=== PATIENT | male | born 1930 | race American Indian/Alaskan Native ===

== ENCOUNTER 2016-04-23 06:48 | Inpatient (IN) | payer MEDICARE ==
[2016-04-23] MEDS ORDERED: SODIUM CHLORIDE FLUSH SYRINGE 10 ML IV NR (07:00)
[2016-04-23 08:00] LABS: Basophils % (Auto) 0.2 % (0.0-1.8); Eosinophils % (Auto) 0.1 % (0.0-4.3); Hematocrit 25.7 % (35.5-45.6); Hemoglobin 8.2 gm/dl (11.8-15.2); Mean Corpuscular HGB Conc 32 % (32-34); Mean Corpuscular Hemoglobin 29 pg (28-32); Mean Corpuscular Volume 91 fl (84-94); Platelet Count 259 K/mm3 (140-440); Red Blood Count 2.81 M/mm3 (3.65-5.03); Red Cell Distribution Width 18.7 % (13.2-15.2); White Blood Count 18.7 K/mm3 (4.5-11.0)
[2016-04-23 08:08] LABS: INR 1.33 (0.87-1.13)
[2016-04-23 08:09] LABS: Calcium 8.4 mg/dL (8.4-10.2); Chloride 99.8 mmol/L (98-107); Partial Thromboplastin Time 37.5 Sec. (24.2-36.6); Potassium 5.3 mmol/L (3.6-5.0)
[2016-04-23] MEDS ORDERED: HEPARIN/NS 5000 UNIT/500ML(CATH LAB) 0 ML IR ONE (08:36)
[2016-04-23] MEDS ORDERED: LEVAQUIN 500MG/100ML 100 ML IV ONE (08:36)
[2016-04-23] MEDS ORDERED: XYLOCAINE 1%/ EPI 1:100,000 INFILTRATI ONE (08:36)
[2016-04-23] MEDS ORDERED: NACL 0.9% 500 ML 500 ML ONE (08:38)
[2016-04-23] MEDS ORDERED: NACL 0.9% 500 ML IR ONE (08:55)
[2016-04-23] MEDS ORDERED: NACL 0.9% 500 ML 500 ML IV SCH (09:00)
[2016-04-23] MEDS: SUBLIMAZE ONE ×3 (09:15→09:40)
[2016-04-23] MEDS: VERSED ONE ×2 (09:15→09:40)
--- NOTE | 2016-04-23 09:59 | Short Stay Summary ---
Short Stay Documentation Date of service: 04/23/16 - History Principal diagnosis: Malfunctioning right nephrostomy tube Past Medical History: cancer (prostate), ESRD Past Surgical History: Other (bilateral neph tubes) Social history: no significant social history - Allergies and Medications Current Medications: Allergies No Known Allergies Allergy (Verified 01/17/16 13:24) Home Medications Medication Instructions Recorded Confirmed Last Taken Type Docusate Sodium [Colace CAP] 100 mg PO BID #60 capsule 11/05/15 04/23/16 Rx Abiraterone Acetate [Zytiga] 1,000 mg PO QDAY 12/17/15 04/23/16 04/22/16 History 1000mg Sodium Bicarbonate 1,300 mg PO BID #60 tablet 12/29/15 04/23/16 04/22/16 Rx 1300mg Zolpidem [Ambien] 5 mg PO QHS PRN #30 tablet 12/29/15 04/23/16 04/22/16 Rx 5mg Tamsulosin [Flomax] 0.8 mg PO QHS 01/18/16 04/23/16 04/22/16 History 0.8mg HYDROcodone/APAP 10-325 [[place] 1 each PO Q6HR PRN #24 tablet 02/10/16 04/23/16 03/13/16 Rx 10/325] Calcitriol [Rocaltrol] 0.5 mcg PO QDAY capsule 03/03/16 04/23/16 04/22/16 Rx 0.5mcg Calcium Carbonate [Oscal] 1,300 mg PO BID tablet 03/03/16 04/23/16 04/22/16 Rx 1300mg Carvedilol [Coreg] 3.125 mg PO DAILY #30 tablet 03/03/16 04/23/16 04/22/16 Rx 3.125mg Megestrol [Megace] 400 mg PO QDAY #60 oral.liqd 03/03/16 04/23/16 04/22/16 Rx 400mg Pantoprazole [Protonix TAB] 40 mg PO QDAY #30 tablet 03/03/16 04/23/16 04/22/16 Rx 40mg fentaNYL [Duragesic] 75 mcg TD Q3D #10 patch 03/03/16 04/23/16 04/22/16 Rx 75mcg predniSONE [Deltasone] 5 mg PO QDAY tablet 03/03/16 04/23/16 04/22/16 Rx 5mg Active Medications Sodium Chloride (Nacl 0.9% 500 Ml) 500 mls @ 50 mls/hr IV DIRECT [facility]ARMIS Sodium Chloride (Sodium Chloride Flush Syringe 10 Ml) 10 ml IV PRN NR Stop: 04/25/16 06:59 - Physical exam General appearance: no acute distress HEENT: Atraumatic Lungs: Normal air movement Breasts: deferred Heart: Regular rate Gastrointestinal: normal Male Genitourinary: deferred Rectal Exam: deferred Extremities: no ischemia Neurological: Normal speech - Brief post op/procedure progress note Date of procedure: 04/23/16 Pre-op diagnosis: Malfunctioning nephrostomy tube Post-op diagnosis: same Procedure: Left neph tube exchange, right neph tube placement Anesthesia: local Surgeon: JOSELINE STOKES Estimated blood loss: minimal Specimen disposition: to lab Condition: stable - Disposition Condition at discharge: Good Disposition: DC/TX SHORT-TERM GEN HOSP INPT Short Stay Discharge Plan Activity: advance as tolerated Weight Bearing Status: Weight Bear as Tolerated Diet: regular Wound: keep clean and dry, per your surgeon's advice
--- NOTE | 2016-04-23 10:06 | Operative Report ---
Operative Report Operative Report: EXAM: EXAM: LEFT SIDED NEPHROSTOMY TUBE EXCHANGE, ULTRASOUND AND FLUOROSCOPIC GUIDED PLACEMENT OF RIGHT SIDED NEPHROSTOMY TUBE CLINICAL INDICATION: PATIENT PRESENTS WITH A HISTORY OF DECREASED OUTPUT OF HIS RIGHT NEPHROSTOMY TUBE. DATE: 04/23/2016 PROCEDURE: Following an explanation of the risks, benefits and alternatives; written informed consent was obtained. The patient was brought to the angiographic suite and placed in prone position on the examination table. His back and bilateral indwelling nephrostomy tubes were prepped and draped in the usual sterile fashion. 1% lidocaine was used for anesthesia. Left: A gentle injection of contrast was performed through the indwelling left sided nephrostomy tube. This demonstrates retraction of the nephrostomy tube into a posterior inferior calyx. There is continuity between this calyx and the renal pelvis and the kidney is decompressed. The catheter was cut to release the pigtail and a 0.035 guidewire was advanced through the catheter and manipulated into the renal pelvis. The indwelling nephrostomy tube was then removed intact. A 4 [place] vertebral catheter was placed over the guidewire and together the guidewire and catheter advanced into the proximal ureter. The guidewire was exchanged for a 0.035 [place] guidewire which was advanced into the proximal ureter. A new 20 [place] pigtail nephrostomy tube was then placed over the guidewire and advanced to position the pigtail within the renal pelvis. The guidewire and trocar were removed. Gentle injection of contrast devastated appropriate positioning of the pigtail within the renal pelvis. The kidney remains decompressed. Right: Initial fluoroscopic images demonstrated retraction of the right sided nephrostomy tube. Gentle injection of contrast through the indwelling right sided nephrostomy tube demonstrated that his it has been pulled out entirely from the kidney. Attempts to cannulate the tract using a 4 [place] vertebral catheter and 0.035 guidewire were unsuccessful, therefore a decision was made to place a new nephrostomy tube. Under ultrasound guidance, a 15 cm 21-gauge needle was advanced into a posterior medial calyx in the right kidney. A 0.018 guidewire was advanced and coiled within the renal pelvis. An AccuStick transition dilator was then placed over the guidewire and advanced to the renal pelvis. Contrast was gently injected through the transition dilator which demonstrated appropriate positioning and access site. A 0.035 guidewire was then advanced through the transition dilator into the proximal ureter. The transition dilator was removed and a 4 [place] vertebral catheter was used to further advance the guidewire into the distal ureter. Following serial dilation, a 10 [place] nephrostomy tube was placed over the guidewire and advanced to position the pigtail within the renal pelvis. There was prompt return of purulent serous fluid. A sample was obtained and sent for laboratory analysis. A gentle injection of contrast was then performed to document appropriate positioning of the pigtail within the renal pelvis and an additional 30 mL's of purulent fluid was aspirated gently. Both catheters were securely fastened of the skin surface using 2-0 Ethilon suture and placed a dependent drainage. Sterile dressings were then applied. The patient tolerated the procedure well. There were no immediate post procedure complications. Conscious sedation was performed under the guidance of radiologic nursing. The operative antibiotics were also given. IMPRESSION: 1) Fluoroscopic guided left nephrostogram demonstrating decompressed left kidney with retraction of the left nephrostomy tube. 2) Exchange of left nephrostomy tube under fluoroscopy. 3) Right nephrostogram through indwelling nephrostomy tube demonstrating traction of the nephrostomy tube outside the kidney. 4) Ultrasound and fluoroscopic guided placement of new right 10 [place] nephrostomy tube with sample of purulent urine sent for laboratory analysis. 5) Given the patient's elevated white count and the presence of purulent fluid within his right kidney, the patient was admitted to the hospital for further evaluation.
[2016-04-23] MEDS ORDERED: ZOFRAN IV PRN (11:17)
[2016-04-23] MEDS ORDERED: DULCOLAX PR PRN (11:17)
[2016-04-23] MEDS ORDERED: MILK OF MAGNESIA PO PRN (11:17)
[2016-04-23] MEDS ORDERED: NACL 0.9% 1000 ML 1,000 ML ONE (11:44)
[2016-04-23] MEDS: NACL 0.9% 1000 ML 1,000 ML IV SCH (11:55)
[2016-04-23] MEDS ORDERED: LEVAQUIN 750MG/150ML 150 ML IV SCH (12:00)
[2016-04-23] MEDS ORDERED: PEPCID IV SCH (12:00)
--- NOTE | 2016-04-23 12:41 | Consultation ---
History of Present Illness - Reason for Consult Consult date: 04/23/16 complicated UTI - History of Present Illness Mr Marit is an 85y/o AA L with a known history of metastatic prostate cancer with bladder obstruction, HTN, CKD, CAD,hx DVT, and anemia. He was seen today for nephrostomy tube exchange with evidence now of right pyonephrosis. The patient is seen for further antibiotic management. Mr Marti is seen in the outpatient procedure unit and is still sedated therefore unable to give a history. He was found today by Dr. Heller to have obvious pus from his right kidney following nephrostomy tube exchange. Both right and left-sided tubes were exchanged today. Present labs include a CBC with white count 18,700, hemoglobin 8.2 and platelet count of 259,000. BUN is 39 with a creatinine of 2.6. Previous 04/01/2016 BUN and creatinine was 26 and 1.7 respectively. The patient has been started on IV Levaquin. Now seen for further ID management. Past History Past Medical History: cancer (prostate), ESRD Past Surgical History: Other (bilateral neph tubes) Social history: no significant social history Medications and Allergies Allergies Allergy/AdvReac Type Severity Reaction Status Date / Time No Known Allergies Allergy Verified 01/17/16 13:24 Home Medications Medication Instructions Recorded Confirmed Last Taken Type Docusate Sodium [Colace CAP] 100 mg PO BID #60 capsule 11/05/15 04/23/16 Rx Abiraterone Acetate [Zytiga] 1,000 mg PO QDAY 12/17/15 04/23/16 04/22/16 History 1000mg Sodium Bicarbonate 1,300 mg PO BID #60 tablet 12/29/15 04/23/16 04/22/16 Rx 1300mg Zolpidem [Ambien] 5 mg PO QHS PRN #30 tablet 12/29/15 04/23/16 04/22/16 Rx 5mg Tamsulosin [Flomax] 0.8 mg PO QHS 01/18/16 04/23/16 04/22/16 History 0.8mg HYDROcodone/APAP 10-325 [[place] 1 each PO Q6HR PRN #24 tablet 02/10/16 04/23/16 03/13/16 Rx 10/325] Calcitriol [Rocaltrol] 0.5 mcg PO QDAY capsule 03/03/16 04/23/16 04/22/16 Rx 0.5mcg Calcium Carbonate [Oscal] 1,300 mg PO BID tablet 03/03/16 04/23/16 04/22/16 Rx 1300mg Carvedilol [Coreg] 3.125 mg PO DAILY #30 tablet 03/03/16 04/23/16 04/22/16 Rx 3.125mg Megestrol [Megace] 400 mg PO QDAY #60 oral.liqd 03/03/16 04/23/16 04/22/16 Rx 400mg Pantoprazole [Protonix TAB] 40 mg PO QDAY #30 tablet 03/03/16 04/23/16 04/22/16 Rx 40mg fentaNYL [Duragesic] 75 mcg TD Q3D #10 patch 03/03/16 04/23/16 04/22/16 Rx 75mcg predniSONE [Deltasone] 5 mg PO QDAY tablet 03/03/16 04/23/16 04/22/16 Rx 5mg Active Meds: Active Medications Acetaminophen (Tylenol) 650 mg PO Q4H PRN PRN Reason: Pain MILD(1-3)/Fever >100.5/CRAIN Acetaminophen/Hydrocodone Bitart ([place] 10/325) 1 each PO Q6HR PRN PRN Reason: Pain Bisacodyl (Dulcolax) 10 mg MD QDAY PRN PRN Reason: Constipation unrelieved by MOM Calcitriol (Rocaltrol) 0.5 mcg PO QDAY [facility] Calcium Carbonate/Glycine (Oscal) 1,300 mg PO BID [facility] Carvedilol (Coreg) 3.125 mg PO DAILY [facility] Docusate Sodium (Colace) 100 mg PO BID [facility] Famotidine (Pepcid) 20 mg IV QDAY [facility] Fentanyl (Duragesic) 75 mcg TD Q3D [facility] Sodium Chloride (Nacl 0.9% 500 Ml) 500 mls @ 50 mls/hr IV DIRECT [place]AM[facility] Sodium Chloride (Nacl 0.9% 1000 Ml) 1,000 mls @ 75 mls/hr IV DIRECT [facility] Last Admin: 04/23/16 11:55 Dose: 75 mls/hr Levofloxacin/Dextrose (Levaquin 500mg/100ml) 100 mls @ 100 mls/hr IV Q48H [facility] PRN Reason: Protocol Magnesium Hydroxide (Milk Of Magnesia) 30 ml PO Q4H PRN PRN Reason: Constipation Megestrol Acetate (Megace) 400 mg PO QDAY [facility] Miscellaneous Medication (Abiraterone Acetate) 1,000 mg PO QDAY [facility] Ondansetron HCl (Zofran) 4 mg IV Q8H PRN PRN Reason: N/V unrelieved by Reglan Pantoprazole Sodium (Protonix) 40 mg PO QDAY [facility] Prednisone (Deltasone) 5 mg PO QDAY [facility] Sodium Bicarbonate (Sodium Bicarbonate) 1,300 mg PO BID [facility] Sodium Chloride (Sodium Chloride Flush Syringe 10 Ml) 10 ml IV PRN NR Stop: 04/25/16 06:59 Tamsulosin HCl (Flomax) 0.8 mg PO QHS [facility] Zolpidem Tartrate (Ambien) 5 mg PO QHS PRN PRN Reason: Insomnia Review of Systems ROS unobtainable: due to mental status Physical Examination - Physical Exam Narrative exam: Chronically ill-appearing. Wakes to voice. HEENT: Pupils are equal reactive to light and accommodation. Bilateral arcus. Conjunctiva clear. Oropharynx is not well seen. NECK: Supple. No enlargement of the thyroid gland. No significant cervical lymphadenopathy. No jugular venous distention at 30. LUNGS: Poor respiratory effort. No obvious rales. HEART: Regular rate. S1 and S2 are normal. There are no murmurs, gallops, clicks or rubs heard. ABDOMEN: Soft and nontender. Liver and spleen are not palpably enlarged or tender. No palpable masses. Bowel sounds are active. BACK: Nephrostomy tube dressings not removed. EXTREMITIES: No rash, peripheral lymphadenopathy, clubbing or edema. SKIN: No other rash, ulcers or wounds. NEUROLOGIC: Lethargic.? Left-sided weakness. - Constitutional Vitals: Vital Signs Temp Pulse Resp BP Pulse Ox 98 F 92 H 16 102/53 100 04/23/16 10:20 04/23/16 12:30 04/23/16 12:30 04/23/16 12:30 04/23/16 12:30 Temperature -Last 24 Hours Temperature 98 F Temperature 98.1 F Results - Labs CBC & Chem 7: 04/23/16 07:52 04/23/16 07:52 Labs: Abnormal lab results 04/23/16 04/23/16 04/23/16 Range/Units 07:52 07:52 07:52 WBC 18.7 H (4.5-11.0) K/mm3 RBC 2.81 L (3.65-5.03) M/mm3 Hgb 8.2 L (11.8-15.2) gm/dl Hct 25.7 L (35.5-45.6) % RDW 18.7 H (13.2-15.2) % Lymph % (Auto) 5.1 L (13.4-35.0) % Lymph # 1.0 L (1.2-5.4) K/mm3 [place] # 1.3 H (0.0-0.8) K/mm3 Seg Neutrophils % 87.5 H (40.0-70.0) % Seg Neutrophils # 16.3 H (1.8-7.7) K/mm3 PT 16.4 H (12.2-14.9) Sec. INR 1.33 H (0.87-1.13) APTT 37.5 H (24.2-36.6) Sec. Sodium 134 L (137-145) mmol/L Potassium 5.3 H (3.6-5.0) mmol/L Carbon Dioxide 18 L (22-30) mmol/L BUN 39 H (9-20) mg/dL Creatinine 2.6 H (0.8-1.5) mg/dL Glucose 105 H (75-100) mg/dL Assessment and Plan Assessment: Mr Marti is an 85y/o AA L with a known history of metastatic prostate cancer with bladder obstruction, HTN, CKD, CAD,hx DVT, and anemia. He was seen today for nephrostomy tube exchange with evidence now of right pyonephrosis. The patient is seen for further antibiotic management. Antibiotics: Vancomycin IV ( 04/23 -> Cefepime 1 g IV every 12 hours ( 04/23- > s/p Levaquin 750 mg IV - 04/23 Immunosuppressants: Prednisone 5 mg by mouth daily Conclusions: 1. Complicated UTI with probable right sided pyonephrosis - Hx of recurrent UTIs - Metastatic prostate cancer with bladder mass and chronic indwelling bilateral nephrostomy tubes 2. Leukocytosis secondary to above 3. CKD/r/o LORENZO 4. Anemia secondary to chronic disease 5. HTN 6. CAD 7. Hx DVT Recommendations: - Await blood and urine cultures - Tx empirically with IV cefepime and vancomycin with dosing adjusted for renal insufficiency. Levaquin is stopped. - Suggest renal ultrasound - Follow serial CBC - Medical management as per [facility] - Continue supportive therapies
[2016-04-23] MEDS ORDERED: VANCOMYCIN/NS 1 GM/250 ML 250 ML IV ONE ×2 (12:54→16:06)
[2016-04-23 12:55] LABS: Bilirubin,Urine NEG (Negative); Blood,Urine LG (Negative); Ketones,Urine NEG (Negative); Leukocyte Esterase,Urine MOD (Negative); Nitrite,Urine POS (Negative); Urobilinogen,Urine < 2.0 mg/dL (<2.0)
[2016-04-23 12:58] LABS: RBC,Urine > 182.0 /HPF (0.0-6.0); WBC,Urine > 182.0 /HPF (0.0-6.0)
--- NOTE | 2016-04-23 13:46 | History and Physical Report ---
History of Present Illness Date of examination: 04/23/16 Date of admission: 04/23/16 11:17 Chief complaint: Nephrostomy tube as changed now with purulent drainage History of present illness: Patient is a 85-year-old male with history of metastatic prostate cancer, bladder mass, bilateral nephrostomy tubes, hypertension, CAD, CAD, history of DVT who presents to the hospital for exchange of nephrostomy tube and during procedure patient was noted to have had the right side nephrostomy tube completely out and with purulent drainage and were requested to admit patient for further evaluation. I did discuss with the family patient is very dated from procedure they report that he has been gradually declining for the last 2 weeks has not been ambulatory. They report that he does have some good days. They deny any fever at home. They deny Nausea, vomiting, diarrhea, chest pain and feet are shortness of breath. Constitutional: Generalized weakness but No fever, fatigue or weight loss. Skin: No rash. Eyes: No recent vision problems or eye pain. ENT: No congestion, ear pain, or sore throat. Endocrine: No thyroid problems. Cardiovascular: No chest pain. Respiratory: No cough, shortness of breath, congestion, or wheezing. Gastrointestinal: No abdominal pain, nausea, vomiting, or diarrhea. Genitourinary: No dysuria. Musculoskeletal: No joint swelling. Neurologic: No seizures. Hematologic: No unusual bruising or bleeding. Psychiatric: No psychiatric problems, hallucinations or depression. All other systems reviewed and otherwise negative. Past History Past Medical History: acute IA (1986), cancer (prostate), ESRD Past Surgical History: Other (bilateral neph tubes) Social history: no significant social history, smoking (quit smoking years ago) , full code Family history: no significant family history Medications and Allergies Allergies Allergy/AdvReac Type Severity Reaction Status Date / Time No Known Allergies Allergy Verified 01/17/16 13:24 Home Medications Medication Instructions Recorded Confirmed Last Taken Type Docusate Sodium [Colace CAP] 100 mg PO BID #60 capsule 11/05/15 04/23/16 Rx Abiraterone Acetate [Zytiga] 1,000 mg PO QDAY 12/17/15 04/23/16 04/22/16 History 1000mg Sodium Bicarbonate 1,300 mg PO BID #60 tablet 12/29/15 04/23/16 04/22/16 Rx 1300mg Zolpidem [Ambien] 5 mg PO QHS PRN #30 tablet 12/29/15 04/23/16 04/22/16 Rx 5mg Tamsulosin [Flomax] 0.8 mg PO QHS 01/18/16 04/23/16 04/22/16 History 0.8mg HYDROcodone/APAP 10-325 [Comins 1 each PO Q6HR PRN #24 tablet 02/10/16 04/23/16 03/13/16 Rx 10/325] Calcitriol [Rocaltrol] 0.5 mcg PO QDAY capsule 03/03/16 04/23/16 04/22/16 Rx 0.5mcg Calcium Carbonate [Oscal] 1,300 mg PO BID tablet 03/03/16 04/23/16 04/22/16 Rx 1300mg Carvedilol [Coreg] 3.125 mg PO DAILY #30 tablet 03/03/16 04/23/16 04/22/16 Rx 3.125mg Megestrol [Megace] 400 mg PO QDAY #60 oral.liqd 03/03/16 04/23/16 04/22/16 Rx 400mg Pantoprazole [Protonix TAB] 40 mg PO QDAY #30 tablet 03/03/16 04/23/16 04/22/16 Rx 40mg fentaNYL [Duragesic] 75 mcg TD Q3D #10 patch 03/03/16 04/23/16 04/22/16 Rx 75mcg predniSONE [Deltasone] 5 mg PO QDAY tablet 03/03/16 04/23/16 04/22/16 Rx 5mg Active Meds: Active Medications Acetaminophen (Tylenol) 650 mg PO Q4H PRN PRN Reason: Pain MILD(1-3)/Fever >100.5/CRAIN Acetaminophen/Hydrocodone Bitart (Comins 10/325) 1 each PO Q6HR PRN PRN Reason: Pain Bisacodyl (Dulcolax) 10 mg IN QDAY PRN PRN Reason: Constipation unrelieved by MOM Calcitriol (Rocaltrol) 0.5 mcg PO QDAY [facility] Calcium Carbonate/Glycine (Oscal) 1,300 mg PO BID [facility] Carvedilol (Coreg) 3.125 mg PO DAILY [facility] Docusate Sodium (Colace) 100 mg PO BID [facility] Famotidine (Pepcid) 20 mg IV QDAY [facility] Fentanyl (Duragesic) 75 mcg TD Q3D [facility] Sodium Chloride (Nacl 0.9% 500 Ml) 500 mls @ 50 mls/hr IV DIRECT [facility] Sodium Chloride (Nacl 0.9% 1000 Ml) 1,000 mls @ 75 mls/hr IV DIRECT [facility] Last Admin: 04/23/16 11:55 Dose: 75 mls/hr Cefepime HCl (Maxipime/Ns 1 Gm/100 Ml) 100 mls @ 100 mls/30 min IV Q12HR [facility] PRN Reason: Protocol Vancomycin HCl (Vancomycin/Ns 1 Gm/250 Ml) 250 mls @ 167 mls/hr IV ONCE ONE PRN Reason: Protocol Stop: 04/23/16 14:23 Magnesium Hydroxide (Milk Of Magnesia) 30 ml PO Q4H PRN PRN Reason: Constipation Megestrol Acetate (Megace) 400 mg PO QDAY [facility] Miscellaneous Medication (Abiraterone Acetate) 1,000 mg PO QDAY [facility] Ondansetron HCl (Zofran) 4 mg IV Q8H PRN PRN Reason: N/V unrelieved by Reglan Pantoprazole Sodium (Protonix) 40 mg PO QDAY [facility] Prednisone (Deltasone) 5 mg PO QDAY [facility] Sodium Bicarbonate (Sodium Bicarbonate) 1,300 mg PO BID [facility] Sodium Chloride (Sodium Chloride Flush Syringe 10 Ml) 10 ml IV PRN NR Stop: 04/25/16 06:59 Tamsulosin HCl (Flomax) 0.8 mg PO QHS [facility] Zolpidem Tartrate (Ambien) 5 mg PO QHS PRN PRN Reason: Insomnia Exam - Physical Exam Narrative exam: VITAL SIGNS: Reviewed. GENERAL: The patient appeared cachectic, lethargic. Vital signs as documented. HEAD: No signs of head trauma. EYES: Pupils are equal. Extraocular motions intact. EARS: Hearing grossly intact. MOUTH: Oropharynx is normal. NECK: No adenopathy, no JVD. CHEST: Chest with clear breath sounds bilaterally. No wheezes, rales, or rhonchi. CARDIAC: Regular rate and rhythm. S1 and S2, without murmurs, gallops, or rubs. VASCULAR: No Edema. Peripheral pulses normal and equal in all extremities. ABDOMEN: Soft, without detectable tenderness. No sign of distention. No rebound or guarding, and no masses palpated. Bowel Sounds normal. MUSCULOSKELETAL: Good range of motion of all major joints. Extremities without clubbing, cyanosis or edema. NEUROLOGIC EXAM: Lethargic likely from sedative effects otherwise oriented to person place and time, , gait not assessed No focal sensory or strength deficits. Speech normal. Follows commands. PSYCHIATRIC: Mood normal. SKIN: Bilateral nephrostomy tubes. - Constitutional Vitals: Temp Pulse Resp BP Pulse Ox 98 F 93 H 16 96/51 100 04/23/16 10:20 04/23/16 13:00 04/23/16 13:00 04/23/16 13:00 04/23/16 13:00 Results - Labs CBC & Chem 7: 04/23/16 07:52 04/23/16 07:52 Labs: Laboratory Last Values WBC 18.7 K/mm3 (4.5-11.0) H 04/23/16 07:52 RBC 2.81 M/mm3 (3.65-5.03) L 04/23/16 07:52 Hgb 8.2 gm/dl (11.8-15.2) L 04/23/16 07:52 Hct 25.7 % (35.5-45.6) L 04/23/16 07:52 MCV 91 fl (84-94) 04/23/16 07:52 MCH 29 pg (28-32) 04/23/16 07:52 MCHC 32 % (32-34) 04/23/16 07:52 RDW 18.7 % (13.2-15.2) H 04/23/16 07:52 Plt Count 259 K/mm3 (140-440) 04/23/16 07:52 Lymph % (Auto) 5.1 % (13.4-35.0) L 04/23/16 07:52 [place] % (Auto) 7.1 % (0.0-7.3) 04/23/16 07:52 Eos % (Auto) 0.1 % (0.0-4.3) 04/23/16 07:52 Baso % (Auto) 0.2 % (0.0-1.8) 04/23/16 07:52 Lymph # 1.0 K/mm3 (1.2-5.4) L 04/23/16 07:52 [place] # 1.3 K/mm3 (0.0-0.8) H 04/23/16 07:52 Eos # 0.0 K/mm3 (0.0-0.4) 04/23/16 07:52 Baso # 0.0 K/mm3 (0.0-0.1) 04/23/16 07:52 Seg Neutrophils % 87.5 % (40.0-70.0) H 04/23/16 07:52 Seg Neutrophils # 16.3 K/mm3 (1.8-7.7) H 04/23/16 07:52 PT 16.4 Sec. (12.2-14.9) H 04/23/16 07:52 INR 1.33 (0.87-1.13) H 04/23/16 07:52 APTT 37.5 Sec. (24.2-36.6) H 04/23/16 07:52 Sodium 134 mmol/L (137-145) L 04/23/16 07:52 Potassium 5.3 mmol/L (3.6-5.0) H 04/23/16 07:52 Chloride 99.8 mmol/L (98-107) 04/23/16 07:52 Carbon Dioxide 18 mmol/L (22-30) L 04/23/16 07:52 Anion Gap 22 mmol/L 04/23/16 07:52 BUN 39 mg/dL (9-20) H 04/23/16 07:52 Creatinine 2.6 mg/dL (0.8-1.5) H 04/23/16 07:52 Estimated GFR 29 ml/min 04/23/16 07:52 BUN/Creatinine Ratio 15.00 % 04/23/16 07:52 Glucose 105 mg/dL (75-100) H 04/23/16 07:52 Calcium 8.4 mg/dL (8.4-10.2) 04/23/16 07:52 Urine Color Red (Yellow) 04/23/16 12:30 Urine Turbidity Turbid (Clear) 04/23/16 12:30 Urine pH 7.0 (5.0-7.0) 04/23/16 12:30 Ur Specific [place] 1.021 (1.003-1.030) 04/23/16 12:30 Urine Protein 100 mg/dl mg/dL (Negative) 04/23/16 12:30 Urine Glucose (UA) Neg mg/dL (Negative) 04/23/16 12:30 Urine Ketones Neg mg/dL (Negative) 04/23/16 12:30 Urine Blood Lg (Negative) 04/23/16 12:30 Urine Nitrite Pos (Negative) 04/23/16 12:30 Urine Bilirubin Neg (Negative) 04/23/16 12:30 Urine Urobilinogen < 2.0 mg/dL (<2.0) 04/23/16 12:30 Ur Leukocyte Esterase Mod (Negative) 04/23/16 12:30 Urine WBC (Auto) > 182.0 /HPF (0.0-6.0) H 04/23/16 12:30 Urine RBC (Auto) > 182.0 /HPF (0.0-6.0) 04/23/16 12:30 Urine WBC Clumps 3+ /HPF 04/23/16 12:30 Microbiology 04/23/16 Unknown Kidney Surgical Culture - Preliminary - Imaging and Cardiology US - abdomen: pending Assessment and Plan Assessment and plan: Patient is a 85-year-old male with history of metastatic prostate cancer, bladder mass, bilateral nephrostomy tubes, hypertension, CAD, CAD, history of DVT who presents to the hospital for exchange of nephrostomy tube and during procedure patient was noted to have had the right side nephrostomy tube completely out and with purulent drainage and were requested to admit patient for further evaluation. I did discuss with the family patient is very dated from procedure they report that he has been gradually declining for the last 2 weeks has not been ambulatory. They report that he does have some good days. They deny any fever at home. They deny Nausea, vomiting, diarrhea, chest pain and feet are shortness of breath. * Sepsis likely secondary to complicated urinary tract infection * Rule out pyelonephritis * Status post bilateral indwelling chronic nephrostomy tubes * Acute kidney injury on chronic kidney disease likely secondary to vasomotor nephropathy * Leukocytosis likely secondary to above * Metastatic prostate cancer * Anemia of chronic disease * Hypertension * CAD * Severe protein calorie malnutrition * Metabolic acidosis secondary to renal failure * Hypotension Plan * We'll admit patient to medical surgical floor was thought patient on empiric antibiotic coverage would Levaquin * Consult infectious disease for possible brother coverage * Follow cultures that has been central surgical units we'll also send a urine culture and blood cultures * We'll start patient on gentle hydration and monitor renal function for improvement patient's creatinine baseline is 1.4 * Hemoglobin baseline is around 9 we'll monitor closely * Continue home medication once med rec is completed * Nutrition consult * Resume CANCER drug * If no improvement in metabolic acidosis with resolution of renal function while added by * DVT and GI prophylaxis * Discussed in detail with Dr. bales of infectious diseases and also with the patient's family Advance Directives: Yes Plan of care discussed with patient/family: Yes
[2016-04-23] MEDS: DURAGESIC TD SCH (17:07)
--- NOTE | 2016-04-23 21:37 | Admit Criteria Form ---
Admission Criteria Documentation: UROLOGIC DISEASE [facility] Clinical Indications for Admission to Inpatient Care (Place ' X' for any and all applicable criteria): Hospital admission is needed for appropriate care of the patient because of ANY ONE of the following: [ ]I. New-onset Reduced urine output, or hydronephrosis remaining after emergency or observation level care indicated by ANY ONE the following (1)(2) [ ]a) Urine output less than 0.5 mL/kg/hour for 6 hours in adult [ ]b) Anuria (urine output less than 0.1 mL/kg/hour) for 4 hours in any age group [ ]c) Reduced output in child as indicated by ANY ONE of the following (3) [ ]i) Urine output less than 2 mL/kg/hour for 6 hours in younger than 2 [ ]ii) Urine output less than 1 mL/kg/hour for 6 hours in child younger than 12 years [ ]iii) Urine output less than 0.75 mL/kg/hour for 6 hours in adolescent younger than 18 years [ ]II. Acute urinary retention requiring inpatient management as indicated by ANY ONE of the following(1)(13): [ ]a) Hemodynamic instability remaining after emergency or observation level care (as appropriate) [ ]b) Retention cannot be alleviated via emergency or observation level care (eg, urinary catheter placement) [ ]c) Acute neurologic etiology (eg, cauda equina) [ ]d) Dehydration or other complications not manageable with emergency or observation level care [ ]e) Acute kidney injury (that does not qualify as Acute renal failure ) requiring inpatient care indicated by ALL of the following(5)(6)(7)(8) (9): [ ]i) Acute kidney injury indicated by ANY ONE of the following: [ ]1) 2-fold or more rise in serum creatinine from baseline [ ]2) Reduction of more than 50% in estimated glomerular filtration rate from baseline [ ]3) Urine output less than 0.5 mL/kg/hr for 12 hours despite adequate volume status [ ]ii) Worsening clinical status (eg, rising creatinine) despite outpatient and observation care treatment (eg, hydration) [ ]III. Gross hematuria requiring inpatient management as indicated by ANY ONE of the following(1)(2): [ ]a) Evidence of renal obstruction [ ]b) Reduced urine output (eg urine output <0.5mL/kg per hr over 6 hrs) [ ]c) Clot retention after urinary catheterization and irrigation [ ]d) Anemia [ ]e) Systemic cause needing inpatient treatment (eg, Goodpasture syndrome) [ X]IV. Urologic infection requiring inpatient care as indicated by ANY ONE of the following(10)(11)(12): [ ]a) Dehydration that is severe or persistent [ ]b) Hemodynamic instability [ ]c) Failure of, or inability to tolerate, outpatient treatment regimen [ ]d) Increased creatinine without known prior cause [X ]e) Known renal or urologic abnormalities (eg, indwelling catheter , structural abnormalities) [ ]f) Recent urologic manipulation [ ]g) Urinary obstruction [ ]h) Immunocompromised state [ ]V. Renal disease needing inpatient care (eg, nephritis, nephrosis) as indicated by ANY ONE of the following(2)(3)(4): [ ]a) Systemic cause (eg, Goodpasture syndrome) needing inpatient care (5) [ ]b) Rapidly progressive disease needing inpatient care (eg, plasmapheresis, immunosuppression)(6) [ ]c) Hemoptysis [ ]d) Hemolysis or thrombosis [ ]e) Anasarca needing inpatient care [ ]f) Hemolytic uremic syndrome(7)(8) [ ]g) Acute renal failure [ ]h) Significant uremic complications as indicated by ANY ONE of the following(1)(2)(3): [ ]i) Outpatient therapy is ineffective or not feasible for ANY ONE of the following: [ ]1) Severe heart failure [ ]2) Severe hypertension [ ]3) Pleural effusion [ ]4) Pericarditis or pericardial effusion [ ]ii) Cardiac arrhythmias of immediate concern [ ]iii) Recurrent seizures [ ]iv) Bleeding abnormalities (eg, platelet dysfunction) with active (eg, gastrointestinal) bleeding [ ]v) Dialysis indicated before long-term access or ambulatory arrangements can be made [ ]vi) Significant metabolic or electrolyte abnormalities (eg , severe acidosis or hyperkalemia) [ ]vii) Intractable nausea or vomiting [ ]viii) Encephalopathy [ ]. New-onset oliguria, anuria, or hydronephrosis not responsive to emergency and observation care treatment (as appropriate)(1) [ ]VII. Trauma to renal, genital, or urologic system requiring inpatient medical care(14)(15)(16)(17) [ ]VIII.Scrotal, testicular, or epididymal disorder requiring inpatient care indicated by ANY ONE of the following(1)(14)(15)(16): [ ]a) Scrotal edema or infection not manageable with emergency or observation level care [ ]b) Orchitis not manageable with emergency or observation level care [ ]c) Epididymitis not manageable with emergency or observation level of care [ ]d) Other scrotal, testicular, or epididymal disorder (eg, infection, inflammation) not manageable with emergency or observation level care [ ]IX. Urologic Disease and ALL of the following: [ ]a) Symptom or finding for which emergency and observation care have failed or are not considered appropriate (Use General Criteria: Observation Care as appropriate) [ ]b) Presence of ANY ONE of the following: [ ]i) A General Admission Criteria [ ]ii) A Pediatric General Admission Criteria The original [facility] content created by [facility] has been revised. The portions of the content which have been revised are identified through the use of italic text or in bold, and [facility] has neither reviewed nor approved the modified material. All other unmodified content is copyright [facility]. Please see references footnoted in the original [facility] edition 2016 Admission Criteria Met: Yes
[2016-04-23] MEDS: MAXIPIME/NS 1 GM/100 ML 100 ML IV SCH (22:14)
[2016-04-23] MEDS: COLACE PO SCH (22:31)
[2016-04-23] MEDS: FLOMAX PO SCH (22:31)
[2016-04-23] MEDS: SODIUM BICARBONATE PO SCH (22:32)
[2016-04-23] MEDS: OSCAL PO SCH (22:32)
[2016-04-24] MEDS: NACL 0.9% 1000 ML 1,000 ML IV SCH ×2 (03:14→17:25)
[2016-04-24 06:11] LABS: Basophils % (Auto) 0.2 % (0.0-1.8); Eosinophils % (Auto) 0.1 % (0.0-4.3); Hematocrit 22.6 % (35.5-45.6); Hemoglobin 7.4 gm/dl (11.8-15.2); Mean Corpuscular HGB Conc 33 % (32-34); Mean Corpuscular Hemoglobin 29 pg (28-32); Mean Corpuscular Volume 89 fl (84-94); Platelet Count 216 K/mm3 (140-440); Red Blood Count 2.52 M/mm3 (3.65-5.03); Red Cell Distribution Width 18.2 % (13.2-15.2); White Blood Count 16.7 K/mm3 (4.5-11.0)
[2016-04-24 06:27] LABS: Albumin 2.5 g/dL (3.9-5); Albumin/Globulin Ratio 0.7 %; BUN/Creatinine Ratio 15.18; Bilirubin,Total 0.3 mg/dL (0.1-1.2); Calcium 7.7 mg/dL (8.4-10.2); Potassium 4.9 mmol/L (3.6-5.0); Total Protein 6.1 g/dL (6.3-8.2)
--- NOTE | 2016-04-24 10:02 | Progress Note ---
Assessment and Plan Assessment: Mr Marti is an 85y/o AA L with a known history of metastatic prostate cancer with bladder obstruction, HTN, CKD, CAD,hx DVT, and anemia. He was seen today for nephrostomy tube exchange with evidence now of right pyonephrosis. The patient is seen for further antibiotic management. Antibiotics: Vancomycin IV ( 04/23 -> Cefepime 1 g IV every 12 hours ( 04/23- > s/p Levaquin 750 mg IV - 04/23 Immunosuppressants: Prednisone 5 mg by mouth daily Conclusions: 1. Complicated UTI with probable right sided pyonephrosis - Hx of recurrent UTIs - Metastatic prostate cancer with bladder mass and chronic indwelling bilateral nephrostomy tubes 2. Leukocytosis secondary to above 3. CKD/r/o LORENZO 4. Anemia secondary to chronic disease 5. HTN 6. CAD 7. Hx DVT Recommendations: - Await blood and urine cultures - Continue IV cefepime and vancomycin with dosing adjusted for renal insufficiency. - Await bilateral renal ultrasound - Follow serial CBC - Medical management as per [facility] - Continue supportive therapies Subjective Date of service: 04/24/16 Principal diagnosis: Malfunctioning right nephrostomy tube Interval history: Very alert. Denies back pain at sites of nephrostomy tubes. Objective - Exam Narrative Exam: Chronically ill-appearing. Converses normally. HEENT: Pupils are equal reactive to light and accommodation. Bilateral arcus. Conjunctiva clear. Oropharynx is not well seen. NECK: Supple. No enlargement of the thyroid gland. No significant cervical lymphadenopathy. No jugular venous distention at 30. LUNGS: Anterior breath sounds clear. HEART: Regular rate. S1 and S2 are normal. There are no murmurs, gallops, clicks or rubs heard. ABDOMEN: Soft and nontender. Liver and spleen are not palpably enlarged or tender. No palpable masses. Bowel sounds are active. BACK: Nephrostomy tube dressings not removed. EXTREMITIES: No rash, peripheral lymphadenopathy, clubbing or edema. SKIN: No other rash, ulcers or wounds. NEUROLOGIC: Awake and alert. Moves all extremities. - Constitutional Vitals: Vital Signs Temp Pulse Resp BP Pulse Ox 98.7 F 89 16 120/58 93 04/24/16 07:35 04/24/16 07:35 04/24/16 07:35 04/24/16 07:35 04/24/16 08:38 Temperature -Last 24 Hours Temperature 98.7 F Temperature 98.0 F Temperature 98.4 F Temperature 100.2 F Temperature 100.2 F Temperature 98 F - Labs CBC & Chem 7: 04/24/16 05:37 04/24/16 05:37 Labs: Abnormal lab results 04/23/16 04/23/16 04/23/16 Range/Units 12:30 15:35 20:40 WBC (4.5-11.0) K/mm3 RBC (3.65-5.03) M/mm3 Hgb (11.8-15.2) gm/dl Hct (35.5-45.6) % RDW (13.2-15.2) % Lymph % (Auto) (13.4-35.0) % Lymph # (1.2-5.4) K/mm3 [place] # (0.0-0.8) K/mm3 Seg Neutrophils % (40.0-70.0) % Seg Neutrophils # (1.8-7.7) K/mm3 Sodium (137-145) mmol/L Carbon Dioxide (22-30) mmol/L BUN (9-20) mg/dL Creatinine (0.8-1.5) mg/dL Lactic Acid 4.3 H* 3.3 H* (0.7-2.0) mmol/L Calcium (8.4-10.2) mg/dL ALT (7-56) units/L Alkaline Phosphatase (35-129) units/L Total Protein (6.3-8.2) g/dL Albumin (3.9-5) g/dL Urine WBC (Auto) > 182.0 H (0.0-6.0) /HPF 04/24/16 04/24/16 Range/Units 05:37 05:37 WBC 16.7 H (4.5-11.0) K/mm3 RBC 2.52 L (3.65-5.03) M/mm3 Hgb 7.4 L (11.8-15.2) gm/dl Hct 22.6 L (35.5-45.6) % RDW 18.2 H (13.2-15.2) % Lymph % (Auto) 5.8 L (13.4-35.0) % Lymph # 1.0 L (1.2-5.4) K/mm3 [place] # 1.0 H (0.0-0.8) K/mm3 Seg Neutrophils % 87.9 H (40.0-70.0) % Seg Neutrophils # 14.7 H (1.8-7.7) K/mm3 Sodium 136 L (137-145) mmol/L Carbon Dioxide 18 L (22-30) mmol/L BUN 41 H (9-20) mg/dL Creatinine 2.7 H (0.8-1.5) mg/dL Lactic Acid (0.7-2.0) mmol/L Calcium 7.7 L (8.4-10.2) mg/dL ALT 6 L (7-56) units/L Alkaline Phosphatase 133 H (35-129) units/L Total Protein 6.1 L (6.3-8.2) g/dL Albumin 2.5 L (3.9-5) g/dL Urine WBC (Auto) (0.0-6.0) /HPF
[2016-04-24] MEDS: OSCAL PO SCH (11:22)
[2016-04-24] MEDS: COLACE PO SCH (11:23)
[2016-04-24] MEDS: PROTONIX PO SCH (11:23)
[2016-04-24] MEDS: SODIUM BICARBONATE PO SCH (11:23)
[2016-04-24] MEDS: DELTASONE PO SCH (11:25)
[2016-04-24] MEDS: COREG PO SCH (11:31)
[2016-04-24] MEDS: MAXIPIME/NS 1 GM/100 ML 100 ML IV SCH ×2 (11:35→11:53)
[2016-04-24] MEDS: ROCALTROL PO SCH (15:32)
[2016-04-24] MEDS: MEGACE PO SCH (15:33)
--- NOTE | 2016-04-24 16:23 | Ultrasound Report ---
ULTRASOUND RENAL BILATERAL: INDICATION: LORENZO, UTI. COMPARISON: 12/17/2015 CT and 11/04/2015 renal ultrasound. FINDINGS: Renal sonography again demonstrates borderline/slight increased renal cortical echogenicity. Grossly preserved contours. No significant hydronephrosis at this time, though slight fullness of the right upper renal pole collecting system may be present as on image 6. Right kidney is 11.3 x 4.9 x 5 cm with cortical thickness of 1.3 cm. Left kidney is 8.4 x 4.7 x 4.9 cm with cortical thickness of 1.9 cm. Urinary bladder no longer suggests an intrinsic Miranda catheter or distal ends of the ureteral stents, likely removed in the interval. However, approximately 10.4 x 3.6 x 7.6 cm large intrinsic soft tissue mass posteriorly noted as on image 27, amongst others. CONCLUSION: 1. Large urinary bladder mass/neoplasm again noted, as described. 2. Possible interval Miranda catheter and bilateral ureteral stent removal. 3. Slight right intrarenal collecting system fullness may remain, though without significant hydronephrosis. 4. Slight underlying medical renal disease possible sonographically. Thank you for the opportunity to participate in this patient's care.
--- NOTE | 2016-04-24 19:28 | Progress Note ---
Assessment and Plan Assessment and plan: --Complicated urinary tract infection Continue current antibiotics, ID following Follow cultures --History of bilateral indwelling chronic nephrostomy tubes Status post nephrostomy tube exchange to the Continue supportive care --Acute renal failure secondary to vasomotor nephropathy Closely monitor renal function avoid nephrotoxic medications --Metastatic prostate cancer --History of chronic anemia Closely monitor H&H transfuse as needed --Hypertension moderate control Continue current antihypertensives and when necessary medications --History of coronary artery disease stable on medications --Severe protein calorie malnutrition Nutrition supplements and dietary consultation --DVT prophylaxis with heparin DC planning to case management when medically stable * History Interval history: Skin seen and evaluated medical records reviewed Patient underwent nephrostomy tube exchange today tolerated the procedure well Denies any chest pain shortness of breath Alert awake oriented 3 not in acute distress Hospitalist Physical - Constitutional Vitals: Temp Pulse Resp BP Pulse Ox 98.5 F 91 H 20 97/52 100 04/24/16 15:05 04/24/16 15:05 04/24/16 15:05 04/24/16 15:05 04/24/16 15:05 General appearance: Present: no acute distress, cachectic, disheveled - EENT Eyes: Present: PERRL, EOM intact - Neck Neck: Present: supple, normal ROM - Respiratory Respiratory effort: normal Respiratory: bilateral: diminished, negative: rales, rhonchi, wheezing - Cardiovascular Rhythm: regular Heart Sounds: Present: S1 & S2 - Extremities Extremities: no ischemia, pulses intact, pulses symmetrical Peripheral Pulses: within normal limits - Abdominal General gastrointestinal: soft, non-tender, non-distended, normal bowel sounds - Integumentary Integumentary: Present: clear, warm - Psychiatric Psychiatric: appropriate mood/affect, cooperative - Neurologic Neurologic: CNII-XII intact, moves all extremities Results - Labs CBC & Chem 7: 04/24/16 05:37 04/24/16 05:37 Labs: Laboratory Last Values WBC 16.7 K/mm3 (4.5-11.0) H 04/24/16 05:37 RBC 2.52 M/mm3 (3.65-5.03) L 04/24/16 05:37 Hgb 7.4 gm/dl (11.8-15.2) L 04/24/16 05:37 Hct 22.6 % (35.5-45.6) L 04/24/16 05:37 MCV 89 fl (84-94) 04/24/16 05:37 MCH 29 pg (28-32) 04/24/16 05:37 MCHC 33 % (32-34) 04/24/16 05:37 RDW 18.2 % (13.2-15.2) H 04/24/16 05:37 Plt Count 216 K/mm3 (140-440) 04/24/16 05:37 Lymph % (Auto) 5.8 % (13.4-35.0) L 04/24/16 05:37 Gillespie % (Auto) 6.0 % (0.0-7.3) 04/24/16 05:37 Eos % (Auto) 0.1 % (0.0-4.3) 04/24/16 05:37 Baso % (Auto) 0.2 % (0.0-1.8) 04/24/16 05:37 Lymph # 1.0 K/mm3 (1.2-5.4) L 04/24/16 05:37 Gillespie # 1.0 K/mm3 (0.0-0.8) H 04/24/16 05:37 Eos # 0.0 K/mm3 (0.0-0.4) 04/24/16 05:37 Baso # 0.0 K/mm3 (0.0-0.1) 04/24/16 05:37 Seg Neutrophils % 87.9 % (40.0-70.0) H 04/24/16 05:37 Seg Neutrophils # 14.7 K/mm3 (1.8-7.7) H 04/24/16 05:37 PT 16.4 Sec. (12.2-14.9) H 04/23/16 07:52 INR 1.33 (0.87-1.13) H 04/23/16 07:52 APTT 37.5 Sec. (24.2-36.6) H 04/23/16 07:52 Sodium 136 mmol/L (137-145) L 04/24/16 05:37 Potassium 4.9 mmol/L (3.6-5.0) 04/24/16 05:37 Chloride 103.0 mmol/L (98-107) 04/24/16 05:37 Carbon Dioxide 18 mmol/L (22-30) L 04/24/16 05:37 Anion Gap 20 mmol/L 04/24/16 05:37 BUN 41 mg/dL (9-20) H 04/24/16 05:37 Creatinine 2.7 mg/dL (0.8-1.5) H 04/24/16 05:37 Estimated GFR 27 ml/min 04/24/16 05:37 BUN/Creatinine Ratio 15.18 % 04/24/16 05:37 Glucose 97 mg/dL (75-100) 04/24/16 05:37 Lactic Acid 3.3 mmol/L (0.7-2.0) H* 04/23/16 20:40 Calcium 7.7 mg/dL (8.4-10.2) L 04/24/16 05:37 Total Bilirubin 0.3 mg/dL (0.1-1.2) 04/24/16 05:37 AST 13 units/L (5-40) 04/24/16 05:37 ALT 6 units/L (7-56) L 04/24/16 05:37 Alkaline Phosphatase 133 units/L (35-129) H 04/24/16 05:37 Total Protein 6.1 g/dL (6.3-8.2) L 04/24/16 05:37 Albumin 2.5 g/dL (3.9-5) L 04/24/16 05:37 Albumin/Globulin Ratio 0.7 % 04/24/16 05:37 Urine Color Red (Yellow) 04/23/16 12:30 Urine Turbidity Turbid (Clear) 04/23/16 12:30 Urine pH 7.0 (5.0-7.0) 04/23/16 12:30 Ur Specific [place] 1.021 (1.003-1.030) 04/23/16 12:30 Urine Protein 100 mg/dl mg/dL (Negative) 04/23/16 12:30 Urine Glucose (UA) Neg mg/dL (Negative) 04/23/16 12:30 Urine Ketones Neg mg/dL (Negative) 04/23/16 12:30 Urine Blood Lg (Negative) 04/23/16 12:30 Urine Nitrite Pos (Negative) 04/23/16 12:30 Urine Bilirubin Neg (Negative) 04/23/16 12:30 Urine Urobilinogen < 2.0 mg/dL (<2.0) 04/23/16 12:30 Ur Leukocyte Esterase Mod (Negative) 04/23/16 12:30 Urine WBC (Auto) > 182.0 /HPF (0.0-6.0) H 04/23/16 12:30 Urine RBC (Auto) > 182.0 /HPF (0.0-6.0) 04/23/16 12:30 Urine WBC Clumps 3+ /HPF 04/23/16 12:30
[2016-04-25] MEDS: SODIUM BICARBONATE PO SCH ×3 (00:25→23:09)
[2016-04-25] MEDS: MAXIPIME/NS 1 GM/100 ML 100 ML IV SCH ×3 (00:25→23:29)
[2016-04-25] MEDS: COLACE PO SCH ×3 (00:26→23:08)
[2016-04-25] MEDS: AMBIEN PO PRN (00:26)
[2016-04-25] MEDS: FLOMAX PO SCH ×2 (00:26→23:10)
[2016-04-25] MEDS: NORCO 10/325 PO PRN (00:27)
[2016-04-25] MEDS: OSCAL PO SCH ×3 (00:28→23:09)
[2016-04-25 05:23] LABS: Basophils % (Auto) 0.3 % (0.0-1.8); Eosinophils % (Auto) 0.4 % (0.0-4.3); Hemoglobin 6.5 gm/dl (11.8-15.2); Mean Corpuscular HGB Conc 33 % (32-34); Mean Corpuscular Hemoglobin 30 pg (28-32); Mean Corpuscular Volume 89 fl (84-94); Platelet Count 218 K/mm3 (140-440); Red Cell Distribution Width 17.9 % (13.2-15.2); White Blood Count 10.4 K/mm3 (4.5-11.0)
[2016-04-25 05:28] LABS: Hematocrit 19.5 % (35.5-45.6)
[2016-04-25 05:40] LABS: BUN/Creatinine Ratio 17.27; Calcium 7.6 mg/dL (8.4-10.2); Chloride 107.7 mmol/L (98-107); Potassium 4.8 mmol/L (3.6-5.0)
[2016-04-25 06:52] LABS: Hematocrit 20.9 % (35.5-45.6)
[2016-04-25] MEDS: ABIRATERONE ACETATE 1000 MG PO SCH (08:28)
[2016-04-25] MEDS: NACL 0.9% 1000 ML 1,000 ML IV SCH (08:32)
[2016-04-25] MEDS ORDERED: LEVAQUIN 500MG/100ML 100 ML IV SCH (09:00)
--- NOTE | 2016-04-25 10:29 | Progress Note ---
Assessment and Plan Assessment and plan: --Acute on chronic Anemia probably secondary to prematurity Type and cross, transfuse 2 units of PRBC Closely monitor H&H and transfuse additional PRBC as needed --Complicated urinary tract infection Continue current antibiotics Vanco and cefepime, ID following Follow cultures --History of bilateral indwelling chronic nephrostomy tubes Status post nephrostomy tube exchange to the Continue supportive care --Acute renal failure secondary to vasomotor nephropathy Closely monitor renal function avoid nephrotoxic medications Serum creatinine trending down --Metastatic prostate cancer/bladder mass Patient's daughter requested urology consult as patient has an appointment to see --Hypertension moderate control Continue current antihypertensives and when necessary medications --History of coronary artery disease stable on medications --Severe protein calorie malnutrition Nutrition supplements and dietary consultation --DVT prophylaxis with heparin DC planning per case management Plan of care discussed with the patient family members at the bedside as well as the nurse History Interval history: patient seen and evaluated medical records reviewed No new events reported by the nursing staff Patient H&H H significantly dropped Daughter at the bedside Patient is alert and awake responding appropriately Not in acute distress vital signs reviewed Hospitalist Physical - Constitutional Vitals: Temp Pulse Resp BP Pulse Ox 99.1 F 77 20 119/60 100 04/25/16 00:00 04/25/16 00:00 04/25/16 00:00 04/25/16 00:00 04/25/16 08:20 General appearance: Present: no acute distress, cachectic, disheveled - EENT Eyes: Present: PERRL, EOM intact - Neck Neck: Present: supple, normal ROM - Respiratory Respiratory effort: normal Respiratory: negative: rales, rhonchi, wheezing - Cardiovascular Rhythm: regular Heart Sounds: Present: S1 & S2 - Extremities Extremities: no ischemia, pulses intact, pulses symmetrical - Abdominal General gastrointestinal: soft, non-tender, non-distended, normal bowel sounds - Integumentary Integumentary: Present: clear, warm, pale - Psychiatric Psychiatric: appropriate mood/affect, cooperative - Neurologic Neurologic: moves all extremities Results - Labs CBC & Chem 7: 04/25/16 06:28 04/25/16 04:56 Labs: Laboratory Last Values WBC 10.4 K/mm3 (4.5-11.0) 04/25/16 04:56 RBC 2.20 M/mm3 (3.65-5.03) L 04/25/16 04:56 Hgb 7.0 gm/dl (11.8-15.2) L 04/25/16 06:28 Hct 20.9 % (35.5-45.6) L 04/25/16 06:28 MCV 89 fl (84-94) 04/25/16 04:56 MCH 30 pg (28-32) 04/25/16 04:56 MCHC 33 % (32-34) 04/25/16 04:56 RDW 17.9 % (13.2-15.2) H 04/25/16 04:56 Plt Count 218 K/mm3 (140-440) 04/25/16 04:56 Lymph % (Auto) 11.4 % (13.4-35.0) L 04/25/16 04:56 [place] % (Auto) 6.4 % (0.0-7.3) 04/25/16 04:56 Eos % (Auto) 0.4 % (0.0-4.3) 04/25/16 04:56 Baso % (Auto) 0.3 % (0.0-1.8) 04/25/16 04:56 Lymph # 1.2 K/mm3 (1.2-5.4) 04/25/16 04:56 [place] # 0.7 K/mm3 (0.0-0.8) 04/25/16 04:56 Eos # 0.0 K/mm3 (0.0-0.4) 04/25/16 04:56 Baso # 0.0 K/mm3 (0.0-0.1) 04/25/16 04:56 Seg Neutrophils % 81.5 % (40.0-70.0) H 04/25/16 04:56 Seg Neutrophils # 8.5 K/mm3 (1.8-7.7) H 04/25/16 04:56 PT 16.4 Sec. (12.2-14.9) H 04/23/16 07:52 INR 1.33 (0.87-1.13) H 04/23/16 07:52 APTT 37.5 Sec. (24.2-36.6) H 04/23/16 07:52 Sodium 140 mmol/L (137-145) 04/25/16 04:56 Potassium 4.8 mmol/L (3.6-5.0) 04/25/16 04:56 Chloride 107.7 mmol/L (98-107) H 04/25/16 04:56 Carbon Dioxide 18 mmol/L (22-30) L 04/25/16 04:56 Anion Gap 19 mmol/L 04/25/16 04:56 BUN 38 mg/dL (9-20) H 04/25/16 04:56 Creatinine 2.2 mg/dL (0.8-1.5) H 04/25/16 04:56 Estimated GFR 35 ml/min 04/25/16 04:56 BUN/Creatinine Ratio 17.27 % 04/25/16 04:56 Glucose 101 mg/dL (75-100) H 04/25/16 04:56 Lactic Acid 1.2 mmol/L (0.7-2.0) 04/25/16 04:56 Calcium 7.6 mg/dL (8.4-10.2) L 04/25/16 04:56 Magnesium 2.0 mg/dL (1.7-2.3) 04/25/16 04:56 Total Bilirubin 0.3 mg/dL (0.1-1.2) 04/24/16 05:37 AST 13 units/L (5-40) 04/24/16 05:37 ALT 6 units/L (7-56) L 04/24/16 05:37 Alkaline Phosphatase 133 units/L (35-129) H 04/24/16 05:37 Total Protein 6.1 g/dL (6.3-8.2) L 04/24/16 05:37 Albumin 2.5 g/dL (3.9-5) L 04/24/16 05:37 Albumin/Globulin Ratio 0.7 % 04/24/16 05:37 Urine Color Red (Yellow) 04/23/16 12:30 Urine Turbidity Turbid (Clear) 04/23/16 12:30 Urine pH 7.0 (5.0-7.0) 04/23/16 12:30 Ur Specific [place] 1.021 (1.003-1.030) 04/23/16 12:30 Urine Protein 100 mg/dl mg/dL (Negative) 04/23/16 12:30 Urine Glucose (UA) Neg mg/dL (Negative) 04/23/16 12:30 Urine Ketones Neg mg/dL (Negative) 04/23/16 12:30 Urine Blood Lg (Negative) 04/23/16 12:30 Urine Nitrite Pos (Negative) 04/23/16 12:30 Urine Bilirubin Neg (Negative) 04/23/16 12:30 Urine Urobilinogen < 2.0 mg/dL (<2.0) 04/23/16 12:30 Ur Leukocyte Esterase Mod (Negative) 04/23/16 12:30 Urine WBC (Auto) > 182.0 /HPF (0.0-6.0) H 04/23/16 12:30 Urine RBC (Auto) > 182.0 /HPF (0.0-6.0) 04/23/16 12:30 Urine WBC Clumps 3+ /HPF 04/23/16 12:30
[2016-04-25] MEDS: PROTONIX PO SCH (11:14)
[2016-04-25] MEDS: ROCALTROL PO SCH (11:14)
[2016-04-25] MEDS: MEGACE PO SCH (11:15)
[2016-04-25] MEDS: COREG PO SCH (11:15)
[2016-04-25] MEDS: DELTASONE PO SCH (11:15)
--- NOTE | 2016-04-25 12:00 | Progress Note ---
Assessment and Plan Assessment: Mr Marti is an 85y/o AA L with a known history of metastatic prostate cancer with bladder obstruction, HTN, CKD, CAD,hx DVT, and anemia. He was seen today for nephrostomy tube exchange with evidence now of right pyonephrosis. The patient is seen for further antibiotic management. Antibiotics: Vancomycin IV ( 04/23 -> Cefepime 1 g IV every 12 hours ( 04/23- > s/p Levaquin 750 mg IV - 04/23 Immunosuppressants: Prednisone 5 mg by mouth daily Conclusions: 1. Complicated UTI with probable right sided pyonephrosis - Hx of recurrent UTIs - Metastatic prostate cancer with bladder mass and chronic indwelling bilateral nephrostomy tubes 2. Leukocytosis secondary to above 3. CKD/r/o LORENZO 4. Anemia secondary to chronic disease 5. HTN 6. CAD 7. Hx DVT Recommendations: - Await blood and urine cultures - Continue IV cefepime and vancomycin with dosing adjusted for renal insufficiency. - Await bilateral renal ultrasound - Follow serial CBC - Medical management as per Hospitilist - Continue supportive therapies Subjective Date of service: 04/25/16 Principal diagnosis: Malfunctioning right nephrostomy tube Interval history: Awake and alert. Denies difficulties. Explained to family that cultures were still pending but would expect patient to need at least a 10-14 day course of parenteral antibiotics. Objective - Exam Narrative Exam: Chronically ill-appearing. Converses normally. HEENT: Pupils are equal reactive to light and accommodation. Bilateral arcus. Conjunctiva clear. Oropharynx is not well seen. NECK: Supple. No enlargement of the thyroid gland. No significant cervical lymphadenopathy. No jugular venous distention at 30. LUNGS: Anterior breath sounds clear. HEART: Regular rate. S1 and S2 are normal. There are no murmurs, gallops, clicks or rubs heard. ABDOMEN: Soft and nontender. Liver and spleen are not palpably enlarged or tender. No palpable masses. Bowel sounds are active. BACK: Nephrostomy tube dressings not removed. EXTREMITIES: No rash, peripheral lymphadenopathy, clubbing or edema. SKIN: No other rash, ulcers or wounds. NEUROLOGIC: Awake and alert. Moves all extremities. - Constitutional Vitals: Vital Signs Temp Pulse Resp BP Pulse Ox 99.1 F 77 20 115/55 100 04/25/16 00:00 04/25/16 00:00 04/25/16 00:00 04/25/16 11:15 04/25/16 08:20 Temperature -Last 24 Hours Temperature 99.1 F Temperature 98.5 F - Labs CBC & Chem 7: 04/25/16 06:28 04/25/16 04:56 Labs: Abnormal lab results 04/25/16 04/25/16 04/25/16 Range/Units 04:56 04:56 06:28 RBC 2.20 L (3.65-5.03) M/mm3 Hgb 6.5 L 7.0 L (11.8-15.2) gm/dl Hct 19.5 L* 20.9 L (35.5-45.6) % RDW 17.9 H (13.2-15.2) % Lymph % (Auto) 11.4 L (13.4-35.0) % Seg Neutrophils % 81.5 H (40.0-70.0) % Seg Neutrophils # 8.5 H (1.8-7.7) K/mm3 Chloride 107.7 H (98-107) mmol/L Carbon Dioxide 18 L (22-30) mmol/L BUN 38 H (9-20) mg/dL Creatinine 2.2 H (0.8-1.5) mg/dL Glucose 101 H (75-100) mg/dL Calcium 7.6 L (8.4-10.2) mg/dL Crossmatch 04/25/16 Range/Units 10:59 RBC (3.65-5.03) M/mm3 Hgb (11.8-15.2) gm/dl Hct (35.5-45.6) % RDW (13.2-15.2) % Lymph % (Auto) (13.4-35.0) % Seg Neutrophils % (40.0-70.0) % Seg Neutrophils # (1.8-7.7) K/mm3 Chloride (98-107) mmol/L Carbon Dioxide (22-30) mmol/L BUN (9-20) mg/dL Creatinine (0.8-1.5) mg/dL Glucose (75-100) mg/dL Calcium (8.4-10.2) mg/dL Crossmatch See Detail
[2016-04-25] MEDS ORDERED: NACL 0.9% 500 ML 500 ML IV ONE (13:00)
--- NOTE | 2016-04-25 14:29 | Consultation ---
History of Present Illness - Reason for Consult Consult date: 04/25/16 - History of Present Illness --History of bilateral indwelling chronic nephrostomy tubes Status post nephrostomy tube exchange to the Continue supportive care --Acute renal failure secondary to vasomotor nephropathy Closely monitor renal function avoid nephrotoxic medications Serum creatinine trending down --Metastatic prostate cancer/bladder mass (Arvind 9, psa 86-------10-31-15) - managed by Dr. Cordon Past History Past Medical History: acute [place] (1986), cancer (prostate), ESRD Past Surgical History: Other (bilateral neph tubes) Social history: no significant social history, smoking (quit smoking years ago) , full code Family history: no significant family history Medications and Allergies Allergies Allergy/AdvReac Type Severity Reaction Status Date / Time No Known Allergies Allergy Verified 01/17/16 13:24 Home Medications Medication Instructions Recorded Confirmed Last Taken Type Docusate Sodium [Colace CAP] 100 mg PO BID #60 capsule 11/05/15 04/23/16 Rx Abiraterone Acetate [Zytiga] 1,000 mg PO QDAY 12/17/15 04/23/16 04/22/16 History 1000mg Sodium Bicarbonate 1,300 mg PO BID #60 tablet 12/29/15 04/23/16 04/22/16 Rx 1300mg Zolpidem [Ambien] 5 mg PO QHS PRN #30 tablet 12/29/15 04/23/16 04/22/16 Rx 5mg Tamsulosin [Flomax] 0.8 mg PO QHS 01/18/16 04/23/16 04/22/16 History 0.8mg HYDROcodone/APAP 10-325 [[place] 1 each PO Q6HR PRN #24 tablet 02/10/16 04/23/16 03/13/16 Rx 10/325] Calcitriol [Rocaltrol] 0.5 mcg PO QDAY capsule 03/03/16 04/23/16 04/22/16 Rx 0.5mcg Calcium Carbonate [Oscal] 1,300 mg PO BID tablet 03/03/16 04/23/16 04/22/16 Rx 1300mg Carvedilol [Coreg] 3.125 mg PO DAILY #30 tablet 11/19/16 01/09/17 01/08/17 Rx 3.125mg Megestrol [Megace] 400 mg PO QDAY #60 oral.liqd 03/03/16 04/23/16 04/22/16 Rx 400mg Pantoprazole [Protonix TAB] 40 mg PO QDAY #30 tablet 03/03/16 04/23/16 04/22/16 Rx 40mg fentaNYL [Duragesic] 75 mcg TD Q3D #10 patch 03/03/16 04/23/16 04/22/16 Rx 75mcg predniSONE [Deltasone] 5 mg PO QDAY tablet 03/03/16 04/23/16 04/22/16 Rx 5mg Active Meds: Active Medications Acetaminophen (Tylenol) 650 mg PO Q4H PRN PRN Reason: Pain MILD(1-3)/Fever >100.5/CRAIN Acetaminophen/Hydrocodone Bitart ([place] 10/325) 1 each PO Q6HR PRN PRN Reason: Pain Last Admin: 04/25/16 00:27 Dose: 1 each Bisacodyl (Dulcolax) 10 mg UT QDAY PRN PRN Reason: Constipation unrelieved by MOM Calcitriol (Rocaltrol) 0.5 mcg PO QDAY ON LICENSE OF [facility] Last Admin: 04/25/16 11:14 Dose: 0.5 mcg Calcium Carbonate/Glycine (Oscal) 1,250 mg PO BID ON LICENSE OF [facility] Last Admin: 04/25/16 11:14 Dose: 1,250 mg Carvedilol (Coreg) 3.125 mg PO DAILY ON LICENSE OF [facility] Last Admin: 04/25/16 11:15 Dose: 3.125 mg Docusate Sodium (Colace) 100 mg PO BID ON LICENSE OF [facility] Last Admin: 04/25/16 11:14 Dose: 100 mg Fentanyl (Duragesic) 75 mcg TD Q3D ON LICENSE OF [facility] Last Admin: 04/23/16 17:07 Dose: 75 mcg Sodium Chloride (Nacl 0.9% 1000 Ml) 1,000 mls @ 75 mls/hr IV DIRECT ON LICENSE OF [facility] Last Admin: 04/25/16 08:32 Dose: 75 mls/hr Cefepime HCl (Maxipime/Ns 1 Gm/100 Ml) 100 mls @ 100 mls/30 min IV Q12HR ON LICENSE OF [facility] PRN Reason: Protocol Last Admin: 04/25/16 11:11 Dose: 100 mls/30 min Magnesium Hydroxide (Milk Of Magnesia) 30 ml PO Q4H PRN PRN Reason: Constipation Megestrol Acetate (Megace) 400 mg PO QDAY ON LICENSE OF [facility] Last Admin: 04/25/16 11:15 Dose: 400 mg Miscellaneous Medication (Abiraterone Acetate) 1,000 mg PO DAILY@0700 ON LICENSE OF [facility] Last Admin: 04/25/16 08:28 Dose: 1,000 mg Ondansetron HCl (Zofran) 4 mg IV Q8H PRN PRN Reason: N/V unrelieved by Reglan Pantoprazole Sodium (Protonix) 40 mg PO QDAY ON LICENSE OF [facility] Last Admin: 04/25/16 11:14 Dose: 40 mg Prednisone (Deltasone) 5 mg PO QDAY ON LICENSE OF [facility] Last Admin: 04/25/16 11:15 Dose: 5 mg Sodium Bicarbonate (Sodium Bicarbonate) 1,300 mg PO BID ON LICENSE OF [facility] Last Admin: 04/25/16 11:13 Dose: 1,300 mg Tamsulosin HCl (Flomax) 0.8 mg PO QHS ON LICENSE OF [facility] Last Admin: 04/25/16 00:26 Dose: 0.8 mg Zolpidem Tartrate (Ambien) 5 mg PO QHS PRN PRN Reason: Insomnia Last Admin: 04/25/16 00:26 Dose: 5 mg Exam - Constitutional Vitals: Temp Pulse Resp BP Pulse Ox 99.1 F 77 20 115/55 100 04/25/16 00:00 04/25/16 00:00 04/25/16 00:00 04/25/16 11:15 04/25/16 08:20 Results - Labs CBC & Chem 7: 04/25/16 06:28 04/25/16 04:56 Labs: Abnormal lab results 04/25/16 04/25/16 04/25/16 Range/Units 04:56 04:56 06:28 RBC 2.20 L (3.65-5.03) M/mm3 Hgb 6.5 L 7.0 L (11.8-15.2) gm/dl Hct 19.5 L* 20.9 L (35.5-45.6) % RDW 17.9 H (13.2-15.2) % Lymph % (Auto) 11.4 L (13.4-35.0) % Seg Neutrophils % 81.5 H (40.0-70.0) % Seg Neutrophils # 8.5 H (1.8-7.7) K/mm3 Chloride 107.7 H (98-107) mmol/L Carbon Dioxide 18 L (22-30) mmol/L BUN 38 H (9-20) mg/dL Creatinine 2.2 H (0.8-1.5) mg/dL Glucose 101 H (75-100) mg/dL Calcium 7.6 L (8.4-10.2) mg/dL Crossmatch 04/25/16 Range/Units 10:59 RBC (3.65-5.03) M/mm3 Hgb (11.8-15.2) gm/dl Hct (35.5-45.6) % RDW (13.2-15.2) % Lymph % (Auto) (13.4-35.0) % Seg Neutrophils % (40.0-70.0) % Seg Neutrophils # (1.8-7.7) K/mm3 Chloride (98-107) mmol/L Carbon Dioxide (22-30) mmol/L BUN (9-20) mg/dL Creatinine (0.8-1.5) mg/dL Glucose (75-100) mg/dL Calcium (8.4-10.2) mg/dL Crossmatch See Detail
[2016-04-26 10:02] LABS: Basophils % (Auto) 0.4 % (0.0-1.8); Eosinophils % (Auto) 0.8 % (0.0-4.3); Hematocrit 30.5 % (35.5-45.6); Mean Corpuscular HGB Conc 33 % (32-34); Mean Corpuscular Hemoglobin 30 pg (28-32); Mean Corpuscular Volume 91 fl (84-94); Platelet Count 212 K/mm3 (140-440); Red Blood Count 3.37 M/mm3 (3.65-5.03); Red Cell Distribution Width 16.8 % (13.2-15.2); White Blood Count 10.7 K/mm3 (4.5-11.0)
[2016-04-26 10:11] LABS: Calcium 7.5 mg/dL (8.4-10.2); Chloride 111.1 mmol/L (98-107); Magnesium 1.9 mg/dL (1.7-2.3); Potassium 3.8 mmol/L (3.6-5.0)
[2016-04-26] MEDS ORDERED: MILK OF MAGNESIA PO ONE (10:58)
--- NOTE | 2016-04-26 11:09 | Progress Note ---
Assessment and Plan Assessment and plan: --Acute on chronic Anemia probably secondary to prematurity Received 2 units of PRBC transfusion H&H significantly improved --Complicated urinary tract infection Continue current antibiotics Vanco and cefepime, ID following Follow cultures --History of bilateral indwelling chronic nephrostomy tubes Status post nephrostomy tube exchange to the Continue supportive care --Acute renal failure secondary to vasomotor nephropathy Closely monitor renal function avoid nephrotoxic medications Serum creatinine trending down --Metastatic prostate cancer/bladder mass Patient's daughter requested urology consult as patient has an appointment to see --Hypertension moderate control Continue current antihypertensives and when necessary medications --History of coronary artery disease stable on medications --Severe protein calorie malnutrition Nutrition supplements and dietary consultation --DVT prophylaxis with heparin DC planning per case management Plan of care discussed with the patient family members at the bedside as well as the nurse History Interval history: Patient seen and evaluated medical records reviewed Patient feels slightly better, hemoglobin significantly improved after transfusion Family members at the bedside Alert awake and oriented 3 not in acute distress Vital signs reviewed Hospitalist Physical - Constitutional Vitals: Temp Pulse Resp BP Pulse Ox 98.4 F 84 20 148/71 100 04/26/16 07:40 04/26/16 07:40 04/26/16 07:40 04/26/16 07:40 04/26/16 07:40 General appearance: Present: no acute distress, cachectic, disheveled - EENT Eyes: Present: PERRL, EOM intact - Neck Neck: Present: supple, normal ROM - Respiratory Respiratory effort: normal Respiratory: bilateral: diminished, negative: rales, rhonchi, wheezing - Cardiovascular Rhythm: regular Heart Sounds: Present: S1 & S2 - Extremities Extremities: no ischemia, pulses intact, pulses symmetrical Peripheral Pulses: within normal limits - Abdominal General gastrointestinal: soft, non-tender, non-distended, normal bowel sounds - Integumentary Integumentary: Present: clear, warm - Psychiatric Psychiatric: appropriate mood/affect, cooperative - Neurologic Neurologic: moves all extremities Results - Labs CBC & Chem 7: 04/26/16 09:46 04/27/16 05:23 Labs: Laboratory Last Values WBC 10.7 K/mm3 (4.5-11.0) 04/26/16 09:46 RBC 3.37 M/mm3 (3.65-5.03) L 04/26/16 09:46 Hgb 10.0 gm/dl (11.8-15.2) L D 04/26/16 09:46 Hct 30.5 % (35.5-45.6) L D 04/26/16 09:46 MCV 91 fl (84-94) 04/26/16 09:46 MCH 30 pg (28-32) 04/26/16 09:46 MCHC 33 % (32-34) 04/26/16 09:46 RDW 16.8 % (13.2-15.2) H 04/26/16 09:46 Plt Count 212 K/mm3 (140-440) 04/26/16 09:46 Lymph % (Auto) 13.9 % (13.4-35.0) 04/26/16 09:46 [place] % (Auto) 5.7 % (0.0-7.3) 04/26/16 09:46 Eos % (Auto) 0.8 % (0.0-4.3) 04/26/16 09:46 Baso % (Auto) 0.4 % (0.0-1.8) 04/26/16 09:46 Lymph # 1.5 K/mm3 (1.2-5.4) 04/26/16 09:46 [place] # 0.6 K/mm3 (0.0-0.8) 04/26/16 09:46 Eos # 0.1 K/mm3 (0.0-0.4) 04/26/16 09:46 Baso # 0.0 K/mm3 (0.0-0.1) 04/26/16 09:46 Seg Neutrophils % 79.2 % (40.0-70.0) H 04/26/16 09:46 Seg Neutrophils # 8.5 K/mm3 (1.8-7.7) H 04/26/16 09:46 PT 16.4 Sec. (12.2-14.9) H 04/23/16 07:52 INR 1.33 (0.87-1.13) H 04/23/16 07:52 APTT 37.5 Sec. (24.2-36.6) H 04/23/16 07:52 Sodium 140 mmol/L (137-145) 04/26/16 09:46 Potassium 3.8 mmol/L (3.6-5.0) D 04/26/16 09:46 Chloride 111.1 mmol/L (98-107) H 04/26/16 09:46 Carbon Dioxide 15 mmol/L (22-30) L 04/26/16 09:46 Anion Gap 18 mmol/L 04/26/16 09:46 BUN 30 mg/dL (9-20) H 04/26/16 09:46 Creatinine 2.0 mg/dL (0.8-1.5) H 04/26/16 09:46 Estimated GFR 39 ml/min 04/26/16 09:46 BUN/Creatinine Ratio 15.00 % 04/26/16 09:46 Glucose 118 mg/dL (75-100) H 04/26/16 09:46 Lactic Acid 1.2 mmol/L (0.7-2.0) 04/25/16 04:56 Calcium 7.5 mg/dL (8.4-10.2) L 04/26/16 09:46 Magnesium 1.9 mg/dL (1.7-2.3) 04/26/16 09:46 Total Bilirubin 0.3 mg/dL (0.1-1.2) 04/24/16 05:37 AST 13 units/L (5-40) 04/24/16 05:37 ALT 6 units/L (7-56) L 04/24/16 05:37 Alkaline Phosphatase 133 units/L (35-129) H 04/24/16 05:37 Total Protein 6.1 g/dL (6.3-8.2) L 04/24/16 05:37 Albumin 2.5 g/dL (3.9-5) L 04/24/16 05:37 Albumin/Globulin Ratio 0.7 % 04/24/16 05:37 Urine Color Red (Yellow) 04/23/16 12:30 Urine Turbidity Turbid (Clear) 04/23/16 12:30 Urine pH 7.0 (5.0-7.0) 04/23/16 12:30 Ur Specific Wilkinson 1.021 (1.003-1.030) 04/23/16 12:30 Urine Protein 100 mg/dl mg/dL (Negative) 04/23/16 12:30 Urine Glucose (UA) Neg mg/dL (Negative) 04/23/16 12:30 Urine Ketones Neg mg/dL (Negative) 04/23/16 12:30 Urine Blood Lg (Negative) 04/23/16 12:30 Urine Nitrite Pos (Negative) 04/23/16 12:30 Urine Bilirubin Neg (Negative) 04/23/16 12:30 Urine Urobilinogen < 2.0 mg/dL (<2.0) 04/23/16 12:30 Ur Leukocyte Esterase Mod (Negative) 04/23/16 12:30 Urine WBC (Auto) > 182.0 /HPF (0.0-6.0) H 04/23/16 12:30 Urine RBC (Auto) > 182.0 /HPF (0.0-6.0) 04/23/16 12:30 Urine WBC Clumps 3+ /HPF 04/23/16 12:30 Blood Type O NEGATIVE 04/25/16 10:59 Antibody Screen Negative 04/25/16 10:59 Crossmatch See Detail 04/25/16 10:59
[2016-04-26] MEDS: DELTASONE PO SCH (11:30)
[2016-04-26] MEDS: ABIRATERONE ACETATE 1000 MG PO SCH (11:30)
--- NOTE | 2016-04-26 11:31 | Progress Note ---
Assessment and Plan Assessment: Mr Marti is an 85y/o AA L with a known history of metastatic prostate cancer with bladder obstruction, HTN, CKD, CAD,hx DVT, and anemia. He was seen today for nephrostomy tube exchange with evidence now of right pyonephrosis. The patient is seen for further antibiotic management. Antibiotics: Vancomycin IV ( 04/23 -> Cefepime 1 g IV every 12 hours ( 04/23- > s/p Levaquin 750 mg IV - 04/23 Immunosuppressants: Prednisone 5 mg by mouth daily Conclusions: 1. Complicated UTI with probable right sided pyonephrosis - Hx of recurrent UTIs - Metastatic prostate cancer with bladder mass and chronic indwelling bilateral nephrostomy tubes - Urine studies today with Pseudomonas aeruginosa and enterococcus. Await final sensitivities. 2. Leukocytosis secondary to above - Improved 3. CKD/r/o LORENZO 4. Anemia secondary to chronic disease 5. HTN 6. CAD 7. Hx DVT Recommendations: - Await final sensitivity on Enterococcus and Pseudomonas isolates - will plan completion of 2 weeks of post-op antibiotics. ( STOP date 05/06 ) - Suspect patient will require IV Rx. Subjective Date of service: 04/26/16 Principal diagnosis: Malfunctioning right nephrostomy tube Interval history: Patient does not like wearing his oxygen. Otherwise no complaints. No flank pain. Objective - Exam Narrative Exam: Chronically ill-appearing. Converses normally. HEENT: Pupils are equal reactive to light and accommodation. Bilateral arcus. Conjunctiva clear. Oropharynx is not well seen. NECK: Supple. No enlargement of the thyroid gland. No significant cervical lymphadenopathy. No jugular venous distention at 30. LUNGS: Anterior breath sounds clear. HEART: Regular rate. S1 and S2 are normal. There are no murmurs, gallops, clicks or rubs heard. ABDOMEN: Soft and nontender. Liver and spleen are not palpably enlarged or tender. No palpable masses. Bowel sounds are active. BACK: Nephrostomy tube dressings not removed. EXTREMITIES: No rash, peripheral lymphadenopathy, clubbing or edema. SKIN: No other rash, ulcers or wounds. NEUROLOGIC: Awake and alert. Moves all extremities. - Constitutional Vitals: Vital Signs Temp Pulse Resp BP Pulse Ox 98.4 F 84 20 148/71 100 04/26/16 07:40 04/26/16 07:40 04/26/16 07:40 04/26/16 07:40 04/26/16 07:40 Temperature -Last 24 Hours Temperature 98.4 F Temperature 98.6 F Temperature 98.6 F Temperature 98.6 F Temperature 98.6 F Temperature 98.6 F Temperature 98.2 F Temperature 98.4 F Temperature 98.4 F Temperature 98.4 F Temperature 98.4 F Temperature 98.4 F Temperature 98.6 F Temperature 98.1 F Temperature 98.2 F Temperature 98.4 F Temperature 98.4 F Temperature 98.7 F Temperature 97.6 F - Labs CBC & Chem 7: 04/26/16 09:46 04/26/16 09:46 Labs: Abnormal lab results 04/25/16 04/26/16 04/26/16 Range/Units 10:59 09:46 09:46 RBC 3.37 L (3.65-5.03) M/mm3 Hgb 10.0 L D (11.8-15.2) gm/dl Hct 30.5 L D (35.5-45.6) % RDW 16.8 H (13.2-15.2) % Seg Neutrophils % 79.2 H (40.0-70.0) % Seg Neutrophils # 8.5 H (1.8-7.7) K/mm3 Chloride 111.1 H (98-107) mmol/L Carbon Dioxide 15 L (22-30) mmol/L BUN 30 H (9-20) mg/dL Creatinine 2.0 H (0.8-1.5) mg/dL Glucose 118 H (75-100) mg/dL Calcium 7.5 L (8.4-10.2) mg/dL Crossmatch See Detail
[2016-04-26] MEDS: SODIUM BICARBONATE PO SCH ×2 (11:56→22:00)
[2016-04-26] MEDS: PROTONIX PO SCH (11:57)
[2016-04-26] MEDS: MEGACE PO SCH (11:57)
[2016-04-26] MEDS: COLACE PO SCH ×2 (11:57→22:54)
[2016-04-26] MEDS: OSCAL PO SCH ×2 (11:57→22:54)
[2016-04-26] MEDS: ROCALTROL PO SCH (11:58)
[2016-04-26] MEDS: MAXIPIME/NS 1 GM/100 ML 100 ML IV SCH ×2 (11:58→22:55)
[2016-04-26] MEDS: COREG PO SCH (12:00)
[2016-04-26] MEDS: DURAGESIC TD SCH (14:38)
[2016-04-26] MEDS: FLOMAX PO SCH (22:54)
[2016-04-26] MEDS: AMBIEN PO PRN (22:54)
[2016-04-26] MEDS: NORCO 10/325 PO PRN (23:17)
--- NOTE | 2016-04-27 00:06 | Consultation ---
REASON FOR CONSULTATION: Gross hematuria. REFERRING PHYSICIAN: Wandy Acosta MD HISTORY OF PRESENT ILLNESS: This patient is an 85-year-old gentleman known to our service with diagnosis of [place] 9 adenocarcinoma of the prostate, 10/31/2015. He had a presumptive diagnosis prior to that of prostate cancer with bone mets. He developed renal failure requiring bilateral nephrostomy tube placement last year. He had been on hormone therapy; however, his cancer progressed. He is under the care of Dr. Jose Armando Cordon. He is admitted for anemia. His daughter is at the bedside. PAST MEDICAL HISTORY: Acute UT in 1986, prostate cancer, renal insufficiency. PAST SURGICAL HISTORY: Bilateral nephrostomy tubes. ALLERGIES: No known drug allergies. MEDICATIONS: Zytiga, Ambien, Flomax, Fisher, Os-Kirby, Coreg, Megace, Protonix, Duragesic, prednisone. PHYSICAL EXAMINATION: GENERAL: He is alert and oriented. VITAL SIGNS: BP 115/55, respirations 20, pulse 77, temperature 99.1. BACK: No CVA tenderness. GENITOURINARY: Obvious nephrostomy tubes draining well, clear urine. LABORATORY DATA: BUN and creatinine of and 2.2 respectively. Hemoglobin and hematocrit of 7 and 20 respectively. ASSESSMENT: 1. Anemia. The patient scheduled for blood transfusion. 2. Advanced prostate cancer. [place] 9. Initial PSA of 86 in the past, most recent PSA per Dr. Cordon. The patient is presently on Zytiga per Dr. Cordon. No urologic intervention needed at this time, can stop Flomax also. JOB# [id number] [facility]/NTS
[2016-04-27] MEDS: NACL 0.9% 1000 ML 1,000 ML IV SCH ×3 (02:24→18:42)
[2016-04-27 06:12] LABS: Calcium 7.3 mg/dL (8.4-10.2); Chloride 108.3 mmol/L (98-107); Potassium 4.3 mmol/L (3.6-5.0)
[2016-04-27] MEDS: MAXIPIME/NS 1 GM/100 ML 100 ML IV SCH (10:30)
[2016-04-27] MEDS: ABIRATERONE ACETATE 1000 MG PO SCH (10:30)
[2016-04-27] MEDS: COLACE PO SCH (10:31)
[2016-04-27] MEDS: ROCALTROL PO SCH (10:31)
[2016-04-27] MEDS: MEGACE PO SCH (10:32)
[2016-04-27] MEDS: PROTONIX PO SCH (10:33)
[2016-04-27] MEDS: SODIUM BICARBONATE PO SCH (10:33)
[2016-04-27] MEDS: OSCAL PO SCH (10:34)
[2016-04-27] MEDS: COREG PO SCH (10:34)
[2016-04-27] MEDS: DELTASONE PO SCH (10:34)
--- NOTE | 2016-04-27 12:33 | Progress Note ---
Assessment and Plan Current antibiotics: Vancomycin IV 04/23 --> Cefepime 1 g IV q12h 04/23 --> Previous antibiotics Levaquin 750 mg IV X 1 04/23 Immunosuppressants: Prednisone 5 mg PO daily ASSESSMENT: Darwin Marti is an 85 y/o male with metastatic prostate cancer with bladder obstruction, HTN, CKD, CAD, hx DVT, and anemia who underwent replacement of bilateral nephrostomy tubes on 04/23 and was found to have sammi pus draining from the right tube and was admitted to [facility] for workup and appropriate antibiotic therapy. Current antibiotics: Vancomycin IV 04/23 --> Cefepime 1 g IV q12h 04/23 --> Previous antibiotics: Levaquin 750 mg IV X 1 04/23 Immunosuppressants: Prednisone 5 mg PO daily Problem list: 1. Complicated UTI with right sided pyonephrosis -Urine cultures growing Pseudomonas aeruginosa and vancomycin resistant Enterococcus faecalis (penicillin sensitive). 2. Hx of recurrent UTIs 3. 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 Leukocytosis -secondary to #1 -improving 5. CKD -Component of LORENZO that is improving 6. 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 HTN 8. CAD 9. Hx DVT PLAN: 1. Will change antibiotics to Zosyn which will cover both the Pseudomonas and enterococcal isolate 2. Will plan completion of 2 weeks of post-op antibiotics. ( Stop date 05/06 ) 3. Dr. Heller to address right nephrostomy tube function 4. Contact precautions for VRE Discussed with patient's family and answered multiple questions. Eulalio Earl MD [facility] Office: [phone] Subjective Date of service: 04/27/16 Principal diagnosis: Malfunctioning right nephrostomy tube Interval history: Feels better. Tolerating antibiotics well. No significant pain. Appetite improving. Multiple family members at bedside. According to the family the right nephrostomy tube is not functioning and may have been "moved during the night." ROS: No subjective fever or chills. No nausea, vomiting or diarrhea. No shortness of breath, cough or pleuritic chest pain Objective - Exam Narrative Exam: GENERAL: Well-developed, cachectic appearing male who is chronically ill- appearing. Alert and responsive and in no acute distress. HEENT: Pupils are equal reactive to light and accommodation. Bilateral arcus. Conjunctiva clear. Oropharynx normal except for mildly dry mucous membranes.. NECK: Supple. No enlargement of the thyroid gland. No significant cervical lymphadenopathy. No jugular venous distention at 30. LUNGS: Clear with no adventitious sounds heard. HEART: Regular rate. S1 and S2 are normal. There are no murmurs, gallops, clicks or rubs heard. ABDOMEN: Soft, not distended and nontender. Liver and spleen are not palpably enlarged or tender. No palpable masses. Bowel sounds are active. : Normal external male. Some testicular atrophy. BACK: Nephrostomy tube dressings not removed. Apparently right nephrostomy tube is not working at present. EXTREMITIES: No rash, peripheral lymphadenopathy, clubbing or edema. SKIN: No other rash, ulcers or wounds. NEUROLOGIC: Awake and alert. No focal findings - Constitutional Vitals: Vital Signs Temp Pulse Resp BP Pulse Ox 98.6 F 77 16 168/76 99 04/27/16 07:00 04/27/16 07:00 04/27/16 07:00 04/27/16 07:00 04/27/16 09:11 Temperature -Last 24 Hours Temperature 98.6 F Temperature 97.9 F Temperature 98.8 F - Labs CBC & Chem 7: 04/26/16 09:46 04/27/16 05:23 Labs: Abnormal lab results Microbiology 04/23/16 12:30 Urine,Kidney - Right Kidney Urine Culture - Final Pseudomonas Aeruginosa (quinolone resistant, Zosyn sensitive) 04/23/16 Unknown Kidney Surgical Culture - Final Enterococcus faecalis (penicillin sensitive, vancomycin-resistant) Pseudomonas Aeruginosa (quinolone resistant, Zosyn sensitive) 04/23/16 16:11 Peripheral/Venous Blood Culture - Preliminary NO GROWTH AFTER 72 HOURS 04/23/16 16:11 Peripheral/Venous Blood Culture - Preliminary NO GROWTH AFTER 72 HOURS
[2016-04-27] MEDS: ZOSYN/NS 2.25 GM/50ML 50 ML IV SCH (15:06)
--- NOTE | 2016-04-27 15:14 | Progress Note ---
Assessment and Plan Assessment and plan: --Acute on chronic Anemia probably secondary to hematuria Received 2 units of PRBC transfusion H&H significantly improved --Complicated urinary tract infection Received Vanco and cefepime, ID changed antibiotics to Zosyn --History of bilateral indwelling chronic nephrostomy tubes Status post nephrostomy tube exchange Per urology --Acute renal failure secondary to vasomotor nephropathy Closely monitor renal function avoid nephrotoxic medications Serum creatinine trending down --Metastatic prostate cancer/bladder mass Patient's daughter requested urology consult as patient has an appointment to see --Hypertension moderate control Continue current antihypertensives and when necessary medications --History of coronary artery disease stable on medications --Severe protein calorie malnutrition Nutrition supplements and dietary consultation --DVT prophylaxis with heparin Patient's condition treatment plan discussed in detail with the patient and family members at the bedside Answered all their questions Consults and recommendations noted and appreciated History Interval history: Patient seen and evaluated medical records reviewed Patient's feels slightly better, multiple family members at the bedside Patient denies any chest pain shortness of breath Concerned about mild/very minimal edema on the dorsal aspect of both the hands No new events reported per nursing staff Patient alert awake oriented 3 vital signs reviewed stable Patient is on contact [facility] for [facility] Physical - Constitutional Vitals: Temp Pulse Resp BP Pulse Ox 98.6 F 77 16 168/76 99 04/27/16 07:00 04/27/16 07:00 04/27/16 07:00 04/27/16 07:00 04/27/16 09:11 General appearance: Present: no acute distress, cachectic, disheveled - EENT Eyes: Present: PERRL, EOM intact - Neck Neck: Present: supple, normal ROM - Respiratory Respiratory effort: normal Respiratory: bilateral: diminished, negative: rales, rhonchi, wheezing - Cardiovascular Rhythm: regular Heart Sounds: Present: S1 & S2 - Extremities Extremities: no ischemia, pulses intact, pulses symmetrical Peripheral Pulses: within normal limits - Abdominal General gastrointestinal: soft, non-tender, non-distended, normal bowel sounds - Integumentary Integumentary: Present: clear, warm - Psychiatric Psychiatric: appropriate mood/affect, cooperative - Neurologic Neurologic: CNII-XII intact, moves all extremities Results - Labs CBC & Chem 7: 04/26/16 09:46 04/27/16 05:23 Labs: Laboratory Last Values WBC 10.7 K/mm3 (4.5-11.0) 04/26/16 09:46 RBC 3.37 M/mm3 (3.65-5.03) L 04/26/16 09:46 Hgb 10.0 gm/dl (11.8-15.2) L D 04/26/16 09:46 Hct 30.5 % (35.5-45.6) L D 04/26/16 09:46 MCV 91 fl (84-94) 04/26/16 09:46 MCH 30 pg (28-32) 04/26/16 09:46 MCHC 33 % (32-34) 04/26/16 09:46 RDW 16.8 % (13.2-15.2) H 04/26/16 09:46 Plt Count 212 K/mm3 (140-440) 04/26/16 09:46 Lymph % (Auto) 13.9 % (13.4-35.0) 04/26/16 09:46 Latimer % (Auto) 5.7 % (0.0-7.3) 04/26/16 09:46 Eos % (Auto) 0.8 % (0.0-4.3) 04/26/16 09:46 Baso % (Auto) 0.4 % (0.0-1.8) 04/26/16 09:46 Lymph # 1.5 K/mm3 (1.2-5.4) 04/26/16 09:46 Latimer # 0.6 K/mm3 (0.0-0.8) 04/26/16 09:46 Eos # 0.1 K/mm3 (0.0-0.4) 04/26/16 09:46 Baso # 0.0 K/mm3 (0.0-0.1) 04/26/16 09:46 Seg Neutrophils % 79.2 % (40.0-70.0) H 04/26/16 09:46 Seg Neutrophils # 8.5 K/mm3 (1.8-7.7) H 04/26/16 09:46 PT 16.4 Sec. (12.2-14.9) H 04/23/16 07:52 INR 1.33 (0.87-1.13) H 04/23/16 07:52 APTT 37.5 Sec. (24.2-36.6) H 04/23/16 07:52 Sodium 139 mmol/L (137-145) 04/27/16 05:23 Potassium 4.3 mmol/L (3.6-5.0) 04/27/16 05:23 Chloride 108.3 mmol/L (98-107) H 04/27/16 05:23 Carbon Dioxide 17 mmol/L (22-30) L 04/27/16 05:23 Anion Gap 18 mmol/L 04/27/16 05:23 BUN 27 mg/dL (9-20) H 04/27/16 05:23 Creatinine 1.8 mg/dL (0.8-1.5) H 04/27/16 05:23 Estimated GFR 44 ml/min 04/27/16 05:23 BUN/Creatinine Ratio 15.00 % 04/27/16 05:23 Glucose 78 mg/dL (75-100) 04/27/16 05:23 Lactic Acid 1.2 mmol/L (0.7-2.0) 04/25/16 04:56 Calcium 7.3 mg/dL (8.4-10.2) L 04/27/16 05:23 Magnesium 1.9 mg/dL (1.7-2.3) 04/26/16 09:46 Total Bilirubin 0.3 mg/dL (0.1-1.2) 04/24/16 05:37 AST 13 units/L (5-40) 04/24/16 05:37 ALT 6 units/L (7-56) L 04/24/16 05:37 Alkaline Phosphatase 133 units/L (35-129) H 04/24/16 05:37 Total Protein 6.1 g/dL (6.3-8.2) L 04/24/16 05:37 Albumin 2.5 g/dL (3.9-5) L 04/24/16 05:37 Albumin/Globulin Ratio 0.7 % 04/24/16 05:37 Urine Color Red (Yellow) 04/23/16 12:30 Urine Turbidity Turbid (Clear) 04/23/16 12:30 Urine pH 7.0 (5.0-7.0) 04/23/16 12:30 Ur Specific [place] 1.021 (1.003-1.030) 04/23/16 12:30 Urine Protein 100 mg/dl mg/dL (Negative) 04/23/16 12:30 Urine Glucose (UA) Neg mg/dL (Negative) 04/23/16 12:30 Urine Ketones Neg mg/dL (Negative) 04/23/16 12:30 Urine Blood Lg (Negative) 04/23/16 12:30 Urine Nitrite Pos (Negative) 04/23/16 12:30 Urine Bilirubin Neg (Negative) 04/23/16 12:30 Urine Urobilinogen < 2.0 mg/dL (<2.0) 04/23/16 12:30 Ur Leukocyte Esterase Mod (Negative) 04/23/16 12:30 Urine WBC (Auto) > 182.0 /HPF (0.0-6.0) H 04/23/16 12:30 Urine RBC (Auto) > 182.0 /HPF (0.0-6.0) 04/23/16 12:30 Urine WBC Clumps 3+ /HPF 04/23/16 12:30 Blood Type O NEGATIVE 04/25/16 10:59 Antibody Screen Negative 04/25/16 10:59 Crossmatch See Detail 04/25/16 10:59
[2016-04-27] MEDS ORDERED: SUBLIMAZE ONE (15:59)
[2016-04-27] MEDS ORDERED: HEPARIN/NS 5000 UNIT/500ML(CATH LAB) 500 ML IR ONE (15:59)
[2016-04-27] MEDS ORDERED: XYLOCAINE 1%/ EPI 1:100,000 INFILTRATI ONE (15:59)
[2016-04-27] MEDS ORDERED: VERSED ONE (15:59)
[2016-04-27] MEDS ORDERED: NACL 0.9% 250ML 250 ML ONE (16:00)
[2016-04-27] MEDS ORDERED: TRIPLE ANTIBIOTIC TP ONE (16:36)
--- NOTE | 2016-04-27 16:48 | Operative Report ---
Operative Report Operative Report: EXAM: ULTRASOUND AND FLUOROSCOPIC GUIDED PLACEMENT OF NEPHROSTOMY TUBE CLINICAL INDICATION: PATIENT WITH METASTATIC PROSTATE CANCER. PATIENT'S NEPHROSTOMY TUBE WAS PULLED OUT DURING HIS HOSPITALIZATION 5 DATE: 04/27/2016 PROCEDURE: Following an explanation of the risks, benefits and alternatives; written informed consent was obtained. The patient was brought to the injury graphic suite and placed in prone position on the examination table. Initial ultrasound evaluation of the right kidney demonstrated a moderate amount of right hydronephrosis. Right back and flank were prepped and draped in the usual sterile fashion. 1% lidocaine was used for anesthesia. Under ultrasound guidance, the right posterior middle calyx was cannulated with a centimeters 21-gauge needle. A 0.018 guidewire was advanced through the needle under fluoroscopy into the proximal ureter. The needle was removed and an AccuStick transition dilator placed over the guidewire and advanced to the renal pelvis. The 0.018 guidewire was exchanged for a 0.035 guidewire which was advanced into the proximal ureter. The transition dilator was removed. Following serial dilation, an 8 Martiniquais pigtail nephrostomy tube was placed over the guidewire and advanced to position the pigtail within the central aspect of the renal pelvis. The kidney was flat decompress and a gentle injection of contrast was performed to document appropriate positioning. The catheter was securely fastened of the skin surface using 2-0 Ethilon suture and a stay fixed device. A sterile dressing was then applied. As then placed to dependent drainage. The patient tolerated the procedure well. There were no immediate post procedure complications. Received fentanyl for pain control. Unable to do conscious sedation secondary to the patient's non-nothing by mouth status. Continuous cardiopulmonary monitoring was utilized. IMPRESSION: 1) Ultrasound and fluoroscopic guided placement of 8 Martiniquais pigtail nephrostomy tube. 2) Ultrasound and fluoroscopic demonstration of moderate hydronephrosis.
--- NOTE | 2016-04-27 20:58 | Consultation ---
ASSESSMENT: 1. Stage IV metastatic prostate cancer, currently on Zytiga and prednisone. 2. Initial diagnosis in 2013 with bone metastasis, treated initially with Lupron and Casodex through 11/2015, treatment failure, started on Zytiga 1000 mg p.o. daily, prednisone initially 5 mg p.o. b.i.d. Also, the patient on Xgeva 120 mg subcutaneously every 28 days. 3. As noted 11/2015 disease progression, bilateral hydronephrosis, bladder mass, obstructive uropathy, the patient has bilateral nephrostomy. 4. Recent evaluation, this admission, for nephrostomy tube exchange, noted to have right nephrostomy tube completely out, with purulent discharges, suspected ?sepsis. The patient is on antibiotics. 5. Anemia secondary to chronic kidney disease. 6. Metastatic prostate cancer to the bone. He had transfusion in this admission with appropriate response, no reaction. 7. Hypertension at the time of initial evaluation, thought to be secondary to sepsis, improved. 8. Post recent nephrostomy tube exchange. This admission, it appears to be functioning. RECOMMENDATION: From oncologic point of view, the patient appears to be stable, tolerating medications reasonably well. He is to continue Zytiga and prednisone, Xgeva as directed by Dr. Cordon (patient's primary oncologist). He does have a followup appointment with Dr. Cordon within next 3 weeks, he is to keep that appointment. Continue supportive therapy, blood transfusion as needed, management of current underlying medical problems including infection, suspected sepsis. We will sign off, please do not hesitate to call back if clinically indicated. I will be glad to see the patient again. HISTORY OF PRESENT ILLNESS: The patient is an 85-year-old male, in 2013 diagnosed prostate CA, stage 4, with bone metastasis, placed initially on LHRH-agonist, Casodex. He did reasonably well until 11/2015, when he was re-evaluated, noted to have tumor progression, associated with bilateral hydronephrosis, urinary outlet obstruction, bladder mass, subsequently had nephrostomy tube, and placed on Zytiga 1000 mg p.o. daily, prednisone initially 5 mg b.i.d. Also receives Xgeva. He has been doing reasonably well, nonetheless recently been admitted because of suspected urinary tract infection and sepsis, purulent discharges from nephrostomy tube which appears to be self-dislodged. Bilateral nephrostomy tubes already being removed and replaced, the patient currently feels much better. He has no fever and no chills. His bone pain appears to be controlled. He has no recent thrombotic event. No recent swelling of lower extremity. No headache. No symptoms of hypercalcemia. Following admission, he was noted to be anemic, transfused. He is feeling better now. PAST MEDICAL HISTORY: 1. Stage IV prostate CA, [place] 9, followed by Dr. Cordon. Recently on Zytiga and prednisone, Xgeva, following failure of LHRH/Casodex therapy. 2. Anemia, chronic disease, cancer, renal insufficiency, bone marrow replacement with cancer. 3. Primary hypertension. 4. Chronic kidney disease. 5. Coronary atherosclerotic heart disease. 6. History of deep vein thrombosis. 7. Bilateral hydronephrosis, nephrostomy tube replacement. SOCIAL HISTORY: The patient lives with his daughter. He is . He has 2 children. He smoked at least 30 years, one pack a day. Stopped in 1998. 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 FAMILY HISTORY: Sister has some kind of tumor. Otherwise, unremarkable. ALLERGIES: No known allergies. REVIEW OF SYSTEMS: Including general, skin, HEENT, endocrine, respiratory, cardiovascular, GI, , CABIN SUPERVISOR, musculoskeletal, blood-lymphatics, mood-affect, no other negative symptoms reported other than what has been described above. PHYSICAL EXAMINATION: VITAL SIGNS: Temperature 98.4, blood pressure 148/71, pulse 54, respirations 20. GENERAL: Elderly gentleman. Well developed, well nourished, not in acute distress. Alert and oriented to place, time, and person. SKIN: No bruise. No petechiae. HEENT: Pale conjunctivae. NECK: No adenopathy. CHEST: Normal breathing pattern. LUNGS: Clear. No rales or wheezing. AXILLAE: No adenopathy. HEART: Regular rate and rhythm. No S3 or gallop. ABDOMEN: Soft, nontender, no palpable masses. No palpable liver or spleen. Normal bowel sounds, no inguinal adenopathy. GENITOURINARY: Bilateral nephrostomy tube in place. SPINE: Nontender. CENTRAL NERVOUS SYSTEM: No acute/recent CABIN SUPERVISOR deficits. EXTREMITIES: No calves tenderness bilaterally. MUSCULOSKELETAL: No acute joint swelling. MOOD AND AFFECT: Unremarkable. BLOOD-LYMPHATICS: No ecchymosis, no bruises, no petechiae, no adenopathy, palpable liver or spleen. Renal ultrasound, large urinary bladder mass. Neoplasm again noted. Bilateral hydronephrosis. LABORATORY DATA: CBC: White blood cell count 16.7, currently down to 13.7; hemoglobin 7.4, followup 7.0, post-transfusion 10.0. Platelets 216,000. BUN 41, creatinine 2.7. Followup today BUN 30, creatinine 2.0. Bilirubin 1.9. Alkaline phosphatase 133. Calcium 7.5 with albumin 2.5. JOB# [id number] [facility]/NTS
[2016-04-28] MEDS: ZOSYN/NS 2.25 GM/50ML 50 ML IV SCH ×3 (00:37→16:36)
[2016-04-28] MEDS: OSCAL PO SCH ×2 (00:40→11:29)
[2016-04-28] MEDS: FLOMAX PO SCH (00:40)
[2016-04-28] MEDS: SODIUM BICARBONATE PO SCH ×2 (00:40→11:28)
[2016-04-28] MEDS: COLACE PO SCH ×2 (00:40→11:28)
[2016-04-28] MEDS: NORCO 10/325 PO PRN ×3 (02:14→18:58)
[2016-04-28] MEDS: TYLENOL PO PRN (07:01)
--- NOTE | 2016-04-28 10:09 | Progress Note ---
Assessment and Plan Assessment and plan: --Acute on chronic Anemia probably secondary to hematuria Status post blood transfusion stable --Complicated urinary tract infection Received Vanco and cefepime, ID changed antibiotics to Zosyn --History of bilateral indwelling chronic nephrostomy tubes Status post nephrostomy tube exchange Per urology --Acute renal failure secondary to vasomotor nephropathy Closely monitor renal function avoid nephrotoxic medications Serum creatinine trending down --Metastatic prostate cancer/bladder mass Patient's daughter requested urology consult as patient has an appointment to see --Hypertension moderate control Continue current antihypertensives and when necessary medications --History of coronary artery disease stable on medications --Severe protein calorie malnutrition Nutrition supplements and dietary consultation --DVT prophylaxis with heparin Patient's condition treatment plan discussed in detail with the patient and family members at the bedside Answered all their questions Consults and recommendations noted and appreciated History Interval history: Patient seen and evaluated medical records reviewed No new complaints alert awake oriented 3 Family members at the bedside Hospitalist Physical - Constitutional Vitals: Temp Pulse Resp BP Pulse Ox 98.1 F 77 20 134/66 100 04/27/16 23:00 04/27/16 23:00 04/28/16 07:01 04/27/16 23:00 04/27/16 23:00 General appearance: Present: no acute distress, cachectic, disheveled - EENT Eyes: Present: PERRL, EOM intact - Neck Neck: Present: supple, normal ROM - Respiratory Respiratory effort: normal Respiratory: bilateral: diminished, negative: rales, rhonchi, wheezing - Cardiovascular Rhythm: regular Heart Sounds: Present: S1 & S2 - Extremities Extremities: no ischemia, pulses intact, pulses symmetrical - Abdominal General gastrointestinal: soft, non-tender, non-distended, normal bowel sounds - Integumentary Integumentary: Present: clear, warm - Psychiatric Psychiatric: appropriate mood/affect, cooperative - Neurologic Neurologic: CNII-XII intact, moves all extremities Results - Labs CBC & Chem 7: 04/26/16 09:46 04/27/16 05:23 Labs: Laboratory Last Values WBC 10.7 K/mm3 (4.5-11.0) 04/26/16 09:46 RBC 3.37 M/mm3 (3.65-5.03) L 04/26/16 09:46 Hgb 10.0 gm/dl (11.8-15.2) L D 04/26/16 09:46 Hct 30.5 % (35.5-45.6) L D 04/26/16 09:46 MCV 91 fl (84-94) 04/26/16 09:46 MCH 30 pg (28-32) 04/26/16 09:46 MCHC 33 % (32-34) 04/26/16 09:46 RDW 16.8 % (13.2-15.2) H 04/26/16 09:46 Plt Count 212 K/mm3 (140-440) 04/26/16 09:46 Lymph % (Auto) 13.9 % (13.4-35.0) 04/26/16 09:46 [place] % (Auto) 5.7 % (0.0-7.3) 04/26/16 09:46 Eos % (Auto) 0.8 % (0.0-4.3) 04/26/16 09:46 Baso % (Auto) 0.4 % (0.0-1.8) 04/26/16 09:46 Lymph # 1.5 K/mm3 (1.2-5.4) 04/26/16 09:46 [place] # 0.6 K/mm3 (0.0-0.8) 04/26/16 09:46 Eos # 0.1 K/mm3 (0.0-0.4) 04/26/16 09:46 Baso # 0.0 K/mm3 (0.0-0.1) 04/26/16 09:46 Seg Neutrophils % 79.2 % (40.0-70.0) H 04/26/16 09:46 Seg Neutrophils # 8.5 K/mm3 (1.8-7.7) H 04/26/16 09:46 PT 16.4 Sec. (12.2-14.9) H 04/23/16 07:52 INR 1.33 (0.87-1.13) H 04/23/16 07:52 APTT 37.5 Sec. (24.2-36.6) H 04/23/16 07:52 Sodium 139 mmol/L (137-145) 04/27/16 05:23 Potassium 4.3 mmol/L (3.6-5.0) 04/27/16 05:23 Chloride 108.3 mmol/L (98-107) H 04/27/16 05:23 Carbon Dioxide 17 mmol/L (22-30) L 04/27/16 05:23 Anion Gap 18 mmol/L 04/27/16 05:23 BUN 27 mg/dL (9-20) H 04/27/16 05:23 Creatinine 1.8 mg/dL (0.8-1.5) H 04/27/16 05:23 Estimated GFR 44 ml/min 04/27/16 05:23 BUN/Creatinine Ratio 15.00 % 04/27/16 05:23 Glucose 78 mg/dL (75-100) 04/27/16 05:23 Lactic Acid 1.2 mmol/L (0.7-2.0) 04/25/16 04:56 Calcium 7.3 mg/dL (8.4-10.2) L 04/27/16 05:23 Magnesium 1.9 mg/dL (1.7-2.3) 04/26/16 09:46 Total Bilirubin 0.3 mg/dL (0.1-1.2) 04/24/16 05:37 AST 13 units/L (5-40) 04/24/16 05:37 ALT 6 units/L (7-56) L 04/24/16 05:37 Alkaline Phosphatase 133 units/L (35-129) H 04/24/16 05:37 Total Protein 6.1 g/dL (6.3-8.2) L 04/24/16 05:37 Albumin 2.5 g/dL (3.9-5) L 04/24/16 05:37 Albumin/Globulin Ratio 0.7 % 04/24/16 05:37 Urine Color Red (Yellow) 04/23/16 12:30 Urine Turbidity Turbid (Clear) 04/23/16 12:30 Urine pH 7.0 (5.0-7.0) 04/23/16 12:30 Ur Specific [place] 1.021 (1.003-1.030) 04/23/16 12:30 Urine Protein 100 mg/dl mg/dL (Negative) 04/23/16 12:30 Urine Glucose (UA) Neg mg/dL (Negative) 04/23/16 12:30 Urine Ketones Neg mg/dL (Negative) 04/23/16 12:30 Urine Blood Lg (Negative) 04/23/16 12:30 Urine Nitrite Pos (Negative) 04/23/16 12:30 Urine Bilirubin Neg (Negative) 04/23/16 12:30 Urine Urobilinogen < 2.0 mg/dL (<2.0) 04/23/16 12:30 Ur Leukocyte Esterase Mod (Negative) 04/23/16 12:30 Urine WBC (Auto) > 182.0 /HPF (0.0-6.0) H 04/23/16 12:30 Urine RBC (Auto) > 182.0 /HPF (0.0-6.0) 04/23/16 12:30 Urine WBC Clumps 3+ /HPF 04/23/16 12:30 Blood Type O NEGATIVE 04/25/16 10:59 Antibody Screen Negative 04/25/16 10:59 Crossmatch See Detail 04/25/16 10:59
[2016-04-28] MEDS: COREG PO SCH (11:27)
[2016-04-28] MEDS: PROTONIX PO SCH (11:28)
[2016-04-28] MEDS: DELTASONE PO SCH (11:29)
[2016-04-28] MEDS: MEGACE PO SCH (11:29)
[2016-04-28] MEDS: ROCALTROL PO SCH (11:30)
[2016-04-28] MEDS: ABIRATERONE ACETATE 1000 MG PO SCH (11:31)
[2016-04-28] MEDS: NACL 0.9% 1000 ML 1,000 ML IV SCH (11:50)
--- NOTE | 2016-04-28 14:39 | Progress Note ---
Assessment and Plan Current antibiotics: zosyn 2.25gm iv Q8H (04/27 Previous antibiotics Levaquin 750 mg IV X 1 04/23 Vancomycin IV 04/23 --> 04/27 Cefepime 1 g IV q12h 04/23 -->04/27 Immunosuppressants: Prednisone 5 mg PO daily ASSESSMENT: Darwin Marti is an 85 y/o male with metastatic prostate cancer with bladder obstruction, HTN, CKD, CAD, hx DVT, and anemia who underwent replacement of bilateral nephrostomy tubes on 04/23 and was found to have sammi pus draining from the right tube and was admitted to [facility] for workup and appropriate antibiotic therapy. Problem list: 1. Complicated UTI with right sided pyonephrosis -Urine cultures growing Pseudomonas aeruginosa and vancomycin resistant Enterococcus faecalis (penicillin sensitive). --nephrostomy tube placed on 04/27 2. Hx of recurrent UTIs 3. 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 Leukocytosis -secondary to #1 -improving 5. CKD -Component of LORENZO that is improving 6. Anemia -Secondary to chronic disease PLAN: 1. continue Zosyn 2. 2 weeks of post-op antibiotics. ( Stop date 05/06 ) 3. Dr. Heller to address right nephrostomy tube function 4. Contact precautions for VRE Subjective Date of service: 04/28/16 Principal diagnosis: Malfunctioning right nephrostomy tube Interval history: Patient seen in bed resting comfortable Objective - Constitutional Vitals: Selected Entries 04/27/16 04/28/16 04/28/16 23:00 08:00 10:00 Temperature 98.1 F 98.1 F Pulse Rate O2 Sat by Pulse 98 Oximetry Blood Pressure Blood Pressure Mean 04/28/16 11:27 Temperature Pulse Rate 77 O2 Sat by Pulse Oximetry Blood Pressure 138/68 Blood Pressure 91 Mean General appearance: Present: no acute distress, well-nourished - EENT Eyes: EOM intact, no scleral icterus, no conjunctival injection ENT: hearing intact, clear oral mucosa - Neck Neck: supple, normal ROM, no enlarged thyroid, no masses or JVD - Respiratory Respiratory: bilateral: CTA - Breasts Breasts: deferred - Cardiovascular Rhythm: regular Heart Sounds: Present: S1 & S2 Extremities: no ischemia, No edema, normal temperature - Gastrointestinal General gastrointestinal: Present: soft, non-tender, other (right nephrostomy tube) - Genitourinary Male genitourinary: deferred - Integumentary Integumentary: clear, warm, dry - Labs CBC & Chem 7: 04/26/16 09:46 04/27/16 05:23 Labs: Abnormal lab results Microbiology 04/23/16 Unknown Kidney Surgical Culture - Final Enterococcus Faecalis Pseudomonas Aeruginosa 04/23/16 12:30 Urine,Kidney - Right Kidney Urine Culture - Final Pseudomonas Aeruginosa 04/23/16 16:11 Peripheral/Venous Blood Culture - Preliminary NO GROWTH AFTER 4 DAYS 04/23/16 16:11 Peripheral/Venous Blood Culture - Preliminary NO GROWTH AFTER 4 DAYS Laboratory Tests 04/23/16 04/23/16 04/26/16 07:52 12:30 09:46 WBC 10.7 Plt Count 212 INR 1.33 H Creatinine POC Glucose Urine WBC (Auto) > 182.0 H 04/27/16 04/28/16 05:23 11:08 WBC Plt Count INR Creatinine 1.8 H POC Glucose 126 H Urine WBC (Auto) 04/28/16 Range/Units 11:08 POC Glucose 126 H (70-105)
[2016-04-29] MEDS: ZOSYN/NS 2.25 GM/50ML 50 ML IV SCH ×4 (01:20→22:20)
[2016-04-29] MEDS: NACL 0.9% 1000 ML 1,000 ML IV SCH ×2 (01:22→16:48)
[2016-04-29] MEDS: OSCAL PO SCH ×3 (01:23→22:04)
[2016-04-29] MEDS: SODIUM BICARBONATE PO SCH ×3 (01:23→22:05)
[2016-04-29] MEDS: NORCO 10/325 PO PRN ×2 (01:24→11:19)
[2016-04-29] MEDS: FLOMAX PO SCH ×2 (01:24→22:05)
[2016-04-29] MEDS: COLACE PO SCH ×3 (01:24→22:04)
[2016-04-29 07:04] LABS: BUN/Creatinine Ratio 15.33; Calcium 7.6 mg/dL (8.4-10.2); Chloride 108.9 mmol/L (98-107); Potassium 4.6 mmol/L (3.6-5.0)
[2016-04-29] MEDS: DELTASONE PO SCH (10:58)
[2016-04-29] MEDS: MEGACE PO SCH (11:02)
[2016-04-29] MEDS: COREG PO SCH (11:02)
[2016-04-29] MEDS: ROCALTROL PO SCH (11:02)
[2016-04-29] MEDS: ABIRATERONE ACETATE 1000 MG PO SCH (11:04)
[2016-04-29] MEDS: PROTONIX PO SCH (11:04)
[2016-04-29] MEDS: DURAGESIC TD SCH (17:58)
--- NOTE | 2016-04-29 18:50 | Progress Note ---
Assessment and Plan Assessment and plan: --Complicated urinary tract infection Received Vanco and cefepime, ID changed antibiotics to Zosyn --Acute on chronic Anemia probably secondary to hematuria Status post blood transfusion stable --History of bilateral indwelling chronic nephrostomy tubes Status post nephrostomy tube exchange Per urology --Acute renal failure secondary to vasomotor nephropathy Closely monitor renal function avoid nephrotoxic medications Serum creatinine trending down --Metastatic prostate cancer/bladder mass Patient's daughter requested urology consult as patient has an appointment to see --Hypertension moderate control Continue current antihypertensives and when necessary medications --History of coronary artery disease stable on medications --Severe protein calorie malnutrition Nutrition supplements and dietary consultation --DVT prophylaxis with heparin Physical therapy, possible discharge in 1-2 days if stable Plan of care discussed with the patient as well as the nurse History Interval history: Patient feels better no new complaints Alert awake oriented 3 not in acute distress No new events reported by the nursing staff Vital signs stable Hospitalist Physical - Constitutional Vitals: Temp Pulse Resp BP Pulse Ox 97.8 F 79 20 120/59 98 04/29/16 15:10 04/29/16 15:10 04/29/16 15:10 04/29/16 15:10 04/29/16 08:00 General appearance: Present: no acute distress, cachectic, disheveled - EENT Eyes: Present: PERRL, EOM intact - Neck Neck: Present: supple, normal ROM - Respiratory Respiratory effort: normal Respiratory: bilateral: diminished, negative: rales, rhonchi, wheezing - Cardiovascular Rhythm: regular Heart Sounds: Present: S1 & S2 - Extremities Extremities: no ischemia, pulses intact, pulses symmetrical Peripheral Pulses: within normal limits - Abdominal General gastrointestinal: soft, non-tender, non-distended, normal bowel sounds - Integumentary Integumentary: Present: clear, warm - Psychiatric Psychiatric: appropriate mood/affect, cooperative - Neurologic Neurologic: CNII-XII intact, moves all extremities Results - Labs CBC & Chem 7: 04/26/16 09:46 04/29/16 Unknown Labs: Laboratory Last Values WBC 10.7 K/mm3 (4.5-11.0) 04/26/16 09:46 RBC 3.37 M/mm3 (3.65-5.03) L 04/26/16 09:46 Hgb 10.0 gm/dl (11.8-15.2) L D 04/26/16 09:46 Hct 30.5 % (35.5-45.6) L D 04/26/16 09:46 MCV 91 fl (84-94) 04/26/16 09:46 MCH 30 pg (28-32) 04/26/16 09:46 MCHC 33 % (32-34) 04/26/16 09:46 RDW 16.8 % (13.2-15.2) H 04/26/16 09:46 Plt Count 212 K/mm3 (140-440) 04/26/16 09:46 Lymph % (Auto) 13.9 % (13.4-35.0) 04/26/16 09:46 [place] % (Auto) 5.7 % (0.0-7.3) 04/26/16 09:46 Eos % (Auto) 0.8 % (0.0-4.3) 04/26/16 09:46 Baso % (Auto) 0.4 % (0.0-1.8) 04/26/16 09:46 Lymph # 1.5 K/mm3 (1.2-5.4) 04/26/16 09:46 [place] # 0.6 K/mm3 (0.0-0.8) 04/26/16 09:46 Eos # 0.1 K/mm3 (0.0-0.4) 04/26/16 09:46 Baso # 0.0 K/mm3 (0.0-0.1) 04/26/16 09:46 Seg Neutrophils % 79.2 % (40.0-70.0) H 04/26/16 09:46 Seg Neutrophils # 8.5 K/mm3 (1.8-7.7) H 04/26/16 09:46 PT 16.4 Sec. (12.2-14.9) H 04/23/16 07:52 INR 1.33 (0.87-1.13) H 04/23/16 07:52 APTT 37.5 Sec. (24.2-36.6) H 04/23/16 07:52 Sodium 140 mmol/L (137-145) 04/29/16 Unknown Potassium 4.6 mmol/L (3.6-5.0) 04/29/16 Unknown Chloride 108.9 mmol/L (98-107) H 04/29/16 Unknown Carbon Dioxide 17 mmol/L (22-30) L 04/29/16 Unknown Anion Gap 19 mmol/L 04/29/16 Unknown BUN 23 mg/dL (9-20) H 04/29/16 Unknown Creatinine 1.5 mg/dL (0.8-1.5) 04/29/16 Unknown Estimated GFR 54 ml/min 04/29/16 Unknown BUN/Creatinine Ratio 15.33 % 04/29/16 Unknown Glucose 62 mg/dL (75-100) L 04/29/16 Unknown POC Glucose 126 (70-105) H 04/28/16 11:08 Lactic Acid 1.2 mmol/L (0.7-2.0) 04/25/16 04:56 Calcium 7.6 mg/dL (8.4-10.2) L 04/29/16 Unknown Magnesium 1.9 mg/dL (1.7-2.3) 04/26/16 09:46 Total Bilirubin 0.3 mg/dL (0.1-1.2) 04/24/16 05:37 AST 13 units/L (5-40) 04/24/16 05:37 ALT 6 units/L (7-56) L 04/24/16 05:37 Alkaline Phosphatase 133 units/L (35-129) H 04/24/16 05:37 Total Protein 6.1 g/dL (6.3-8.2) L 04/24/16 05:37 Albumin 2.5 g/dL (3.9-5) L 04/24/16 05:37 Albumin/Globulin Ratio 0.7 % 04/24/16 05:37 Urine Color Red (Yellow) 04/23/16 12:30 Urine Turbidity Turbid (Clear) 04/23/16 12:30 Urine pH 7.0 (5.0-7.0) 04/23/16 12:30 Ur Specific [place] 1.021 (1.003-1.030) 04/23/16 12:30 Urine Protein 100 mg/dl mg/dL (Negative) 04/23/16 12:30 Urine Glucose (UA) Neg mg/dL (Negative) 04/23/16 12:30 Urine Ketones Neg mg/dL (Negative) 04/23/16 12:30 Urine Blood Lg (Negative) 04/23/16 12:30 Urine Nitrite Pos (Negative) 04/23/16 12:30 Urine Bilirubin Neg (Negative) 04/23/16 12:30 Urine Urobilinogen < 2.0 mg/dL (<2.0) 04/23/16 12:30 Ur Leukocyte Esterase Mod (Negative) 04/23/16 12:30 Urine WBC (Auto) > 182.0 /HPF (0.0-6.0) H 04/23/16 12:30 Urine RBC (Auto) > 182.0 /HPF (0.0-6.0) 04/23/16 12:30 Urine WBC Clumps 3+ /HPF 04/23/16 12:30 Blood Type O NEGATIVE 04/25/16 10:59 Antibody Screen Negative 04/25/16 10:59 Crossmatch See Detail 04/25/16 10:59
[2016-04-30] MEDS: ZOSYN/NS 2.25 GM/50ML 50 ML IV SCH ×3 (05:22→18:30)
[2016-04-30] MEDS ORDERED: D50W (25GM) IV ONE ×2 (06:24→06:55)
[2016-04-30] MEDS: COREG PO SCH (10:09)
[2016-04-30] MEDS: MEGACE PO SCH (10:12)
[2016-04-30] MEDS: DELTASONE PO SCH (10:12)
[2016-04-30] MEDS: PROTONIX PO SCH (10:13)
[2016-04-30] MEDS: ROCALTROL PO SCH (10:13)
--- NOTE | 2016-04-30 10:14 | Progress Note ---
Assessment and Plan Current antibiotics: zosyn 2.25gm iv Q8H (04/27 Previous antibiotics Levaquin 750 mg IV X 1 04/23 Vancomycin IV 04/23 --> 04/27 Cefepime 1 g IV q12h 04/23 -->04/27 Immunosuppressants: Prednisone 5 mg PO daily ASSESSMENT: Darwin Marti is an 85 y/o male with metastatic prostate cancer with bladder obstruction, HTN, CKD, CAD, hx DVT, and anemia who underwent replacement of bilateral nephrostomy tubes on 04/23 and was found to have sammi pus draining from the right tube and was admitted to [facility] for workup and appropriate antibiotic therapy. Problem list: 1. Complicated UTI with right sided pyonephrosis -Urine cultures growing Pseudomonas aeruginosa and vancomycin resistant Enterococcus faecalis (penicillin sensitive). --nephrostomy tube placed on 04/27 2. Hx of recurrent UTIs 3. 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 Leukocytosis -secondary to #1 -resolved 5. CKD -Component of LORENZO that is improving 6. Anemia -Secondary to chronic disease PLAN: 1. continue Zosyn 2.25gm iv Q8H 2. 2 weeks of post-op antibiotics. ( Stop date 05/06 ) 3. no objection to discharge home once medically stable 4. Contact precautions for VRE Subjective Date of service: 04/30/16 Principal diagnosis: Malfunctioning right nephrostomy tube Interval history: Patient is seen in bed comfortable, no new complaints Objective - Constitutional Vitals: Selected Entries 04/30/16 08:00 Temperature 98.9 F Pulse Rate [ 78 Right Radial] Respiratory 18 Rate O2 Sat by Pulse 98 Oximetry Blood Pressure 196/85 [Left Arm] Blood Pressure 122 Mean [Left Arm] General appearance: Present: no acute distress, well-nourished - EENT ENT: hearing intact Ears: bilateral: normal - Neck Neck: supple, normal ROM, no enlarged thyroid, no masses or JVD - Respiratory Respiratory: bilateral: CTA - Breasts Breasts: deferred - Cardiovascular Rhythm: regular Heart Sounds: Present: S1 & S2 Extremities: no ischemia, No edema - Gastrointestinal General gastrointestinal: Present: soft, non-tender, normal bowel sounds - Genitourinary Male genitourinary: deferred - Integumentary Integumentary: clear, warm, dry - Musculoskeletal Musculoskeletal: generalized weakness - Psychiatric Psychiatric: appropriate mood/affect, cooperative - Labs CBC & Chem 7: 04/26/16 09:46 04/29/16 Unknown Labs: Microbiology 04/23/16 Unknown Kidney Surgical Culture - Final Enterococcus Faecalis Pseudomonas Aeruginosa 04/23/16 16:11 Peripheral/Venous Blood Culture - Final NO GROWTH AFTER 5 DAYS Laboratory Tests 04/26/16 04/29/16 04/30/16 09:46 Unknown 07:28 WBC 10.7 Creatinine 1.5 POC Glucose 69 L
[2016-04-30] MEDS: OSCAL PO SCH ×2 (10:17→21:59)
[2016-04-30] MEDS: COLACE PO SCH ×2 (10:17→21:59)
[2016-04-30] MEDS: SODIUM BICARBONATE PO SCH ×2 (10:43→21:59)
[2016-04-30] MEDS: ABIRATERONE ACETATE 1000 MG PO SCH (10:44)
[2016-04-30] MEDS ORDERED: APRESOLINE IV ONE (16:47)
[2016-04-30] MEDS: NORCO 10/325 PO PRN (17:58)
[2016-04-30] MEDS: NACL 0.9% 1000 ML 1,000 ML IV SCH (18:35)
--- NOTE | 2016-04-30 19:51 | Progress Note ---
Assessment and Plan Assessment and plan: --History of bilateral indwelling chronic nephrostomy tubes Status post nephrostomy tube exchange Per urology --Complicated urinary tract infection Received Vanco and cefepime, ID changed antibiotics to Zosyn Stop date 05/06/2016 Discussed with case management to set up home IV antibiotics --Acute on chronic Anemia probably secondary to hematuria Status post blood transfusion stable --Acute renal failure secondary to vasomotor nephropathy Closely monitor renal function avoid nephrotoxic medications Serum creatinine trending down --Metastatic prostate cancer/bladder mass Patient's daughter requested urology consult as patient has an appointment to see --Hypertension moderate control Continue current antihypertensives and when necessary medications --History of coronary artery disease stable on medications --Severe protein calorie malnutrition Nutrition supplements and dietary consultation --DVT prophylaxis with heparin Physical therapy, possible discharge home antibiotics with case management Plan of care discussed with the patient as well as the nurse History Interval history: Patient seen and evaluated in his room this afternoon medical records reviewed No new events reported by the nursing staff Patient has no new complaints Alert awake oriented 3 not in acute distress Vital signs reviewed Hospitalist Physical - Constitutional Vitals: Temp Pulse Resp BP Pulse Ox 99.1 F 73 18 147/76 100 04/30/16 17:00 04/30/16 17:50 04/30/16 17:00 04/30/16 17:50 04/30/16 17:00 General appearance: Present: no acute distress, well-nourished - EENT Eyes: Present: PERRL, EOM intact - Neck Neck: Present: supple, normal ROM - Respiratory Respiratory effort: normal Respiratory: bilateral: diminished, negative: rales, rhonchi, wheezing - Cardiovascular Rhythm: regular Heart Sounds: Present: S1 & S2 - Extremities Extremities: no ischemia, pulses intact, pulses symmetrical Peripheral Pulses: within normal limits - Abdominal General gastrointestinal: soft, non-tender, non-distended, normal bowel sounds - Integumentary Integumentary: Present: clear, warm - Psychiatric Psychiatric: appropriate mood/affect, cooperative - Neurologic Neurologic: CNII-XII intact, moves all extremities Results - Labs CBC & Chem 7: 04/26/16 09:46 04/29/16 Unknown Labs: Laboratory Last Values WBC 10.7 K/mm3 (4.5-11.0) 04/26/16 09:46 RBC 3.37 M/mm3 (3.65-5.03) L 04/26/16 09:46 Hgb 10.0 gm/dl (11.8-15.2) L D 04/26/16 09:46 Hct 30.5 % (35.5-45.6) L D 04/26/16 09:46 MCV 91 fl (84-94) 04/26/16 09:46 MCH 30 pg (28-32) 04/26/16 09:46 MCHC 33 % (32-34) 04/26/16 09:46 RDW 16.8 % (13.2-15.2) H 04/26/16 09:46 Plt Count 212 K/mm3 (140-440) 04/26/16 09:46 Lymph % (Auto) 13.9 % (13.4-35.0) 04/26/16 09:46 [place] % (Auto) 5.7 % (0.0-7.3) 04/26/16 09:46 Eos % (Auto) 0.8 % (0.0-4.3) 04/26/16 09:46 Baso % (Auto) 0.4 % (0.0-1.8) 04/26/16 09:46 Lymph # 1.5 K/mm3 (1.2-5.4) 04/26/16 09:46 [place] # 0.6 K/mm3 (0.0-0.8) 04/26/16 09:46 Eos # 0.1 K/mm3 (0.0-0.4) 04/26/16 09:46 Baso # 0.0 K/mm3 (0.0-0.1) 04/26/16 09:46 Seg Neutrophils % 79.2 % (40.0-70.0) H 04/26/16 09:46 Seg Neutrophils # 8.5 K/mm3 (1.8-7.7) H 04/26/16 09:46 PT 16.4 Sec. (12.2-14.9) H 04/23/16 07:52 INR 1.33 (0.87-1.13) H 04/23/16 07:52 APTT 37.5 Sec. (24.2-36.6) H 04/23/16 07:52 Sodium 140 mmol/L (137-145) 04/29/16 Unknown Potassium 4.6 mmol/L (3.6-5.0) 04/29/16 Unknown Chloride 108.9 mmol/L (98-107) H 04/29/16 Unknown Carbon Dioxide 17 mmol/L (22-30) L 04/29/16 Unknown Anion Gap 19 mmol/L 04/29/16 Unknown BUN 23 mg/dL (9-20) H 04/29/16 Unknown Creatinine 1.5 mg/dL (0.8-1.5) 04/29/16 Unknown Estimated GFR 54 ml/min 04/29/16 Unknown BUN/Creatinine Ratio 15.33 % 04/29/16 Unknown Glucose 62 mg/dL (75-100) L 04/29/16 Unknown POC Glucose 144 (70-105) H 04/30/16 16:21 Lactic Acid 1.2 mmol/L (0.7-2.0) 04/25/16 04:56 Calcium 7.6 mg/dL (8.4-10.2) L 04/29/16 Unknown Magnesium 1.9 mg/dL (1.7-2.3) 04/26/16 09:46 Total Bilirubin 0.3 mg/dL (0.1-1.2) 04/24/16 05:37 AST 13 units/L (5-40) 04/24/16 05:37 ALT 6 units/L (7-56) L 04/24/16 05:37 Alkaline Phosphatase 133 units/L (35-129) H 04/24/16 05:37 Total Protein 6.1 g/dL (6.3-8.2) L 04/24/16 05:37 Albumin 2.5 g/dL (3.9-5) L 04/24/16 05:37 Albumin/Globulin Ratio 0.7 % 04/24/16 05:37 Urine Color Red (Yellow) 04/23/16 12:30 Urine Turbidity Turbid (Clear) 04/23/16 12:30 Urine pH 7.0 (5.0-7.0) 04/23/16 12:30 Ur Specific [place] 1.021 (1.003-1.030) 04/23/16 12:30 Urine Protein 100 mg/dl mg/dL (Negative) 04/23/16 12:30 Urine Glucose (UA) Neg mg/dL (Negative) 04/23/16 12:30 Urine Ketones Neg mg/dL (Negative) 04/23/16 12:30 Urine Blood Lg (Negative) 04/23/16 12:30 Urine Nitrite Pos (Negative) 04/23/16 12:30 Urine Bilirubin Neg (Negative) 04/23/16 12:30 Urine Urobilinogen < 2.0 mg/dL (<2.0) 04/23/16 12:30 Ur Leukocyte Esterase Mod (Negative) 04/23/16 12:30 Urine WBC (Auto) > 182.0 /HPF (0.0-6.0) H 04/23/16 12:30 Urine RBC (Auto) > 182.0 /HPF (0.0-6.0) 04/23/16 12:30 Urine WBC Clumps 3+ /HPF 04/23/16 12:30 Blood Type O NEGATIVE 04/25/16 10:59 Antibody Screen Negative 04/25/16 10:59 Crossmatch See Detail 04/25/16 10:59
[2016-04-30] MEDS: FLOMAX PO SCH (21:58)
[2016-04-30] MEDS: APRESOLINE PO SCH (22:05)
[2016-05-01] MEDS: ZOSYN/NS 2.25 GM/50ML 50 ML IV SCH ×5 (02:12→22:00)
[2016-05-01 05:07] LABS: Hematocrit 30.6 % (35.5-45.6); Hemoglobin 10.6 gm/dl (11.8-15.2); Mean Corpuscular HGB Conc 35 % (32-34); Mean Corpuscular Hemoglobin 31 pg (28-32); Mean Corpuscular Volume 88 fl (84-94); Platelet Count 250 K/mm3 (140-440); Red Blood Count 3.46 M/mm3 (3.65-5.03); Red Cell Distribution Width 17.1 % (13.2-15.2); White Blood Count 10.5 K/mm3 (4.5-11.0)
[2016-05-01 05:12] LABS: Calcium 7.4 mg/dL (8.4-10.2); Chloride 108.7 mmol/L (98-107)
[2016-05-01] MEDS: APRESOLINE PO SCH ×2 (05:43→14:04)
[2016-05-01 06:10] LABS: Blastocytes % (Manual) 0 %
[2016-05-01 06:11] LABS: Basophils % (Manual) 0 % (0.0-1.8)
[2016-05-01 06:20] LABS: Anisocytosis 1+; Diff Status Complete
[2016-05-01] MEDS: SODIUM BICARBONATE PO SCH ×2 (09:25→22:00)
[2016-05-01] MEDS: OSCAL PO SCH ×2 (09:26→22:00)
[2016-05-01] MEDS: COREG PO SCH (09:26)
[2016-05-01] MEDS: DELTASONE PO SCH (09:26)
[2016-05-01] MEDS: PROTONIX PO SCH (09:26)
[2016-05-01] MEDS: ABIRATERONE ACETATE 1000 MG PO SCH (09:26)
[2016-05-01] MEDS: COLACE PO SCH ×2 (09:26→22:00)
[2016-05-01] MEDS: ROCALTROL PO SCH (09:27)
[2016-05-01] MEDS: MEGACE PO SCH (09:27)
--- NOTE | 2016-05-01 12:41 | Progress Note ---
Assessment and Plan Current antibiotics: zosyn 2.25gm iv Q8H (04/27 Previous antibiotics Levaquin 750 mg IV X 1 04/23 Vancomycin IV 04/23 --> 04/27 Cefepime 1 g IV q12h 04/23 -->04/27 Immunosuppressants: Prednisone 5 mg PO daily ASSESSMENT: Darwin Marti is an 85 y/o male with metastatic prostate cancer with bladder obstruction, HTN, CKD, CAD, hx DVT, and anemia who underwent replacement of bilateral nephrostomy tubes on 04/23 and was found to have sammi pus draining from the right tube and was admitted to [facility] for workup and appropriate antibiotic therapy. Problem list: 1. Complicated UTI with right sided pyonephrosis -Urine cultures growing Pseudomonas aeruginosa and vancomycin resistant Enterococcus faecalis (penicillin sensitive). --nephrostomy tube placed on 04/27 2. Hx of recurrent UTIs 3. 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 Leukocytosis -secondary to #1 -resolved 5. CKD -Component of LORENZO that is improving 6. Anemia -Secondary to chronic disease PLAN: 1. continue Zosyn 2.25gm iv Q8H 2. 2 weeks of post-op antibiotics. ( Stop date 05/06 ) 3. no objection to discharge home once medically stable 4. Contact precautions for VRE 5. midline placement for 5 days of antibiotics Subjective Date of service: 05/01/16 Principal diagnosis: Malfunctioning right nephrostomy tube Interval history: Patient seen in bed comfortable, he has no new complaints Objective - Constitutional Vitals: Selected Entries 05/01/16 08:00 Temperature 97.0 F L Pulse Rate [ 81 Right Radial] Respiratory 14 Rate O2 Sat by Pulse 95 Oximetry Blood Pressure 154/72 [Left Arm] Blood Pressure 99 Mean [Left Arm] General appearance: Present: no acute distress, well-nourished - EENT Eyes: PERRL, EOM intact, no scleral icterus, no conjunctival injection ENT: hearing intact, clear oral mucosa Ears: bilateral: normal - Neck Neck: supple, normal ROM, no enlarged thyroid, no masses or JVD - Respiratory Respiratory: bilateral: CTA - Breasts Breasts: deferred - Cardiovascular Rhythm: regular Heart Sounds: Present: S1 & S2 Extremities: no ischemia, No edema - Gastrointestinal General gastrointestinal: Present: soft, non-tender Rectal Exam: deferred - Integumentary Integumentary: clear, warm, dry, no jaundice, no rash - Musculoskeletal Musculoskeletal: generalized weakness - Psychiatric Psychiatric: cooperative - Additional findings Additional findings: bilateral nephrostomy tubes, right with bloody urine - Labs CBC & Chem 7: 05/01/16 04:42 05/01/16 04:42 Labs: Microbiology 04/23/16 Unknown Kidney Surgical Culture - Final Enterococcus Faecalis Pseudomonas Aeruginosa 04/23/16 16:11 Peripheral/Venous Blood Culture - Final NO GROWTH AFTER 5 DAYS Laboratory Tests 05/01/16 05/01/16 04:42 04:42 WBC 10.5 Chloride 108.7 H BUN 21 H Creatinine 1.5
--- NOTE | 2016-05-01 14:44 | Progress Note ---
Assessment and Plan Assessment and plan: Complicated urinary tract infection Received Vanco and cefepime, ID changed antibiotics to Zosyn Stop date 05/06/2016 Discussed with case management. For midline placement and to set up home IV antibiotics until 05/06/16 -History of bilateral indwelling chronic nephrostomy tubes Status post nephrostomy tube exchange Per urology --Acute on chronic Anemia probably secondary to hematuria Status post blood transfusion stable. Hgb 10.6 --Acute renal failure secondary to vasomotor nephropathy Closely monitor renal function avoid nephrotoxic medications Serum creatinine trending down --Metastatic prostate cancer/bladder mass following --Hypertension moderate control Continue current antihypertensives and when necessary medications --History of coronary artery disease stable on medications --DVT prophylaxis with heparin Disposition: For midline placement and d/c home on home antibiotics iv. History Interval history: Feels better, less abdominal pain, no fever Hospitalist Physical - Physical exam Narrative exam: Gen appearance : not in acute distress, HEENT: Normocephalic atraumatic, Neck: supple, no JVD. Lungs: clear to auscultation bilaterally, no crackles no wheezes Heart: S1 and S2 regular, no murmurs no gallop Abdomen: soft, nontender, nondistended normal bowel sounds Extremities: no edema, no clubbing or cyanosis Neuro awake alert oriented , no focal signs - Constitutional Vitals: Temp Pulse Resp BP Pulse Ox 97.0 F L 81 14 154/72 95 05/01/16 08:00 05/01/16 08:00 05/01/16 08:00 05/01/16 08:00 05/01/16 08:00 Results - Labs CBC & Chem 7: 05/01/16 04:42 05/01/16 04:42 Labs: Laboratory Last Values WBC 10.5 K/mm3 (4.5-11.0) 05/01/16 04:42 RBC 3.46 M/mm3 (3.65-5.03) L 05/01/16 04:42 Hgb 10.6 gm/dl (11.8-15.2) L 05/01/16 04:42 Hct 30.6 % (35.5-45.6) L 05/01/16 04:42 MCV 88 fl (84-94) 05/01/16 04:42 MCH 31 pg (28-32) 05/01/16 04:42 MCHC 35 % (32-34) H 05/01/16 04:42 RDW 17.1 % (13.2-15.2) H 05/01/16 04:42 Plt Count 250 K/mm3 (140-440) 05/01/16 04:42 Lymph % (Auto) 13.9 % (13.4-35.0) 04/26/16 09:46 [place] % (Auto) 5.7 % (0.0-7.3) 04/26/16 09:46 Eos % (Auto) 0.8 % (0.0-4.3) 04/26/16 09:46 Baso % (Auto) Binding Cutter 05/01/16 04:42 Lymph # 1.5 K/mm3 (1.2-5.4) 04/26/16 09:46 [place] # 0.6 K/mm3 (0.0-0.8) 04/26/16 09:46 Eos # 0.1 K/mm3 (0.0-0.4) 04/26/16 09:46 Baso # 0.0 K/mm3 (0.0-0.1) 04/26/16 09:46 Add Manual Diff Complete 05/01/16 04:42 Total Counted 100 05/01/16 04:42 Seg Neutrophils % 79.2 % (40.0-70.0) H 04/26/16 09:46 Seg Neuts % (Manual) 68.0 % (40.0-70.0) 05/01/16 04:42 Band Neutrophils % 0 % 05/01/16 04:42 Lymphocytes % (Manual) 25.0 % (13.4-35.0) 05/01/16 04:42 Reactive Lymphs % (Man) 0 % 05/01/16 04:42 Monocytes % (Manual) 5.0 % (0.0-7.3) 05/01/16 04:42 Eosinophils % (Manual) 1.0 % (0.0-4.3) 05/01/16 04:42 Basophils % (Manual) 0 % (0.0-1.8) 05/01/16 04:42 Metamyelocytes % 1.0 % 05/01/16 04:42 Myelocytes % 0 % 05/01/16 04:42 Promyelocytes % 0 % 05/01/16 04:42 Blast Cells % 0 % 05/01/16 04:42 Nucleated RBC % Not Reportable 05/01/16 04:42 Seg Neutrophils # 8.5 K/mm3 (1.8-7.7) H 04/26/16 09:46 Seg Neutrophils # Man 7.1 K/mm3 (1.8-7.7) 05/01/16 04:42 Band Neutrophils # 0.0 K/mm3 05/01/16 04:42 Lymphocytes # (Manual) 2.6 K/mm3 (1.2-5.4) 05/01/16 04:42 Abs React Lymphs (Man) 0.0 K/mm3 05/01/16 04:42 Monocytes # (Manual) 0.5 K/mm3 (0.0-0.8) 05/01/16 04:42 Eosinophils # (Manual) 0.1 K/mm3 (0.0-0.4) 05/01/16 04:42 Basophils # (Manual) 0.0 K/mm3 (0.0-0.1) 05/01/16 04:42 Metamyelocytes # 0.1 K/mm3 05/01/16 04:42 Myelocytes # 0.0 K/mm3 05/01/16 04:42 Promyelocytes # 0.0 K/mm3 05/01/16 04:42 Blast Cells # 0.0 K/mm3 05/01/16 04:42 WBC Morphology Not Reportable 05/01/16 04:42 Hypersegmented Neuts Not Reportable 05/01/16 04:42 Hyposegmented Neuts Not Reportable 05/01/16 04:42 Hypogranular Neuts Not Reportable 05/01/16 04:42 Smudge Cells Not Reportable 05/01/16 04:42 Toxic Granulation Not Reportable 05/01/16 04:42 Toxic Vacuolation Not Reportable 05/01/16 04:42 Dohle Bodies Not Reportable 05/01/16 04:42 Pelger-Huet Anomaly Not Reportable 05/01/16 04:42 Indu Rods Not Reportable 05/01/16 04:42 Platelet Estimate Appears normal 05/01/16 04:42 Clumped Platelets Not Reportable 05/01/16 04:42 Plt Clumps, EDTA Not Reportable 05/01/16 04:42 Large Platelets Not Reportable 05/01/16 04:42 Giant Platelets Not Reportable 05/01/16 04:42 Platelet Satelliting Not Reportable 05/01/16 04:42 Plt Morphology Comment Not Reportable 05/01/16 04:42 RBC Morphology Not Reportable 05/01/16 04:42 Dimorphic RBCs Not Reportable 05/01/16 04:42 Polychromasia Not Reportable 05/01/16 04:42 Hypochromasia Not Reportable 05/01/16 04:42 Poikilocytosis Not Reportable 05/01/16 04:42 Anisocytosis 1+ 05/01/16 04:42 Microcytosis Not Reportable 05/01/16 04:42 Macrocytosis Not Reportable 05/01/16 04:42 Spherocytes Not Reportable 05/01/16 04:42 Pappenheimer Bodies Not Reportable 05/01/16 04:42 Sickle Cells Not Reportable 05/01/16 04:42 Target Cells Not Reportable 05/01/16 04:42 Tear Drop Cells Not Reportable 05/01/16 04:42 Ovalocytes Not Reportable 05/01/16 04:42 Helmet Cells Not Reportable 05/01/16 04:42 [place] Bodies Not Reportable 05/01/16 04:42 [place] Rings Not Reportable 05/01/16 04:42 [place] Cells Not Reportable 05/01/16 04:42 Bite Cells Not Reportable 05/01/16 04:42 Crenated Cell Not Reportable 05/01/16 04:42 Elliptocytes Not Reportable 05/01/16 04:42 Acanthocytes (Spur) Not Reportable 05/01/16 04:42 Rouleaux Not Reportable 05/01/16 04:42 Hemoglobin C Crystals Not Reportable 05/01/16 04:42 Schistocytes Not Reportable 05/01/16 04:42 Malaria parasites Not Reportable 05/01/16 04:42 Cesario Bodies Not Reportable 05/01/16 04:42 Hem Pathologist Commnt No 05/01/16 04:42 PT 16.4 Sec. (12.2-14.9) H 04/23/16 07:52 INR 1.33 (0.87-1.13) H 04/23/16 07:52 APTT 37.5 Sec. (24.2-36.6) H 04/23/16 07:52 Sodium 141 mmol/L (137-145) 05/01/16 04:42 Potassium 4.0 mmol/L (3.6-5.0) 05/01/16 04:42 Chloride 108.7 mmol/L (98-107) H 05/01/16 04:42 Carbon Dioxide 17 mmol/L (22-30) L 05/01/16 04:42 Anion Gap 19 mmol/L 05/01/16 04:42 BUN 21 mg/dL (9-20) H 05/01/16 04:42 Creatinine 1.5 mg/dL (0.8-1.5) 05/01/16 04:42 Estimated GFR 54 ml/min 05/01/16 04:42 BUN/Creatinine Ratio 14.00 % 05/01/16 04:42 Glucose 75 mg/dL (75-100) 05/01/16 04:42 POC Glucose 61 (70-105) L 05/01/16 06:15 Lactic Acid 1.2 mmol/L (0.7-2.0) 04/25/16 04:56 Calcium 7.4 mg/dL (8.4-10.2) L 05/01/16 04:42 Magnesium 1.9 mg/dL (1.7-2.3) 04/26/16 09:46 Total Bilirubin 0.3 mg/dL (0.1-1.2) 04/24/16 05:37 AST 13 units/L (5-40) 04/24/16 05:37 ALT 6 units/L (7-56) L 04/24/16 05:37 Alkaline Phosphatase 133 units/L (35-129) H 04/24/16 05:37 Total Protein 6.1 g/dL (6.3-8.2) L 04/24/16 05:37 Albumin 2.5 g/dL (3.9-5) L 04/24/16 05:37 Albumin/Globulin Ratio 0.7 % 04/24/16 05:37 Urine Color Red (Yellow) 04/23/16 12:30 Urine Turbidity Turbid (Clear) 04/23/16 12:30 Urine pH 7.0 (5.0-7.0) 04/23/16 12:30 Ur Specific [place] 1.021 (1.003-1.030) 04/23/16 12:30 Urine Protein 100 mg/dl mg/dL (Negative) 04/23/16 12:30 Urine Glucose (UA) Neg mg/dL (Negative) 04/23/16 12:30 Urine Ketones Neg mg/dL (Negative) 04/23/16 12:30 Urine Blood Lg (Negative) 04/23/16 12:30 Urine Nitrite Pos (Negative) 04/23/16 12:30 Urine Bilirubin Neg (Negative) 04/23/16 12:30 Urine Urobilinogen < 2.0 mg/dL (<2.0) 04/23/16 12:30 Ur Leukocyte Esterase Mod (Negative) 04/23/16 12:30 Urine WBC (Auto) > 182.0 /HPF (0.0-6.0) H 04/23/16 12:30 Urine RBC (Auto) > 182.0 /HPF (0.0-6.0) 04/23/16 12:30 Urine WBC Clumps 3+ /HPF 04/23/16 12:30 Blood Type O NEGATIVE 04/25/16 10:59 Antibody Screen Negative 04/25/16 10:59 Crossmatch See Detail 04/25/16 10:59
[2016-05-01] MEDS: NORCO 10/325 PO PRN (18:16)
[2016-05-01] MEDS: FLOMAX PO SCH (22:00)
[2016-05-01] MEDS: AMBIEN PO PRN (22:00)
[2016-05-01] MEDS: TYLENOL PO PRN (22:00)
[2016-05-02] MEDS: APRESOLINE PO SCH ×4 (00:39→23:15)
[2016-05-02] MEDS: NACL 0.9% 1000 ML 1,000 ML IV SCH (00:43)
[2016-05-02] MEDS: ZOSYN/NS 2.25 GM/50ML 50 ML IV SCH ×3 (06:34→18:14)
[2016-05-02] MEDS: DELTASONE PO SCH (10:22)
[2016-05-02] MEDS: COLACE PO SCH ×2 (10:22→23:17)
[2016-05-02] MEDS: ROCALTROL PO SCH (10:22)
[2016-05-02] MEDS: PROTONIX PO SCH (10:22)
[2016-05-02] MEDS: OSCAL PO SCH ×2 (10:23→23:16)
[2016-05-02] MEDS: SODIUM BICARBONATE PO SCH ×2 (10:23→23:17)
[2016-05-02] MEDS: COREG PO SCH (10:23)
[2016-05-02] MEDS: ABIRATERONE ACETATE 1000 MG PO SCH (10:25)
[2016-05-02] MEDS: MEGACE PO SCH (10:26)
--- NOTE | 2016-05-02 10:45 | Progress Note ---
Assessment and Plan Current antibiotics: zosyn 2.25gm iv Q8H (04/27 Previous antibiotics Levaquin 750 mg IV X 1 04/23 Vancomycin IV 04/23 --> 04/27 Cefepime 1 g IV q12h 04/23 -->04/27 Immunosuppressants: Prednisone 5 mg PO daily ASSESSMENT: Darwin Marti is an 85 y/o male with metastatic prostate cancer with bladder obstruction, HTN, CKD, CAD, hx DVT, and anemia who underwent replacement of bilateral nephrostomy tubes on 04/23 and was found to have sammi pus draining from the right tube and was admitted to [facility] for workup and appropriate antibiotic therapy. Problem list: 1. Complicated UTI with right sided pyonephrosis -Urine cultures growing Pseudomonas aeruginosa and vancomycin resistant Enterococcus faecalis (penicillin sensitive). --nephrostomy tube placed on 04/27 2. Hx of recurrent UTIs 3. 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 Leukocytosis -secondary to #1 -resolved 5. CKD -Component of LORENZO that is improving 6. Anemia -Secondary to chronic disease PLAN: 1. continue Zosyn 2.25gm iv Q8H 2. 2 weeks of post-op antibiotics. ( Stop date 05/06 ) 3. no objection to discharge home once medically stable 4. Contact precautions for VRE Subjective Date of service: 05/02/16 Principal diagnosis: Malfunctioning right nephrostomy tube Interval history: Patient is doing okay, he has no new complaints. Objective - Constitutional Vitals: Selected Entries 05/01/16 05/02/16 23:17 07:35 Temperature 99.1 F Pulse Rate [ 76 Right Radial] Respiratory 18 Rate O2 Sat by Pulse 98 Oximetry Blood Pressure 154/67 [Left Arm] Blood Pressure 96 Mean [Left Arm] General appearance: Present: no acute distress, well-nourished - EENT Eyes: PERRL, EOM intact, no scleral icterus, no conjunctival injection ENT: hearing intact, clear oral mucosa, poor dentition - Neck Neck: supple, normal ROM, no enlarged thyroid, no masses or JVD - Respiratory Respiratory effort: normal Respiratory: bilateral: CTA - Breasts Breasts: deferred - Cardiovascular Rhythm: regular Heart Sounds: Present: S1 & S2 Extremities: no ischemia, normal temperature Extremity abnormal: edema - Gastrointestinal General gastrointestinal: Present: soft, non-tender, normal bowel sounds Rectal Exam: deferred - Genitourinary Male genitourinary: deferred - Integumentary Integumentary: clear, warm, dry - Labs CBC & Chem 7: 05/01/16 04:42 05/01/16 04:42 Labs: Microbiology 04/23/16 Unknown Kidney Surgical Culture - Final Enterococcus Faecalis Pseudomonas Aeruginosa 04/23/16 16:11 Peripheral/Venous Blood Culture - Final NO GROWTH AFTER 5 DAYS Laboratory Tests 04/23/16 05/01/16 05/01/16 12:30 04:42 04:42 WBC 10.5 Plt Count 250 Chloride 108.7 H BUN 21 H Creatinine 1.5 Urine WBC (Auto) > 182.0 H
--- NOTE | 2016-05-02 14:07 | Discharge Summary ---
Providers - Providers Date of Admission: 04/23/16 11:17 Attending physician: CADENCE ALMODOVAR 04/23/16 11:17 Consult to Dietitian/Nutrition [CONS] Routine Physician Instructions: Reason For Exam: Reason for Consult: Nutrition Recommendations Reason for Consult: Malnutrition 04/23/16 11:20 Consult to Physician [CONS] Routine Consulting Provider: PATY GREWAL Reason For Exam: PYELONEPHRITIS, NEPHROSTOMY TUBE EXCHANGE Place consult to:: Office Notified:: yes Phone number called:: [phone] Was contact made?: Yes If yes, spoke with:: Answering service Time called:: 18:40 04/25/16 11:25 Consult to Physician [CONS] Routine Consulting Provider: MADDIE LONG Reason For Exam: hematuria/bladder mass Place consult to:: DR. LONG Notified:: DR. LONG Comment:: DONE 04/25/16 PER ROHAN 04/26/16 11:01 Consult to Physician [CONS] Routine Consulting Provider: DALTON KILGORE Reason For Exam: h/o metastatic prostate cancer/anemia/pt requests Place consult to:: Notified:: [facility] OFFICE Phone number called:: [phone] Was contact made?: Yes If yes, spoke with:: ARTHUR Time called:: 11:50 Comment:: ROHAN NOTIFIED 04/27/16 15:58 Consult to Wound/ET Nurse [CONS] Routine Reason For Exam: wound eval 04/27/16 15:59 Physical Therapy Evaluation and Treat [CONS] Routine Comment: Reason For Exam: gen debility/unsteady gait 05/01/16 12:44 Midline [Consult to PICC Line RN] [CONS] Routine Reason For Exam: iv antibiotics Type Line:: Midline 05/02/16 13:06 Consult to Case Management [CONS] Routine Services Needed at Discharge: Home Health Services Notified:: LULU Comment:: iv zosyn 2.25gm iv Q6H until 05/06/16 Primary care physician: DALTON KILGORE Hospitalization Condition: Good Disposition: STILL A PATIENT Exam - Constitutional Vitals: Temp Pulse Resp BP Pulse Ox 99.1 F 76 18 154/67 98 05/01/16 23:17 05/02/16 07:35 05/02/16 07:35 05/02/16 07:35 05/02/16 07:35 Plan Special Instructions: home health RN (For Zosyn 2.25g iv Q 8h last dose 05/06/16) Follow up with: DALTON KILGORE MD [Primary Care Provider] - 7 Days
--- NOTE | 2016-05-02 15:13 | Progress Note ---
Assessment and Plan Assessment and plan: Complicated urinary tract infection Received Vanco and cefepime, ID changed antibiotics to Zosyn Stop date 05/06/2016 Discussed with case management. Had midline placement yesterday, for home IV antibiotics until 05/06/16 -History of bilateral indwelling chronic nephrostomy tubes Status post nephrostomy tube exchange Per urology Acute DVT right subclavian extendinng to right brachial vein. Re-consult his Heme/Onc Physician, Dr. Cordon. Start heparin drip. --Acute on chronic Anemia probably secondary to hematuria Status post blood transfusion stable. Hgb 10.6 --Acute renal failure secondary to vasomotor nephropathy Closely monitor renal function avoid nephrotoxic medications Serum creatinine trending down --Metastatic prostate cancer/bladder mass following --Hypertension moderate control Continue current antihypertensives and when necessary medications --History of coronary artery disease stable on medications --DVT prophylaxis with heparin Disposition: For d/c home on home antibiotics iv and anticoagulation for new DVT. History Interval history: right upper ext edema no fever Hospitalist Physical - Physical exam Narrative exam: Gen appearance : not in acute distress, HEENT: Normocephalic atraumatic, Neck: supple, no JVD. Lungs: clear to auscultation bilaterally, no crackles no wheezes Heart: S1 and S2 regular, no murmurs no gallop Abdomen: soft, nontender, nondistended normal bowel sounds Extremities: RUE edema, no clubbing or cyanosis Neuro awake alert oriented , no focal signs - Constitutional Vitals: Temp Pulse Resp BP Pulse Ox 99.1 F 76 18 154/67 98 05/01/16 23:17 05/02/16 07:35 05/02/16 07:35 05/02/16 07:35 05/02/16 07:35 General appearance: Present: no acute distress, well-nourished Results - Labs CBC & Chem 7: 05/02/16 16:24 05/01/16 04:42 Labs: Laboratory Last Values WBC 10.5 K/mm3 (4.5-11.0) 05/01/16 04:42 RBC 3.46 M/mm3 (3.65-5.03) L 05/01/16 04:42 Hgb 10.6 gm/dl (11.8-15.2) L 05/01/16 04:42 Hct 30.6 % (35.5-45.6) L 05/01/16 04:42 MCV 88 fl (84-94) 05/01/16 04:42 MCH 31 pg (28-32) 05/01/16 04:42 MCHC 35 % (32-34) H 05/01/16 04:42 RDW 17.1 % (13.2-15.2) H 05/01/16 04:42 Plt Count 250 K/mm3 (140-440) 05/01/16 04:42 Lymph % (Auto) 13.9 % (13.4-35.0) 04/26/16 09:46 [place] % (Auto) 5.7 % (0.0-7.3) 04/26/16 09:46 Eos % (Auto) 0.8 % (0.0-4.3) 04/26/16 09:46 Baso % (Auto) Loading Shovel Oiler 05/01/16 04:42 Lymph # 1.5 K/mm3 (1.2-5.4) 04/26/16 09:46 [place] # 0.6 K/mm3 (0.0-0.8) 04/26/16 09:46 Eos # 0.1 K/mm3 (0.0-0.4) 04/26/16 09:46 Baso # 0.0 K/mm3 (0.0-0.1) 04/26/16 09:46 Add Manual Diff Complete 05/01/16 04:42 Total Counted 100 05/01/16 04:42 Seg Neutrophils % 79.2 % (40.0-70.0) H 04/26/16 09:46 Seg Neuts % (Manual) 68.0 % (40.0-70.0) 05/01/16 04:42 Band Neutrophils % 0 % 05/01/16 04:42 Lymphocytes % (Manual) 25.0 % (13.4-35.0) 05/01/16 04:42 Reactive Lymphs % (Man) 0 % 05/01/16 04:42 Monocytes % (Manual) 5.0 % (0.0-7.3) 05/01/16 04:42 Eosinophils % (Manual) 1.0 % (0.0-4.3) 05/01/16 04:42 Basophils % (Manual) 0 % (0.0-1.8) 05/01/16 04:42 Metamyelocytes % 1.0 % 05/01/16 04:42 Myelocytes % 0 % 05/01/16 04:42 Promyelocytes % 0 % 05/01/16 04:42 Blast Cells % 0 % 05/01/16 04:42 Nucleated RBC % Not Reportable 05/01/16 04:42 Seg Neutrophils # 8.5 K/mm3 (1.8-7.7) H 04/26/16 09:46 Seg Neutrophils # Man 7.1 K/mm3 (1.8-7.7) 05/01/16 04:42 Band Neutrophils # 0.0 K/mm3 05/01/16 04:42 Lymphocytes # (Manual) 2.6 K/mm3 (1.2-5.4) 05/01/16 04:42 Abs React Lymphs (Man) 0.0 K/mm3 05/01/16 04:42 Monocytes # (Manual) 0.5 K/mm3 (0.0-0.8) 05/01/16 04:42 Eosinophils # (Manual) 0.1 K/mm3 (0.0-0.4) 05/01/16 04:42 Basophils # (Manual) 0.0 K/mm3 (0.0-0.1) 05/01/16 04:42 Metamyelocytes # 0.1 K/mm3 05/01/16 04:42 Myelocytes # 0.0 K/mm3 05/01/16 04:42 Promyelocytes # 0.0 K/mm3 05/01/16 04:42 Blast Cells # 0.0 K/mm3 05/01/16 04:42 WBC Morphology Not Reportable 05/01/16 04:42 Hypersegmented Neuts Not Reportable 05/01/16 04:42 Hyposegmented Neuts Not Reportable 05/01/16 04:42 Hypogranular Neuts Not Reportable 05/01/16 04:42 Smudge Cells Not Reportable 05/01/16 04:42 Toxic Granulation Not Reportable 05/01/16 04:42 Toxic Vacuolation Not Reportable 05/01/16 04:42 Dohle Bodies Not Reportable 05/01/16 04:42 Pelger-Huet Anomaly Not Reportable 05/01/16 04:42 Indu Rods Not Reportable 05/01/16 04:42 Platelet Estimate Appears normal 05/01/16 04:42 Clumped Platelets Not Reportable 05/01/16 04:42 Plt Clumps, EDTA Not Reportable 05/01/16 04:42 Large Platelets Not Reportable 05/01/16 04:42 Giant Platelets Not Reportable 05/01/16 04:42 Platelet Satelliting Not Reportable 05/01/16 04:42 Plt Morphology Comment Not Reportable 05/01/16 04:42 RBC Morphology Not Reportable 05/01/16 04:42 Dimorphic RBCs Not Reportable 05/01/16 04:42 Polychromasia Not Reportable 05/01/16 04:42 Hypochromasia Not Reportable 05/01/16 04:42 Poikilocytosis Not Reportable 05/01/16 04:42 Anisocytosis 1+ 05/01/16 04:42 Microcytosis Not Reportable 05/01/16 04:42 Macrocytosis Not Reportable 05/01/16 04:42 Spherocytes Not Reportable 05/01/16 04:42 Pappenheimer Bodies Not Reportable 05/01/16 04:42 Sickle Cells Not Reportable 05/01/16 04:42 Target Cells Not Reportable 05/01/16 04:42 Tear Drop Cells Not Reportable 05/01/16 04:42 Ovalocytes Not Reportable 05/01/16 04:42 Helmet Cells Not Reportable 05/01/16 04:42 [place] Bodies Not Reportable 05/01/16 04:42 [place] Rings Not Reportable 05/01/16 04:42 [place] Cells Not Reportable 05/01/16 04:42 Bite Cells Not Reportable 05/01/16 04:42 Crenated Cell Not Reportable 05/01/16 04:42 Elliptocytes Not Reportable 05/01/16 04:42 Acanthocytes (Spur) Not Reportable 05/01/16 04:42 Rouleaux Not Reportable 05/01/16 04:42 Hemoglobin C Crystals Not Reportable 05/01/16 04:42 Schistocytes Not Reportable 05/01/16 04:42 Malaria parasites Not Reportable 05/01/16 04:42 Cesario Bodies Not Reportable 05/01/16 04:42 Hem Pathologist Commnt No 05/01/16 04:42 PT 16.4 Sec. (12.2-14.9) H 04/23/16 07:52 INR 1.33 (0.87-1.13) H 04/23/16 07:52 APTT 37.5 Sec. (24.2-36.6) H 04/23/16 07:52 Sodium 141 mmol/L (137-145) 05/01/16 04:42 Potassium 4.0 mmol/L (3.6-5.0) 05/01/16 04:42 Chloride 108.7 mmol/L (98-107) H 05/01/16 04:42 Carbon Dioxide 17 mmol/L (22-30) L 05/01/16 04:42 Anion Gap 19 mmol/L 05/01/16 04:42 BUN 21 mg/dL (9-20) H 05/01/16 04:42 Creatinine 1.5 mg/dL (0.8-1.5) 05/01/16 04:42 Estimated GFR 54 ml/min 05/01/16 04:42 BUN/Creatinine Ratio 14.00 % 05/01/16 04:42 Glucose 75 mg/dL (75-100) 05/01/16 04:42 POC Glucose 61 (70-105) L 05/01/16 06:15 Lactic Acid 1.2 mmol/L (0.7-2.0) 04/25/16 04:56 Calcium 7.4 mg/dL (8.4-10.2) L 05/01/16 04:42 Magnesium 1.9 mg/dL (1.7-2.3) 04/26/16 09:46 Total Bilirubin 0.3 mg/dL (0.1-1.2) 04/24/16 05:37 AST 13 units/L (5-40) 04/24/16 05:37 ALT 6 units/L (7-56) L 04/24/16 05:37 Alkaline Phosphatase 133 units/L (35-129) H 04/24/16 05:37 Total Protein 6.1 g/dL (6.3-8.2) L 04/24/16 05:37 Albumin 2.5 g/dL (3.9-5) L 04/24/16 05:37 Albumin/Globulin Ratio 0.7 % 04/24/16 05:37 Urine Color Red (Yellow) 04/23/16 12:30 Urine Turbidity Turbid (Clear) 04/23/16 12:30 Urine pH 7.0 (5.0-7.0) 04/23/16 12:30 Ur Specific [place] 1.021 (1.003-1.030) 04/23/16 12:30 Urine Protein 100 mg/dl mg/dL (Negative) 04/23/16 12:30 Urine Glucose (UA) Neg mg/dL (Negative) 04/23/16 12:30 Urine Ketones Neg mg/dL (Negative) 04/23/16 12:30 Urine Blood Lg (Negative) 04/23/16 12:30 Urine Nitrite Pos (Negative) 04/23/16 12:30 Urine Bilirubin Neg (Negative) 04/23/16 12:30 Urine Urobilinogen < 2.0 mg/dL (<2.0) 04/23/16 12:30 Ur Leukocyte Esterase Mod (Negative) 04/23/16 12:30 Urine WBC (Auto) > 182.0 /HPF (0.0-6.0) H 04/23/16 12:30 Urine RBC (Auto) > 182.0 /HPF (0.0-6.0) 04/23/16 12:30 Urine WBC Clumps 3+ /HPF 04/23/16 12:30 Blood Type O NEGATIVE 04/25/16 10:59 Antibody Screen Negative 04/25/16 10:59 Crossmatch See Detail 04/25/16 10:59
[2016-05-02] MEDS ORDERED: HEPARIN/ 0.45% NACL-25,000 UNIT/500 ML 500 ML IV SCH (16:00)
[2016-05-02 16:35] LABS: Hematocrit 27.3 % (35.5-45.6); Hemoglobin 9.2 gm/dl (11.8-15.2)
[2016-05-02 16:46] LABS: INR 1.14 (0.87-1.13); Partial Thromboplastin Time 29.3 Sec. (24.2-36.6)
--- NOTE | 2016-05-02 18:20 | Consultation ---
History of Present Illness - Reason for Consult Consult date: 05/02/16 RUE DVT Requesting physician: CADENCE ALMODOVAR - History of Present Illness Patient known to us; see Dr. Valles's consult of Apr 26 2016. Hx stage IV prostate cancer since at least Jan 2014, progression Oct 2015, switched to Zytiga + Prednisone. PSA dropped from Nov to Feb 2016. Has had admissions for obstructive uropathy with acute on chronic renal failure and UTIs on Dec, Jan, and Feb 2016, as well as ED visit Mar 2016. Now admitted for more of the same. Urine grew Pseudomonas aeruginosa and VRE. Stabilized on antibiotics and new nephrostomy tubes, creatinine down from 2.6 to 1.1 mgdL. Was going to be discharged today but had RUE edema and had a Doppler showing DVT of the R axillary vein. Patient denies prior DVTs but H&P for this admission states he has history of DVT. He was not on any anticoagulants. Patient is poor historian and seems to have cognitive deficits. He cannot tell me how long he has had RUE edema. He has not had any central venous catheters. Past History Past Medical History: acute [place] (1986), cancer (prostate), renal failure Past Surgical History: Other (bilateral neph tubes) Social history: lives with family, smoking (quit smoking 1988), full code Family history: cancer (sister had cancer, type unknown) Medications and Allergies Allergies Allergy/AdvReac Type Severity Reaction Status Date / Time No Known Allergies Allergy Verified 01/17/16 13:24 Home Medications Medication Instructions Recorded Confirmed Last Taken Type Docusate Sodium [Colace CAP] 100 mg PO BID #60 capsule 11/05/15 04/23/16 Rx Abiraterone Acetate [Zytiga] 1,000 mg PO QDAY 12/17/15 04/23/16 04/22/16 History 1000mg Sodium Bicarbonate 1,300 mg PO BID #60 tablet 12/29/15 04/23/16 04/22/16 Rx 1300mg Zolpidem [Ambien] 5 mg PO QHS PRN #30 tablet 12/29/15 04/23/16 04/22/16 Rx 5mg Tamsulosin [Flomax] 0.8 mg PO QHS 01/18/16 04/23/16 04/22/16 History 0.8mg HYDROcodone/APAP 10-325 [Mesa 1 each PO Q6HR PRN #24 tablet 02/10/16 04/23/16 03/13/16 Rx 10/325] Calcitriol [Rocaltrol] 0.5 mcg PO QDAY capsule 03/03/16 04/23/16 04/22/16 Rx 0.5mcg Calcium Carbonate [Oscal] 1,300 mg PO BID tablet 03/03/16 04/23/16 04/22/16 Rx 1300mg Carvedilol [Coreg] 3.125 mg PO DAILY #30 tablet 03/03/16 04/23/16 04/22/16 Rx 3.125mg Megestrol [Megace] 400 mg PO QDAY #60 oral.liqd 03/03/16 04/23/16 04/22/16 Rx 400mg Pantoprazole [Protonix TAB] 40 mg PO QDAY #30 tablet 03/03/16 04/23/16 04/22/16 Rx 40mg fentaNYL [Duragesic] 75 mcg TD Q3D #10 patch 03/03/16 04/23/16 04/22/16 Rx 75mcg predniSONE [Deltasone] 5 mg PO QDAY tablet 03/03/16 04/23/16 04/22/16 Rx 5mg Active Meds: Active Medications Acetaminophen (Tylenol) 650 mg PO Q4H PRN PRN Reason: Pain MILD(1-3)/Fever >100.5/CRAIN Last Admin: 05/01/16 22:00 Dose: 650 mg Acetaminophen/Hydrocodone Bitart (Mesa 10/325) 1 each PO Q6HR PRN PRN Reason: Pain Last Admin: 05/01/16 18:16 Dose: 1 each Bisacodyl (Dulcolax) 10 mg MD QDAY PRN PRN Reason: Constipation unrelieved by MOM Calcitriol (Rocaltrol) 0.5 mcg PO QDAY [facility] Last Admin: 05/02/16 10:22 Dose: 0.5 mcg Calcium Carbonate/Glycine (Oscal) 1,250 mg PO BID [facility] Last Admin: 05/02/16 10:23 Dose: 1,250 mg Carvedilol (Coreg) 3.125 mg PO DAILY [facility] Last Admin: 05/02/16 10:23 Dose: 3.125 mg Docusate Sodium (Colace) 100 mg PO BID [facility] Last Admin: 05/02/16 10:22 Dose: 100 mg Fentanyl (Duragesic) 75 mcg TD Q3D [facility] Last Admin: 04/29/16 17:58 Dose: 75 mcg Hydralazine HCl (Apresoline) 25 mg PO Q8HR [facility] Last Admin: 05/02/16 16:54 Dose: 25 mg Sodium Chloride (Nacl 0.9% 1000 Ml) 1,000 mls @ 75 mls/hr IV DIRECT [facility] Last Admin: 05/02/16 00:43 Dose: 75 mls/hr Piperacillin Sod/Tazobactam Sod (Zosyn/Ns 2.25 Gm/50ml) 50 mls @ 100 mls/hr IV Q6HR [facility] PRN Reason: Protocol Last Admin: 05/02/16 18:14 Dose: 100 mls/hr Heparin Sodium/Sodium Chloride (Heparin/ 0.45% Nacl-25,000 Unit/500 Ml) 500 mls @ 20 mls/hr IV TITR ARAMIS; 1,000 UNITS/HR PRN Reason: Protocol Last Admin: 05/02/16 16:54 Dose: 20 mls/hr Magnesium Hydroxide (Milk Of Magnesia) 30 ml PO Q4H PRN PRN Reason: Constipation Megestrol Acetate (Megace) 400 mg PO QDAY [facility] Last Admin: 05/02/16 10:26 Dose: 400 mg Miscellaneous Medication (Abiraterone Acetate) 1,000 mg PO DAILY@0700 [facility] Last Admin: 05/02/16 10:25 Dose: 1,000 mg Ondansetron HCl (Zofran) 4 mg IV Q8H PRN PRN Reason: N/V unrelieved by Jason Pantoprazole Sodium (Protonix) 40 mg PO QDAY [facility] Last Admin: 05/02/16 10:22 Dose: 40 mg Prednisone (Deltasone) 5 mg PO QDAY [facility] Last Admin: 05/02/16 10:22 Dose: 5 mg Sodium Bicarbonate (Sodium Bicarbonate) 1,300 mg PO BID [facility] Last Admin: 05/02/16 10:23 Dose: 1,300 mg Tamsulosin HCl (Flomax) 0.8 mg PO QHS [facility] Last Admin: 05/01/16 22:00 Dose: 0.8 mg Zolpidem Tartrate (Ambien) 5 mg PO QHS PRN PRN Reason: Insomnia Last Admin: 05/01/16 22:00 Dose: 5 mg Review of Systems All systems: negative Constitutional: anorexia, fatigue, chronic pain Cardiovascular: dyspnea on exertion, high blood pressure, leg edema Gastrointestinal: constipation Genitourinary Male: urinary retention Musculoskeletal: low back pain Psychiatric: memory loss, difficulties concentrating Exam - Constitutional Vitals: Temp Pulse Resp BP Pulse Ox 99.1 F 76 18 154/67 98 05/01/16 23:17 05/02/16 07:35 05/02/16 07:35 05/02/16 07:35 05/02/16 07:35 General appearance: Present: no acute distress, other (flat affect, poor memory) - EENT Eyes: Present: PERRL. Absent: scleral icterus ENT: clear oral mucosa - Neck Neck: Present: supple. Absent: masses or JVD - Respiratory Respiratory effort: normal Respiratory: bilateral: CTA - Cardiovascular Rhythm: regular Heart Sounds: Present: S1 & S2. Absent: gallop - Extremities Extremities: no ischemia, normal temperature Extremity abnormal: edema - Peripheral Assessment Bilateral Ankle Edema Degree: 1+ - Abdominal General gastrointestinal: Present: soft, non-tender, non-distended, normal bowel sounds. Absent: hepatomegaly, splenomegaly - Integumentary Integumentary: Absent: rash - Musculoskeletal Musculoskeletal: generalized weakness - Neurologic Neurologic: moves all extremities Results - Labs CBC & Chem 7: 05/02/16 16:24 05/01/16 04:42 Labs: Abnormal lab results 05/02/16 05/02/16 Range/Units 16:24 16:24 Hgb 9.2 L (11.8-15.2) gm/dl Hct 27.3 L (35.5-45.6) % INR 1.14 H (0.87-1.13) - Imaging and Cardiology Chest x-ray: report reviewed CT scan - abdomen: report reviewed Venous US: report reviewed Assessment and Plan - Patient Problems (1) DVT (deep venous thrombosis) Current Visit: No Status: Acute Qualifiers: DVT location: upper extremity Affected thrombotic vein of extremity: axillary Laterality: right Chronicity: acute Qualified Code(s): I82.A11 - Acute embolism and thrombosis of right axillary vein Plan to address problem: Will treat with Eliquis 10 mg bid x 1 week, then 5 mg bid. Stop Heparin. Ask case supervisor tomorrow AM to see whether patient will be able to afford Eliquis as outpatient. (2) Prostate cancer Current Visit: Yes Status: Chronic Plan to address problem: Patient sees Dr. Cordon. He was responding to abiraterone + prednisone but has not had a PSA at our office since Feb 21 2016. Will get new PSA level.
[2016-05-02] MEDS: DURAGESIC TD SCH (18:46)
[2016-05-02] MEDS: ELIQUIS PO SCH (23:15)
[2016-05-02] MEDS: FLOMAX PO SCH (23:16)
[2016-05-03] MEDS: ZOSYN/NS 2.25 GM/50ML 50 ML IV SCH ×4 (01:20→17:55)
[2016-05-03] MEDS: APRESOLINE PO SCH ×2 (06:29→14:27)
[2016-05-03] MEDS: NORCO 10/325 PO PRN ×2 (09:32→18:26)
[2016-05-03] MEDS: MEGACE PO SCH (09:33)
[2016-05-03] MEDS: ELIQUIS PO SCH (09:34)
[2016-05-03] MEDS: ROCALTROL PO SCH (09:34)
[2016-05-03] MEDS: COREG PO SCH (09:34)
[2016-05-03] MEDS: SODIUM BICARBONATE PO SCH (09:34)
[2016-05-03] MEDS: COLACE PO SCH (09:35)
[2016-05-03] MEDS: OSCAL PO SCH (09:35)
[2016-05-03] MEDS: PROTONIX PO SCH (09:35)
[2016-05-03] MEDS: NACL 0.9% 1000 ML 1,000 ML IV SCH (10:07)
[2016-05-03] MEDS: ABIRATERONE ACETATE 1000 MG PO SCH (10:08)
[2016-05-03] MEDS: DELTASONE PO SCH (10:12)
--- NOTE | 2016-05-03 11:31 | Progress Note ---
Assessment and Plan Current antibiotics: zosyn 2.25gm iv Q8H (04/27 Previous antibiotics Levaquin 750 mg IV X 1 04/23 Vancomycin IV 04/23 --> 04/27 Cefepime 1 g IV q12h 04/23 -->04/27 Immunosuppressants: Prednisone 5 mg PO daily ASSESSMENT: Darwin Marti is an 85 y/o male with metastatic prostate cancer with bladder obstruction, HTN, CKD, CAD, hx DVT, and anemia who underwent replacement of bilateral nephrostomy tubes on 04/23 and was found to have sammi pus draining from the right tube and was admitted to [facility] for workup and appropriate antibiotic therapy. Problem list: 1. Complicated UTI with right sided pyonephrosis -Urine cultures growing Pseudomonas aeruginosa and vancomycin resistant Enterococcus faecalis (penicillin sensitive). --nephrostomy tube placed on 04/27 2. Hx of recurrent UTIs 3. 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 Leukocytosis -secondary to #1 -resolved 5. CKD -Component of LORENZO that is improving 6. Anemia -Secondary to chronic disease PLAN: 1. continue Zosyn 2.25gm iv Q8H until 05/06/16 2. 2 weeks of post-op antibiotics. ( Stop date 05/06 ) 3. no objection to discharge home once medically stable Subjective Date of service: 05/03/16 Principal diagnosis: Malfunctioning right nephrostomy tube Interval history: Patient seen in bed comfortable, no new complaints Objective - Constitutional Vitals: Selected Entries 05/03/16 09:22 Temperature 98.2 F Pulse Rate [ 86 Right Radial] O2 Sat by Pulse 100 Oximetry Blood Pressure 136/69 [Left Arm] Blood Pressure 91 Mean [Left Arm] General appearance: Present: no acute distress, well-nourished - EENT Eyes: PERRL, EOM intact, no scleral icterus, no conjunctival injection ENT: hearing intact, clear oral mucosa, poor dentition Ears: bilateral: normal - Neck Neck: supple, normal ROM, no enlarged thyroid, no masses or JVD - Respiratory Respiratory effort: normal Respiratory: bilateral: CTA - Breasts Breasts: deferred - Cardiovascular Rhythm: regular Heart Sounds: Present: S1 & S2 Extremities: no ischemia Extremity abnormal: edema (left upper extremity) - Gastrointestinal General gastrointestinal: Present: soft, non-tender, normal bowel sounds Rectal Exam: deferred - Genitourinary Male genitourinary: deferred - Integumentary Integumentary: clear, warm, dry - Psychiatric Psychiatric: cooperative - Additional findings Additional findings: bilateral nephrostomy tubes in place - Labs CBC & Chem 7: 05/02/16 16:24 05/01/16 04:42 Labs: Microbiology 04/23/16 Unknown Kidney Surgical Culture - Final Enterococcus Faecalis Pseudomonas Aeruginosa 04/23/16 16:11 Peripheral/Venous Blood Culture - Final NO GROWTH AFTER 5 DAYS 04/23/16 16:11 Peripheral/Venous Blood Culture - Final NO GROWTH AFTER 5 DAYS Laboratory Tests 04/23/16 05/01/16 05/01/16 12:30 04:42 04:42 WBC 10.5 Plt Count INR Creatinine 1.5 Urine WBC (Auto) > 182.0 H 05/02/16 05/02/16 16:24 16:24 WBC Plt Count 266 INR 1.14 H Creatinine Urine WBC (Auto)
--- NOTE | 2016-05-03 14:47 | Discharge Summary ---
Providers - Providers Date of Admission: 04/23/16 11:17 Date of discharge: 05/03/16 Attending physician: CADENCE ALMODOVAR 04/23/16 11:17 Consult to Dietitian/Nutrition [CONS] Routine Physician Instructions: Reason For Exam: Reason for Consult: Nutrition Recommendations Reason for Consult: Malnutrition 04/23/16 11:20 Consult to Physician [CONS] Routine Consulting Provider: PATY GREWAL Reason For Exam: PYELONEPHRITIS, NEPHROSTOMY TUBE EXCHANGE Place consult to:: Office Notified:: yes Phone number called:: [phone] Was contact made?: Yes If yes, spoke with:: Answering service Time called:: 18:40 04/25/16 11:25 Consult to Physician [CONS] Routine Consulting Provider: MADDIE ROCHA Reason For Exam: hematuria/bladder mass Place consult to:: DR. ROCHA Notified:: DR. ROCHA Comment:: DONE 04/25/16 PER ROHAN 04/26/16 11:01 Consult to Physician [CONS] Routine Consulting Provider: DALTON CORDON Reason For Exam: h/o metastatic prostate cancer/anemia/pt requests Place consult to:: Notified:: [facility] Phone number called:: [phone] Was contact made?: Yes If yes, spoke with:: ARTHUR Time called:: 11:50 Comment:: ROHAN NOTIFIED 04/27/16 15:58 Consult to Wound/ET Nurse [CONS] Routine Reason For Exam: wound eval 04/27/16 15:59 Physical Therapy Evaluation and Treat [CONS] Routine Comment: Reason For Exam: gen debility/unsteady gait 05/01/16 12:44 Midline [Consult to PICC Line RN] [CONS] Routine Reason For Exam: iv antibiotics Type Line:: Midline 05/02/16 13:06 Consult to Case Management [CONS] Routine Services Needed at Discharge: Home Health Services Notified:: LULU Comment:: iv zosyn 2.25gm iv Q6H until 05/06/16 05/02/16 15:15 Consult to Physician [CONS] Routine Consulting Provider: NISHA GALAVIZ Reason For Exam: Acute DVT right subclavian extending to RUE Place consult to:: Dr. Galaviz Notified:: office Phone number called:: [phone] Was contact made?: Yes If yes, spoke with:: Kyle Time called:: 16:15 05/03/16 09:00 Consult to Case Management [CONS] Routine Services Needed at Discharge: Other Notified:: COPY GIVEN TO CM Comment:: Please find out whether patient has coverage for outpatient Eliquis Additional Physician Instructions: Inform patient about copayment/ deductibles for Eliquis Primary care physician: DALTON CORDON Hospitalization Condition: Good Disposition: DC/TX HOME UNDER HOME HEALTH - Discharge Diagnoses (1) Sepsis Status: Acute (2) Deep venous thrombosis of right upper extremity Status: Acute (3) Complicated UTI (urinary tract infection) Status: Acute (4) Acute kidney injury superimposed on CKD Status: Acute Core Measure Documentation - Palliative Care Palliative Care/ Comfort Measures: Not Applicable - Core Measures Any of the following diagnoses?: DVT/PE - VTE Discharge Requirements Deep Vein Thrombosis/Pulmonary Embolism Present on Admission: Yes Has pt received <5 days of overlap therapy or INR<2.0: No Anticoagulant overlap therapy prescribed at discharge: No Contraindication No Overlap Therapy order at DC: Not Indicated (Going home on eliquis) Exam - Constitutional Vitals: Temp Pulse Resp BP Pulse Ox 98.2 F 86 18 136/69 100 05/03/16 09:22 05/03/16 09:22 05/03/16 09:22 05/03/16 09:22 05/03/16 09:22 Plan Activity: advance as tolerated Diet: other (Mechanical soft diet) Special Instructions: home health RN (for Zosyn iv q 8h until 05/06/16) Additional Instructions: 1.Follow up with PCP in 1 week. 2.Follow up with Dr. Cordon in 1 week. 3.Follow up with Dr. Rocha in 1 week. 4.Follow up with Dr. Bass in 1 week. 5.Cont Zosyn 2.25g iv q 8hrs until 05/06/16 Follow up with: DALTON CORDON MD [Primary Care Provider] - 7 Days Prescriptions: Apixaban [Eliquis] 10 mg PO Q12HR #12 tablet Apixaban [Eliquis] 5 mg PO Q12HR #60 tablet hydrALAZINE [Apresoline TAB] 25 mg PO Q8HR #90 tablet
[2016-05-04] MEDS: SODIUM BICARBONATE PO SCH ×3 (00:44→21:51)
[2016-05-04] MEDS: FLOMAX PO SCH ×2 (00:45→21:50)
[2016-05-04] MEDS: ELIQUIS PO SCH ×2 (00:45→12:09)
[2016-05-04] MEDS: COLACE PO SCH ×3 (00:45→21:50)
[2016-05-04] MEDS: ZOSYN/NS 2.25 GM/50ML 50 ML IV SCH ×4 (00:45→18:41)
[2016-05-04] MEDS: OSCAL PO SCH ×3 (00:45→21:50)
[2016-05-04] MEDS: APRESOLINE PO SCH ×4 (00:46→21:50)
[2016-05-04] MEDS: DELTASONE PO SCH (06:54)
[2016-05-04] MEDS: ABIRATERONE ACETATE 1000 MG PO SCH (06:57)
--- NOTE | 2016-05-04 07:50 | Vascular Lab Report ---
RIGHT UPPER EXTREMITY VENOUS DUPLEX: REASON FOR EXAM: Right upper chin the swelling COMMENTS ON THE RIGHT: Acute deep venous thrombosis noted from distal brachial vein all way to the proximal subclavian vein. The remaining veins visualized are freely compressible without evidence of internal echogenicity. Spontaneous and phasic flow is present proximally. COMMENTS ON THE LEFT: The subclavian and internal jugular veins are free of thrombus. IMPRESSION: Deep venous thrombosis in the right upper extremity
--- NOTE | 2016-05-04 08:33 | Physician Progress Note ---
SUBJECTIVE: The patient is in bed. He appears comfortable. Talking to him, he expressed and voiced no new complaints. He is not in apparent pain. No new bleeding has been reported. No hematuria (patient has nephrostomy tube). No chills. No fever. His pain appears to be controlled (metastatic prostate cancer). OBJECTIVE: VITAL SIGNS: Temperature 98.2, blood pressure 136/69, pulse 86, respirations 18. GENERAL: Alert, not in apparent distress. SKIN: No bruises, no petechiae. HEENT: No nosebleed, no gum bleed. NECK: No adenopathy. CHEST: Normal breathing pattern. LUNGS: Clear. No rales. No wheezing. HEART: No new murmur. ABDOMEN: Soft, nontender. No palpable masses. No palpable liver or spleen. No inguinal adenopathy. GENITOURINARY: The patient does have nephrostomy tube. EXTREMITIES: No calves tenderness. Continued swelling in the right upper extremity. MUSCULOSKELETAL: No acute joint swelling. NEUROLOGIC: Mood and affect unremarkable. BLOOD-LYMPHATICS: No ecchymosis, no bruise, no petechia, no nosebleed, no gum bleed. LABORATORY DATA: not available for today and yesterday. Yesterday, hemoglobin 9.2, hematocrit 27.3. PT 14.5, INR 1.1. PTT 29. Yesterday HIT antibody is negative, less than 0.10. Today PSA is 708. prior to treatment PSA was 286 dropped to 170, 02/2016. Doppler scan upper extremities official report still pending. ASSESSMENT: 1. Recent Doppler upper extremity deep vein thrombosis, right axilla, the patient has been placed on heparin, yesterday switched to Eliquis by Dr. Galaviz, currently on Eliquis 15 mg p.o. b.i.d. 2. Stage IV prostate cancer, has been on Zytiga, with a baseline PSA 286, improved in February to 170, today PSA is up to 708, consistent with disease progression, need adjustment of treatment following discharge by Dr. Jose Armando Cordon, [place] [facility]. 3. Bilateral hydronephrosis, bladder mass, obstructive uropathy, bilateral nephrostomy. 4. Anemia secondary to chronic disease and malignancy. 5. Metastatic prostate cancer to the bone, pain appears to be controlled. 6. Hypertension, appears to be controlled at this moment. 7. Status post recent nephrostomy tube exchange. PLAN: The patient needs to follow with Dr. Jose Armando Cordon, [place] [facility], within a week following discharge to adjust his prostate cancer management. Upon discharge, patient to continue current dose of Eliquis, and he is to follow with Dr. Cordon for dose adjustment later as needed. I have discussed the above with the patient . Nonetheless, I also discussed this with the nurse in charge of the patient, with the instruction that has been described above. JOB# [id number] ASA/NTS MTDD
[2016-05-04 09:30] LABS: Hematocrit 29.3 % (35.5-45.6); Hemoglobin 9.8 gm/dl (11.8-15.2)
--- NOTE | 2016-05-04 10:33 | Progress Note ---
Assessment and Plan Assessment and plan: Complicated urinary tract infection Received Vanco and cefepime, ID changed antibiotics to Zosyn Stop date 05/06/2016 Discussed with case management. Had midline placement yesterday, for home IV antibiotics until 05/06/16 -History of bilateral indwelling chronic nephrostomy tubes Status post nephrostomy tube exchange Per urology Acute DVT right subclavian extendinng to right brachial vein. Was put on Eliquis but had bright red blood both nephrostomy tubes so hold Eliquis. I also asked Nurse to inform Urologist. --Acute on chronic Anemia probably secondary to hematuria Status post blood transfusion stable. Hgb 9.8 --Acute renal failure secondary to vasomotor nephropathy Closely monitor renal function avoid nephrotoxic medications Serum creatinine trending down --Metastatic prostate cancer/bladder mass following --Hypertension moderate control Continue current antihypertensives and when necessary medications --History of coronary artery disease stable on medications --DVT prophylaxis with heparin Disposition: For d/c home on home antibiotics. - Patient Problems (1) Sepsis Current Visit: No Status: Acute (2) Deep venous thrombosis of right upper extremity Current Visit: Yes Status: Acute (3) Complicated UTI (urinary tract infection) Current Visit: Yes Status: Acute (4) Acute kidney injury superimposed on CKD Current Visit: Yes Status: Acute History Interval history: bright red blood both nephrostomy tubes after starting anticoagulation right upper ext edema no fever Hospitalist Physical - Physical exam Narrative exam: Gen appearance : not in acute distress, HEENT: Normocephalic atraumatic, Neck: supple, no JVD. Lungs: clear to auscultation bilaterally, no crackles no wheezes Heart: S1 and S2 regular, no murmurs no gallop Abdomen: soft, non-tender, non-distended normal bowel sounds, bilat nephrostomy tubes with bright red blood, Extremities: RUE edema, no clubbing or cyanosis Neuro: Awake alert oriented , no focal signs - Constitutional Vitals: Temp Pulse Resp BP Pulse Ox 96.2 F L 101 H 18 137/73 98 05/04/16 01:00 05/04/16 06:53 05/04/16 01:00 05/04/16 06:53 05/04/16 01:00 Results - Labs CBC & Chem 7: 05/04/16 09:05 05/01/16 04:42 Labs: Laboratory Last Values WBC 10.5 K/mm3 (4.5-11.0) 05/01/16 04:42 RBC 3.46 M/mm3 (3.65-5.03) L 05/01/16 04:42 Hgb 9.8 gm/dl (11.8-15.2) L 05/04/16 09:05 Hct 29.3 % (35.5-45.6) L 05/04/16 09:05 MCV 88 fl (84-94) 05/01/16 04:42 MCH 31 pg (28-32) 05/01/16 04:42 MCHC 35 % (32-34) H 05/01/16 04:42 RDW 17.1 % (13.2-15.2) H 05/01/16 04:42 Plt Count 266 K/mm3 (140-440) 05/02/16 16:24 Lymph % (Auto) 13.9 % (13.4-35.0) 04/26/16 09:46 Edgar % (Auto) 5.7 % (0.0-7.3) 04/26/16 09:46 Eos % (Auto) 0.8 % (0.0-4.3) 04/26/16 09:46 Baso % (Auto) Form Stripper 05/01/16 04:42 Lymph # 1.5 K/mm3 (1.2-5.4) 04/26/16 09:46 Edgar # 0.6 K/mm3 (0.0-0.8) 04/26/16 09:46 Eos # 0.1 K/mm3 (0.0-0.4) 04/26/16 09:46 Baso # 0.0 K/mm3 (0.0-0.1) 04/26/16 09:46 Add Manual Diff Complete 05/01/16 04:42 Total Counted 100 05/01/16 04:42 Seg Neutrophils % 79.2 % (40.0-70.0) H 04/26/16 09:46 Seg Neuts % (Manual) 68.0 % (40.0-70.0) 05/01/16 04:42 Band Neutrophils % 0 % 05/01/16 04:42 Lymphocytes % (Manual) 25.0 % (13.4-35.0) 05/01/16 04:42 Reactive Lymphs % (Man) 0 % 05/01/16 04:42 Monocytes % (Manual) 5.0 % (0.0-7.3) 05/01/16 04:42 Eosinophils % (Manual) 1.0 % (0.0-4.3) 05/01/16 04:42 Basophils % (Manual) 0 % (0.0-1.8) 05/01/16 04:42 Metamyelocytes % 1.0 % 05/01/16 04:42 Myelocytes % 0 % 05/01/16 04:42 Promyelocytes % 0 % 05/01/16 04:42 Blast Cells % 0 % 05/01/16 04:42 Nucleated RBC % Not Reportable 05/01/16 04:42 Seg Neutrophils # 8.5 K/mm3 (1.8-7.7) H 04/26/16 09:46 Seg Neutrophils # Man 7.1 K/mm3 (1.8-7.7) 05/01/16 04:42 Band Neutrophils # 0.0 K/mm3 05/01/16 04:42 Lymphocytes # (Manual) 2.6 K/mm3 (1.2-5.4) 05/01/16 04:42 Abs React Lymphs (Man) 0.0 K/mm3 05/01/16 04:42 Monocytes # (Manual) 0.5 K/mm3 (0.0-0.8) 05/01/16 04:42 Eosinophils # (Manual) 0.1 K/mm3 (0.0-0.4) 05/01/16 04:42 Basophils # (Manual) 0.0 K/mm3 (0.0-0.1) 05/01/16 04:42 Metamyelocytes # 0.1 K/mm3 05/01/16 04:42 Myelocytes # 0.0 K/mm3 05/01/16 04:42 Promyelocytes # 0.0 K/mm3 05/01/16 04:42 Blast Cells # 0.0 K/mm3 05/01/16 04:42 WBC Morphology Not Reportable 05/01/16 04:42 Hypersegmented Neuts Not Reportable 05/01/16 04:42 Hyposegmented Neuts Not Reportable 05/01/16 04:42 Hypogranular Neuts Not Reportable 05/01/16 04:42 Smudge Cells Not Reportable 05/01/16 04:42 Toxic Granulation Not Reportable 05/01/16 04:42 Toxic Vacuolation Not Reportable 05/01/16 04:42 Dohle Bodies Not Reportable 05/01/16 04:42 Pelger-Huet Anomaly Not Reportable 05/01/16 04:42 Indu Rods Not Reportable 05/01/16 04:42 Platelet Estimate Appears normal 05/01/16 04:42 Clumped Platelets Not Reportable 05/01/16 04:42 Plt Clumps, EDTA Not Reportable 05/01/16 04:42 Large Platelets Not Reportable 05/01/16 04:42 Giant Platelets Not Reportable 05/01/16 04:42 Platelet Satelliting Not Reportable 05/01/16 04:42 Plt Morphology Comment Not Reportable 05/01/16 04:42 RBC Morphology Not Reportable 05/01/16 04:42 Dimorphic RBCs Not Reportable 05/01/16 04:42 Polychromasia Not Reportable 05/01/16 04:42 Hypochromasia Not Reportable 05/01/16 04:42 Poikilocytosis Not Reportable 05/01/16 04:42 Anisocytosis 1+ 05/01/16 04:42 Microcytosis Not Reportable 05/01/16 04:42 Macrocytosis Not Reportable 05/01/16 04:42 Spherocytes Not Reportable 05/01/16 04:42 Pappenheimer Bodies Not Reportable 05/01/16 04:42 Sickle Cells Not Reportable 05/01/16 04:42 Target Cells Not Reportable 05/01/16 04:42 Tear Drop Cells Not Reportable 05/01/16 04:42 Ovalocytes Not Reportable 05/01/16 04:42 Helmet Cells Not Reportable 05/01/16 04:42 Santana-Mason Bodies Not Reportable 05/01/16 04:42 [place] Rings Not Reportable 05/01/16 04:42 [place] Cells Not Reportable 05/01/16 04:42 Bite Cells Not Reportable 05/01/16 04:42 Crenated Cell Not Reportable 05/01/16 04:42 Elliptocytes Not Reportable 05/01/16 04:42 Acanthocytes (Spur) Not Reportable 05/01/16 04:42 Rouleaux Not Reportable 05/01/16 04:42 Hemoglobin C Crystals Not Reportable 05/01/16 04:42 Schistocytes Not Reportable 05/01/16 04:42 Malaria parasites Not Reportable 05/01/16 04:42 Cesario Bodies Not Reportable 05/01/16 04:42 Hem Pathologist Commnt No 05/01/16 04:42 PT 14.5 Sec. (12.2-14.9) 05/02/16 16:24 INR 1.14 (0.87-1.13) H 05/02/16 16:24 APTT 29.3 Sec. (24.2-36.6) 05/02/16 16:24 Heparin Anti-Xa Level < 0.10 U.I./ml (0.3-0.7) L 05/02/16 23:11 Sodium 141 mmol/L (137-145) 05/01/16 04:42 Potassium 4.0 mmol/L (3.6-5.0) 05/01/16 04:42 Chloride 108.7 mmol/L (98-107) H 05/01/16 04:42 Carbon Dioxide 17 mmol/L (22-30) L 05/01/16 04:42 Anion Gap 19 mmol/L 05/01/16 04:42 BUN 21 mg/dL (9-20) H 05/01/16 04:42 Creatinine 1.5 mg/dL (0.8-1.5) 05/01/16 04:42 Estimated GFR 54 ml/min 05/01/16 04:42 BUN/Creatinine Ratio 14.00 % 05/01/16 04:42 Glucose 75 mg/dL (75-100) 05/01/16 04:42 POC Glucose 61 (70-105) L 05/01/16 06:15 Lactic Acid 1.2 mmol/L (0.7-2.0) 04/25/16 04:56 Calcium 7.4 mg/dL (8.4-10.2) L 05/01/16 04:42 Magnesium 1.9 mg/dL (1.7-2.3) 04/26/16 09:46 Total Bilirubin 0.3 mg/dL (0.1-1.2) 04/24/16 05:37 AST 13 units/L (5-40) 04/24/16 05:37 ALT 6 units/L (7-56) L 04/24/16 05:37 Alkaline Phosphatase 133 units/L (35-129) H 04/24/16 05:37 Total Protein 6.1 g/dL (6.3-8.2) L 04/24/16 05:37 Albumin 2.5 g/dL (3.9-5) L 04/24/16 05:37 Albumin/Globulin Ratio 0.7 % 04/24/16 05:37 Prostate Specific Ag 708.50 ng/mL (0.00-4.00) H 05/03/16 05:26 Urine Color Red (Yellow) 04/23/16 12:30 Urine Turbidity Turbid (Clear) 04/23/16 12:30 Urine pH 7.0 (5.0-7.0) 04/23/16 12:30 Ur Specific [place] 1.021 (1.003-1.030) 04/23/16 12:30 Urine Protein 100 mg/dl mg/dL (Negative) 04/23/16 12:30 Urine Glucose (UA) Neg mg/dL (Negative) 04/23/16 12:30 Urine Ketones Neg mg/dL (Negative) 04/23/16 12:30 Urine Blood Lg (Negative) 04/23/16 12:30 Urine Nitrite Pos (Negative) 04/23/16 12:30 Urine Bilirubin Neg (Negative) 04/23/16 12:30 Urine Urobilinogen < 2.0 mg/dL (<2.0) 04/23/16 12:30 Ur Leukocyte Esterase Mod (Negative) 04/23/16 12:30 Urine WBC (Auto) > 182.0 /HPF (0.0-6.0) H 04/23/16 12:30 Urine RBC (Auto) > 182.0 /HPF (0.0-6.0) 04/23/16 12:30 Urine WBC Clumps 3+ /HPF 04/23/16 12:30 Blood Type O NEGATIVE 04/25/16 10:59 Antibody Screen Negative 04/25/16 10:59 Crossmatch See Detail 04/25/16 10:59
[2016-05-04] MEDS: PROTONIX PO SCH (11:10)
[2016-05-04] MEDS: MEGACE PO SCH (11:11)
[2016-05-04] MEDS: NORCO 10/325 PO PRN ×2 (11:11→20:26)
[2016-05-04] MEDS: ROCALTROL PO SCH (11:11)
[2016-05-04] MEDS: COREG PO SCH (11:12)
--- NOTE | 2016-05-04 12:01 | Progress Note ---
Assessment and Plan Current antibiotics: Zosyn 2.25 grams IV q8h 04/27 --> Previous antibiotics Levaquin 750 mg IV X 1 04/23 Vancomycin IV 04/23-04/27 Cefepime 1 g IV q12h 04/23-04/27 Immunosuppressants: Prednisone 5 mg PO daily ASSESSMENT: Darwin Marti is an 85 y/o male with metastatic prostate cancer with bladder obstruction, HTN, CKD, CAD, hx DVT, and anemia who underwent replacement of bilateral nephrostomy tubes on 04/23 and was found to have sammi pus draining from the right tube and was admitted to [facility] for workup and appropriate antibiotic therapy. Current antibiotics: Vancomycin IV 04/23 --> Cefepime 1 g IV q12h 04/23 --> Previous antibiotics: Levaquin 750 mg IV X 1 04/23 Immunosuppressants: Prednisone 5 mg PO daily Problem list: 1. Complicated UTI with right sided pyonephrosis -Urine cultures growing Pseudomonas aeruginosa and vancomycin resistant Enterococcus faecalis (penicillin sensitive). 2. Hx of recurrent UTIs 3. 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 Leukocytosis -secondary to #1 -improving 5. CKD -Component of LORENZO that is improving 6. 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 HTN 8. CAD 9. RUE DVT PLAN: 1. Continue Zosyn which will cover both the Pseudomonas and Enterococcal isolate 2. Will plan completion of 2 weeks of post-op antibiotics. ( Stop date 05/06 ) 3. OK for discharge ID [email or web address] with antibiotics as above 4. Contact precautions for VRE Eulalio Earl MD [facility] Office: [phone] Subjective Date of service: 05/04/16 Principal diagnosis: Malfunctioning right nephrostomy tube Interval history: No complaints at present. ROS: No subjective fever or chills. No nausea, vomiting or diarrhea. No shortness of breath, cough or pleuritic chest pain Objective - Exam Narrative Exam: GENERAL: Well-developed, cachectic appearing male who is chronically ill- appearing. Alert and responsive and in no acute distress. HEENT: Pupils are equal reactive to light and accommodation. Bilateral arcus. Conjunctiva clear. Oropharynx normal except for mildly dry mucous membranes.. NECK: Supple. No enlargement of the thyroid gland. No significant cervical lymphadenopathy. No jugular venous distention at 30. LUNGS: Clear with no adventitious sounds heard. HEART: Regular rate. S1 and S2 are normal. There are no murmurs, gallops, clicks or rubs heard. ABDOMEN: Soft, not distended and nontender. Liver and spleen are not palpably enlarged or tender. No palpable masses. Bowel sounds are active. : Not examined today BACK: Bilateral nephrostomy tubes. EXTREMITIES: No rash, peripheral lymphadenopathy, clubbing. + RUE edema. SKIN: No other rash, ulcers or wounds. NEUROLOGIC: Awake and alert. No focal findings - Constitutional Vitals: Vital Signs Temp Pulse Resp BP Pulse Ox 98.2 F 100 H 108 H 138/70 98 05/04/16 08:00 05/04/16 08:00 05/04/16 11:11 05/04/16 11:12 05/04/16 08:00 Temperature -Last 24 Hours Temperature 98.2 F Temperature 96.2 F Temperature 97.8 F - Labs CBC & Chem 7: 05/04/16 09:05 05/01/16 04:42 Labs: Abnormal lab results Microbiology 04/23/16 16:11 Peripheral/Venous Blood Culture - Final NO GROWTH AFTER 5 DAYS 04/23/16 16:11 Peripheral/Venous Blood Culture - Final NO GROWTH AFTER 5 DAYS 04/23/16 12:30 Urine,Kidney - Right Kidney Urine Culture - Final Pseudomonas Aeruginosa 04/23/16 Unknown Kidney Surgical Culture - Final Enterococcus Faecalis (VRE, ampicillin sensitive ) Pseudomonas Aeruginosa Imagin/18: RUE venous doppler: + for DVT
--- NOTE | 2016-05-04 17:39 | Hem/Onc Progress Note ---
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 Would stop megace (occasionally thrombogenic, place on low dose LMWH, follow closely for bleeding. Had discussion with pt./family about hospice-what it is, how they help and both home and inpatient hospice options. They will think things over but are not ready to decide on that yet. Objective - Constitutional Vitals: Last Vital Signs Temp 98.2 F 05/04/16 08:00 Pulse 100 H 05/04/16 08:00 Resp 18 05/04/16 12:11 BP 118/52 05/04/16 14:24 Pulse Ox 98 05/04/16 08:00 - Labs Lab Results: Laboratory Results - last 24 hr 05/04/16 05/04/16 05/04/16 09:05 12:17 16:35 Hgb 9.8 L Hct 29.3 L POC Glucose 97 146 H
[2016-05-04] MEDS ORDERED: LOVENOX SUB-Q ONE (18:00)
[2016-05-04 19:18] LABS: Hematocrit 29.6 % (35.5-45.6); Hemoglobin 9.7 gm/dl (11.8-15.2)
[2016-05-04] MEDS: AMBIEN PO PRN (21:50)
[2016-05-05] MEDS: NACL 0.9% 1000 ML 1,000 ML IV SCH (01:17)
[2016-05-05] MEDS: ZOSYN/NS 2.25 GM/50ML 50 ML IV SCH ×5 (01:20→23:34)
[2016-05-05 01:24] LABS: Hemoglobin 9.7 gm/dl (11.8-15.2)
[2016-05-05] MEDS: NORCO 10/325 PO PRN ×3 (02:32→23:29)
[2016-05-05] MEDS: TYLENOL PO PRN ×2 (05:00→13:33)
[2016-05-05] MEDS: DELTASONE PO SCH (05:10)
[2016-05-05] MEDS: ABIRATERONE ACETATE 1000 MG PO SCH (05:11)
[2016-05-05] MEDS: APRESOLINE PO SCH ×3 (05:12→23:24)
[2016-05-05] MEDS: OSCAL PO SCH ×2 (09:22→23:29)
[2016-05-05] MEDS: COREG PO SCH (09:22)
[2016-05-05] MEDS: COLACE PO SCH ×2 (09:22→23:29)
[2016-05-05] MEDS: SODIUM BICARBONATE PO SCH ×2 (09:22→23:23)
[2016-05-05] MEDS: PROTONIX PO SCH (09:22)
[2016-05-05] MEDS: ROCALTROL PO SCH (09:24)
[2016-05-05] MEDS: MEGACE PO SCH (09:25)
--- NOTE | 2016-05-05 09:45 | Progress Note ---
Assessment and Plan Assessment and plan: Complicated urinary tract infection Received Vanco and cefepime, ID changed antibiotics to Zosyn Stop date 05/06/2016 -History of bilateral indwelling chronic nephrostomy tubes Status post nephrostomy tube exchange by urology Acute DVT right subclavian extendinng to right brachial vein. Was put on Eliquis but had bright red blood both nephrostomy tubes so hold Eliquis. --Acute on chronic Anemia probably secondary to hematuria Status post blood transfusion stable. Hgb 9.8. H/H has been stable after stopping Eliquis --Acute renal failure secondary to vasomotor nephropathy Closely monitor renal function avoid nephrotoxic medications Serum creatinine trending down --Metastatic prostate cancer/bladder mass following --Hypertension moderate control Continue current antihypertensives and when necessary medications --History of coronary artery disease stable on medications --DVT prophylaxis with heparin Disposition: For d/c home tomorrow after completing Antibiotic. Hospice was discussed with family but they declined.. History Interval history: bright red blood both nephrostomy tubes after starting anticoagulation, now clearing on stopping Eliquis, right upper ext edema no fever Hospitalist Physical - Physical exam Narrative exam: Gen appearance : not in acute distress, HEENT: Normocephalic atraumatic, Neck: supple, no JVD. Lungs: clear to auscultation bilaterally, no crackles no wheezes Heart: S1 and S2 regular, no murmurs no gallop Abdomen: soft, non-tender, non-distended normal bowel sounds, bilat nephrostomy tubes with light red bloody urine, Extremities: RUE edema, no clubbing or cyanosis Neuro: Awake alert oriented , no focal signs - Constitutional Vitals: Temp Pulse Resp BP Pulse Ox 98.5 F 98 H 18 123/59 97 05/05/16 08:00 05/05/16 09:22 05/05/16 08:00 05/05/16 09:22 05/05/16 08:00 General appearance: Present: no acute distress, well-nourished Results - Labs CBC & Chem 7: 05/05/16 00:55 05/01/16 04:42 Labs: Laboratory Last Values WBC 10.5 K/mm3 (4.5-11.0) 05/01/16 04:42 RBC 3.46 M/mm3 (3.65-5.03) L 05/01/16 04:42 Hgb 9.7 gm/dl (11.8-15.2) L 05/05/16 00:55 Hct 29.0 % (35.5-45.6) L 05/05/16 00:55 MCV 88 fl (84-94) 05/01/16 04:42 MCH 31 pg (28-32) 05/01/16 04:42 MCHC 35 % (32-34) H 05/01/16 04:42 RDW 17.1 % (13.2-15.2) H 05/01/16 04:42 Plt Count 266 K/mm3 (140-440) 05/02/16 16:24 Lymph % (Auto) 13.9 % (13.4-35.0) 04/26/16 09:46 Leon % (Auto) 5.7 % (0.0-7.3) 04/26/16 09:46 Eos % (Auto) 0.8 % (0.0-4.3) 04/26/16 09:46 Baso % (Auto) Microfilm Machine Operator 05/01/16 04:42 Lymph # 1.5 K/mm3 (1.2-5.4) 04/26/16 09:46 Leon # 0.6 K/mm3 (0.0-0.8) 04/26/16 09:46 Eos # 0.1 K/mm3 (0.0-0.4) 04/26/16 09:46 Baso # 0.0 K/mm3 (0.0-0.1) 04/26/16 09:46 Add Manual Diff Complete 05/01/16 04:42 Total Counted 100 05/01/16 04:42 Seg Neutrophils % 79.2 % (40.0-70.0) H 04/26/16 09:46 Seg Neuts % (Manual) 68.0 % (40.0-70.0) 05/01/16 04:42 Band Neutrophils % 0 % 05/01/16 04:42 Lymphocytes % (Manual) 25.0 % (13.4-35.0) 05/01/16 04:42 Reactive Lymphs % (Man) 0 % 05/01/16 04:42 Monocytes % (Manual) 5.0 % (0.0-7.3) 05/01/16 04:42 Eosinophils % (Manual) 1.0 % (0.0-4.3) 05/01/16 04:42 Basophils % (Manual) 0 % (0.0-1.8) 05/01/16 04:42 Metamyelocytes % 1.0 % 05/01/16 04:42 Myelocytes % 0 % 05/01/16 04:42 Promyelocytes % 0 % 05/01/16 04:42 Blast Cells % 0 % 05/01/16 04:42 Nucleated RBC % Not Reportable 05/01/16 04:42 Seg Neutrophils # 8.5 K/mm3 (1.8-7.7) H 04/26/16 09:46 Seg Neutrophils # Man 7.1 K/mm3 (1.8-7.7) 05/01/16 04:42 Band Neutrophils # 0.0 K/mm3 05/01/16 04:42 Lymphocytes # (Manual) 2.6 K/mm3 (1.2-5.4) 05/01/16 04:42 Abs React Lymphs (Man) 0.0 K/mm3 05/01/16 04:42 Monocytes # (Manual) 0.5 K/mm3 (0.0-0.8) 05/01/16 04:42 Eosinophils # (Manual) 0.1 K/mm3 (0.0-0.4) 05/01/16 04:42 Basophils # (Manual) 0.0 K/mm3 (0.0-0.1) 05/01/16 04:42 Metamyelocytes # 0.1 K/mm3 05/01/16 04:42 Myelocytes # 0.0 K/mm3 05/01/16 04:42 Promyelocytes # 0.0 K/mm3 05/01/16 04:42 Blast Cells # 0.0 K/mm3 05/01/16 04:42 WBC Morphology Not Reportable 05/01/16 04:42 Hypersegmented Neuts Not Reportable 05/01/16 04:42 Hyposegmented Neuts Not Reportable 05/01/16 04:42 Hypogranular Neuts Not Reportable 05/01/16 04:42 Smudge Cells Not Reportable 05/01/16 04:42 Toxic Granulation Not Reportable 05/01/16 04:42 Toxic Vacuolation Not Reportable 05/01/16 04:42 Dohle Bodies Not Reportable 05/01/16 04:42 Pelger-Huet Anomaly Not Reportable 05/01/16 04:42 Indu Rods Not Reportable 05/01/16 04:42 Platelet Estimate Appears normal 05/01/16 04:42 Clumped Platelets Not Reportable 05/01/16 04:42 Plt Clumps, EDTA Not Reportable 05/01/16 04:42 Large Platelets Not Reportable 05/01/16 04:42 Giant Platelets Not Reportable 05/01/16 04:42 Platelet Satelliting Not Reportable 05/01/16 04:42 Plt Morphology Comment Not Reportable 05/01/16 04:42 RBC Morphology Not Reportable 05/01/16 04:42 Dimorphic RBCs Not Reportable 05/01/16 04:42 Polychromasia Not Reportable 05/01/16 04:42 Hypochromasia Not Reportable 05/01/16 04:42 Poikilocytosis Not Reportable 05/01/16 04:42 Anisocytosis 1+ 05/01/16 04:42 Microcytosis Not Reportable 05/01/16 04:42 Macrocytosis Not Reportable 05/01/16 04:42 Spherocytes Not Reportable 05/01/16 04:42 Pappenheimer Bodies Not Reportable 05/01/16 04:42 Sickle Cells Not Reportable 05/01/16 04:42 Target Cells Not Reportable 05/01/16 04:42 Tear Drop Cells Not Reportable 05/01/16 04:42 Ovalocytes Not Reportable 05/01/16 04:42 Helmet Cells Not Reportable 05/01/16 04:42 Santana-[place] Bodies Not Reportable 05/01/16 04:42 [place] Rings Not Reportable 05/01/16 04:42 [place] Cells Not Reportable 05/01/16 04:42 Bite Cells Not Reportable 05/01/16 04:42 Crenated Cell Not Reportable 05/01/16 04:42 Elliptocytes Not Reportable 05/01/16 04:42 Acanthocytes (Spur) Not Reportable 05/01/16 04:42 Rouleaux Not Reportable 05/01/16 04:42 Hemoglobin C Crystals Not Reportable 05/01/16 04:42 Schistocytes Not Reportable 05/01/16 04:42 Malaria parasites Not Reportable 05/01/16 04:42 Cesario Bodies Not Reportable 05/01/16 04:42 Hem Pathologist Commnt No 05/01/16 04:42 PT 14.5 Sec. (12.2-14.9) 05/02/16 16:24 INR 1.14 (0.87-1.13) H 05/02/16 16:24 APTT 29.3 Sec. (24.2-36.6) 05/02/16 16:24 Heparin Anti-Xa Level < 0.10 U.I./ml (0.3-0.7) L 05/02/16 23:11 Sodium 141 mmol/L (137-145) 05/01/16 04:42 Potassium 4.0 mmol/L (3.6-5.0) 05/01/16 04:42 Chloride 108.7 mmol/L (98-107) H 05/01/16 04:42 Carbon Dioxide 17 mmol/L (22-30) L 05/01/16 04:42 Anion Gap 19 mmol/L 05/01/16 04:42 BUN 21 mg/dL (9-20) H 05/01/16 04:42 Creatinine 1.5 mg/dL (0.8-1.5) 05/01/16 04:42 Estimated GFR 54 ml/min 05/01/16 04:42 BUN/Creatinine Ratio 14.00 % 05/01/16 04:42 Glucose 75 mg/dL (75-100) 05/01/16 04:42 POC Glucose 97 (70-105) 05/05/16 06:42 Lactic Acid 1.2 mmol/L (0.7-2.0) 04/25/16 04:56 Calcium 7.4 mg/dL (8.4-10.2) L 05/01/16 04:42 Magnesium 1.9 mg/dL (1.7-2.3) 04/26/16 09:46 Total Bilirubin 0.3 mg/dL (0.1-1.2) 04/24/16 05:37 AST 13 units/L (5-40) 04/24/16 05:37 ALT 6 units/L (7-56) L 04/24/16 05:37 Alkaline Phosphatase 133 units/L (35-129) H 04/24/16 05:37 Total Protein 6.1 g/dL (6.3-8.2) L 04/24/16 05:37 Albumin 2.5 g/dL (3.9-5) L 04/24/16 05:37 Albumin/Globulin Ratio 0.7 % 04/24/16 05:37 Prostate Specific Ag 708.50 ng/mL (0.00-4.00) H 05/03/16 05:26 Urine Color Red (Yellow) 04/23/16 12:30 Urine Turbidity Turbid (Clear) 04/23/16 12:30 Urine pH 7.0 (5.0-7.0) 04/23/16 12:30 Ur Specific [place] 1.021 (1.003-1.030) 04/23/16 12:30 Urine Protein 100 mg/dl mg/dL (Negative) 04/23/16 12:30 Urine Glucose (UA) Neg mg/dL (Negative) 04/23/16 12:30 Urine Ketones Neg mg/dL (Negative) 04/23/16 12:30 Urine Blood Lg (Negative) 04/23/16 12:30 Urine Nitrite Pos (Negative) 04/23/16 12:30 Urine Bilirubin Neg (Negative) 04/23/16 12:30 Urine Urobilinogen < 2.0 mg/dL (<2.0) 04/23/16 12:30 Ur Leukocyte Esterase Mod (Negative) 04/23/16 12:30 Urine WBC (Auto) > 182.0 /HPF (0.0-6.0) H 04/23/16 12:30 Urine RBC (Auto) > 182.0 /HPF (0.0-6.0) 04/23/16 12:30 Urine WBC Clumps 3+ /HPF 04/23/16 12:30 Blood Type O NEGATIVE 04/25/16 10:59 Antibody Screen Negative 04/25/16 10:59 Crossmatch See Detail 04/25/16 10:59
--- NOTE | 2016-05-05 12:43 | Progress Note ---
Assessment and Plan Current antibiotics: Zosyn 2.25 grams IV q8h 04/27 --> Previous antibiotics Levaquin 750 mg IV X 1 04/23 Vancomycin IV 04/23-04/27 Cefepime 1 g IV q12h 04/23-04/27 Immunosuppressants: Prednisone 5 mg PO daily ASSESSMENT: Darwin Marti is an 85 y/o male with metastatic prostate cancer with bladder obstruction, HTN, CKD, CAD, hx DVT, and anemia who underwent replacement of bilateral nephrostomy tubes on 04/23 and was found to have sammi pus draining from the right tube and was admitted to [facility] for workup and appropriate antibiotic therapy. Problem list: 1. Complicated UTI with right sided pyonephrosis -Urine cultures growing Pseudomonas aeruginosa and vancomycin resistant Enterococcus faecalis (penicillin sensitive). 2. Hx of recurrent UTIs 3. 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 Leukocytosis -secondary to #1 -improving 5. CKD -Component of LORENZO that is improving 6. 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 HTN 8. CAD 9. RUE DVT PLAN: 1. Continue Zosyn which will cover both the Pseudomonas and Enterococcal isolate 2. Will plan completion of 2 weeks of post-op antibiotics. ( Stop date 05/06 ) 3. Contact precautions for VRE Subjective Date of service: 05/05/16 Principal diagnosis: Malfunctioning right nephrostomy tube Interval history: No specific complaints. Objective - Exam Narrative Exam: Chronically ill-appearing. Converses normally. HEENT: Pupils are equal reactive to light and accommodation. Bilateral arcus. Conjunctiva clear. Oropharynx is not well seen. NECK: Supple. No enlargement of the thyroid gland. No significant cervical lymphadenopathy. No jugular venous distention at 30. LUNGS: Anterior breath sounds clear. HEART: Regular rate. S1 and S2 are normal. There are no murmurs, gallops, clicks or rubs heard. ABDOMEN: Soft and nontender. Liver and spleen are not palpably enlarged or tender. No palpable masses. Bowel sounds are active. BACK: Nephrostomy tube dressings not removed. EXTREMITIES: No rash, peripheral lymphadenopathy, clubbing or edema. SKIN: No other rash, ulcers or wounds. NEUROLOGIC: Awake and alert. Moves all extremities. - Constitutional Vitals: Vital Signs Temp Pulse Resp BP Pulse Ox 98.5 F 98 H 18 123/59 97 05/05/16 08:00 05/05/16 09:22 05/05/16 08:00 05/05/16 09:22 05/05/16 08:00 Temperature -Last 24 Hours Temperature 98.5 F Temperature 99.1 F Temperature 98.0 F - Labs CBC & Chem 7: 05/05/16 00:55 05/01/16 04:42 Labs: Abnormal lab results 05/04/16 05/04/16 05/04/16 Range/Units 16:35 18:38 22:22 Hgb 9.7 L (11.8-15.2) gm/dl Hct 29.6 L (35.5-45.6) % POC Glucose 146 H 123 H (70-105) 05/05/16 Range/Units 00:55 Hgb 9.7 L (11.8-15.2) gm/dl Hct 29.0 L (35.5-45.6) % POC Glucose (70-105)
[2016-05-05] MEDS: DURAGESIC TD SCH (16:59)
[2016-05-05] MEDS: FLOMAX PO SCH (23:24)
[2016-05-06] MEDS: NORCO 10/325 PO PRN ×3 (05:33→23:26)
[2016-05-06] MEDS: ZOSYN/NS 2.25 GM/50ML 50 ML IV SCH ×4 (05:33→23:16)
[2016-05-06] MEDS: APRESOLINE PO SCH ×3 (05:34→23:16)
[2016-05-06] MEDS: DELTASONE PO SCH (05:34)
[2016-05-06] MEDS: ABIRATERONE ACETATE 1000 MG PO SCH (05:35)
[2016-05-06] MEDS: NACL 0.9% 1000 ML 1,000 ML IV SCH (10:05)
[2016-05-06] MEDS: SODIUM BICARBONATE PO SCH ×2 (10:05→23:17)
[2016-05-06] MEDS: PROTONIX PO SCH (10:06)
[2016-05-06] MEDS: OSCAL PO SCH ×2 (10:06→23:16)
[2016-05-06] MEDS: COLACE PO SCH ×2 (10:06→23:16)
[2016-05-06] MEDS: COREG PO SCH (10:07)
[2016-05-06] MEDS: ROCALTROL PO SCH (10:08)
--- NOTE | 2016-05-06 11:37 | Progress Note ---
Assessment and Plan Current antibiotics: Zosyn 2.25 grams IV q8h 04/27 --> Previous antibiotics Levaquin 750 mg IV X 1 04/23 Vancomycin IV 04/23-04/27 Cefepime 1 g IV q12h 04/23-04/27 Immunosuppressants: Prednisone 5 mg PO daily ASSESSMENT: Darwin Marti is an 85 y/o male with metastatic prostate cancer with bladder obstruction, HTN, CKD, CAD, hx DVT, and anemia who underwent replacement of bilateral nephrostomy tubes on 04/23 and was found to have sammi pus draining from the right tube and was admitted to [facility] for workup and appropriate antibiotic therapy. Problem list: 1. Complicated UTI with right sided pyonephrosis -Urine cultures growing Pseudomonas aeruginosa and vancomycin resistant Enterococcus faecalis (penicillin sensitive). 2. Hx of recurrent UTIs 3. 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 Leukocytosis -secondary to #1 -improving 5. CKD -Component of LORENZO that is improving 6. 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 HTN 8. CAD 9. RUE DVT PLAN: 1. Continue Zosyn which will cover both the Pseudomonas and Enterococcal isolate 2. Will plan completion of 2 weeks of post-op antibiotics. ( Stop date following 05/06 dosing today) 3. Contact precautions for VRE Subjective Date of service: 05/06/16 Principal diagnosis: Malfunctioning right nephrostomy tube Interval history: Patient is without complaints. Discussed with his daughter completing antibiotics today. Objective - Exam Narrative Exam: Chronically ill-appearing. Converses normally. HEENT: Pupils are equal reactive to light and accommodation. Bilateral arcus. Conjunctiva clear. Oropharynx is not well seen. NECK: Supple. No enlargement of the thyroid gland. No significant cervical lymphadenopathy. No jugular venous distention at 30. LUNGS: Anterior breath sounds clear. HEART: Regular rate. S1 and S2 are normal. There are no murmurs, gallops, clicks or rubs heard. ABDOMEN: Soft and nontender. Liver and spleen are not palpably enlarged or tender. No palpable masses. Bowel sounds are active. BACK: Nephrostomy tube dressings not removed. Right nephrostomy drainage slightly bloody-appearing. EXTREMITIES: No rash, peripheral lymphadenopathy, clubbing or edema. SKIN: No other rash, ulcers or wounds. NEUROLOGIC: Awake and alert. Moves all extremities. - Constitutional Vitals: Vital Signs Temp Pulse Resp BP Pulse Ox 97.8 F 82 18 148/61 100 05/06/16 08:00 05/06/16 10:07 05/06/16 08:00 05/06/16 10:07 05/06/16 08:00 Temperature -Last 24 Hours Temperature 97.8 F Temperature 98.5 F Temperature 98.6 F - Labs CBC & Chem 7: 05/05/16 00:55 05/01/16 04:42
--- NOTE | 2016-05-06 11:47 | Progress Note ---
Assessment and Plan Assessment and plan: Complicated urinary tract infection To complete Zosyn today History of bilateral indwelling chronic nephrostomy tubes Status post nephrostomy tube exchange by urology Acute DVT right subclavian extendinng to right brachial vein. Was put on Eliquis but had bright red blood both nephrostomy tubes so Eliquis on hold. --Acute on chronic Anemia secondary to hematuria Status post blood transfusion. Hgb 7.8 today. Obtain H/H Q 8h. --Acute renal failure secondary to vasomotor nephropathy Closely monitor renal function avoid nephrotoxic medications Serum creatinine down to 1.5 --Metastatic prostate cancer/bladder mass following --Hypertension moderate control Continue Coreg and Hydralazine. --History of coronary artery disease stable on medications --DVT prophylaxis with heparin Disposition: For d/c home tomorrow. Hospice was discussed with family but they declined.. History Interval history: He had bright red blood both nephrostomy tubes after starting anticoagulation, now clearing on stopping Eliquis, still has right upper ext edema no fever, constipation Hospitalist Physical - Physical exam Narrative exam: Gen appearance : not in acute distress, HEENT: Normocephalic atraumatic, Neck: supple, no JVD. Lungs: clear to auscultation bilaterally, no crackles no wheezes Heart: S1 and S2 regular, no murmurs no gallop Abdomen: soft, non-tender, non-distended normal bowel sounds, right nephrostomy tubes with light red bloody urine,left nephrostomy clear urine Extremities: RUE edema, no clubbing or cyanosis Neuro: Awake alert oriented , no focal signs - Constitutional Vitals: Temp Pulse Resp BP Pulse Ox 97.8 F 82 18 148/61 100 05/06/16 08:00 05/06/16 10:07 05/06/16 08:00 05/06/16 10:07 05/06/16 08:00 General appearance: Present: no acute distress, well-nourished Results - Labs CBC & Chem 7: 05/06/16 13:51 05/01/16 04:42 Labs: Laboratory Last Values WBC 10.5 K/mm3 (4.5-11.0) 05/01/16 04:42 RBC 3.46 M/mm3 (3.65-5.03) L 05/01/16 04:42 Hgb 9.7 gm/dl (11.8-15.2) L 05/05/16 00:55 Hct 29.0 % (35.5-45.6) L 05/05/16 00:55 MCV 88 fl (84-94) 05/01/16 04:42 MCH 31 pg (28-32) 05/01/16 04:42 MCHC 35 % (32-34) H 05/01/16 04:42 RDW 17.1 % (13.2-15.2) H 05/01/16 04:42 Plt Count 266 K/mm3 (140-440) 05/02/16 16:24 Lymph % (Auto) 13.9 % (13.4-35.0) 04/26/16 09:46 [place] % (Auto) 5.7 % (0.0-7.3) 04/26/16 09:46 Eos % (Auto) 0.8 % (0.0-4.3) 04/26/16 09:46 Baso % (Auto) Application Consultant 05/01/16 04:42 Lymph # 1.5 K/mm3 (1.2-5.4) 04/26/16 09:46 [place] # 0.6 K/mm3 (0.0-0.8) 04/26/16 09:46 Eos # 0.1 K/mm3 (0.0-0.4) 04/26/16 09:46 Baso # 0.0 K/mm3 (0.0-0.1) 04/26/16 09:46 Add Manual Diff Complete 05/01/16 04:42 Total Counted 100 05/01/16 04:42 Seg Neutrophils % 79.2 % (40.0-70.0) H 04/26/16 09:46 Seg Neuts % (Manual) 68.0 % (40.0-70.0) 05/01/16 04:42 Band Neutrophils % 0 % 05/01/16 04:42 Lymphocytes % (Manual) 25.0 % (13.4-35.0) 05/01/16 04:42 Reactive Lymphs % (Man) 0 % 05/01/16 04:42 Monocytes % (Manual) 5.0 % (0.0-7.3) 05/01/16 04:42 Eosinophils % (Manual) 1.0 % (0.0-4.3) 05/01/16 04:42 Basophils % (Manual) 0 % (0.0-1.8) 05/01/16 04:42 Metamyelocytes % 1.0 % 05/01/16 04:42 Myelocytes % 0 % 05/01/16 04:42 Promyelocytes % 0 % 05/01/16 04:42 Blast Cells % 0 % 05/01/16 04:42 Nucleated RBC % Not Reportable 05/01/16 04:42 Seg Neutrophils # 8.5 K/mm3 (1.8-7.7) H 04/26/16 09:46 Seg Neutrophils # Man 7.1 K/mm3 (1.8-7.7) 05/01/16 04:42 Band Neutrophils # 0.0 K/mm3 05/01/16 04:42 Lymphocytes # (Manual) 2.6 K/mm3 (1.2-5.4) 05/01/16 04:42 Abs React Lymphs (Man) 0.0 K/mm3 05/01/16 04:42 Monocytes # (Manual) 0.5 K/mm3 (0.0-0.8) 05/01/16 04:42 Eosinophils # (Manual) 0.1 K/mm3 (0.0-0.4) 05/01/16 04:42 Basophils # (Manual) 0.0 K/mm3 (0.0-0.1) 05/01/16 04:42 Metamyelocytes # 0.1 K/mm3 05/01/16 04:42 Myelocytes # 0.0 K/mm3 05/01/16 04:42 Promyelocytes # 0.0 K/mm3 05/01/16 04:42 Blast Cells # 0.0 K/mm3 05/01/16 04:42 WBC Morphology Not Reportable 05/01/16 04:42 Hypersegmented Neuts Not Reportable 05/01/16 04:42 Hyposegmented Neuts Not Reportable 05/01/16 04:42 Hypogranular Neuts Not Reportable 05/01/16 04:42 Smudge Cells Not Reportable 05/01/16 04:42 Toxic Granulation Not Reportable 05/01/16 04:42 Toxic Vacuolation Not Reportable 05/01/16 04:42 Dohle Bodies Not Reportable 05/01/16 04:42 Pelger-Huet Anomaly Not Reportable 05/01/16 04:42 Indu Rods Not Reportable 05/01/16 04:42 Platelet Estimate Appears normal 05/01/16 04:42 Clumped Platelets Not Reportable 05/01/16 04:42 Plt Clumps, EDTA Not Reportable 05/01/16 04:42 Large Platelets Not Reportable 05/01/16 04:42 Giant Platelets Not Reportable 05/01/16 04:42 Platelet Satelliting Not Reportable 05/01/16 04:42 Plt Morphology Comment Not Reportable 05/01/16 04:42 RBC Morphology Not Reportable 05/01/16 04:42 Dimorphic RBCs Not Reportable 05/01/16 04:42 Polychromasia Not Reportable 05/01/16 04:42 Hypochromasia Not Reportable 05/01/16 04:42 Poikilocytosis Not Reportable 05/01/16 04:42 Anisocytosis 1+ 05/01/16 04:42 Microcytosis Not Reportable 05/01/16 04:42 Macrocytosis Not Reportable 05/01/16 04:42 Spherocytes Not Reportable 05/01/16 04:42 Pappenheimer Bodies Not Reportable 05/01/16 04:42 Sickle Cells Not Reportable 05/01/16 04:42 Target Cells Not Reportable 05/01/16 04:42 Tear Drop Cells Not Reportable 05/01/16 04:42 Ovalocytes Not Reportable 05/01/16 04:42 Helmet Cells Not Reportable 05/01/16 04:42 [place] Bodies Not Reportable 05/01/16 04:42 [place] Rings Not Reportable 05/01/16 04:42 [place] Cells Not Reportable 05/01/16 04:42 Bite Cells Not Reportable 05/01/16 04:42 Crenated Cell Not Reportable 05/01/16 04:42 Elliptocytes Not Reportable 05/01/16 04:42 Acanthocytes (Spur) Not Reportable 05/01/16 04:42 Rouleaux Not Reportable 05/01/16 04:42 Hemoglobin C Crystals Not Reportable 05/01/16 04:42 Schistocytes Not Reportable 05/01/16 04:42 Malaria parasites Not Reportable 05/01/16 04:42 Cesario Bodies Not Reportable 05/01/16 04:42 Hem Pathologist Commnt No 05/01/16 04:42 PT 14.5 Sec. (12.2-14.9) 05/02/16 16:24 INR 1.14 (0.87-1.13) H 05/02/16 16:24 APTT 29.3 Sec. (24.2-36.6) 05/02/16 16:24 Heparin Anti-Xa Level < 0.10 U.I./ml (0.3-0.7) L 05/02/16 23:11 Sodium 141 mmol/L (137-145) 05/01/16 04:42 Potassium 4.0 mmol/L (3.6-5.0) 05/01/16 04:42 Chloride 108.7 mmol/L (98-107) H 05/01/16 04:42 Carbon Dioxide 17 mmol/L (22-30) L 05/01/16 04:42 Anion Gap 19 mmol/L 05/01/16 04:42 BUN 21 mg/dL (9-20) H 05/01/16 04:42 Creatinine 1.5 mg/dL (0.8-1.5) 05/01/16 04:42 Estimated GFR 54 ml/min 05/01/16 04:42 BUN/Creatinine Ratio 14.00 % 05/01/16 04:42 Glucose 75 mg/dL (75-100) 05/01/16 04:42 POC Glucose 97 (70-105) 05/05/16 06:42 Lactic Acid 1.2 mmol/L (0.7-2.0) 04/25/16 04:56 Calcium 7.4 mg/dL (8.4-10.2) L 05/01/16 04:42 Magnesium 1.9 mg/dL (1.7-2.3) 04/26/16 09:46 Total Bilirubin 0.3 mg/dL (0.1-1.2) 04/24/16 05:37 AST 13 units/L (5-40) 04/24/16 05:37 ALT 6 units/L (7-56) L 04/24/16 05:37 Alkaline Phosphatase 133 units/L (35-129) H 04/24/16 05:37 Total Protein 6.1 g/dL (6.3-8.2) L 04/24/16 05:37 Albumin 2.5 g/dL (3.9-5) L 04/24/16 05:37 Albumin/Globulin Ratio 0.7 % 04/24/16 05:37 Prostate Specific Ag 708.50 ng/mL (0.00-4.00) H 05/03/16 05:26 Urine Color Red (Yellow) 04/23/16 12:30 Urine Turbidity Turbid (Clear) 04/23/16 12:30 Urine pH 7.0 (5.0-7.0) 04/23/16 12:30 Ur Specific [place] 1.021 (1.003-1.030) 04/23/16 12:30 Urine Protein 100 mg/dl mg/dL (Negative) 04/23/16 12:30 Urine Glucose (UA) Neg mg/dL (Negative) 04/23/16 12:30 Urine Ketones Neg mg/dL (Negative) 04/23/16 12:30 Urine Blood Lg (Negative) 04/23/16 12:30 Urine Nitrite Pos (Negative) 04/23/16 12:30 Urine Bilirubin Neg (Negative) 04/23/16 12:30 Urine Urobilinogen < 2.0 mg/dL (<2.0) 04/23/16 12:30 Ur Leukocyte Esterase Mod (Negative) 04/23/16 12:30 Urine WBC (Auto) > 182.0 /HPF (0.0-6.0) H 04/23/16 12:30 Urine RBC (Auto) > 182.0 /HPF (0.0-6.0) 04/23/16 12:30 Urine WBC Clumps 3+ /HPF 04/23/16 12:30 Blood Type O NEGATIVE 04/25/16 10:59 Antibody Screen Negative 04/25/16 10:59 Crossmatch See Detail 04/25/16 10:59
--- NOTE | 2016-05-06 13:28 | Hem/Onc Progress Note ---
Subjective Interval history: Patient states he feels better today. On exam-is alert and in NAD Problems: metastatic prostate ca now refractory to hormone therapy-hospice discussion had ; pt. at this time wants to pursue further active therapy so will f/u in office upon discharge. UTI-antibiotics as per ID Recurrent cancer-related obstructive uropathy-nephrostomy tube replacement RUE thrombosis-off megace and would use low dose LWH for now. 25 minutes spent in discussion of options and review of the difficulties he would encounter with more aggressive therapy (chemo now that he is hormone refractory)-will pursue as outpatient. Objective - Constitutional Vitals: Last Vital Signs Temp 97.8 F 05/06/16 08:00 Pulse 82 05/06/16 10:07 Resp 18 05/06/16 08:00 BP 148/61 05/06/16 10:07 Pulse Ox 100 05/06/16 08:00
[2016-05-06 14:24] LABS: Hematocrit 23.1 % (35.5-45.6); Hemoglobin 7.8 gm/dl (11.8-15.2)
[2016-05-06] MEDS: MIRALAX 3350 PO SCH ×2 (14:41→23:15)
[2016-05-06 20:30] LABS: Hematocrit 21.4 % (35.5-45.6); Hemoglobin 7.2 gm/dl (11.8-15.2)
[2016-05-06] MEDS: FLOMAX PO SCH (23:15)
[2016-05-07] MEDS ORDERED: NACL 0.9% 500 ML 500 ML IV ONE (00:28)
[2016-05-07 01:12] LABS: Hematocrit 21.6 % (35.5-45.6); Hemoglobin 7.2 gm/dl (11.8-15.2)
[2016-05-07] MEDS: DELTASONE PO SCH (05:14)
[2016-05-07] MEDS: APRESOLINE PO SCH ×2 (05:15→15:58)
[2016-05-07] MEDS: ZOSYN/NS 2.25 GM/50ML 50 ML IV SCH (05:15)
[2016-05-07] MEDS: ABIRATERONE ACETATE 1000 MG PO SCH (05:29)
[2016-05-07 10:27] LABS: Hematocrit 27.5 % (35.5-45.6); Hemoglobin 9.3 gm/dl (11.8-15.2)
--- NOTE | 2016-05-07 10:36 | Progress Note ---
Assessment and Plan Current antibiotics: Zosyn 2.25 grams IV q8h 04/27 --> Previous antibiotics Levaquin 750 mg IV X 1 04/23 Vancomycin IV 04/23-04/27 Cefepime 1 g IV q12h 04/23-04/27 Immunosuppressants: Prednisone 5 mg PO daily ASSESSMENT: Darwin Marti is an 85 y/o male with metastatic prostate cancer with bladder obstruction, HTN, CKD, CAD, hx DVT, and anemia who underwent replacement of bilateral nephrostomy tubes on 04/23 and was found to have sammi pus draining from the right tube and was admitted to [facility] for workup and appropriate antibiotic therapy. Current antibiotics: Vancomycin IV 04/23 --> Cefepime 1 g IV q12h 04/23 --> Previous antibiotics: Levaquin 750 mg IV X 1 04/23 Immunosuppressants: Prednisone 5 mg PO daily Problem list: 1. Complicated UTI with right sided pyonephrosis -Urine cultures growing Pseudomonas aeruginosa and vancomycin resistant Enterococcus faecalis (penicillin sensitive). 2. Hx of recurrent UTIs 3. 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 Leukocytosis -secondary to #1 -improving 5. CKD -Component of LORENZO that is improving 6. 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 HTN 8. CAD 9. RUE DVT PLAN: 1. Stop Zosyn as he has completed 2 weeks of post-op antibiotics 2. OK for discharge ID [email or web address] with antibiotics as above 3. Contact precautions for VRE Eulalio Earl MD [facility] Office: [phone] Subjective Date of service: 05/07/16 Principal diagnosis: Malfunctioning right nephrostomy tube Interval history: No complaints at present. RUE swelling ~ same. ROS: No subjective fever or chills. No nausea, vomiting or diarrhea. No shortness of breath, cough or pleuritic chest pain Objective - Exam Narrative Exam: GENERAL: Well-developed, cachectic appearing male who is chronically ill- appearing. Alert and responsive and in no acute distress. HEENT: Pupils are equal reactive to light and accommodation. Bilateral arcus. Conjunctiva clear. Oropharynx normal except for mildly dry mucous membranes.. NECK: Supple. No enlargement of the thyroid gland. No significant cervical lymphadenopathy. No jugular venous distention at 30. LUNGS: Clear with no adventitious sounds heard. HEART: Regular rate. S1 and S2 are normal. There are no murmurs, gallops, clicks or rubs heard. ABDOMEN: Soft, not distended and nontender. Liver and spleen are not palpably enlarged or tender. No palpable masses. Bowel sounds are active. : Not examined today BACK: Bilateral nephrostomy tubes. EXTREMITIES: No rash, peripheral lymphadenopathy, clubbing. + RUE edema. SKIN: No other rash, ulcers or wounds. NEUROLOGIC: Awake and alert. No focal findings - Constitutional Vitals: Vital Signs Temp Pulse Resp BP Pulse Ox 97.8 F 90 20 114/61 99 05/07/16 08:00 05/07/16 08:00 05/07/16 08:00 05/07/16 08:00 05/07/16 08:00 Temperature -Last 24 Hours Temperature 97.8 F Temperature 97.9 F Temperature 97.9 F Temperature 97.8 F Temperature 98.2 F Temperature 98.3 F Temperature 98.1 F Temperature 98.1 F Temperature 97.7 F Temperature 98.4 F - Labs CBC & Chem 7: 05/07/16 10:20 05/01/16 04:42 Labs: Abnormal lab results Microbiology 04/23/16 16:11 Peripheral/Venous Blood Culture - Final NO GROWTH AFTER 5 DAYS 04/23/16 16:11 Peripheral/Venous Blood Culture - Final NO GROWTH AFTER 5 DAYS 04/23/16 12:30 Urine,Kidney - Right Kidney Urine Culture - Final Pseudomonas Aeruginosa 04/23/16 Unknown Kidney Surgical Culture - Final Enterococcus Faecalis Pseudomonas Aeruginosa
--- NOTE | 2016-05-07 11:01 | Discharge Summary ---
Providers - Providers Date of Admission: 04/23/16 11:17 Date of discharge: 05/07/16 Attending physician: CADENCE ALMODOVAR 04/23/16 11:17 Consult to Dietitian/Nutrition [CONS] Routine Physician Instructions: Reason For Exam: Reason for Consult: Nutrition Recommendations Reason for Consult: Malnutrition 04/23/16 11:20 Consult to Physician [CONS] Routine Consulting Provider: PATY LUNA Reason For Exam: PYELONEPHRITIS, NEPHROSTOMY TUBE EXCHANGE Place consult to:: Office Notified:: yes Phone number called:: [phone] Was contact made?: Yes If yes, spoke with:: Answering service Time called:: 18:40 04/25/16 11:25 Consult to Physician [CONS] Routine Consulting Provider: MADDIE ROCHA Reason For Exam: hematuria/bladder mass Place consult to:: DR. ROCHA Notified:: DR. ROCHA Comment:: DONE 04/25/16 PER ROHAN 04/26/16 11:01 Consult to Physician [CONS] Routine Consulting Provider: DALTON CORDON Reason For Exam: h/o metastatic prostate cancer/anemia/pt requests Place consult to:: Notified:: [facility] OFFICE Phone number called:: [phone] Was contact made?: Yes If yes, spoke with:: ARTHUR Time called:: 11:50 Comment:: ROHAN NOTIFIED 04/27/16 15:58 Consult to Wound/ET Nurse [CONS] Routine Reason For Exam: wound eval 04/27/16 15:59 Physical Therapy Evaluation and Treat [CONS] Routine Comment: Reason For Exam: gen debility/unsteady gait 05/01/16 12:44 Midline [Consult to PICC Line RN] [CONS] Routine Reason For Exam: iv antibiotics Type Line:: Midline 05/02/16 13:06 Consult to Case Management [CONS] Routine Services Needed at Discharge: Home Health Services Notified:: LULU Comment:: iv zosyn 2.25gm iv Q6H until 05/06/16 05/02/16 15:15 Consult to Physician [CONS] Routine Consulting Provider: NISHA GALAVIZ Reason For Exam: Acute DVT right subclavian extending to RUE Place consult to:: Dr. Galaviz Notified:: office Phone number called:: [phone] Was contact made?: Yes If yes, spoke with:: Kyle Time called:: 16:15 05/03/16 09:00 Consult to Case Management [CONS] Routine Services Needed at Discharge: Other Notified:: COPY GIVEN TO CM Comment:: Please find out whether patient has coverage for outpatient Eliquis Additional Physician Instructions: Inform patient about copayment/ deductibles for Eliquis Primary care physician: DALTON CORDON Hospitalization Condition: Fair Disposition: DC/[place] HOME UNDER HOME HEALTH - Discharge Diagnoses (1) Acute kidney injury superimposed on CKD Status: Acute (2) Complicated UTI (urinary tract infection) Status: Acute (3) Deep venous thrombosis of right upper extremity Status: Acute (4) Prostate cancer Status: Chronic Core Measure Documentation - Palliative Care Palliative Care/ Comfort Measures: Not Applicable - Core Measures Any of the following diagnoses?: DVT/PE - VTE Discharge Requirements Deep Vein Thrombosis/Pulmonary Embolism Present on Admission: Yes Has pt received <5 days of overlap therapy or INR<2.0: Yes Anticoagulant overlap therapy prescribed at discharge: No Contraindication No Overlap Therapy order at DC: Medical Contraindication ( Bleeding, hematuria on starting Eliquis therefore discontinued) Exam - Constitutional Vitals: Temp Pulse Resp BP Pulse Ox 97.8 F 90 20 114/61 99 05/07/16 08:00 05/07/16 08:00 05/07/16 08:00 05/07/16 08:00 05/07/16 08:00 Plan Activity: advance as tolerated Diet: other (Mechanical soft) Special Instructions: physical therapy, home health RN Additional Instructions: 1.Follow up with primary care physician in one week. 2.Follow-up with Dr. Cordon in 1 week. 3.Follow-up with Dr. Rocha in 1 week. 4.Follow up with Dr. Luna in 1 week. 5.Follow up with Nephrololgy in 1 week Follow up with: DALTON CORDON MD [Primary Care Provider] - 7 Days Prescriptions: Lactulose 10 gm PO BID PRN #240 ml PRN Reason: Constipation Pantoprazole [Protonix TAB] 40 mg PO QDAY #30 tablet Sodium Bicarbonate 650 mg PO BID #30 tablet hydrALAZINE [Apresoline TAB] 25 mg PO Q8HR #90 tablet
[2016-05-07] MEDS: OSCAL PO SCH (11:48)
[2016-05-07] MEDS: COLACE PO SCH (11:48)
[2016-05-07] MEDS: PROTONIX PO SCH (11:50)
[2016-05-07] MEDS: SODIUM BICARBONATE PO SCH (11:50)
[2016-05-07] MEDS: ROCALTROL PO SCH (11:50)
[2016-05-07] MEDS: COREG PO SCH (11:58)
[2016-05-07] MEDS: NORCO 10/325 PO PRN (12:05)
[2016-05-07 13:42] VITALS: BP 113/63
[2016-05-09] MEDS ORDERED: ELIQUIS PO SCH (22:00)
== END 2016-05-07 16:41 | disposition home health service (06) | DRG 871 ==
LOC: OPU 06:48 → 3A 11:17
PROVIDERS: ADMIT Internal Medicine; ATTEND Internal Medicine
PROC: 0T25X0Z Change Drainage Device in Kidney, External Approach (ICD-10-PCS; principal; 2016-04-23)
PROC: 30233N1 Transfusion of Nonautologous Red Blood Cells into Peripheral Vein, Percutaneous Approach (ICD-10-PCS; 2016-04-26)
PROC: 0T9330Z Drainage of Right Kidney Pelvis with Drainage Device, Percutaneous Approach (ICD-10-PCS; 2016-04-27)
PROC: 02HV33Z Insertion of Infusion Device into Superior Vena Cava, Percutaneous Approach (ICD-10-PCS; 2016-05-01)
DX: A41.9 Sepsis, unspecified organism (principal); N17.0 Acute kidney failure with tubular necrosis; E43 Unspecified severe protein-calorie malnutrition; N18.6 End stage renal disease; N39.0 Urinary tract infection, site not specified; I82.621 Acute embolism and thrombosis of deep veins of right upper extremity; N13.6 Pyonephrosis; I12.0 Hypertensive chronic kidney disease with stage 5 chronic kidney disease or end stage renal disease; E87.2 Acidosis; C79.51 Secondary malignant neoplasm of bone; I82.A11 Acute embolism and thrombosis of right axillary vein; N99.522 Malfunction of incontinent external stoma of urinary tract; I25.10 Atherosclerotic heart disease of native coronary artery without angina pectoris; N32.89 Other specified disorders of bladder; D63.1 Anemia in chronic kidney disease; C61 Malignant neoplasm of prostate; N32.0 Bladder-neck obstruction; R31.0 Gross hematuria; B96.5 Pseudomonas (aeruginosa) (mallei) (pseudomallei) as the cause of diseases classified elsewhere; B95.2 Enterococcus as the cause of diseases classified elsewhere; Z16.21 Resistance to vancomycin; D63.0 Anemia in neoplastic disease; Z85.46 Personal history of malignant neoplasm of prostate; Z79.899 Other long term (current) drug therapy; Z86.718 Personal history of other venous thrombosis and embolism; I25.2 Old myocardial infarction; Z68.25 Body mass index [BMI] 25.0-25.9, adult; Z87.891 Personal history of nicotine dependence; Z80.9 Family history of malignant neoplasm, unspecified
CPT/HCPCS: 36415; 50432; 50435; 76770; 80048; 80053; 81001; 82140; 82962; 83735; 84153; 85007; 85014; 85018; 85025; 85049; 85520; 85610; 85730; 86850; 86900; 86901; 86920; 87040; 87076; 87086; 87116; 87186; 94760; 96365; 96366; A6250; C1729; C1751; C1769; G8978-GP; G8979-GP; J0360; J0692; J1644; J1650; J1956; J2250; J2543; J3010; J3370; J7030; J7040; J7050; J7512; P9016; Q9967

== ENCOUNTER 2016-06-13 06:45 | Day surgery (SDC) | payer MEDICARE ==
[~2016-06-13 06:45] MED LIST: ANCEF/STERILE WATER 2 GM/20 ML 2 GM/20 ML SYRINGE IV NR; NACL 0.9% 1000 ML 1,000 ML IV SCH
[2016-06-13] MEDS ORDERED: NACL 0.9% 500 ML 500 ML IV SCH (08:00)
[2016-06-13 08:16] LABS: BUN/Creatinine Ratio 12.14; Calcium 8.6 mg/dL (8.4-10.2); Chloride 101.2 mmol/L (98-107)
[2016-06-13] MEDS ORDERED: ANCEF/STERILE WATER 2 GM/20 ML 0 GM/0 ML SYRINGE IV ONE (09:03)
[2016-06-13] MEDS ORDERED: NACL 0.9% 500 ML IR ONE (09:04)
[2016-06-13] MEDS ORDERED: LEVAQUIN 500MG/100ML 500 MG/100 ML BAG IV ONE (09:04)
[2016-06-13] MEDS ORDERED: NACL 0.9% 500 ML 500 ML ONE (09:20)
[2016-06-13] MEDS ORDERED: XYLOCAINE 2% INFILTRATI ONE (09:24)
[2016-06-13] MEDS: VERSED ONE ×2 (09:30→09:57)
[2016-06-13] MEDS: SUBLIMAZE ONE ×2 (09:31→09:57)
[2016-06-13 09:45] LABS: INR 1.18 (0.87-1.13)
--- NOTE | 2016-06-13 10:20 | Short Stay Summary ---
Short Stay Documentation Date of service: 06/13/16 Narrative H&P: 85 year old man with advanced prostate cancer who is nephrostomy tube dependent for urine output with dislodgement of his left nephrostomy tube yesterday who presents for left nephrostomy tube placement. - History Past Medical History: cancer, other (bladder outlet obstruction) - Allergies and Medications Current Medications: Allergies No Known Allergies Allergy (Verified 01/17/16 13:24) Home Medications Medication Instructions Recorded Confirmed Last Taken Type Docusate Sodium [Colace CAP] 100 mg PO BID #60 capsule 11/05/15 06/13/16 Rx HYDROcodone/APAP 10-325 [Forsan 1 each PO Q6HR PRN #24 tablet 02/10/16 06/13/16 06/12/16 Rx 10-325 mg TAB] 1 Carvedilol [Coreg] 3.125 mg PO DAILY #30 tablet 03/03/16 06/13/16 06/12/16 Rx fentaNYL [Duragesic] 75 mcg TD Q3D #10 patch 03/03/16 06/13/16 06/12/16 Rx Enoxaparin [Lovenox] 40 mg SC DAILY 06/13/16 06/13/16 06/12/16 History Enzalutamide (Nf) [Xtandi (Nf)] 120 mg PO DAILY 06/13/16 06/13/16 06/12/16 History Ibuprofen [Advil 100 MG tab] 200 mg PO QID PRN 06/13/16 06/13/16 06/12/16 History Tamsulosin [Flomax] 0.4 mg PO AC 06/13/16 06/13/16 06/12/16 History Active Medications Cefazolin Sodium (Ancef/Sterile Water 2 Gm/20 Ml) 2 gm in 20 mls @ 80 mls/hr IV PREOP NR PRN Reason: Protocol Stop: 06/13/16 23:00 Sodium Chloride (Nacl 0.9% 500 Ml) 500 mls @ 50 mls/hr IV DIRECT ARAMIS - Physical exam General appearance: no acute distress Lungs: Normal air movement Gastrointestinal: normal - Brief post op/procedure progress note Date of procedure: 06/13/16 Pre-op diagnosis: Hydronephrosis Post-op diagnosis: same Procedure: 1. Fluoroscopic guided access of the left nephrostomy tube tract 2. Left nephrogram 3. Fluoroscopic guided placement of an 8 Fr left sided nephrostomy tube 4. Right sided nephrostogram 5. Fluoroscopic guided 10 Fr right sided nephrostomy tube exchange Anesthesia: local (w/ conscious sedation) Surgeon: JOSELINE MCKEON Estimated blood loss: minimal Condition: stable - Hospital course Hospital course: Tolerated procedure well. Ready for discharge in 1 hr. - Disposition Condition at discharge: Stable Disposition: DISCHARGED TO HOME OR SELFCARE Short Stay Discharge Plan Activity: advance as tolerated Weight Bearing Status: Weight Bear as Tolerated Diet: regular Wound: keep clean and dry Follow up with: MARCO ANTONIO WEAVER JR, MD [Primary Care Provider] - 7 Days
--- NOTE | 2016-06-13 10:37 | Operative Report ---
Operative Report Operative Report: EXAM: 1. Fluoroscopic guided access of the left collecting system by recannalization of the existing tract 2. Nephrostogram of the left kidney 3. Percutaneous nephrostomy 8 Fr tube placement of the left kidney 4. Nephrostogram through the indwelling right nephrostomy tube. 5. Right 10 Cypriot nephrostomy tube exchange 6. Conscious sedation, 27 minutes DATE: 06/13/16 RELIGIOUS STUDIES PROFESSOR: JOSELINE MCKEON MD INDICATION: A 5-year-old male with bilateral hydronephrosis with indwelling nephrostomy tubes with a kinked right-sided nephrostomy tube and it dislodged/ removed left nephrostomy tube requiring right-sided nephrostomy tube exchange and left-sided nephrostomy tube placement. MEDICATIONS: Please see nursing report for full details. DEVICES: 8 Cypriot nephrostomy tube - left side 10 Cypriot nephrostomy tube - right side CONTRAST: Please see catheter finisher and inspector report for full details. PROCEDURE: The risks, benefits, and alternatives were discussed with the patient; written informed consent was obtained. Conscious sedation was performed with continuous cardiopulmonary monitoring. The patient's back was prepped and draped in a sterile fashion. The right-sided nephrostomy tube was prepped and draped in a sterile fashion. The left flank was prepped and draped in a sterile fashion. LEFT SIDE: I determine the area where the left-sided nephrostomy tube was previously exiting. I passed a transitional dilator into the hole and then I passed the 0.018 inch mandrel wire into the transitional dilator which then passed into the collecting system. Urine was returned. I remove the inner dilator and passed an 80 cm mandrel through the transitional dilator. I removed the previous shorter mandrel. With the use of a Touhy Estrella device, I injected contrast through the transitional dilator opacifying the left collecting system, confirming position in the collecting system through the old tract. There was mild left sided hydronephrosis. Touhy Estrella and transitional dilator was removed. The stiffener with in the 6 Cypriot Accustick system was removed. 6 Cypriot Accustick system was advanced over the wire and passed into the collecting system. Wire, and inner dilator were removed. 0.035 inch Shannon wire was advanced through the transitional dilator of the AccuStick system and the dilator was removed. 8 Cypriot nephrostomy tube was advanced over the wire. Wire was removed. [place] loop was performed in the left renal pelvis. Contrast was injected into the nephrostomy tube confirming position within the collecting system. Contrast was aspirated. The nephrostomy tube was sutured in place with 2, 2-0 Ethilon sutures. Sterile dressing applied. The catheter was connected to a drainage bag. RIGHT SIDE: The right nephrostomy tube was evaluated and was severely kinked due to tube retraction resulting in tension on the existing suture. The tract demonstrated no evidence of superficial tract infection. The suture resulting in the kink was removed. 1% lidocaine was injected around the nephrostomy tube for local anesthetic. Contrast was injected through the existing nephrostomy tube confirming position. The nephrostomy tube was cut. 0.035 inch Shannon wire was passed into the renal collecting system. The nephrostomy tube was removed over a wire. A new nephrostomy tube was advanced over the wire into the collecting system. The wire and plastic stiffener were removed under fluoroscopic guidance. [place] loop was formed in the renal pelvis. Contrast was injected confirming position in the renal pelvis. Contrast was then aspirated and saline was injected and aspirated through the collecting system. The catheter was secured with 2, 2-0 Ethilon sutures. Sterile dressing was applied. The catheter was connected to a drainage bag. The patient tolerated the procedure without issue. The patient was transferred to the OPPU area without issue. FINDINGS: 1. Left right-sided mild hydronephrosis with hydroureter 2. Right sided moderate hydronephrosis and hydroureter IMPRESSION: 1. Percutaneous nephrostomy tube placement in the left collecting system with recannalization of the old tract. 2. Successful nephrostogram and nephrostomy tube exchange of a right nephrostomy tube.
[2016-06-13 11:24] VITALS: BP 148/73
== END 2016-06-13 11:40 | disposition home or self-care (01) ==
LOC: OPU 06:45
PROVIDERS: ATTEND Radiology Diagnostic Radiology
DX: T83.128A Displacement of other urinary devices and implants, initial encounter (principal); N13.30 Unspecified hydronephrosis; Z85.46 Personal history of malignant neoplasm of prostate; Y83.8 Other surgical procedures as the cause of abnormal reaction of the patient, or of later complication, without mention of misadventure at the time of the procedure
CPT/HCPCS: 36415; 50432; 50435; 80048; 85610; 85730; C1729; C1751; C1769; J1956; J2250; J3010; J7040; J0690; Q9967

== ENCOUNTER 2016-06-29 08:32 | Day surgery (SDC) | payer MEDICARE ==
[~2016-06-29 08:32] MED LIST changes: -ANCEF/STERILE WATER 2 GM/20 ML 2 GM/20 ML SYRINGE IV NR; -NACL 0.9% 1000 ML 1,000 ML IV SCH; +SODIUM CHLORIDE FLUSH SYRINGE 10 ML IV SCH
[2016-06-29] MEDS ORDERED: NACL 0.9% 500 ML 500 ML IV SCH (09:00)
[2016-06-29 09:39] LABS: Basophils % (Auto) 0.9 % (0.0-1.8); Eosinophils % (Auto) 0.9 % (0.0-4.3); Hemoglobin 6.5 gm/dl (11.8-15.2); Mean Corpuscular HGB Conc 33 % (32-34); Mean Corpuscular Hemoglobin 30 pg (28-32); Mean Corpuscular Volume 90 fl (84-94); Platelet Count 476 K/mm3 (140-440); Red Blood Count 2.19 M/mm3 (3.65-5.03); Red Cell Distribution Width 16.6 % (13.2-15.2); White Blood Count 13.1 K/mm3 (4.5-11.0)
[2016-06-29 09:50] LABS: Hematocrit 19.8 % (35.5-45.6)
[2016-06-29 09:57] LABS: INR 1.1 (0.87-1.13)
[2016-06-29 09:58] LABS: Partial Thromboplastin Time 39.1 Sec. (24.2-36.6)
[2016-06-29 10:00] LABS: BUN/Creatinine Ratio 11.5; Calcium 8.3 mg/dL (8.4-10.2); Chloride 98.4 mmol/L (98-107)
[2016-06-29] MEDS ORDERED: NACL 0.9% 500 ML 1,000 ML ONE (10:15)
[2016-06-29] MEDS ORDERED: NACL 0.9% 500 ML 500 ML ONE (10:15)
[2016-06-29] MEDS ORDERED: LEVAQUIN 500MG/100ML 500 MG/100 ML BAG IV ONE (10:39)
[2016-06-29] MEDS: SUBLIMAZE ONE ×5 (10:40→11:33)
[2016-06-29] MEDS: VERSED ONE ×4 (10:41→11:28)
[2016-06-29] MEDS: XYLOCAINE 2% INFILTRATI ONE ×2 (10:41→11:00)
[2016-06-29 12:04] LABS: Bilirubin,Urine NEG (Negative); Blood,Urine LG (Negative); Ketones,Urine NEG (Negative); Leukocyte Esterase,Urine MOD (Negative); Nitrite,Urine POS (Negative); Urobilinogen,Urine < 2.0 mg/dL (<2.0)
[2016-06-29 12:06] LABS: RBC,Urine > 182.0 /HPF (0.0-6.0); WBC,Urine > 182.0 /HPF (0.0-6.0)
--- NOTE | 2016-06-29 12:06 | Short Stay Summary ---
Short Stay Documentation Date of service: 06/29/16 Narrative H&P: Removed his right nephrostomy tube. Left one retracted. Family having hard time with patient due to difficulty with advanced prostate cancer and limited mobility. - History Principal diagnosis: Nephrostomy malfunction with hydronephrosis Past Medical History: cancer, other (prostate cancer, advanced) Past Surgical History: Other (nephrostomy tubes) Social history: lives with family - Allergies and Medications Current Medications: Allergies No Known Allergies Allergy (Verified 01/17/16 13:24) Home Medications Medication Instructions Recorded Confirmed Last Taken Type Docusate Sodium [Colace CAP] 100 mg PO BID #60 capsule 11/05/15 06/29/16 Rx HYDROcodone/APAP 10-325 [[place] 1 each PO Q6HR PRN #24 tablet 02/10/16 06/29/16 06/28/16 Rx 10-325 mg TAB] Carvedilol [Coreg] 3.125 mg PO DAILY #30 tablet 03/03/16 06/29/16 06/28/16 Rx fentaNYL [Duragesic] 75 mcg TD Q3D #10 patch 03/03/16 06/29/16 06/28/16 Rx Enoxaparin [Lovenox] 40 mg SC DAILY 06/13/16 06/29/16 06/28/16 History Enzalutamide (Nf) [Xtandi (Nf)] 4 cap PO DAILY 06/13/16 06/29/16 06/28/16 History Calcium Carbonate/Vitamin D3 1 each PO BID 06/29/16 06/29/16 06/28/16 History [Calcium 600-Vit D3 200 Tablet] Ondansetron [Zofran TAB] 4 mg PO Q8HR PRN 06/29/16 06/29/16 06/28/16 History Pantoprazole [Protonix] 40 mg PO QDAY 06/29/16 06/29/16 06/28/16 History Zolpidem [Ambien] 5 mg PO QHS PRN 06/29/16 06/29/16 06/28/16 History Active Medications Sodium Chloride (Nacl 0.9% 500 Ml) 500 mls @ 50 mls/hr IV DIRECT ARAMIS Sodium Chloride (Sodium Chloride Flush Syringe 10 Ml) 10 ml IV PRN ARAMIS - Physical exam General appearance: no acute distress Lungs: Normal air movement Gastrointestinal: other (left tube retracted, right tube completely removed and on patient's back) - Brief post op/procedure progress note Date of procedure: 06/29/16 Pre-op diagnosis: hydronephrosis Post-op diagnosis: same Procedure: Right nephrostomy placement, left nephrostomy exchange Anesthesia: local (w/ conscious sedation) Surgeon: JOSELINE MCKEON Estimated blood loss: minimal Specimen disposition: other (sent purulent right kidney fluid for culture) Condition: stable - Hospital course Hospital course: HGB 6.5, contacted oncologist who will T&C patient for blood transfusion on saturday. Contacted Dr. Koenig who recommends keeping patient off antibiotics unless he develops symptoms and signs of infection. If he does, he will contact ID or PVS and may require antibiotic therapy. Dr. Koenig is aware of the urine culture. - Disposition Condition at discharge: Stable Disposition: DISCHARGED TO HOME OR SELFCARE Short Stay Discharge Plan Activity: advance as tolerated Weight Bearing Status: Weight Bear as Tolerated Diet: regular Wound: keep clean and dry Additional Instructions: Come to [facility] for Blood Transfusion on Saturday07/02/16 . Be at Admission by 8:00am. Contact Dr. Koenig of [facility] if the patient develops fever, abdominal pain, or develops any concerning signs or symptoms of infection. Follow up with: MARCO ANTONIO WEAVER JR, MD [Primary Care Provider] - 7 Days CARA ESCALANTE MD [Staff Physician] - 7 Days Forms: Post Sedation D/C Instructions
--- NOTE | 2016-06-29 12:16 | Operative Report ---
Operative Report Operative Report: EXAM: 1. Ultrasound guided access of the interpolar posterior calyx of the right kidney 2. Diagnostic injection of the left kidney through the access needle 3. Nephrostogram of the right kidney 4. Fluoroscopic guided percutaneous nephrostomy tube placement of the right kidney 5. Fluoroscopic guided exchange of the left-sided nephrostomy tube DATE: 06/29/16 MONUMENT CARVER: JOSELINE MCKEON MD INDICATION: 85-year-old male with advanced prostate cancer who is dependent on nephrostomy tubes accidentally removed his right-sided nephrostomy tube and retracted his left-sided nephrostomy tube. MEDICATIONS: Please see nursing report for full details. DEVICES: 8 [place] nephrostomy tube, left side 8 [place] nephrostomy tube, right side CONTRAST: Please see labor economist report for full details. PROCEDURE: The risks, benefits, and alternatives were discussed with the patient; written informed consent was obtained. The patient's back was prepped and draped in a sterile fashion. RIGHT SIDE: The prior nephrostomy exit site was probed with a transitional dilator, Glidewire, and 0.018 inch wire. Communication with the right collecting system was not identified, likely due to prolonged removal of the nephrostomy tube. The patient's puncture site was anesthetized with lidocaine. Under direct ultrasound guidance, the right interpolar posterior calyx was accessed with a 20-gauge needle. Urine with some purulent material was aspirated. Contrast was injected demonstrating right-sided hydronephrosis with distal ureteral narrowing. Urine was retrieved and sent for culture. 0.018 inch wire was passed into the collecting system. Needle was exchanged for a 6 [place] Accu stick system. 6 [place] Accustick system was advanced over the wire and passed into the collecting system. Wire and inner dilator was removed. Shannon wire with a 4 [place] angled catheter was passed into the bladder. This was exchanged for an Amplatz wire. Serial dilatation was performed. 8 [place] nephrostomy tube was advanced over the wire. Wire was removed. [place] loop was performed in the renal pelvis. Contrast was injected into the nephrostomy tube confirming position within the collecting system. Nephrostogram was performed demonstrating right-sided moderate hydronephrosis. Contrast was aspirated. The nephrostomy tube was sutured in place with 2, 2-0 Ethilon sutures and StatLock. Sterile dressing applied. LEFT SIDE: The left-sided existing nephrostomy tube was prepped and draped in a sterile fashion. Contrast was injecting demonstrating moderate left-sided hydronephrosis, and that the catheter was retracted into the accessed calyx and tied into a knot. Catheter was cut and a Glidewire was passed through the catheter unlocking the knot. Glidewire was removed Shannon wire was passed into the collecting system. The existing catheter was then removed over the wire. A new 8 [place] nephrostomy tube was then advanced over the wire and properly positioned with the [place] loop forming in the renal pelvis. Wire was removed. Contrast was injected confirming position within the collecting system. This was subsequently aspirated. The nephrostomy tube was sutured in place with 2, 2-0 Ethilon sutures and StatLock. Sterile dressing applied. Patient tolerated the procedure well. The patient was transferred to the floor in stable condition. FINDINGS: Please see procedure note above. IMPRESSION: 1. Successful nephrostogram of the right kidney demonstrating hydronephrosis. 2. Fluoroscopic guided and ultrasound-guided percutaneous nephrostomy tube placement in the interpolar posterior calyx of the right kidney. 3. Successful fluoroscopic guided left-sided nephrostomy tube exchange.
[2016-06-29 15:44] VITALS: BP 151/78
== END 2016-06-29 16:30 | disposition home or self-care (01) ==
LOC: OPU 08:32
PROVIDERS: ATTEND Radiology Diagnostic Radiology
DX: N99.522 Malfunction of incontinent external stoma of urinary tract (principal); N13.30 Unspecified hydronephrosis; Z85.46 Personal history of malignant neoplasm of prostate; Z79.01 Long term (current) use of anticoagulants
CPT/HCPCS: 36415; 50432; 50435; 80048; 81001; 85025; 85610; 85730; 87086; C1729; C1751; C1769; J1956; J2250; J3010; J7040; Q9967

== ENCOUNTER 2016-07-02 08:19 | Day surgery (SDC) | payer MEDICARE ==
[2016-06-29 15:50] LABS: Hematocrit 24.4 % (35.5-45.6); Hemoglobin 8.1 gm/dl (11.8-15.2)
[2016-07-02] MEDS ORDERED: BENADRYL IV ONE (08:53)
[2016-07-02] MEDS ORDERED: TYLENOL PO ONE (08:53)
[2016-07-02] MEDS ORDERED: NACL 0.9% 250ML 250 ML IV ONE (08:53)
[2016-07-02 09:25] LABS: Hematocrit 21.3 % (35.5-45.6)
[2016-07-02 13:22] VITALS: BP 127/60
== END 2016-07-02 14:02 | disposition home or self-care (01) ==
LOC: OPU 08:19
PROVIDERS: ATTEND Internal Medicine Hematology & Oncology
DX: D64.9 Anemia, unspecified (principal)
CPT/HCPCS: 36415; 36430; 85014; 85018; 86850; 86900; 86901; 86920; 96374; J1200; J7050; P9016

== ENCOUNTER 2016-08-06 09:13 | Day surgery (SDC) | payer MEDICARE ==
[2016-08-06] MEDS ORDERED: NACL 0.9% 500 ML 500 ML IV SCH (10:00)
[2016-08-06] MEDS ORDERED: SODIUM CHLORIDE FLUSH SYRINGE 10 ML IV NR (10:00)
[2016-08-06 10:02] LABS: Basophils % (Auto) 0.4 % (0.0-1.8); Eosinophils % (Auto) 0.3 % (0.0-4.3); Hematocrit 26.8 % (35.5-45.6); Mean Corpuscular HGB Conc 33 % (32-34); Mean Corpuscular Hemoglobin 29 pg (28-32); Mean Corpuscular Volume 87 fl (84-94); Platelet Count 343 K/mm3 (140-440); Red Cell Distribution Width 17.1 % (13.2-15.2); White Blood Count 9.9 K/mm3 (4.5-11.0)
[2016-08-06 10:14] LABS: BUN/Creatinine Ratio 10.5; Calcium 7.7 mg/dL (8.4-10.2); Chloride 101.9 mmol/L (98-107); Potassium 3.2 mmol/L (3.6-5.0)
[2016-08-06 10:31] LABS: INR 1.29 (0.87-1.13)
[2016-08-06 10:32] LABS: Partial Thromboplastin Time 43.3 Sec. (24.2-36.6)
[2016-08-06] MEDS ORDERED: NACL 0.9% 500 ML IR ONE (10:36)
[2016-08-06] MEDS ORDERED: VERSED ONE (10:36)
[2016-08-06] MEDS ORDERED: LEVAQUIN 500MG/100ML 500 MG/100 ML BAG IV ONE (10:36)
[2016-08-06] MEDS: SUBLIMAZE ONE ×2 (10:59→11:20)
[2016-08-06] MEDS: XYLOCAINE 2% INFILTRATI ONE ×2 (11:01→11:07)
--- NOTE | 2016-08-06 11:57 | Short Stay Summary ---
Short Stay Documentation Date of service: 08/06/16 - History Principal diagnosis: Prostate cancer, hydronephrosis - right Past Medical History: cancer, ESRD Past Surgical History: Other (multiple prior neph tubes) Social history: no significant social history - Allergies and Medications Current Medications: Allergies No Known Allergies Allergy (Verified 01/17/16 13:24) Home Medications Medication Instructions Recorded Confirmed Last Taken Type Docusate Sodium [Colace CAP] 100 mg PO BID #60 capsule 11/05/15 08/06/16 Rx HYDROcodone/APAP 10-325 [[place] 1 each PO Q6HR PRN #24 tablet 02/10/16 08/06/16 06/29/16 Rx 10-325 mg TAB] Carvedilol [Coreg] 3.125 mg PO DAILY #30 tablet 03/03/16 08/06/16 08/06/16 Rx fentaNYL [Duragesic] 75 mcg TD Q3D #10 patch 03/03/16 08/06/16 08/04/16 Rx Enoxaparin [Lovenox] 40 mg SC DAILY 06/13/16 08/06/16 08/05/16 History Enzalutamide (Nf) [Xtandi (Nf)] 4 cap PO DAILY 06/13/16 08/06/16 08/05/16 History Calcium Carbonate/Vitamin D3 1 each PO BID 06/29/16 08/06/16 08/05/16 History [Calcium 600-Vit D3 200 Tablet] Ondansetron [Zofran TAB] 4 mg PO Q8HR PRN 06/29/16 08/06/16 07/01/16 History Pantoprazole [Protonix] 40 mg PO QDAY 06/29/16 08/06/16 08/05/16 History Zolpidem [Ambien] 5 mg PO QHS PRN 06/29/16 08/06/16 08/05/16 History Active Medications Sodium Chloride (Nacl 0.9% 500 Ml) 500 mls @ 50 mls/hr IV DIRECT ARAMIS Last Admin: 08/06/16 10:06 Dose: 50 mls/hr - Physical exam General appearance: no acute distress Integumentary: no rash HEENT: Atraumatic Lungs: Normal air movement Breasts: deferred Heart: Regular rate Gastrointestinal: normal Male Genitourinary: deferred Rectal Exam: deferred Extremities: normal temperature, normal color - Brief post op/procedure progress note Date of procedure: 08/06/16 Pre-op diagnosis: Right hydronephrosis Post-op diagnosis: same Procedure: Right nephrostomy tube placement Anesthesia: local Surgeon: JOSELINE STOKES Estimated blood loss: minimal Pathology: none Condition: stable - Disposition Condition at discharge: Good Disposition: DISCHARGED TO HOME OR SELFCARE Short Stay Discharge Plan Activity: advance as tolerated Weight Bearing Status: Weight Bear as Tolerated Diet: regular Wound: keep clean and dry, per your surgeon's advice Follow up with: MARCO ANTONIO WEAVER JR, MD [Primary Care Provider] - 7 Days
--- NOTE | 2016-08-06 12:00 | Operative Report ---
Operative Report Operative Report: EXAM: ULTRASOUND AND FLUOROSCOPIC GUIDED PLACEMENT OF TUNNELED RIGHT NEPHROSTOMY TUBE CLINICAL INDICATION: PATIENT WITH RIGHT HYDRONEPHROSIS, PRIOR NEPHROSTOMY TUBE WAS REMOVED BY PATIENT ACCIDENTALLY DATE: 08/06/2016 PROCEDURE: Following an explanation of the risks, benefits and alternatives; written informed consent was obtained. The patient was brought to the angiographic suite and placed in prone position on the examination table. Initial ultrasound survey of his right back demonstrated moderate right hydronephrosis. Patient's right back and flank were prepped and draped in the usual sterile fashion. 1% lidocaine was used for anesthesia. Under ultrasound guidance, a 15 cm 21-gauge needle was advanced into a posterior medial calyx. A 0.018 guidewire was then advanced into the proximal ureter. The needle was removed and an AccuStick transition dilator placed over the needle and advanced into the proximal ureter. Contrast was injected through the transition dilator which demonstrated moderate hydronephrosis and an appropriate exit site. There is hydroureter to the level of the pelvic brim. A 0.035 guidewire was then advanced through the AccuStick transition dilator and advanced distally. An appropriate catheter exit site was chosen along the anterior inferior right flank. 1% lidocaine was used for anesthesia at the catheter exit site and along the tunnel tract. A 8 Italian pigtail nephrostomy tube was then tunneled from the catheter exit site to the dermatotomy site. The inner trocar was exchanged for a plastic stiffener. Social serial dilation over the guidewire under fluoroscopy was then performed followed by placement of the nephrostomy tube over the guidewire under fluoroscopy. The nephrostomy tube was advanced into the renal pelvis and the pigtail performed. Contrast was injected through nephrostomy tube which demonstrated appropriate positioning. The dermatotomy site was closed using subcutaneous 3-0 Vicryl suture. 2-0 Ethilon was then applied at the catheter exit site to secure the catheter. The stay fixed device was then placed and the catheter was placed to dependent drainage. Sterile dressings were then applied. The patient tolerated the procedure well. There were no immediate post procedure complications Conscious sedation was performed under the guidance of radiologic nursing. Continuous card a pulmonary monitoring was utilized. IMPRESSION: 1) Ultrasound and fluoroscopic guided placement of a tunneled right 8 Italian nephrostomy tube
[2016-08-06 14:06] VITALS: BP 147/63
== END 2016-08-06 14:20 | disposition home or self-care (01) ==
LOC: OPU 09:13
PROVIDERS: ATTEND Radiology Diagnostic Radiology
DX: N13.30 Unspecified hydronephrosis (principal); N18.6 End stage renal disease; Z85.46 Personal history of malignant neoplasm of prostate
CPT/HCPCS: 36415; 50432; 80048; 85025; 85610; 85730; C1729; C1769; J1956; J2250; J3010; J7040; Q9967

== ENCOUNTER 2016-08-20 07:38 | Day surgery (SDC) | payer MEDICARE ==
[~2016-08-20 07:38] MED LIST changes: +SODIUM CHLORIDE FLUSH SYRINGE 10 ML IV NR; -SODIUM CHLORIDE FLUSH SYRINGE 10 ML IV SCH
[2016-08-20 08:58] LABS: Basophils % (Auto) 0.8 % (0.0-1.8); Eosinophils % (Auto) 1.9 % (0.0-4.3); Hematocrit 26.7 % (35.5-45.6); Hemoglobin 8.8 gm/dl (11.8-15.2); Mean Corpuscular HGB Conc 33 % (32-34); Mean Corpuscular Hemoglobin 29 pg (28-32); Mean Corpuscular Volume 87 fl (84-94); Platelet Count 411 K/mm3 (140-440); Red Blood Count 3.06 M/mm3 (3.65-5.03); Red Cell Distribution Width 17.4 % (13.2-15.2); White Blood Count 8.1 K/mm3 (4.5-11.0)
[2016-08-20] MEDS ORDERED: NACL 0.9% 500 ML 500 ML IV SCH (09:00)
[2016-08-20 09:15] LABS: Calcium 8.6 mg/dL (8.4-10.2); Chloride 102.4 mmol/L (98-107)
[2016-08-20] MEDS ORDERED: CALAN ONE (09:17)
[2016-08-20] MEDS ORDERED: HEPARIN 10,000 UNITS/10 ML ONE (09:17)
[2016-08-20] MEDS ORDERED: HEPARIN/NS 5000 UNIT/500ML(CATH LAB) 500 ML IR ONE (09:17)
[2016-08-20] MEDS ORDERED: XYLOCAINE 2% INFILTRATI ONE (09:18)
[2016-08-20 09:29] LABS: INR 1.07 (0.87-1.13); Partial Thromboplastin Time 35.8 Sec. (24.2-36.6)
[2016-08-20] MEDS ORDERED: LEVAQUIN 500MG/100ML 500 MG/100 ML BAG IV ONE (09:36)
[2016-08-20] MEDS ORDERED: NACL 0.9% 500 ML IR ONE (09:36)
[2016-08-20] MEDS ORDERED: VERSED ONE (09:36)
[2016-08-20] MEDS ORDERED: SUBLIMAZE ONE (09:36)
--- NOTE | 2016-08-20 10:39 | Short Stay Summary ---
Short Stay Documentation Date of service: 08/20/16 - History Principal diagnosis: hydronephrosis Past Medical History: cancer Past Surgical History: Other (bilateral hydronephrosis) Social history: no significant social history - Allergies and Medications Current Medications: Allergies No Known Allergies Allergy (Verified 01/17/16 13:24) Home Medications Medication Instructions Recorded Confirmed Last Taken Type Docusate Sodium [Colace CAP] 100 mg PO BID #60 capsule 11/05/15 08/20/16 Rx 100mg fentaNYL [Duragesic] 75 mcg TD Q3D #10 patch 03/03/16 08/20/16 08/20/16 07:00 Rx 75mcg Enoxaparin [Lovenox] 40 mg SC DAILY 06/13/16 08/20/16 08/19/16 History 40mg Enzalutamide (Nf) [Xtandi (Nf)] 4 cap PO DAILY 06/13/16 08/20/16 08/19/16 History 4 cap Pantoprazole [Protonix] 40 mg PO QDAY 06/29/16 08/20/16 08/19/16 History 40mg Zolpidem [Ambien] 5 mg PO QHS PRN 06/29/16 08/20/16 08/19/16 History 5mg Active Medications Sodium Chloride (Nacl 0.9% 500 Ml) 500 mls @ 50 mls/hr IV DIRECT ARAMIS Last Admin: 08/20/16 09:23 Dose: 50 mls/hr Sodium Chloride (Sodium Chloride Flush Syringe 10 Ml) 10 ml IV PRN NR Stop: 08/20/16 23:59 - Physical exam General appearance: no acute distress Integumentary: no rash HEENT: Atraumatic Lungs: Normal air movement Breasts: deferred Heart: Regular rate Gastrointestinal: normal Male Genitourinary: deferred Rectal Exam: deferred Neurological: Normal gait, Normal speech - Brief post op/procedure progress note Date of procedure: 08/20/16 Pre-op diagnosis: hydronephrosios Post-op diagnosis: same Procedure: left tunneled nephrostomy tube placement Anesthesia: local Surgeon: JOSELINE STOKES Estimated blood loss: minimal Pathology: none Condition: stable - Disposition Condition at discharge: Good Disposition: DISCHARGED TO HOME OR SELFCARE Short Stay Discharge Plan Activity: advance as tolerated Weight Bearing Status: Weight Bear as Tolerated Diet: regular Wound: keep clean and dry, per your surgeon's advice Follow up with: MARCO ANTONIO WEAVER JR, MD [Primary Care Provider] - 7 Days
--- NOTE | 2016-08-20 10:43 | Operative Report ---
Operative Report Operative Report: EXAM: FLUOROSCOPIC GUIDED PLACEMENT OF TUNNELED NEPHROSTOMY TUBE CLINICAL INDICATION: LEFT HYDRONEPHROSIS, INDWELLING NEPHROSTOMY TUBE IS RETRACTED DATE: 08/20/2016 PROCEDURE: Following an explanation of the risks, benefits and alternatives; written informed consent was obtained. The patient was brought to the angiographic suite and placed in prone position on the examination table. His left back and indwelling nephrostomy tube were prepped and draped in the usual sterile fashion. 1% lidocaine was used for anesthesia at the catheter exit site. Contrast was injected through the indwelling nephrostomy tube which demonstrated a retraction into a calyx. An appropriate catheter exit site was chosen along the lateral inferior flank. 1% lidocaine was used for anesthesia at the catheter exit site and along the tunnel tract. A 17-gauge trocar needle was then used to create a tunnel from the nephrostomy tube exit site to the new catheter exit site. A 0.035 guidewire was then advanced through the needle and the needle removed. Following serial dilation, the nephrostomy tube was tunneled from the catheter exit site to the dermatotomy site. The guidewire was then removed. A 0.035 guidewire was advanced through the indwelling nephrostomy tube and coiled within the renal pelvis. The indwelling nephrostomy tube was then removed intact. A 4 Brazilian vertebral catheter was then advanced over the guidewire and together the guidewire and catheter advanced into the distal ureter. Contrast was injected through the catheter to document appropriate positioning. A 0.035 guidewire was then reinserted through the catheter and parked within the distal ureter. The vertebral catheter was then removed intact. The back and of the guidewire was then advanced through the tunneled nephrostomy tube and nephrostomy tube advanced along the guidewire to position the nephrostomy tube within the proximal ureter. The guidewire and trocar were removed and the nephrostomy tube was withdrawn into the renal pelvis. Pigtail was performed. Appropriate stent was confirmed with contrast injection. The dermatotomy was closed using 3-0 Vicryl suture. 2-0 Ethilon was then used to hold the catheter in place at the catheter exit site along with a stay fixed device. The catheter was then placed to dependent drainage. The patient tolerated the procedure well. There were no immediate post procedure complications. Conscious sedation was performed under the guidance of radiologic nursing. Continuous cardiopulmonary monitoring was utilized. IMPRESSION: 1) Fluoroscopic guided placement of a left tunneled nephrostomy tube secondary to left hydronephrosis
[2016-08-20 12:31] VITALS: BP 173/88
--- NOTE | 2016-08-21 10:14 | Vascular Lab Report ---
RIGHT UPPER EXTREMITY VENOUS DUPLEX: REASON FOR EXAM: DVT COMMENTS ON THE RIGHT: Chronic nonocclusive thrombus is noted in the subclavian and axillary veins.. The remaining veins visualized are freely compressible without evidence of internal echogenicity. Spontaneous and phasic flow is patent proximally. COMMENTS ON THE LEFT: The subclavian and internal jugular veins are free of thrombus. IMPRESSION: Chronic deep venous thrombosis in the right upper extremity
== END 2016-08-20 13:07 | disposition home or self-care (01) ==
LOC: OPU 07:38
PROVIDERS: ATTEND Radiology Diagnostic Radiology
DX: N13.30 Unspecified hydronephrosis (principal); Z79.01 Long term (current) use of anticoagulants; Z87.891 Personal history of nicotine dependence
CPT/HCPCS: 36415; 50435; 80048; 85025; 85610; 85730; 93971; C1729; C1751; C1769; J1644; J1956; J2250; J3010; J7040; Q9967

== ENCOUNTER 2016-09-24 09:17 | Day surgery (SDC) | payer MEDICARE ==
[2016-09-24] MEDS ORDERED: SODIUM CHLORIDE FLUSH SYRINGE 10 ML IV NR (10:00)
[2016-09-24 10:11] LABS: Basophils % (Auto) 0.7 % (0.0-1.8); Eosinophils % (Auto) 0.3 % (0.0-4.3); Hematocrit 27.8 % (35.5-45.6); Hemoglobin 9.5 gm/dl (11.8-15.2); Mean Corpuscular HGB Conc 34 % (32-34); Mean Corpuscular Hemoglobin 30 pg (28-32); Mean Corpuscular Volume 88 fl (84-94); Platelet Count 291 K/mm3 (140-440); Red Blood Count 3.15 M/mm3 (3.65-5.03); Red Cell Distribution Width 16.5 % (13.2-15.2); White Blood Count 10.8 K/mm3 (4.5-11.0)
[2016-09-24 10:21] LABS: INR 1.36 (0.87-1.13); Partial Thromboplastin Time 41.2 Sec. (24.2-36.6)
[2016-09-24 10:29] LABS: BUN/Creatinine Ratio 11.51; Calcium 7.6 mg/dL (8.4-10.2)
[2016-09-24 10:30] LABS: Chloride 97.3 mmol/L (98-107); Potassium 3.8 mmol/L (3.6-5.0)
[2016-09-24] MEDS ORDERED: ANCEF/STERILE WATER 2 GM/20 ML 2 GM/20 ML SYRINGE IV ONE (11:49)
[2016-09-24] MEDS ORDERED: XYLOCAINE 2% INFILTRATI ONE ×2 (11:49→14:31)
[2016-09-24] MEDS ORDERED: NACL 0.9% 500 ML IR ONE ×2 (11:49→14:30)
[2016-09-24] MEDS ORDERED: NACL 0.9% 500 ML 500 ML ONE (11:49)
[2016-09-24] MEDS ORDERED: SUBLIMAZE ONE (11:51)
[2016-09-24] MEDS: VERSED ONE ×3 (12:02→12:20)
[2016-09-24] MEDS: SUBLIMAZE ONE ×5 (12:02→15:20)
--- NOTE | 2016-09-24 12:33 | Short Stay Summary ---
Short Stay Documentation Date of service: 09/24/16 - History Principal diagnosis: left hydronephrosis Past Medical History: cancer, ESRD Past Surgical History: Other (multiple prior bilateral nep[h tubes) Social history: no significant social history, lives with family - Allergies and Medications Current Medications: Allergies No Known Allergies Allergy (Verified 01/17/16 13:24) Home Medications Medication Instructions Recorded Confirmed Last Taken Type Docusate Sodium [Colace CAP] 100 mg PO BID #60 capsule 11/05/15 09/24/16 Rx fentaNYL [Duragesic] 75 mcg TD Q3D #10 patch 03/03/16 09/24/16 09/22/16 Rx Enzalutamide (Nf) [Xtandi (Nf)] 4 cap PO DAILY 06/13/16 09/24/16 09/23/16 History Zolpidem [Ambien] 5 mg PO QHS PRN 06/29/16 09/24/16 09/23/16 History Ondansetron [Zofran TAB] 4 mg PO PRN 08/31/16 09/24/16 09/23/16 History Metoprolol [Lopressor TAB] 25 mg PO BID #60 tablet 09/03/16 09/24/16 09/23/16 Rx Active Medications Sodium Chloride (Sodium Chloride Flush Syringe 10 Ml) 10 ml IV PRN NR Stop: 09/24/16 15:00 - Physical exam General appearance: no acute distress Integumentary: no rash HEENT: Atraumatic Lungs: Normal air movement Breasts: deferred Heart: Regular rate Gastrointestinal: normal Male Genitourinary: deferred Rectal Exam: deferred Neurological: Normal speech - Brief post op/procedure progress note Date of procedure: 09/24/16 Pre-op diagnosis: left hydronephrosis Post-op diagnosis: same Procedure: left tunneled neph tube placement Anesthesia: local Surgeon: JOSELINE STOKES Estimated blood loss: minimal Condition: stable - Disposition Condition at discharge: Good Disposition: DC-01 TO HOME OR SELFCARE Short Stay Discharge Plan Activity: advance as tolerated Weight Bearing Status: Weight Bear as Tolerated Diet: regular Wound: keep clean and dry, per your surgeon's advice Follow up with: MARCO ANTONIO WEAVER JR, MD [Primary Care Provider] - 7 Days
--- NOTE | 2016-09-24 12:38 | Operative Report ---
Operative Report Operative Report: EXAM: ULTRASOUND AND FLUOROSCOPIC GUIDED PLACEMENT OF TUNNELED NEPHROSTOMY TUBE CLINICAL INDICATION: PATIENT WITH BILATERAL HYDRONEPHROSIS AND METASTATIC PROSTATE CANCER, PATIENT REMOVED O NEPHROSTOMY TUBE BY ACCIDENT DATE: 09/24/2016 PROCEDURE: Following an explanation of the risks, benefits and alternatives; written informed consent was obtained. The patient was brought to the angiographic suite and placed in prone position on the examination table. Initial ultrasound of the abdomen demonstrated moderate to severely hydronephrotic left kidney. The patient's back and left flank were prepped and draped in the usual sterile fashion. 1% lidocaine was used for anesthesia. Under ultrasound guidance, a posterior medial calyx was cannulated with a 7 cm 15-gauge needle. A 0.018 guidewire was advanced into the proximal ureter under fluoroscopy. The needle was removed and intact used to transition dilator placed over the guidewire. The 0.018 guidewire was exchanged for a 0.035 guidewire which was advanced into the distal ureter AccuStick transition dilator was then removed and this access temporarily clamped. An appropriate catheter exit site was told along the left flank anterior and inferior to the puncture site. 1% lidocaine was used for anesthesia at the catheter exit site and along the tunnel tract. The tract was formed using a 15 cm 18-gauge trocar needle. A 0.018 guidewire was then advanced through the needle. A micro-sheath was then advanced over the guidewire and the 0.018 guidewire exchanged for a 0.035 guidewire. Following serial dilation, a 10 Chilean nephrostomy tube was advanced through the track from the catheter exit site to the dermatotomy site. Following serial dilation over the guidewire under fluoroscopy, a 12 Chilean peel -away sheath was placed over the guidewire under fluoroscopy with the tip of the sheath in the renal pelvis. The 10 Chilean nephrostomy tube was then advanced through the peel-away sheath and the peel-away sheath removed. The pigtail was performed within the renal pelvis. Gentle injection of contrast through the nephrostomy tube demonstrated appropriate positioning. The kidney was then allowed to decompress passively. The dermatotomy site was closed using 3-0 Vicryl suture and Dermabond. 1-0 Proline was then used to approximate the catheter exit site and secured the catheter in place. Sterile dressings were then applied. The catheter was then placed to dependent drainage. The patient tolerated the procedure well. There were no immediate post procedure complications. Conscious sedation was performed under the guidance of radiologic nursing. Continuous cardiopulmonary monitoring was utilized. IMPRESSION: 1) Ultrasound and Fluoroscopic Guided Placement of 10 Chilean Tunneled Nephrostomy Tube into a Posterior Medial Calyx in the Left Kidney.
[2016-09-24] MEDS ORDERED: VERSED ONE (14:30)
[2016-09-24] MEDS ORDERED: NACL 0.9% 250ML 0 ML ONE (14:31)
--- NOTE | 2016-09-24 15:27 | Operative Report ---
Operative Report Operative Report: EXAM: ULTRASOUND AND FLUOROSCOPIC GUIDED PLACEMENT OF RIGHT TUNNELED NEPHROSTOMY TUBE CLINICAL INDICATION: PATIENT WITH BILATERAL HYDRONEPHROSIS AND METASTATIC PROSTATE CANCER, PATIENT REMOVED O NEPHROSTOMY TUBE BY ACCIDENT DATE: 09/24/2016 PROCEDURE: Following an explanation of the risks, benefits and alternatives; written informed consent was obtained. The patient was brought to the angiographic suite and placed in prone position on the examination table. Initial ultrasound of the abdomen demonstrated moderate to severely hydronephrotic right kidney. The patient's back and right flank were prepped and draped in the usual sterile fashion. 1% lidocaine was used for anesthesia. Under ultrasound guidance, a posterior medial calyx was cannulated with a 7 cm 15-gauge needle. A 0.018 guidewire was advanced into the proximal ureter under fluoroscopy. The needle was removed and intact used to transition dilator placed over the guidewire. The 0.018 guidewire was exchanged for a 0.035 guidewire which was advanced into the distal ureter AccuStick transition dilator was then removed and this access temporarily clamped. An appropriate catheter exit site was told along the right flank anterior and inferior to the puncture site. 1% lidocaine was used for anesthesia at the catheter exit site and along the tunnel tract. The tract was formed using a 15 cm 18-gauge trocar needle. A 0.018 guidewire was then advanced through the needle. A micro-sheath was then advanced over the guidewire and the 0.018 guidewire exchanged for a 0.035 guidewire. Following serial dilation, a 10 Peruvian nephrostomy tube was advanced through the track from the catheter exit site to the dermatotomy site. Following serial dilation over the guidewire under fluoroscopy, a 12 Peruvian peel -away sheath was placed over the guidewire under fluoroscopy with the tip of the sheath in the renal pelvis. The 10 Peruvian nephrostomy tube was then advanced through the peel-away sheath and the peel-away sheath removed. The pigtail was performed within the renal pelvis. Gentle injection of contrast through the nephrostomy tube demonstrated appropriate positioning. The kidney was then allowed to decompress passively. The dermatotomy site was closed using 3-0 Vicryl suture and Dermabond. 1-0 Proline was then used to approximate the catheter exit site and secured the catheter in place. Sterile dressings were then applied. The catheter was then placed to dependent drainage. The patient tolerated the procedure well. There were no immediate post procedure complications. Conscious sedation was performed under the guidance of radiologic nursing. Continuous cardiopulmonary monitoring was utilized. IMPRESSION: 1) Ultrasound and Fluoroscopic Guided Placement of 10 Peruvian Tunneled Nephrostomy Tube into a Posterior Medial Calyx in the Right Kidney.
[2016-09-24 16:49] VITALS: BP 163/73
== END 2016-09-24 17:14 | disposition home or self-care (01) ==
LOC: OPU 09:17
PROVIDERS: ATTEND Radiology Diagnostic Radiology
DX: N13.30 Unspecified hydronephrosis (principal); N18.6 End stage renal disease; C61 Malignant neoplasm of prostate; Z98.890 Other specified postprocedural states
CPT/HCPCS: 36415; 50432; 80048; 85025; 85610; 85730; C1729; C1769; J0690; J2250; J3010; J7040; J7050; Q9967

== ENCOUNTER 2016-10-23 16:16 | Emergency (ER) | payer MEDICARE ==
[2016-10-23] MEDS ORDERED: ZOSYN/NS 4.5GM/100ML 4.5 GM/100 ML VIAL IV ONE (17:28)
[2016-10-23] MEDS ORDERED: NACL 0.9% 1000 ML 1,000 ML IV ONE (17:28)
--- NOTE | 2016-10-23 17:43 | Emergency Department Report ---
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 denies: abdominal pain, chest pain, confusion, cough, diaphoresis, headache, muscle aches, nausea/vomiting, rash, shortness of breath, sore throat, stiff neck, syncope ED Review of Systems ROS: Stated complaint: WEAKNESS Other details as noted in HPI Comment: All other systems reviewed and negative ED Past Medical Hx - Past Medical History Hx Hypertension: Yes (2010) Hx Heart Attack/AMI: Yes (1988) Hx Deep Vein Thrombosis: Yes (04/2016 Right arm) Hx Sickle Cell Disease: No Hx Arthritis: Yes Hx Kidney Stones: Yes Hx HIV: No Additional medical history: HYPERLIPIDEMIA. CAD. CHRONIC BACK PAIN. prostate CA. bone mestastis. Mass in Bladder - Surgical History Hx Pacemaker: No Hx Internal Defibrillator: No Additional Surgical History: BACK / KIDNEY STENTS-removed. bilateral nephrostomy tubes. TURP - Social History Smoking Status: Former Smoker Substance Use Type: None - Medications Home Medications: Home Medications Medication Instructions Recorded Confirmed Last Taken Type Docusate Sodium [Colace CAP] 100 mg PO BID #60 capsule 11/05/15 09/24/16 Rx fentaNYL [Duragesic] 75 mcg TD Q3D #10 patch 03/03/16 09/24/16 09/22/16 Rx Enzalutamide (Nf) [Xtandi (Nf)] 4 cap PO DAILY 06/13/16 09/24/16 09/23/16 History Zolpidem [Ambien] 5 mg PO QHS PRN 06/29/16 09/24/16 09/23/16 History Ondansetron [Zofran TAB] 4 mg PO PRN 08/31/16 09/24/16 09/23/16 History Metoprolol [Lopressor TAB] 25 mg PO BID #60 tablet 09/03/16 09/24/16 09/23/16 Rx Cephalexin [Keflex] 500 mg PO BID #14 capsule 10/23/16 Unknown Rx ED Physical Exam - General Limitations: No Limitations General appearance: alert, in no apparent distress - Head Head exam: Present: atraumatic, normocephalic - Eye Eye exam: Present: normal appearance, PERRL, EOMI - ENT ENT exam: Present: normal exam, normal orophraynx, mucous membranes moist - Neck Neck exam: Present: normal inspection - Respiratory Respiratory exam: Present: normal lung sounds bilaterally. Absent: respiratory distress - Cardiovascular Cardiovascular Exam: Present: regular rate, normal rhythm. Absent: systolic murmur, diastolic murmur, rubs, gallop - GI/Abdominal GI/Abdominal exam: Present: soft, normal bowel sounds. Absent: distended, tenderness, guarding, rebound - Rectal Rectal exam: Present: deferred - Extremities Exam Extremities exam: Present: normal inspection - Back Exam Back exam: Present: normal inspection - Neurological Exam Neurological exam: Present: alert, oriented X3 - Psychiatric Psychiatric exam: Present: normal affect, normal mood - Skin Skin exam: Present: warm, dry, intact, normal color. Absent: rash ED Course Vital Signs 10/23/16 10/23/16 17:00 18:42 Temperature 100.6 F H Pulse Rate 86 Respiratory 16 18 Rate Blood Pressure 161/71 Blood Pressure 161/71 [Left] O2 Sat by Pulse 94 Oximetry ED Medical Decision Making - Lab Data Result diagrams: 10/23/16 17:23 10/23/16 17:23 - Medical Decision Making patient doing well in the ER, low grade fever resolved with tylenol , he has a procedure schedule for tomorrow for a nephrostomy tube , and they wanted to make sure he is ok todo that. labs are pretty unchanged compare to priors, with normal WBC/ dose of zosyn given here and will place on abx and left him go home to [facility] at 7 am to do procedure here. Critical care attestation.: If time is entered above; I have spent that time in minutes in the direct care of this critically ill patient, excluding procedure time. ED Disposition Clinical Impression: Fever Disposition: DC-01 TO HOME OR SELFCARE Is pt being admited?: No Does the pt Need Aspirin: No Condition: Good Prescriptions: Cephalexin [Keflex] 500 mg PO BID #14 capsule Time of Disposition: 19:13
[2016-10-23 17:50] LABS: Basophils % (Auto) 0.7 % (0.0-1.8); Eosinophils % (Auto) 0.2 % (0.0-4.3); Hematocrit 27.2 % (35.5-45.6); Mean Corpuscular HGB Conc 33 % (32-34); Mean Corpuscular Hemoglobin 29 pg (28-32); Mean Corpuscular Volume 88 fl (84-94); Platelet Count 340 K/mm3 (140-440); Red Blood Count 3.09 M/mm3 (3.65-5.03); Red Cell Distribution Width 16.1 % (13.2-15.2); White Blood Count 9.2 K/mm3 (4.5-11.0)
[2016-10-23 17:58] LABS: INR 1.16 (0.87-1.13)
[2016-10-23 18:10] LABS: Albumin/Globulin Ratio 0.8 %; Alkaline Phosphatase 105 units/L (35-129); Anion Gap 18 mmol/L; Blood Urea Nitrogen 23 mg/dL (9-20); Calcium 8.7 mg/dL (8.4-10.2); Carbon Dioxide 23 mmol/L (22-30); Chloride 99.1 mmol/L (98-107); Glucose 114 mg/dL (75-100); Potassium 4.2 mmol/L (3.6-5.0); Sodium 136 mmol/L (137-145)
[2016-10-23 18:12] LABS: Alanine Aminotransferase < 5 units/L (7-56)
[2016-10-23] MEDS ORDERED: MORPHINE IV ONE (18:21)
[2016-10-23 19:33] VITALS: BP 158/71
== END 2016-10-23 19:50 | disposition home or self-care (01) ==
LOC: ED 16:16
DX: R50.9 Fever, unspecified (principal); I10 Essential (primary) hypertension; I25.2 Old myocardial infarction; M19.90 Unspecified osteoarthritis, unspecified site; G89.29 Other chronic pain; E78.5 Hyperlipidemia, unspecified; Z86.718 Personal history of other venous thrombosis and embolism
CPT/HCPCS: 36415; 80053; 82140; 85025; 85610; 87040; 96365; 96375; 99283; J2270; J2543; J7030; 87186

== ENCOUNTER 2016-10-24 08:39 | Day surgery (SDC) | payer MEDICARE ==
[~2016-10-24 08:39] MED LIST changes: +ANCEF/STERILE WATER 2 GM/20 ML 2 GM/20 ML SYRINGE IV NR; +NACL 0.9% 1000 ML 1,000 ML IV SCH; -SODIUM CHLORIDE FLUSH SYRINGE 10 ML IV NR
[2016-10-24] MEDS ORDERED: NACL 0.9% 500 ML IR ONE (12:05)
[2016-10-24] MEDS ORDERED: XYLOCAINE 2% INFILTRATI ONE (12:05)
[2016-10-24] MEDS ORDERED: LEVAQUIN 500MG/100ML 500 MG/100 ML BAG IV ONE (12:18)
[2016-10-24] MEDS: SUBLIMAZE ONE ×2 (12:36→13:02)
[2016-10-24] MEDS: VERSED ONE ×2 (12:36→13:04)
--- NOTE | 2016-10-24 14:36 | Operative Report ---
Operative Report Operative Report: Procedure: 1. Right nephrostogram 2. Placement of a left sided nephrostomy tube Date of Procedure: 10/24/2016 History/Indication: This is an 86-year-old male with prostate cancer and long-term indwelling bilateral nephrostomy catheters. He reported that the left catheter had fallen out. Physician: Jeannine Mujica MD Technique/Procedural Details: The patient was placed in the prone position on the procedure table. A timeout was performed. The right nephrostomy catheter was injected with contrast, and then aspirated. Images were taken before and after aspiration. The patient was then prepped and draped in the usual sterile fashion. Local anesthetic was administered along the left flank. Under ultrasound guidance, a long 21-gauge needle was used to access an inferior/posterior calyx of the left kidney. An 018 wire was passed into the left renal pelvis. An Accustick system was advanced over the wire. Contrast was injected to confirm placement within the renal pelvis. A glide advantage wire was advanced through the accustick outer piece and into the distal ureter. After serial tissue dilation, a 10 Niuean nephrostomy catheter was advanced, and the locking Loop was performed within the renal pelvis. Contrast was injected to ensure satisfactory placement. Aspiration was performed. The newly placed catheter was connected to a gravity drainage bag. The catheter was secured to the skin with 2 2-0 Ethilon sutures. Sterile dressings were placed. The patient was transported from the procedure room to the holding area in good condition. Discussion: Again seen is bilateral hydronephrosis and hydroureter, with occlusion at the distal ureters. There is successful placement of a 10 Niuean nephrostomy catheter on the left side via a posterior lower pole calyx. The newly placed nephrostomy catheter fills and decompresses the left renal pelvis well. He should return in 6-8 weeks for routine catheter exchange. Specimen: None EBL: <5 cc
[2016-10-24 14:41] VITALS: BP 142/58
--- NOTE | 2016-10-24 17:15 | ED Elopement Review ---
ED Pt Elopement review - Call Back decision Pt Call Back Decision: Call pt to return to ED [facility]
== END 2016-10-24 15:06 | disposition home or self-care (01) ==
LOC: OPU 08:39
PROVIDERS: ATTEND Radiology Diagnostic Radiology
DX: C61 Malignant neoplasm of prostate (principal); N13.5 Crossing vessel and stricture of ureter without hydronephrosis; N13.30 Unspecified hydronephrosis; D64.9 Anemia, unspecified; I10 Essential (primary) hypertension; Z85.830 Personal history of malignant neoplasm of bone; Z98.890 Other specified postprocedural states; Z79.899 Other long term (current) drug therapy; Z87.891 Personal history of nicotine dependence; Z83.3 Family history of diabetes mellitus
CPT/HCPCS: 50431; 50432; C1729; C1751; C1769; J1956; J2250; J3010; Q9967

== ENCOUNTER 2016-12-13 08:57 | Day surgery (SDC) | payer MEDICARE ==
[2016-12-13] MEDS ORDERED: NACL 0.9% 500 ML 500 ML IV SCH (10:00)
[2016-12-13 10:39] LABS: BUN/Creatinine Ratio 15.65; Calcium 7.9 mg/dL (8.4-10.2); Chloride 95.7 mmol/L (98-107); Potassium 3.2 mmol/L (3.6-5.0)
[2016-12-13 10:45] LABS: Basophils % (Auto) 0.4 % (0.0-1.8); Eosinophils % (Auto) 1.1 % (0.0-4.3); Hematocrit 20.7 % (35.5-45.6); Hemoglobin 6.8 gm/dl (11.8-15.2); Mean Corpuscular HGB Conc 33 % (32-34); Mean Corpuscular Hemoglobin 29 pg (28-32); Mean Corpuscular Volume 90 fl (84-94); Platelet Count 329 K/mm3 (140-440); Red Cell Distribution Width 16.3 % (13.2-15.2); White Blood Count 8.9 K/mm3 (4.5-11.0)
[2016-12-13] MEDS ORDERED: VERSED ONE (11:32)
[2016-12-13] MEDS ORDERED: HEPARIN/NS 5000 UNIT/500ML(CATH LAB) 0 ML IR ONE (11:32)
[2016-12-13] MEDS ORDERED: NACL 0.9% 500 ML 500 ML ONE (11:44)
[2016-12-13] MEDS ORDERED: NACL 0.9% 250ML 250 ML ONE (11:44)
[2016-12-13] MEDS: SUBLIMAZE ONE ×2 (11:59→12:24)
[2016-12-13] MEDS ORDERED: LEVAQUIN 500MG/100ML 500 MG/100 ML BAG IV ONE (11:59)
[2016-12-13] MEDS: XYLOCAINE 2% INFILTRATI ONE ×2 (12:00→12:18)
[2016-12-13 13:37] VITALS: BP 140/71
--- NOTE | 2016-12-13 20:44 | Operative Report ---
Operative Report Operative Report: Procedure 1. Bilateral antegrade nephrostogram. 2. Replacement of bilateral nephrostomy catheters. Date: 12/13/2016 Physician: Jeannine Mujica MD Indication: This is an 86-year-old male with long-term indwelling bilateral nephrostomy catheters. He reported bloody drainage from the left-sided catheter and a dislodged suture from the right-sided catheter. Technique: The patient was placed in the prone position and prepped and draped in the usual sterile fashion. A timeout was performed. Local anesthetic was administered around the left catheter exit site. Contrast was injected into the tube, and images were acquired. The catheter and sutures were cut. The catheter was removed over a Shannon wire, and it was exchanged for a 10 Mongolian nephrostomy tube. The nephrostomy tube locking loop was formed in the left renal pelvis. Contrast was injected to confirm placement. A drainage bag was connected. A postdrainage image was then acquired. The catheter was secured to the skin with 2-0 Ethilon suture. A similar series of steps was performed for the right side. Sterile dressings were placed. The patient was transported to the recovery area in good condition. Findings: Again seen is bilateral hydroureter, with dilation and tortuosity. Each newly placed nephrostomy catheter fills and decompresses the collecting systems completely. The patient should return for maintenance catheter change in 8 weeks.
== END 2016-12-13 13:50 | disposition home or self-care (01) ==
LOC: CATHLABREC 08:57
PROVIDERS: ATTEND Radiology Diagnostic Radiology
DX: Z46.6 Encounter for fitting and adjustment of urinary device (principal); N13.4 Hydroureter; N13.8 Other obstructive and reflux uropathy; Z85.46 Personal history of malignant neoplasm of prostate; Z98.890 Other specified postprocedural states
CPT/HCPCS: 36415; 50435; 80048; 85025; C1729; C1751; C1769; J1956; J2250; J3010; J7040; J7050; J1644; Q9967

== ENCOUNTER 2017-02-25 10:23 | Day surgery (SDC) | payer MEDICARE ==
[2017-02-25 11:35] LABS: INR 1.07 (0.87-1.13)
[2017-02-25 11:36] LABS: Eosinophils % (Auto) 2.5 % (0.0-4.3); Hemoglobin 12.2 gm/dl (11.8-15.2); Mean Corpuscular HGB Conc 34 % (32-34); Mean Corpuscular Hemoglobin 30 pg (28-32); Mean Corpuscular Volume 89 fl (84-94); Platelet Count 270 K/mm3 (140-440); Red Blood Count 4.05 M/mm3 (3.65-5.03); Red Cell Distribution Width 16.8 % (13.2-15.2); White Blood Count 8.1 K/mm3 (4.5-11.0)
[2017-02-25 11:36] LABS: Calcium 8.7 mg/dL (8.4-10.2); Chloride 97.8 mmol/L (98-107); Partial Thromboplastin Time 33.2 Sec. (24.2-36.6); Potassium 4.2 mmol/L (3.6-5.0)
[2017-02-25] MEDS ORDERED: VERSED ONE (11:44)
[2017-02-25] MEDS ORDERED: SUBLIMAZE ONE (11:44)
[2017-02-25] MEDS ORDERED: NACL 0.9% 500 ML IR ONE (11:56)
--- NOTE | 2017-02-25 11:57 | Short Stay Summary ---
Short Stay Documentation Date of service: 02/25/17 - History Principal diagnosis: ESRD Past Medical History: cancer, ESRD Past Surgical History: Other (bilateral neph tubes) Social history: no significant social history - Allergies and Medications Current Medications: Allergies No Known Allergies Allergy (Verified 01/17/16 13:24) Home Medications Medication Instructions Recorded Confirmed Last Taken Type Docusate Sodium [Colace CAP] 100 mg PO BID #60 capsule 11/05/15 02/25/17 Rx 100mg Enzalutamide (Nf) [Xtandi (Nf)] 4 cap PO DAILY 06/13/16 02/25/17 02/24/17 History 4 caps Zolpidem [Ambien] 5 mg PO QHS PRN 06/29/16 02/25/17 02/13/17 History 5mg Ondansetron [Zofran TAB] 4 mg PO PRN 08/31/16 02/25/17 02/24/17 History 4mg Ferrous Gluconate 240 mg PO TID 10/24/16 02/25/17 02/24/17 History 240mg HYDROcodone/APAP 10-325 1 tab PO Q6H PRN 10/24/16 02/25/17 02/13/17 History 1 tab Sodium Bicarbonate 2 tab PO BID 10/24/16 02/25/17 02/24/17 History 2 tabs Calcium 500-Vit D3 600 Caplet 500 mg PO DAILY 01/28/17 02/25/17 02/24/17 History 500mg Albuterol Sulfate [Albuterol 0.63% 3 ml INHALATION QID 02/25/17 02/25/17 History NEBS] 3ml Lisinopril [Lisinopril] 20 mg PO DAILY 02/25/17 02/25/17 02/24/17 History 20mg Metoprolol Succinate [Metoprolol 50 mg PO DAILY 02/25/17 02/25/17 02/24/17 History Succinate] 50mg Sulfamethoxazole/Trimethoprim 2 tab PO BID 02/25/17 02/25/17 02/24/17 History [Bactrim 400-80 mg Tablet] 2 tab Active Medications Cefazolin Sodium (Ancef/Sterile Water 2 Gm/20 Ml) 2 gm in 20 mls @ 80 mls/hr IV PREOP NR PRN Reason: Protocol Stop: 02/25/17 15:00 Sodium Chloride (Nacl 0.9% 1000 Ml) 1,000 mls @ 42 mls/hr IV DIRECT ARAMIS Last Admin: 02/25/17 11:36 Dose: 42 mls/hr - Physical exam General appearance: no acute distress Lungs: Normal air movement Breasts: deferred Heart: Regular rate Gastrointestinal: normal Male Genitourinary: deferred Female Genitourinary: deferred Rectal Exam: deferred Extremities: no ischemia - Brief post op/procedure progress note Date of procedure: 02/25/17 Pre-op diagnosis: bilateral hydronephrosis Post-op diagnosis: same Procedure: bilateral nephrostograms, bilateral neph tube exchange Anesthesia: local Surgeon: JOSELINE STOKES Estimated blood loss: minimal Pathology: none Condition: stable - Disposition Condition at discharge: Good Disposition: DC-01 TO HOME OR SELFCARE Short Stay Discharge Plan Activity: advance as tolerated Weight Bearing Status: Weight Bear as Tolerated Diet: regular Wound: keep clean and dry, per your surgeon's advice Follow up with: MARCO ANTONIO WEAVER JR, MD [Primary Care Provider] - 7 Days
[2017-02-25] MEDS ORDERED: XYLOCAINE 2% INFILTRATI ONE (11:59)
[2017-02-25] MEDS ORDERED: TRIPLE ANTIBIOTIC TP ONE (12:25)
--- NOTE | 2017-02-25 12:32 | Operative Report ---
Operative Report Operative Report: EXAM: BILATERAL NEPHROSTOGRAM, BILATERAL NEPHROSTOMY TUBE EXCHANGE CLINICAL INDICATION: PATIENT WITH A HISTORY OF BILATERAL HYDRONEPHROSIS AND MALFUNCTIONING NEPHROSTOMY TUBES DATE: 02/25/2017 PROCEDURE: Following an explanation of the risks, benefits and alternatives; written informed consent was obtained. The patient was brought to the angiographic suite and placed in prone position on the examination table. The patient's back and indwelling nephrostomy tubes were prepped and draped in the usual sterile fashion. 1% lidocaine was used bilaterally at the catheter exit site along the tunnel tract. Right: Contrast was injected through the indwelling nephrostomy tube which demonstrated prompt opacification of the decompressed renal pelvis. The catheter tubing was cut and a 0.035 guidewire was advanced and coiled within the renal pelvis. The nephrostomy tube was then removed intact and a 4 Hungarian vertebral catheter advanced over the guidewire. Together the guidewire and catheter were advanced into the proximal ureter and the vertebral catheter removed. A new 10 Hungarian pigtail nephrostomy tube was then advanced over the guidewire and coiled within renal pelvis. The guidewire was removed. Contrast was injected to document appropriate positioning and the catheter was securely fastened to the skin surface using 2-0 Ethilon suture. The catheter was then placed to dependent drainage. Left: Contrast was injected through the indwelling nephrostomy tube and demonstrated prompt opacification of a relatively decompressed renal pelvis. The catheter had been withdrawn into a posterior middle calyx and was not fully draining the kidney. The catheter tubing was cut and a 0.035 guidewire advanced through the nephrostomy tube and coiled within the renal pelvis. Catheter tubing was then removed intact. A new pigtail nephrostomy tube was then advanced over the guidewire and coiled within the renal pelvis. The guidewire was removed. Contrast was injected to document appropriate positioning of the pigtail within the renal pelvis. The catheter was then placed to dependent drainage. The patient tolerated the procedure well. There were no immediate post procedure complications. Conscious sedation was performed under the guidance of radiologic nursing. Continuous cardiopulmonary monitoring was utilized. IMPRESSION: 1) Bilateral nephrostogram demonstrating retraction of the left nephrostomy tube and a posterior middle calyx. 2) Fluoroscopic guided exchange of bilateral nephrostomy tubes.
[2017-02-25 13:21] VITALS: BP 150/70
== END 2017-02-25 14:00 | disposition home or self-care (01) ==
LOC: CATHLABREC 10:23
PROVIDERS: ATTEND Radiology Diagnostic Radiology
DX: N99.522 Malfunction of incontinent external stoma of urinary tract (principal); N13.39 Other hydronephrosis; I12.0 Hypertensive chronic kidney disease with stage 5 chronic kidney disease or end stage renal disease; N18.6 End stage renal disease; I25.2 Old myocardial infarction; Z85.46 Personal history of malignant neoplasm of prostate; Z98.890 Other specified postprocedural states; Z79.899 Other long term (current) drug therapy; Z87.891 Personal history of nicotine dependence; Z95.5 Presence of coronary angioplasty implant and graft; Y83.1 Surgical operation with implant of artificial internal device as the cause of abnormal reaction of the patient, or of later complication, without mention of misadventure at the time of the procedure
CPT/HCPCS: 36415; 50435; 80048; 85025; 85610; 85730; 99156; C1729; C1751; C1769; J2250; J3010; J7030; A6250; Q9967

== ENCOUNTER 2017-03-05 06:25 | Day surgery (SDC) | payer MEDICARE ==
[2017-03-05 07:21] LABS: Calcium 8.3 mg/dL (8.4-10.2)
[2017-03-05 07:22] LABS: Potassium 4.9 mmol/L (3.6-5.0)
[2017-03-05 07:23] LABS: INR 1.06 (0.87-1.13)
[2017-03-05 07:24] LABS: Partial Thromboplastin Time 32.7 Sec. (24.2-36.6)
[2017-03-05 07:28] LABS: Hematocrit 31.1 % (35.5-45.6); Hemoglobin 10.4 gm/dl (11.8-15.2); Mean Corpuscular HGB Conc 33 % (32-34); Mean Corpuscular Hemoglobin 30 pg (28-32); Mean Corpuscular Volume 90 fl (84-94); Platelet Count 315 K/mm3 (140-440); Red Blood Count 3.46 M/mm3 (3.65-5.03); Red Cell Distribution Width 17.5 % (13.2-15.2); White Blood Count 6.7 K/mm3 (4.5-11.0)
[2017-03-05] MEDS ORDERED: NACL 0.9% 500 ML IR ONE (08:19)
[2017-03-05] MEDS ORDERED: XYLOCAINE 2% INFILTRATI ONE (08:20)
[2017-03-05] MEDS ORDERED: LEVAQUIN 500MG/100ML 500 MG/100 ML BAG IV ONE (08:20)
[2017-03-05] MEDS ORDERED: NACL 0.9% 250ML 250 ML ONE (08:28)
[2017-03-05] MEDS: SUBLIMAZE ONE ×2 (09:52→09:53)
[2017-03-05] MEDS: VERSED ONE ×2 (09:52→09:53)
--- NOTE | 2017-03-05 11:27 | Operative Report ---
Operative Report Operative Report: Procedure 1. Right antegrade nephrostogram. 2. Replacement of a right nephrostomy catheter. 3. Right antegrade nephrostogram. 4. Replacement of a left nephrostomy catheter. Date: 03/05/2017 Physician: Jeannine Mujica MD Indication: This is an 86-year-old male with long-term indwelling bilateral nephrostomy catheters. He reported pericatheter leakage from around both nephrostomy catheters. Technique: The patient was placed in the prone position and prepped and draped in the usual sterile fashion. A timeout was performed. Local anesthetic was administered around the right catheter exit site. Contrast was injected into the tube, and images were acquired. The catheter and sutures were cut. The catheter was removed over a Shannon wire, and it was exchanged for a 10 Danish nephrostomy tube. The nephrostomy tube locking loop was formed in the right renal pelvis. Contrast was injected to confirm placement. A drainage bag was connected. A postdrainage image was then acquired. The catheter was secured to the skin with 2-0 Ethilon suture. A similar series of steps was performed for the left side. Sterile dressings were placed. The patient was transported to the recovery area in good condition. Findings: Again seen is bilateral hydroureter, with dilation and tortuosity. The newly placed nephrostomy catheters fill and decompress the collecting systems completely. The patient should return for maintenance catheter change in 8 weeks.
[2017-03-05 11:28] VITALS: BP 140/78
== END 2017-03-05 12:00 | disposition home or self-care (01) ==
LOC: CATH 06:25 → CATHLABREC 06:25
PROVIDERS: ATTEND Radiology Diagnostic Radiology
DX: T83.032A Leakage of nephrostomy catheter, initial encounter (principal); I12.0 Hypertensive chronic kidney disease with stage 5 chronic kidney disease or end stage renal disease; N18.6 End stage renal disease; Z79.899 Other long term (current) drug therapy; Z85.46 Personal history of malignant neoplasm of prostate; Z85.830 Personal history of malignant neoplasm of bone; Z98.890 Other specified postprocedural states; Z83.3 Family history of diabetes mellitus
CPT/HCPCS: 36415; 50435; 80048; 85027; 85610; 85730; 99156; 99157; C1729; C1751; C1769; J1956; J2250; J3010; J7050; Q9967

== ENCOUNTER 2017-05-06 13:18 | Day surgery (SDC) | payer MEDICARE ==
[2017-05-06] MEDS ORDERED: SODIUM CHLORIDE FLUSH SYRINGE 10 ML IV NR (14:00)
[2017-05-06 14:12] LABS: Basophils % (Auto) 0.4 % (0.0-1.8); Eosinophils % (Auto) 0.2 % (0.0-4.3); Hematocrit 28.9 % (35.5-45.6); Hemoglobin 9.9 gm/dl (11.8-15.2); Lymphocytes # (Auto) 1.4 K/mm3 (1.2-5.4); Lymphocytes % (Auto) 12.4 % (13.4-35.0); Mean Corpuscular HGB Conc 34 % (32-34); Mean Corpuscular Hemoglobin 31 pg (28-32); Mean Corpuscular Volume 92 fl (84-94); Monocytes # (Auto) 0.7 K/mm3 (0.0-0.8); Monocytes % (Auto) 6.6 % (0.0-7.3); Platelet Count 336 K/mm3 (140-440); Red Blood Count 3.15 M/mm3 (3.65-5.03)
[2017-05-06 14:29] LABS: Calcium 8.8 mg/dL (8.4-10.2)
[2017-05-06 14:30] LABS: INR 1.02 (0.87-1.13)
[2017-05-06 14:31] LABS: Partial Thromboplastin Time 34.8 Sec. (24.2-36.6)
[2017-05-06] MEDS ORDERED: LEVAQUIN 500MG/100ML 500 MG/100 ML BAG IV NR (15:00)
[2017-05-06] MEDS ORDERED: NACL 0.9% 500 ML IR ONE (15:06)
[2017-05-06] MEDS ORDERED: MORPHINE IV ONE (15:54)
[2017-05-06] MEDS ORDERED: NACL 0.9% 500 ML 500 ML ONE (16:24)
[2017-05-06] MEDS: VERSED ONE ×2 (16:55→17:41)
[2017-05-06] MEDS: SUBLIMAZE ONE ×4 (16:55→17:56)
[2017-05-06] MEDS: XYLOCAINE 2% INFILTRATI ONE ×2 (16:57→17:20)
--- NOTE | 2017-05-06 18:23 | Post Operative Note ---
Pre-op diagnosis: obstructive hydronephrosis Post-op diagnosis: same Findings: Bilateral hydronephrosis, bilateral inadvertently removed nephrostomy catheters Procedure: Bilateral nephrostomy placement Anesthesia: local Surgeon: PHIL PASCAL Estimated blood loss: none Pathology: none Condition: stable Disposition: other (home)
[2017-05-06 19:31] VITALS: BP 154/81
--- NOTE | 2017-05-16 12:45 | Operative Report ---
Operative Report Operative Report: Procedure: 1. Ultrasound-guided puncture of the right kidney. 2. Right antegrade nephrostogram. 3. Placement of a right sided nephrostomy catheter. 4. Ultrasound-guided puncture of the left kidney 5. Left antegrade nephrostogram 6. Placement of a left-sided nephrostomy catheter Indication: 86-year-old male with chronic indwelling bilateral nephrostomy catheters due to complications from malignancy. Both catheters were reported to be dislodged at home. Date: 05/06/2017 Physician: Jeannine Mujica MD Technique and Findings Patient was placed in the prone position and prepped and draped in the usual sterile fashion. A timeout was performed. A vertebral catheter and Glidewire were used in an attempt to cannulate the prior nephrostomy catheter tract. However, both tract had become occluded. As such, the decision was made to place 2 new catheters. Local anesthetic was administered in the right flank. Under continuous ultrasound guidance, a 21-gauge needle was advanced into a right inferior/ posterior calyx. An 018 wire was advanced into the right renal pelvis. Over an AccuStick system, this was exchanged for a glide wire and vertebral catheter. The Glidewire and vertebral catheter were maneuvered into the right ureter. The Glidewire was removed and replaced with a Bentson wire. Over the Bentson wire, after tissue dilation, a 10 Somali nephrostomy catheter was advanced. The loop was formed in the right renal pelvis. Contrast was injected to confirm placement. An image was acquired. The catheter was secured to the skin with 2-0 Ethilon suture 2. The catheter was connected to gravity drainage. A similar series of steps was performed for the left side. Both the right and left kidney demonstrate moderate hydronephrosis and hydroureter. There is no opacification of the bladder, as seen previously. EBL: < 5cc Specimen: None
--- NOTE | 2017-05-16 12:46 | History and Physical Report ---
History of Present Illness Date of examination: 05/06/17 Chief complaint: Hydronephrosis History of present illness: Dislodged nephrostomy catheters Past History Past Medical History: acute NC, cancer, DVT, hypertension Past Surgical History: Other (nephrostomy) Medications and Allergies Allergies Allergy/AdvReac Type Severity Reaction Status Date / Time No Known Allergies Allergy Verified 01/17/16 13:24 Home Medications Medication Instructions Recorded Confirmed Last Taken Type Docusate Sodium [Colace CAP] 100 mg PO BID #60 capsule 11/05/15 05/21/17 Rx 100mg Enzalutamide (Nf) [Xtandi (Nf)] 4 cap PO DAILY 06/13/16 05/21/17 05/20/17 History 4 Zolpidem [Ambien] 10 mg PO QHS PRN 06/29/16 05/21/17 05/20/17 History 10mg Ondansetron [Zofran TAB] 4 mg PO PRN 08/31/16 05/21/17 05/06/17 09:00 History Ferrous Gluconate 240 mg PO TID 10/24/16 05/21/17 05/20/17 History 240mg HYDROcodone/APAP 10-325 1 tab PO Q6H PRN 10/24/16 05/21/17 05/03/17 History Sodium Bicarbonate 2 tab PO BID 10/24/16 05/21/17 05/20/17 History 2 Calcium 500-Vit D3 600 Caplet 500 mg PO DAILY 01/28/17 05/21/17 05/20/17 History 500mg Albuterol Sulfate [Albuterol 0.63% 3 ml INHALATION QID 02/25/17 05/21/17 History NEBS] Metoprolol Succinate [Metoprolol 50 mg PO DAILY 02/25/17 05/21/17 05/20/17 History Succinate] 50mg Mirabegron [Myrbetriq] 50 mg PO QDAY 05/06/17 05/21/17 05/20/17 History 50mg Nitrofurantoin Macrocrystal 100 mg PO DAILY 05/06/17 05/21/17 05/20/17 History [Nitrofurantoin] 100mg Pantoprazole [Protonix] 40 mg PO PRN PRN 05/06/17 05/21/17 05/20/17 History 40mg Prednisone [predniSONE (George) ER 5 mg PO BID 05/06/17 05/21/17 05/20/17 History TAB] 5mg Review of Systems ROS unobtainable: due to mental status Exam - Constitutional Vitals: Temp Pulse Resp BP Pulse Ox 98.5 F 97 H 18 154/81 81 L 05/06/17 18:32 05/06/17 19:30 05/06/17 19:30 05/06/17 19:30 05/06/17 19:30 General appearance: Present: no acute distress, well-nourished - Neck Neck: Present: supple, normal ROM - Respiratory Respiratory effort: normal Results - Labs CBC & Chem 7: 05/06/17 14:03 05/06/17 14:03 Assessment and Plan This is an 86-year-old male with bilateral indwelling nephrostomy catheters which became dislodged at home. He is here today for catheter check and possible change.
== END 2017-05-06 19:50 | disposition home or self-care (01) ==
LOC: CATHLABREC 13:18
PROVIDERS: ATTEND Radiology Diagnostic Radiology
DX: T83.89XA Other specified complication of genitourinary prosthetic devices, implants and grafts, initial encounter (principal); I25.2 Old myocardial infarction; Z85.89 Personal history of malignant neoplasm of other organs and systems; Z86.718 Personal history of other venous thrombosis and embolism; I10 Essential (primary) hypertension; Z79.899 Other long term (current) drug therapy
CPT/HCPCS: 36415; 50432; 80048; 85025; 85610; 85730; 96365; 96374; C1729; C1751; C1769; J1956; J2250; J2270; J3010; J7040; Q9967

== ENCOUNTER 2017-05-21 10:32 | Day surgery (SDC) | payer MEDICARE ==
[2017-05-21 11:18] LABS: Hematocrit 26.5 % (35.5-45.6); Mean Corpuscular HGB Conc 34 % (32-34); Mean Corpuscular Hemoglobin 31 pg (28-32); Mean Corpuscular Volume 92 fl (84-94); Platelet Count 381 K/mm3 (140-440); Red Blood Count 2.88 M/mm3 (3.65-5.03); Red Cell Distribution Width 15.5 % (13.2-15.2)
[2017-05-21 11:26] LABS: INR 1.07 (0.87-1.13); Partial Thromboplastin Time 31.5 Sec. (24.2-36.6)
[2017-05-21 12:10] LABS: Anisocytosis 1+; Band Neutrophils # (Manual) 0.1 K/mm3; Basophils % (Manual) 0 % (0.0-1.8); Eosinophils % (Manual) 0 % (0.0-4.3); Platelet Estimate Consistent w Auto; Schistocytes Rare; Total Cells Counted 100
[2017-05-21] MEDS ORDERED: NACL 0.9% 500 ML IR ONE (13:08)
[2017-05-21] MEDS ORDERED: XYLOCAINE 2% INFILTRATI ONE (13:08)
[2017-05-21] MEDS ORDERED: LEVAQUIN 500MG/100ML 500 MG/100 ML BAG IV ONE (13:08)
[2017-05-21] MEDS ORDERED: NACL 0.9% 250ML 250 ML ONE (13:12)
[2017-05-21 13:26] LABS: Calcium 8.3 mg/dL (8.4-10.2)
[2017-05-21 15:19] VITALS: BP 165/81
--- NOTE | 2017-05-30 14:44 | Operative Report ---
Operative Report Operative Report: Procedure: 1. Left antegrade nephrostogram 2. Replacement of a right sided dislodged nephrostomy catheter Date: 05/22/2017 Indication: 86-year-old male with long-term bilateral indwelling nephrostomy catheters, the right sided catheter became dislodged and home Physician: Jeannine Mujica MD Technique: The patient was placed in the supine position and prepped and draped in the usual sterile fashion. A timeout was performed. The left nephrostomy catheter was injected with contrast, and images were acquired. The right nephrostomy catheter was imaged and determined to be dislodged. A Glidewire was placed through the dislodged catheter and used to engage the old catheter tract into the right kidney. The Glidewire was used to maneuver a vertebral catheter into the ureter. An Amplatz wire was placed through the vertebral catheter. Over the Amplatz wire, a 10 [place] nephrostomy catheter was deployed in the usual fashion. Contrast was again injected to confirm placement. The new catheter was secured to the skin with 2-0 Ethilon suture and connected to gravity drainage. Findings: The left nephrostomy catheter is in satisfactory position. The right nephrostomy catheter locking loop had come out of the kidney. This was successfully replaced via cannulation of the old tract. EBL: None Specimen: None
== END 2017-05-21 15:30 | disposition home or self-care (01) ==
LOC: CATHLABREC 10:32
PROVIDERS: ATTEND Radiology Diagnostic Radiology
DX: N13.39 Other hydronephrosis (principal); I25.2 Old myocardial infarction; I10 Essential (primary) hypertension; Z86.718 Personal history of other venous thrombosis and embolism; Z79.01 Long term (current) use of anticoagulants; Z85.9 Personal history of malignant neoplasm, unspecified
CPT/HCPCS: 36415; 50435; 80048; 85007; 85025; 85610; 85730; C1729; C1751; C1769; J1956; J7050; 50431; Q9967

== ENCOUNTER 2017-07-13 09:51 | Inpatient (IN) | payer MEDICARE ==
[2017-07-13] MEDS ORDERED: NACL 0.9% 1000 ML 1,000 ML IV ONE (10:14)
--- NOTE | 2017-07-13 11:07 | XRay Report ---
AP CHEST: HISTORY: Hypertension Mild bibasilar infiltrates or small pleural effusions are identified. The upper lung zones are clear. No pneumothorax. Heart size is within normal limits. IMPRESSION: Small bilateral pleural effusions.
[2017-07-13 12:14] LABS: Basophils # (Auto) 0.1 K/mm3 (0.0-0.1); Basophils % (Auto) 0.7 % (0.0-1.8); Eosinophils # (Auto) 0.1 K/mm3 (0.0-0.4); Eosinophils % (Auto) 0.6 % (0.0-4.3); Hematocrit 27.7 % (35.5-45.6); Hemoglobin 8.9 gm/dl (11.8-15.2); Lymphocytes # (Auto) 1.4 K/mm3 (1.2-5.4); Lymphocytes % (Auto) 10.9 % (13.4-35.0); Mean Corpuscular HGB Conc 32 % (32-34); Mean Corpuscular Hemoglobin 30 pg (28-32); Mean Corpuscular Volume 94 fl (84-94); Monocytes # (Auto) 0.6 K/mm3 (0.0-0.8); Monocytes % (Auto) 4.3 % (0.0-7.3); Platelet Count 406 K/mm3 (140-440); Red Blood Count 2.93 M/mm3 (3.65-5.03); Red Cell Distribution Width 16.7 % (13.2-15.2)
[2017-07-13 12:30] LABS: Calcium 8.5 mg/dL (8.4-10.2); INR 1.08 (0.87-1.13)
[2017-07-13 12:31] LABS: Alanine Aminotransferase < 5 units/L (7-56); Albumin 2.7 g/dL (3.9-5); Bilirubin,Direct < 0.2 mg/dL (0-0.2); Partial Thromboplastin Time 34.2 Sec. (24.2-36.6)
[2017-07-13 12:42] LABS: Creatine Kinase MB 1.9 ng/mL (0.0-4.0)
[2017-07-13] MEDS ORDERED: ROCEPHIN/NS 1 GM/50 ML 1 GM/50 ML BAG IV ONE (13:08)
[2017-07-13 13:24] LABS: Chol/HDL Ratio 3.16 %
[2017-07-13] MEDS ORDERED: cefTRIAXone 1 GM in NACL 0.9% 20 ML IV ONE (13:30)
[2017-07-13 13:34] LABS: Bacteria,Urine 1+ /HPF (Negative); Bilirubin,Urine NEG (Negative); Blood,Urine SM (Negative); Color,Urine Yellow (Yellow); Mucus,Urine FEW /HPF; Urobilinogen,Urine < 2.0 mg/dL (<2.0)
[2017-07-13 13:38] LABS: Bacteria,Urine 1+ /HPF (Negative); Mucus,Urine 1+ /HPF
[2017-07-13 13:39] LABS: Bilirubin,Urine NEG (Negative); Blood,Urine LG (Negative); Color,Urine Yellow (Yellow); Urobilinogen,Urine < 2.0 mg/dL (<2.0)
[2017-07-13 13:40] LABS: RBC,Urine > 182.0 /HPF (0.0-6.0); WBC,Urine > 182.0 /HPF (0.0-6.0)
--- NOTE | 2017-07-13 14:00 | Emergency Department Report ---
ED General Adult HPI - General Chief complaint: Weakness Stated complaint: GENERAL WEAKNESS Time Seen by Provider: 07/13/17 10:11 Source: family, EMS Mode of arrival: Stretcher Limitations: No Limitations - History of Present Illness Initial comments: The patient is an 86-year-old man with a history of stage IV prostate or bladder cancer. He has bilateral nephrostomy tubes. He has never been in a alf or rehabilitation facility per his family. Patient himself has no specific complaint other than weakness. Family states he hasn't been eating or drinking adequately for several days. They did not note a fever. They did not know a difference in his nephrostomy drainage. However grossly one looks a little cloudy compared to the other. He has been admitted to the hospital with UTIs in the past. He has had several nephrostomy procedures at this facility. -: week(s) Associated Symptoms: denies other symptoms, weakness Treatments Prior to Arrival: none - Related Data Home Medications Medication Instructions Recorded Confirmed Last Taken Enzalutamide (Nf) [Xtandi (Nf)] 4 cap PO DAILY 06/13/16 05/21/17 05/20/17 4 Zolpidem [Ambien] 10 mg PO QHS PRN 06/29/16 05/21/17 05/20/17 10mg Ondansetron [Zofran TAB] 4 mg PO PRN 08/31/16 05/21/17 05/06/17 09:00 Ferrous Gluconate 240 mg PO TID 10/24/16 05/21/17 05/20/17 240mg HYDROcodone/APAP 10-325 1 tab PO Q6H PRN 10/24/16 05/21/17 05/03/17 Sodium Bicarbonate 2 tab PO BID 10/24/16 05/21/17 05/20/17 2 Calcium 500-Vit D3 600 Caplet 500 mg PO DAILY 01/28/17 05/21/17 05/20/17 500mg Albuterol Sulfate [Albuterol 0.63% 3 ml INHALATION QID 02/25/17 05/21/17 NEBS] Mirabegron [Myrbetriq] 50 mg PO QDAY 05/06/17 05/21/17 05/20/17 50mg Nitrofurantoin Macrocrystal 100 mg PO DAILY 05/06/17 05/21/17 05/20/17 [Nitrofurantoin] 100mg Pantoprazole [Protonix] 40 mg PO PRN PRN 05/06/17 05/21/17 05/20/17 40mg Previous Rx's Medication Instructions Recorded Last Taken Type Docusate Sodium [Colace CAP] 100 mg PO BID #60 capsule 11/05/15 05/20/17 Rx 100mg Allergies Allergy/AdvReac Type Severity Reaction Status Date / Time No Known Allergies Allergy Verified 07/13/17 13:15 ED Review of Systems ROS: Stated complaint: GENERAL WEAKNESS Other details as noted in HPI Constitutional: weakness. denies: chills, fever Eyes: eye pain. denies: eye discharge, vision change ENT: denies: ear pain, throat pain Respiratory: denies: cough, shortness of breath Cardiovascular: denies: chest pain, palpitations Endocrine: no symptoms reported Gastrointestinal: denies: abdominal pain, nausea, diarrhea Genitourinary: as per HPI Musculoskeletal: denies: back pain, joint swelling, arthralgia Skin: denies: rash, lesions Neurological: denies: headache, weakness, paresthesias Psychiatric: denies: anxiety, depression Hematological/Lymphatic: denies: easy bleeding, easy bruising ED Past Medical Hx - Past Medical History Hx Hypertension: Yes (2010) Hx Heart Attack/AMI: Yes (1988) Hx Deep Vein Thrombosis: Yes (04/2016 Right arm) Hx Sickle Cell Disease: No Hx Arthritis: Yes Hx Kidney Stones: Yes Hx HIV: No Additional medical history: HYPERLIPIDEMIA. CAD. CHRONIC BACK PAIN. prostate CA. bone mestastis. Mass in Bladder - Surgical History Hx Pacemaker: No Hx Internal Defibrillator: No Additional Surgical History: BACK / KIDNEY STENTS-removed. bilateral nephrostomy tubes. TURP - Social History Smoking Status: Never Smoker Substance Use Type: None - Medications Home Medications: Home Medications Medication Instructions Recorded Confirmed Last Taken Type Docusate Sodium [Colace CAP] 100 mg PO BID #60 capsule 11/05/15 05/21/17 Rx 100mg Enzalutamide (Nf) [Xtandi (Nf)] 4 cap PO DAILY 06/13/16 05/21/17 05/20/17 History 4 Zolpidem [Ambien] 10 mg PO QHS PRN 0305/21/17 05/20/17 History 10mg Ondansetron [Zofran TAB] 4 mg PO PRN 08/31/16 05/21/17 05/06/17 09:00 History Ferrous Gluconate 240 mg PO TID 10/24/16 05/21/17 05/20/17 History 240mg HYDROcodone/APAP 10-325 1 tab PO Q6H PRN 10/24/16 05/21/17 05/03/17 History Sodium Bicarbonate 2 tab PO BID 10/24/16 05/21/17 05/20/17 History 2 Calcium 500-Vit D3 600 Caplet 500 mg PO DAILY 01/28/17 05/21/17 05/20/17 History 500mg Albuterol Sulfate [Albuterol 0.63% 3 ml INHALATION QID 02/25/17 05/21/17 History NEBS] Mirabegron [Myrbetriq] 50 mg PO QDAY 05/06/17 05/21/17 05/20/17 History 50mg Nitrofurantoin Macrocrystal 100 mg PO DAILY 05/06/17 05/21/17 05/20/17 History [Nitrofurantoin] 100mg Pantoprazole [Protonix] 40 mg PO PRN PRN 05/06/17 05/21/17 05/20/17 History 40mg ED Physical Exam - General Limitations: Physical Limitation General appearance: cachectic - Head Head exam: Present: atraumatic, normocephalic - Eye Eye exam: Present: normal appearance, PERRL, EOMI. Absent: scleral icterus - ENT ENT exam: Present: mucous membranes dry - Neck Neck exam: Present: normal inspection. Absent: tenderness, meningismus - Respiratory Respiratory exam: Present: normal lung sounds bilaterally. Absent: respiratory distress - Cardiovascular Cardiovascular Exam: Present: regular rate, normal rhythm. Absent: systolic murmur, diastolic murmur, rubs, gallop - GI/Abdominal GI/Abdominal exam: Present: soft, normal bowel sounds, other (bilateral nephrostomy in situ. Drainage from right is more turbid drainage from; left appears clear). Absent: distended, tenderness, guarding, rebound, rigid - Rectal Rectal exam: Present: deferred - Extremities Exam Extremities exam: Present: normal inspection - Back Exam Back exam: Present: other (as above) - Neurological Exam Neurological exam: Present: alert, oriented X3, CN II-XII intact. Absent: motor sensory deficit - Psychiatric Psychiatric exam: Present: normal affect, normal mood - Skin Skin exam: Present: warm, dry, intact, normal color. Absent: rash ED Course Vital Signs 07/13/17 07/13/17 07/13/17 09:58 10:30 10:46 Temperature 97.8 F Pulse Rate 97 H 88 Respiratory 18 16 14 Rate Blood Pressure 171/85 148/79 O2 Sat by Pulse 98 100 94 Oximetry 07/13/17 07/13/17 07/13/17 11:00 11:30 12:00 Temperature Pulse Rate 87 84 91 H Respiratory 15 14 16 Rate Blood Pressure 151/77 152/78 150/78 O2 Sat by Pulse 95 97 98 Oximetry 07/13/17 07/13/17 07/13/17 12:30 13:00 13:30 Temperature Pulse Rate 85 85 83 Respiratory 14 14 16 Rate Blood Pressure 164/77 159/85 139/77 O2 Sat by Pulse 98 95 98 Oximetry 07/13/17 07/13/17 07/13/17 13:46 14:00 14:16 Temperature Pulse Rate 88 89 97 H Respiratory 16 19 12 Rate Blood Pressure 139/77 139/77 O2 Sat by Pulse 98 98 99 Oximetry 07/13/17 07/13/17 14:30 14:46 Temperature Pulse Rate 90 95 H Respiratory 16 19 Rate Blood Pressure 104/83 104/83 O2 Sat by Pulse 97 96 Oximetry - Reevaluation(s) Reevaluation #1: Patient given IV fluid and ceftriaxone. The urine was obtained from both sides and cultured from both sides. A CT of the abdomen. 07/13/17 14:06 Reevaluation #2: On reexamination the patient seems to be doing fine. He is asking if perhaps he can go home tomorrow. 07/13/17 15:23 ED Medical Decision Making - Lab Data Result diagrams: 07/13/17 11:49 07/13/17 11:49 Laboratory Results - last 24 hr 07/13/17 07/13/17 07/13/17 10:13 11:49 11:49 WBC 13.1 H RBC 2.93 L Hgb 8.9 L Hct 27.7 L MCV 94 MCH 30 MCHC 32 RDW 16.7 H Plt Count 406 Lymph % (Auto) 10.9 L [place] % (Auto) 4.3 Eos % (Auto) 0.6 Baso % (Auto) 0.7 Lymph # 1.4 [place] # 0.6 Eos # 0.1 Baso # 0.1 Seg Neutrophils % 83.5 H Seg Neutrophils # 10.9 H PT 14.6 INR 1.08 APTT 34.2 Sodium Potassium Chloride Carbon Dioxide Anion Gap BUN Creatinine Estimated GFR BUN/Creatinine Ratio Glucose Lactic Acid Calcium Phosphorus Magnesium Total Bilirubin Direct Bilirubin AST ALT Alkaline Phosphatase Ammonia Total Creatine Kinase CK-MB (CK-2) CK-MB (CK-2) Rel Index Troponin T Total Protein Albumin Albumin/Globulin Ratio Triglycerides Cholesterol LDL Cholesterol Direct HDL Cholesterol Cholesterol/HDL Ratio TSH Urine Color Yellow Urine Turbidity Clear Urine pH 8.0 H Ur Specific [place] 1.011 Urine Protein 30 mg/dl Urine Glucose (UA) Neg Urine Ketones Neg Urine Blood Sm Urine Nitrite Neg Urine Bilirubin Neg Urine Urobilinogen < 2.0 Ur Leukocyte Esterase Sm Urine WBC (Auto) 28.0 H Urine RBC (Auto) 16.0 Urine Bacteria (Auto) 1+ Urine WBC Clumps Urine Mucus Few 07/13/17 07/13/17 07/13/17 11:49 11:49 11:49 WBC RBC Hgb Hct MCV MCH MCHC RDW Plt Count Lymph % (Auto) [place] % (Auto) Eos % (Auto) Baso % (Auto) Lymph # [place] # Eos # Baso # Seg Neutrophils % Seg Neutrophils # PT INR APTT Sodium 138 Potassium 4.3 Chloride 101.5 Carbon Dioxide 19 L Anion Gap 22 BUN 20 Creatinine 1.5 Estimated GFR 54 BUN/Creatinine Ratio 13 Glucose 79 Lactic Acid Calcium 8.5 Phosphorus 2.90 Magnesium 1.90 Total Bilirubin 0.20 Direct Bilirubin < 0.2 AST 19 ALT < 5 L Alkaline Phosphatase 167 H Ammonia Total Creatine Kinase 43 L CK-MB (CK-2) CK-MB (CK-2) Rel Index Troponin T Total Protein 7.2 Albumin 2.7 L Albumin/Globulin Ratio 0.6 Triglycerides Cholesterol LDL Cholesterol Direct HDL Cholesterol Cholesterol/HDL Ratio TSH 1.810 Urine Color Urine Turbidity Urine pH Ur Specific [place] Urine Protein Urine Glucose (UA) Urine Ketones Urine Blood Urine Nitrite Urine Bilirubin Urine Urobilinogen Ur Leukocyte Esterase Urine WBC (Auto) Urine RBC (Auto) Urine Bacteria (Auto) Urine WBC Clumps Urine Mucus 07/13/17 07/13/17 07/13/17 11:49 11:49 11:49 WBC RBC Hgb Hct MCV MCH MCHC RDW Plt Count Lymph % (Auto) [place] % (Auto) Eos % (Auto) Baso % (Auto) Lymph # [place] # Eos # Baso # Seg Neutrophils % Seg Neutrophils # PT INR APTT Sodium Potassium Chloride Carbon Dioxide Anion Gap BUN Creatinine Estimated GFR BUN/Creatinine Ratio Glucose Lactic Acid 2.00 Calcium Phosphorus Magnesium Total Bilirubin Direct Bilirubin AST ALT Alkaline Phosphatase Ammonia 19.0 L Total Creatine Kinase 42 L CK-MB (CK-2) 1.9 CK-MB (CK-2) Rel Index 4.5 H Troponin T 0.077 H Total Protein Albumin Albumin/Globulin Ratio Triglycerides 122 Cholesterol 168 LDL Cholesterol Direct 97 HDL Cholesterol 53 Cholesterol/HDL Ratio 3.16 TSH Urine Color Urine Turbidity Urine pH Ur Specific [place] Urine Protein Urine Glucose (UA) Urine Ketones Urine Blood Urine Nitrite Urine Bilirubin Urine Urobilinogen Ur Leukocyte Esterase Urine WBC (Auto) Urine RBC (Auto) Urine Bacteria (Auto) Urine WBC Clumps Urine Mucus 07/13/17 12:59 WBC RBC Hgb Hct MCV MCH MCHC RDW Plt Count Lymph % (Auto) [place] % (Auto) Eos % (Auto) Baso % (Auto) Lymph # [place] # Eos # Baso # Seg Neutrophils % Seg Neutrophils # PT INR APTT Sodium Potassium Chloride Carbon Dioxide Anion Gap BUN Creatinine Estimated GFR BUN/Creatinine Ratio Glucose Lactic Acid Calcium Phosphorus Magnesium Total Bilirubin Direct Bilirubin AST ALT Alkaline Phosphatase Ammonia Total Creatine Kinase CK-MB (CK-2) CK-MB (CK-2) Rel Index Troponin T Total Protein Albumin Albumin/Globulin Ratio Triglycerides Cholesterol LDL Cholesterol Direct HDL Cholesterol Cholesterol/HDL Ratio TSH Urine Color Yellow Urine Turbidity Clear Urine pH 9.0 H Ur Specific [place] 1.009 Urine Protein 30 mg/dl Urine Glucose (UA) Neg Urine Ketones Neg Urine Blood Lg Urine Nitrite Pos Urine Bilirubin Neg Urine Urobilinogen < 2.0 Ur Leukocyte Esterase Lg Urine WBC (Auto) > 182.0 H Urine RBC (Auto) > 182.0 Urine Bacteria (Auto) 1+ Urine WBC Clumps 3+ Urine Mucus 1+ - Radiology Data Radiology results: pending (CT is pending) interpreted by me: Chest x-ray showed small bilateral pleural effusions normal cardiac silhouette no signs of decompensation Critical care attestation.: If time is entered above; I have spent that time in minutes in the direct care of this critically ill patient, excluding procedure time. ED Disposition Clinical Impression: Acute pyelonephritis, History of nephrostomy, Metastatic cancer, Pleural effusion Failure to thrive Qualifiers: Failure to thrive age range: in adult Qualified Code(s): R62.7 - Adult failure to thrive Disposition: OP ADMIT IP TO THIS HOSP Is pt being admited?: Yes Does the pt Need Aspirin: Yes Condition: Stable Referrals: PRIMARY CARE, [Primary Care Provider] - 3-5 Days Time of Disposition: 15:24
--- NOTE | 2017-07-13 15:55 | Cat Scan Report ---
FINAL REPORT EXAM: CT ABDOMEN PELVIS WO CON HISTORY: UTI b/l nephrostomy TECHNIQUE: Standard unenhanced CT of the abdomen and pelvis. Coronal and sagittal reconstruction was also performed. PRIORS: Ultrasound abdomen 12/17/2015 FINDINGS: Within the abdomen, the liver, spleen, pancreas, gallbladder, and adrenal gland are unremarkable. The kidneys demonstrate bilateral percutaneous nephrostomy tubes posteriorly with no evidence for hydronephrosis. In the left kidney, there is a rounded hypodense focus in the midpole measuring 12 x 15 mm (axial image 55), likely consistent with a cyst seen on prior ultrasound. In the right kidney, there is a hyperdense focus off the anterior mid to lower pole measuring 10 x 11 mm (axial image 63). This is not well visualized on prior ultrasound. Cross-sectional imaging with enhancement is recommended. No evidence for retroperitoneal or pelvic lymphadenopathy is seen. Extensive stool is present throughout the colon. The bowel loops have normal caliber. No fluid collection, inflammatory change, or free air is seen within the abdomen or pelvis. The appendix has been removed with a surgical clip noted along the posterior cecum. Within the pelvis, the prostate is markedly enlarged measuring 9.5 x 8.2 cm in diameter (axial image 134) and measures at least 11.9 cm in craniocaudal length. It extends doubt of the pelvis to the level of the lumbosacral junction. Within the prostate, there is a large rounded low-density focus. Internal soft tissue density is present within this low-density collection. The low-density focus measures 7.7 x 8.0 x 11.4 cm. Further evaluation with ultrasound or enhanced cross-sectional study such as CT or MRI is recommended. Findings are suspicious for neoplasm. The bladder is displaced cranially and anteriorly and is otherwise unremarkable. No evidence for lymphadenopathy is seen in the pelvis. Images through the upper abdomen include the lung bases which demonstrate large free-flowing low-density pleural effusions and adjacent bibasilar compressive atelectasis. Coronary artery calcification is seen.. Bony structures show diffuse sclerotic abnormalities consistent with bony metastatic disease. Severe disc space narrowing at L1-L2 is seen. No definite compression fracture is seen. Large bridging osteophytes are present anteriorly at L1 through S1. IMPRESSION: 1. Large abnormal pelvic mass extending cranially to the level of the lumbosacral junction. This is likely a markedly enlarged abnormal prostate and is suspicious for neoplasm. It causes significant displacement of the urinary bladder anteriorly and cranially. These findings can be further evaluated with enhancement using cross-sectional CT or MRI. 2. Evidence for diffuse sclerotic bone metastases 3. Kidneys demonstrate percutaneous nephrostomy tubes in place posteriorly with no evidence for hydronephrosis. 4. in the left kidney, hypodense focus in the midpole is likely consistent with a cyst seen on prior ultrasound. 5. in the right kidney, there is a hyperdense focus off the anterior mid to lower pole which is not seen on prior ultrasound. Cross-sectional imaging with enhancement is recommended. 6. Large bilateral free-flowing pleural effusions and adjacent compressive atelectasis.
--- NOTE | 2017-07-13 19:19 | History and Physical Report ---
History of Present Illness Date of examination: 07/13/17 Date of admission: 07/13/17 15:18 Chief complaint: CC Feeling weak with poor PO intake History of present illness: History of Present Illness: 86-year-old AAM with a history of stage IV prostate cancer has bilateral nephrostomy tubes. Patient himself has no specific complaint other than weakness. Family states he hasn't been eating or drinking adequately for several days. They did not note a fever. They did not know a difference in his nephrostomy drainage. However grossly one looks a little cloudy compared to the other. He has been admitted to the hospital with UTIs in the past. He has had several nephrostomy procedures at this facility. Past Medical History Hx Hypertension: Yes (2010) Hx Heart Attack/AMI: Yes (1988) Hx Deep Vein Thrombosis: Yes (04/2016 Right arm) Hx Arthritis: Yes Hx Kidney Stones: Yes Additional medical history: HYPERLIPIDEMIA. CAD. CHRONIC BACK PAIN. prostate CA. bone mestastis. Mass in Bladder Surgical History Hx Pacemaker: No Hx Internal Defibrillator: No Additional Surgical History: BACK / KIDNEY STENTS-removed. bilateral nephrostomy tubes. TURP Social History Smoking Status: Never Smoker Substance Use Type: None Medications Home Medications: Home Medications Medication Instructions Recorded Confirmed Last Taken Type Docusate Sodium [Colace CAP] 100 mg PO BID #60 capsule 11/05/15 05/21/17 Rx 100mg Enzalutamide (Nf) [Xtandi (Nf)] 4 cap PO DAILY 06/13/16 05/21/17 05/20/17 History 4 Zolpidem [Ambien] 10 mg PO QHS PRN 06/29/16 05/21/17 05/20/17 History 10mg Ondansetron [Zofran TAB] 4 mg PO PRN 08/31/16 05/21/17 05/06/17 09:00 History Ferrous Gluconate 240 mg PO TID 10/24/16 05/21/17 05/20/17 History 240mg HYDROcodone/APAP 10-325 1 tab PO Q6H PRN 10/24/16 05/21/17 05/03/17 History Sodium Bicarbonate 2 tab PO BID 10/24/16 05/21/17 05/20/17 History 2 Calcium 500-Vit D3 600 Caplet 500 mg PO DAILY 01/28/17 05/21/17 05/20/17 History 500mg Albuterol Sulfate [Albuterol 0.63% 3 ml INHALATION QID 02/25/17 05/21/17 History NEBS] Mirabegron [Myrbetriq] 50 mg PO QDAY 05/06/17 05/21/17 05/20/17 History 50mg Nitrofurantoin Macrocrystal 100 mg PO DAILY 05/06/17 05/21/17 05/20/17 History [Nitrofurantoin] 100mg Pantoprazole [Protonix] 40 mg PO PRN PRN 05/06/17 05/21/17 05/20/17 History 40mg Review of Systems ROS: Stated complaint: GENERAL WEAKNESS Other details as noted in HPI Constitutional: weakness. denies: chills, fever Eyes: eye pain. denies: eye discharge, vision change ENT: denies: ear pain, throat pain Respiratory: denies: cough, shortness of breath Cardiovascular: denies: chest pain, palpitations Endocrine: no symptoms reported Gastrointestinal: denies: abdominal pain, nausea, diarrhea Genitourinary: as per HPI Musculoskeletal: denies: back pain, joint swelling, arthralgia Skin: denies: rash, lesions Neurological: denies: headache, weakness, paresthesias Psychiatric: denies: anxiety, depression Hematological/Lymphatic: denies: easy bleeding, easy bruising Medications and Allergies Allergies Allergy/AdvReac Type Severity Reaction Status Date / Time No Known Allergies Allergy Verified 07/13/17 13:15 Home Medications Medication Instructions Recorded Confirmed Last Taken Type Docusate Sodium [Colace CAP] 100 mg PO BID #60 capsule 11/05/15 07/13/17 Rx 100mg Enzalutamide (Nf) [Xtandi (Nf)] 4 cap PO DAILY 06/13/16 07/13/17 05/20/17 History 4 Zolpidem [Ambien] 10 mg PO QHS PRN 06/29/16 07/13/17 05/20/17 History 10mg Ondansetron [Zofran TAB] 4 mg PO PRN 08/31/16 07/13/17 05/06/17 09:00 History Ferrous Gluconate 240 mg PO TID 07/03/3107/13/17 05/20/17 History 240mg HYDROcodone/APAP 10-325 1 tab PO Q6H PRN 10/24/16 07/13/17 05/03/17 History Sodium Bicarbonate 2 tab PO BID 10/24/16 07/13/17 05/20/17 History 2 Calcium 500-Vit D3 600 Caplet 500 mg PO DAILY 01/28/17 07/13/17 05/20/17 History 500mg Albuterol Sulfate [Albuterol 0.63% 3 ml INHALATION QID 02/25/17 07/13/17 History NEBS] Mirabegron [Myrbetriq] 50 mg PO QDAY 05/06/17 07/13/17 05/20/17 History 50mg Nitrofurantoin Macrocrystal 100 mg PO DAILY 05/06/17 07/13/17 05/20/17 History [Nitrofurantoin] 100mg Pantoprazole [Protonix] 40 mg PO PRN PRN 05/06/17 07/13/17 05/20/17 History 40mg Active Meds: Active Medications Aspirin (Baby Aspirin) 81 mg PO QDAY ONE Stop: 07/14/17 15:27 Exam - Constitutional Vitals: Temp Pulse Resp BP Pulse Ox 97.8 F 87 15 104/83 96 07/13/17 09:58 07/13/17 15:30 07/13/17 15:30 07/13/17 15:30 07/13/17 14:46 General appearance: Present: no acute distress, well-nourished - EENT Eyes: Present: PERRL ENT: hearing intact, clear oral mucosa - Neck Neck: Present: supple, normal ROM - Respiratory Respiratory effort: normal Respiratory: bilateral: CTA - Cardiovascular Heart rate: 70 Rhythm: regular Heart Sounds: Present: S1 & S2. Absent: rub, click - Extremities Extremities: no ischemia, pulses intact, pulses symmetrical, No edema Peripheral Pulses: within normal limits - Abdominal General gastrointestinal: Present: soft, non-tender, non-distended, normal bowel sounds, other (Bilateral Nephrostomy tubes) Male genitourinary: Present: normal - Integumentary Integumentary: Present: clear, warm, dry - Musculoskeletal Musculoskeletal: gait normal, strength equal bilaterally - Psychiatric Psychiatric: appropriate mood/affect, intact judgment & insight - Neurologic Neurologic: CNII-XII intact, moves all extremities Results - Labs CBC & Chem 7: 07/13/17 11:49 07/13/17 11:49 Labs: Laboratory Last Values WBC 13.1 K/mm3 (4.5-11.0) H 07/13/17 11:49 RBC 2.93 M/mm3 (3.65-5.03) L 07/13/17 11:49 Hgb 8.9 gm/dl (11.8-15.2) L 07/13/17 11:49 Hct 27.7 % (35.5-45.6) L 07/13/17 11:49 MCV 94 fl (84-94) 07/13/17 11:49 MCH 30 pg (28-32) 07/13/17 11:49 MCHC 32 % (32-34) 07/13/17 11:49 RDW 16.7 % (13.2-15.2) H 07/13/17 11:49 Plt Count 406 K/mm3 (140-440) 07/13/17 11:49 Lymph % (Auto) 10.9 % (13.4-35.0) L 07/13/17 11:49 [place] % (Auto) 4.3 % (0.0-7.3) 07/13/17 11:49 Eos % (Auto) 0.6 % (0.0-4.3) 07/13/17 11:49 Baso % (Auto) 0.7 % (0.0-1.8) 07/13/17 11:49 Lymph # 1.4 K/mm3 (1.2-5.4) 07/13/17 11:49 [place] # 0.6 K/mm3 (0.0-0.8) 07/13/17 11:49 Eos # 0.1 K/mm3 (0.0-0.4) 07/13/17 11:49 Baso # 0.1 K/mm3 (0.0-0.1) 07/13/17 11:49 Seg Neutrophils % 83.5 % (40.0-70.0) H 07/13/17 11:49 Seg Neutrophils # 10.9 K/mm3 (1.8-7.7) H 07/13/17 11:49 PT 14.6 Sec. (12.2-14.9) 07/13/17 11:49 INR 1.08 (0.87-1.13) 07/13/17 11:49 APTT 34.2 Sec. (24.2-36.6) 07/13/17 11:49 Sodium 138 mmol/L (137-145) 07/13/17 11:49 Potassium 4.3 mmol/L (3.6-5.0) 07/13/17 11:49 Chloride 101.5 mmol/L (98-107) 07/13/17 11:49 Carbon Dioxide 19 mmol/L (22-30) L 07/13/17 11:49 Anion Gap 22 mmol/L 07/13/17 11:49 BUN 20 mg/dL (9-20) 07/13/17 11:49 Creatinine 1.5 mg/dL (0.8-1.5) 07/13/17 11:49 Estimated GFR 54 ml/min 07/13/17 11:49 BUN/Creatinine Ratio 13 % 07/13/17 11:49 Glucose 79 mg/dL (75-100) 07/13/17 11:49 Lactic Acid 2.00 mmol/L (0.7-2.0) 07/13/17 11:49 Calcium 8.5 mg/dL (8.4-10.2) 07/13/17 11:49 Phosphorus 2.90 mg/dL (2.5-4.5) 07/13/17 11:49 Magnesium 1.90 mg/dL (1.7-2.3) 07/13/17 11:49 Total Bilirubin 0.20 mg/dL (0.1-1.2) 07/13/17 11:49 Direct Bilirubin < 0.2 mg/dL (0-0.2) 07/13/17 11:49 AST 19 units/L (5-40) 07/13/17 11:49 ALT < 5 units/L (7-56) L 07/13/17 11:49 Alkaline Phosphatase 167 units/L (35-129) H 07/13/17 11:49 Ammonia 19.0 umol/L (25-60) L 07/13/17 11:49 Total Creatine Kinase 42 units/L (55-170) L 07/13/17 11:49 CK-MB (CK-2) 1.9 ng/mL (0.0-4.0) 07/13/17 11:49 CK-MB (CK-2) Rel Index 4.5 (0-4) H 07/13/17 11:49 Troponin T 0.077 ng/mL (0.00-0.029) H 07/13/17 11:49 Total Protein 7.2 g/dL (6.3-8.2) 07/13/17 11:49 Albumin 2.7 g/dL (3.9-5) L 07/13/17 11:49 Albumin/Globulin Ratio 0.6 % 07/13/17 11:49 Triglycerides 122 mg/dL (2-149) 07/13/17 11:49 Cholesterol 168 mg/dL (50-199) 07/13/17 11:49 LDL Cholesterol Direct 97 mg/dL (50-130) 07/13/17 11:49 HDL Cholesterol 53 mg/dL (40-59) 07/13/17 11:49 Cholesterol/HDL Ratio 3.16 % 07/13/17 11:49 TSH 1.810 mlU/mL (0.270-4.200) 07/13/17 11:49 Urine Color Yellow (Yellow) 07/13/17 12:59 Urine Turbidity Clear (Clear) 07/13/17 12:59 Urine pH 9.0 (5.0-7.0) H 07/13/17 12:59 Ur Specific [place] 1.009 (1.003-1.030) 07/13/17 12:59 Urine Protein 30 mg/dl mg/dL (Negative) 07/13/17 12:59 Urine Glucose (UA) Neg mg/dL (Negative) 07/13/17 12:59 Urine Ketones Neg mg/dL (Negative) 07/13/17 12:59 Urine Blood Lg (Negative) 07/13/17 12:59 Urine Nitrite Pos (Negative) 07/13/17 12:59 Urine Bilirubin Neg (Negative) 07/13/17 12:59 Urine Urobilinogen < 2.0 mg/dL (<2.0) 07/13/17 12:59 Ur Leukocyte Esterase Lg (Negative) 07/13/17 12:59 Urine WBC (Auto) > 182.0 /HPF (0.0-6.0) H 07/13/17 12:59 Urine RBC (Auto) > 182.0 /HPF (0.0-6.0) 07/13/17 12:59 Urine Bacteria (Auto) 1+ /HPF (Negative) 07/13/17 12:59 Urine WBC Clumps 3+ /HPF 07/13/17 12:59 Urine Mucus 1+ /HPF 07/13/17 12:59 - Imaging and Cardiology EKG: report reviewed (NSR) Imaging and Cardiology: CT Abdomen IMPRESSION: 1. Large abnormal pelvic mass extending cranially to the level of the lumbosacral junction. This is likely a markedly enlarged abnormal prostate and is suspicious for neoplasm. It causes significant displacement of the urinary bladder anteriorly and cranially. These findings can be further evaluated with enhancement using cross-sectional CT or MRI. 2. Evidence for diffuse sclerotic bone metastases 3. Kidneys demonstrate percutaneous nephrostomy tubes in place posteriorly with no evidence for hydronephrosis. 4. in the left kidney, hypodense focus in the midpole is likely consistent with a cyst seen on prior ultrasound. 5. in the right kidney, there is a hyperdense focus off the anterior mid to lower pole which is not seen on prior ultrasound. Cross-sectional imaging with enhancement is recommended. 6. Large bilateral free-flowing pleural effusions and adjacent compressive atelectasis. Assessment and Plan Advance Directives: Yes (FullCode) VTE prophylaxis?: Chemical Plan of care discussed with patient/family: Yes - Patient Problems (1) Acute pyelonephritis Current Visit: Yes Status: Acute Plan to address problem: Initiated on IV Rocephin (2) Prostate cancer metastatic to bone Current Visit: Yes Status: Chronic Plan to address problem: Cont Xtandi (3) CHF (congestive heart failure) Current Visit: Yes Status: Chronic Qualifiers: Heart failure type: combined systolic and diastolic Heart failure chronicity: acute on chronic Qualified Code(s): I50.43 - Acute on chronic combined systolic (congestive) and diastolic (congestive) heart failure Plan to address problem: Check Echo BNP high 8740 (4) OAB (overactive bladder) Current Visit: Yes Status: Chronic Plan to address problem: Cont Mybetriq (5) Pleural effusion Current Visit: Yes Status: Chronic Plan to address problem: sec to Chf (6) Elevated troponin Current Visit: Yes Status: Chronic Plan to address problem: Nonspecific CK normal (7) DVT prophylaxis Current Visit: No Status: Acute Plan to address problem: On Heparin
[2017-07-13] MEDS ORDERED: APAP PO PRN (20:45)
[2017-07-13] MEDS ORDERED: PROTONIX PO PRN (20:45)
[2017-07-13] MEDS ORDERED: HYDROCODONE PO PRN (20:45)
[2017-07-13] MEDS ORDERED: AMBIEN PO PRN ×2 (20:45→20:56)
[2017-07-13] MEDS ORDERED: MORPHINE IV PRN (20:51)
[2017-07-13] MEDS ORDERED: ZOFRAN IV PRN (20:51)
[2017-07-13] MEDS ORDERED: SODIUM CHLORIDE FLUSH SYRINGE 10 ML IV PRN (20:51)
[2017-07-13] MEDS ORDERED: TYLENOL PO PRN (20:51)
[2017-07-13] MEDS ORDERED: NITROFURANTOIN MACROCRYSTAL 100 MG PO SCH (21:00)
[2017-07-13] MEDS ORDERED: ZOFRAN PO SCH (21:00)
[2017-07-13] MEDS ORDERED: NON-FORMULARY (Albuterol Sulfate [Albuterol 0.63% Nebs] 3 ML) INHALATION SCH (22:00)
[2017-07-13] MEDS: SODIUM BICARBONATE PO SCH (22:34)
[2017-07-13] MEDS: MACROBID PO SCH (22:34)
[2017-07-13] MEDS: D5NS 1,000 ML IV SCH (22:34)
[2017-07-13] MEDS: COLACE PO SCH (22:34)
[2017-07-13] MEDS: DILAUDID IV PRN (22:35)
[2017-07-13] MEDS: SODIUM CHLORIDE FLUSH SYRINGE 10 ML IV SCH (22:36)
[2017-07-13] MEDS: cefTRIAXone 2 GM in NACL 0.9% 20 ML IV SCH (23:10)
[2017-07-13] MEDS: PEPCID IV SCH (23:10)
[2017-07-14 07:30] LABS: Basophils # (Auto) 0.1 K/mm3 (0.0-0.1); Basophils % (Auto) 0.9 % (0.0-1.8); Eosinophils # (Auto) 0.1 K/mm3 (0.0-0.4); Hematocrit 24.8 % (35.5-45.6); Hemoglobin 8.1 gm/dl (11.8-15.2); Lymphocytes # (Auto) 1.2 K/mm3 (1.2-5.4); Lymphocytes % (Auto) 11.1 % (13.4-35.0); Mean Corpuscular HGB Conc 33 % (32-34); Mean Corpuscular Hemoglobin 31 pg (28-32); Mean Corpuscular Volume 94 fl (84-94); Monocytes # (Auto) 0.7 K/mm3 (0.0-0.8); Monocytes % (Auto) 5.9 % (0.0-7.3); Platelet Count 388 K/mm3 (140-440); Red Blood Count 2.65 M/mm3 (3.65-5.03); Red Cell Distribution Width 16.3 % (13.2-15.2)
[2017-07-14 07:56] LABS: Albumin 2.6 g/dL (3.9-5); BUN/Creatinine Ratio 15; Blood Urea Nitrogen 19 mg/dL (9-20); Calcium 7.9 mg/dL (8.4-10.2); Hemolysis Index 1
[2017-07-14 07:57] LABS: Alanine Aminotransferase < 5 units/L (7-56)
[2017-07-14] MEDS: PROVENTIL IH SCH ×4 (09:06→20:32)
--- NOTE | 2017-07-14 10:27 | Progress Note ---
Assessment and Plan Acute Pyelonephritis Prostate cancer metastatic to bone Anemia of chronic disease CHF (congestive heart failure) OAB (overactive bladder) Pleural effusion likely sec. to CHF Elevated troponin - non specific DVT prophylaxis Obtian Urine CX Continue on IV Rocephin Continue with Xtandif or Metastaic prostae cancer Stict Is and Os. diaily weight. Fluid restriction Anemia W/u Obtain ECHO Mybetric for OAB Heparin for DVT PPx Subjective Date of service: 07/14/17 Principal diagnosis: metastaic prostate cancer Interval history: still feeling weak. No fever or chills. Pt's daughter in the room. Objective - Constitutional Vitals: Vital Signs - 12hr 07/13/17 07/13/17 07/14/17 22:35 23:05 00:25 Temperature 97.5 F L Pulse Rate 78 Respiratory 18 16 14 Rate Blood Pressure 152/78 [Left] O2 Sat by Pulse 95 Oximetry 07/14/17 08:00 Temperature 97.7 F Pulse Rate 74 Respiratory 14 Rate Blood Pressure 146/78 [Left] O2 Sat by Pulse 95 Oximetry General appearance: Present: no acute distress, well-nourished - EENT Eyes: PERRL, EOM intact Ears: bilateral: normal - Neck Neck: supple, normal ROM - Respiratory Respiratory effort: normal Respiratory: bilateral: CTA - Cardiovascular Rhythm: regular Heart Sounds: Present: S1 & S2. Absent: gallop, rub Extremities: pulses intact, No edema, normal color, Full ROM - Gastrointestinal General gastrointestinal: Present: soft, non-tender, non-distended, normal bowel sounds - Integumentary Integumentary: clear, warm, dry - Musculoskeletal Musculoskeletal: 1, strength equal bilaterally - Neurologic Neurologic: moves all extremities - Psychiatric Psychiatric: memory intact, appropriate mood/affect, intact judgment & insight - Labs CBC & Chem 7: 07/14/17 06:35 07/14/17 06:35 Labs: Abnormal lab results 07/13/17 07/13/17 07/13/17 Range/Units 10:13 11:49 11:49 WBC 13.1 H (4.5-11.0) K/mm3 RBC 2.93 L (3.65-5.03) M/mm3 Hgb 8.9 L (11.8-15.2) gm/dl Hct 27.7 L (35.5-45.6) % RDW 16.7 H (13.2-15.2) % Lymph % (Auto) 10.9 L (13.4-35.0) % Seg Neutrophils % 83.5 H (40.0-70.0) % Seg Neutrophils # 10.9 H (1.8-7.7) K/mm3 Carbon Dioxide 19 L (22-30) mmol/L Glucose (75-100) mg/dL Calcium (8.4-10.2) mg/dL ALT (7-56) units/L Alkaline Phosphatase (35-129) units/L Ammonia (25-60) umol/L Total Creatine Kinase 43 L (55-170) units/L CK-MB (CK-2) Rel Index (0-4) Troponin T (0.00-0.029) ng/mL NT-Pro-B Natriuret Pep (0-900) pg/mL Albumin (3.9-5) g/dL Urine pH 8.0 H (5.0-7.0) Urine WBC (Auto) 28.0 H (0.0-6.0) /HPF 07/13/17 07/13/17 07/13/17 Range/Units 11:49 11:49 11:49 WBC (4.5-11.0) K/mm3 RBC (3.65-5.03) M/mm3 Hgb (11.8-15.2) gm/dl Hct (35.5-45.6) % RDW (13.2-15.2) % Lymph % (Auto) (13.4-35.0) % Seg Neutrophils % (40.0-70.0) % Seg Neutrophils # (1.8-7.7) K/mm3 Carbon Dioxide (22-30) mmol/L Glucose (75-100) mg/dL Calcium (8.4-10.2) mg/dL ALT < 5 L (7-56) units/L Alkaline Phosphatase 167 H (35-129) units/L Ammonia 19.0 L (25-60) umol/L Total Creatine Kinase 42 L (55-170) units/L CK-MB (CK-2) Rel Index 4.5 H (0-4) Troponin T 0.077 H (0.00-0.029) ng/mL NT-Pro-B Natriuret Pep (0-900) pg/mL Albumin 2.7 L (3.9-5) g/dL Urine pH (5.0-7.0) Urine WBC (Auto) (0.0-6.0) /HPF 07/13/17 07/13/17 07/14/17 Range/Units 11:49 12:59 06:35 WBC 11.3 H (4.5-11.0) K/mm3 RBC 2.65 L (3.65-5.03) M/mm3 Hgb 8.1 L (11.8-15.2) gm/dl Hct 24.8 L (35.5-45.6) % RDW 16.3 H (13.2-15.2) % Lymph % (Auto) 11.1 L (13.4-35.0) % Seg Neutrophils % 81.1 H (40.0-70.0) % Seg Neutrophils # 9.2 H (1.8-7.7) K/mm3 Carbon Dioxide (22-30) mmol/L Glucose (75-100) mg/dL Calcium (8.4-10.2) mg/dL ALT (7-56) units/L Alkaline Phosphatase (35-129) units/L Ammonia (25-60) umol/L Total Creatine Kinase (55-170) units/L CK-MB (CK-2) Rel Index (0-4) Troponin T (0.00-0.029) ng/mL NT-Pro-B Natriuret Pep 8740 H (0-900) pg/mL Albumin (3.9-5) g/dL Urine pH 9.0 H (5.0-7.0) Urine WBC (Auto) > 182.0 H (0.0-6.0) /HPF 07/14/17 Range/Units 06:35 WBC (4.5-11.0) K/mm3 RBC (3.65-5.03) M/mm3 Hgb (11.8-15.2) gm/dl Hct (35.5-45.6) % RDW (13.2-15.2) % Lymph % (Auto) (13.4-35.0) % Seg Neutrophils % (40.0-70.0) % Seg Neutrophils # (1.8-7.7) K/mm3 Carbon Dioxide 20 L (22-30) mmol/L Glucose 104 H (75-100) mg/dL Calcium 7.9 L (8.4-10.2) mg/dL ALT < 5 L (7-56) units/L Alkaline Phosphatase 142 H (35-129) units/L Ammonia (25-60) umol/L Total Creatine Kinase (55-170) units/L CK-MB (CK-2) Rel Index (0-4) Troponin T (0.00-0.029) ng/mL NT-Pro-B Natriuret Pep (0-900) pg/mL Albumin 2.6 L (3.9-5) g/dL Urine pH (5.0-7.0) Urine WBC (Auto) (0.0-6.0) /HPF
[2017-07-14] MEDS ORDERED: CALCIUM VIT D3 PO SCH (10:30)
[2017-07-14] MEDS: PEPCID IV SCH (10:38)
[2017-07-14] MEDS: D5NS 1,000 ML IV SCH (10:38)
[2017-07-14] MEDS: COLACE PO SCH ×2 (10:38→23:23)
[2017-07-14] MEDS: SODIUM BICARBONATE PO SCH ×2 (10:39→23:23)
[2017-07-14] MEDS: LASIX IV SCH (10:39)
[2017-07-14] MEDS: K-DUR PO SCH (10:39)
[2017-07-14] MEDS: SODIUM CHLORIDE FLUSH SYRINGE 10 ML IV SCH ×2 (10:40→23:23)
[2017-07-14 11:41] LABS: Iron 37 ug/dL (49-181); Total Iron Binding Capacity 97 mcg/dL (250-450)
[2017-07-14] MEDS: FERGON PO SCH ×2 (14:00→21:12)
[2017-07-14] MEDS ORDERED: FERROUS GLUCONATE 240 MG PO SCH (14:00)
[2017-07-14] MEDS ORDERED: BABY ASPIRIN PO ONE (15:26)
[2017-07-14] MEDS: MACROBID PO SCH (21:12)
[2017-07-14] MEDS: cefTRIAXone 2 GM in NACL 0.9% 20 ML IV SCH (23:21)
[2017-07-15] MEDS: DILAUDID IV PRN (00:46)
[2017-07-15] MEDS: D5NS 1,000 ML IV SCH (00:46)
[2017-07-15] MEDS: PROVENTIL IH SCH ×3 (08:02→19:54)
[2017-07-15] MEDS ORDERED: LEVAQUIN 500MG/100ML 500 MG/100 ML BAG IV NR (09:45)
[2017-07-15] MEDS ORDERED: LEVAQUIN 500MG/100ML 500 MG/100 ML BAG IV ONE (09:50)
[2017-07-15] MEDS ORDERED: NACL 0.9% 500 ML 500 ML IV SCH (10:00)
--- NOTE | 2017-07-15 10:30 | Operative Report ---
Operative Report Operative Report: EXAM: FLUOROSCOPIC GUIDED EVALUATION OF BILATERAL NEPHROSTOMY TUBES CLINICAL INDICATION: UTI PATIENT WITH UTI DATE: 07/15/2017 PROCEDURE: Patient CT of the abdomen and pelvis was reviewed. The left nephrostomy tube appears to be placed directly in the left renal pelvis. Both kidneys are decompressed however. No significant perinephric stranding. Going an explanation of the risks, benefits and alternatives; written informed consent was obtained from the patient's next of kin. The patient was brought to the angiographic suite and placed in position on the examination table. The patient's indwelling nephrostomy tubes were prepped and draped in the usual sterile fashion. Right: A 10 mL's of contrast was gently injected through the previously placed right nephrostomy tube. There is prompt opacification of a decompressed renal pelvis and proximal ureter. The contrast was then aspirated and dressings changed. The tube was then placed a dependent drainage. Left: Approximately 10 mL's of contrast was gently injected to the previously placed left nephrostomy tube. There is prompt opacification of a decompressed renal pelvis and proximal ureter. The contrast was then aspirated and the dressings changed. The tube was then placed to dependent drainage. The patient tolerated the procedure well. There were no immediate post procedure complications. Sedation was not utilized. Continuous cardiopulmonary monitoring was utilized. IMPRESSION: 1) CT and fluoroscopic imaging obtaining of the right kidney demonstrating appropriate positioning of the right nephrostomy tube. The left nephrostomy tube appears to be within the extrarenal pelvis and may have eroded through parenchyma. The patient will need to be scheduled for a new placement of a percutaneous left nephrostomy tube when he is not febrile and his UTI appropriately controlled. Both nephrostomy tubes are currently functioning well.
--- NOTE | 2017-07-15 11:43 | Consultation ---
History of Present Illness - Reason for Consult Consult date: 07/15/17 - History of Present Illness The patient is an 86-year-old man with a history of stage IV prostate or bladder cancer (known to our services). He has bilateral nephrostomy tubes. He has never been in a half-way or rehabilitation facility per his family. Patient himself has no specific complaint other than weakness. Family states he hasn't been eating or drinking adequately for several days. They did not note a fever. They did not know a difference in his nephrostomy drainage. However grossly one looks a little cloudy compared to the other. He has been admitted to the hospital with UTIs in the past. son at the bedside abd soft perc tubes with clear urine CTAP (07-13-17) - significantly enlarged prostate, + bone mets, bilat perc tubes nephrostograms - both tubes open A/P advanced prostate ca stable bilat perc (normal creatinine) continue present care Medications and Allergies Allergies Allergy/AdvReac Type Severity Reaction Status Date / Time No Known Allergies Allergy Verified 07/13/17 13:15 Home Medications Medication Instructions Recorded Confirmed Last Taken Type Docusate Sodium [Colace CAP] 100 mg PO BID #60 capsule 11/05/15 07/13/17 Rx 100mg Enzalutamide (Nf) [Xtandi (Nf)] 4 cap PO DAILY 06/13/16 07/13/17 05/20/17 History 4 Zolpidem [Ambien] 10 mg PO QHS PRN 06/29/16 07/13/17 05/20/17 History 10mg Ondansetron [Zofran TAB] 4 mg PO PRN 08/31/16 07/13/17 05/06/17 09:00 History Ferrous Gluconate 240 mg PO TID 10/24/16 07/13/17 05/20/17 History 240mg HYDROcodone/APAP 10-325 1 tab PO Q6H PRN 10/24/16 07/13/17 05/03/17 History Sodium Bicarbonate 2 tab PO BID 10/24/16 07/13/17 05/20/17 History 2 Calcium 500-Vit D3 600 Caplet 500 mg PO DAILY 01/28/17 07/13/17 05/20/17 History 500mg Albuterol Sulfate [Albuterol 0.63% 3 ml INHALATION QID 02/25/17 07/13/17 History NEBS] Mirabegron [Myrbetriq] 50 mg PO QDAY 05/06/17 07/13/17 05/20/17 History 50mg Nitrofurantoin Macrocrystal 100 mg PO DAILY 05/06/17 07/13/17 05/20/17 History [Nitrofurantoin] 100mg Pantoprazole [Protonix] 40 mg PO PRN PRN 05/06/17 07/13/17 05/20/17 History 40mg Active Meds: Active Medications Acetaminophen (Tylenol) 650 mg PO Q4H PRN PRN Reason: Pain MILD(1-3)/Fever >100.5/CRAIN Acetaminophen/Hydrocodone Bitart ([place] 10/325) 1 each PO Q6H PRN PRN Reason: Pain, Moderate (4-6) Albuterol (Proventil) 2.5 mg IH TIDRT [facility] Calcium/Vitamin D ([place] D 500 Mg-200 Unit) 1 each PO DAILY [facility] Docusate Sodium (Colace) 100 mg PO BID [facility] Last Admin: 07/14/17 23:23 Dose: 100 mg Famotidine (Pepcid) 20 mg IV DAILY [facility] Last Admin: 07/14/17 10:38 Dose: 20 mg Ferrous Gluconate (Fergon) 324 mg PO TID [facility] Last Admin: 07/14/17 21:12 Dose: 324 mg Furosemide (Lasix) 40 mg IV QDAY [facility] Last Admin: 07/14/17 10:39 Dose: 40 mg Hydromorphone HCl (Dilaudid) 0.5 mg IV Q3H PRN PRN Reason: Pain , Severe (7-10) Last Admin: 07/15/17 00:46 Dose: 0.5 mg Dextrose/Sodium Chloride (D5ns) 1,000 mls @ 75 mls/hr IV DIRECT [facility] Last Admin: 07/15/17 00:46 Dose: 75 mls/hr Ceftriaxone Sodium 2 gm/ (Sodium Chloride) 20 mls @ 20 mls/10 min IV Q24H [facility]; Protocol Last Admin: 07/14/17 23:21 Dose: 20 mls/10 min Levofloxacin/Dextrose (Levaquin 500mg/100ml) 500 mg in 100 mls @ 100 mls/hr IV PREOP NR; Protocol Stop: 07/15/17 23:59 Sodium Chloride (Nacl 0.9% 500 Ml) 500 mls @ 50 mls/hr IV DIRECT [facility] Stop: 07/15/17 23:59 Last Admin: 07/15/17 10:08 Dose: 50 mls/hr Miscellaneous Medication (Enzalutamide (Nf)) 4 cap PO DAILY [facility] Miscellaneous Medication (Mirabegron [Myrbetriq]) 50 mg PO QDAY [facility] Morphine Sulfate (Morphine) 2 mg IV Q4H PRN PRN Reason: Pain, Moderate (4-6) Nitrofurantoin Macrocrystals (Macrobid) 100 mg PO Q24H [facility] Last Admin: 07/14/17 21:12 Dose: 100 mg Ondansetron HCl (Zofran) 4 mg IV Q8H PRN PRN Reason: Nausea And Vomiting Potassium Chloride (K-Dur) 20 meq PO QDAY [facility] Last Admin: 07/14/17 10:39 Dose: 20 meq Sodium Bicarbonate (Sodium Bicarbonate) 1,300 mg PO BID [facility] Last Admin: 07/14/17 23:23 Dose: 1,300 mg Sodium Chloride (Sodium Chloride Flush Syringe 10 Ml) 10 ml IV BID [facility] Last Admin: 07/14/17 23:23 Dose: Not Given Sodium Chloride (Sodium Chloride Flush Syringe 10 Ml) 10 ml IV PRN PRN PRN Reason: LINE FLUSH Zolpidem Tartrate (Ambien) 10 mg PO QHS PRN PRN Reason: Insomnia Exam - Constitutional Vitals: Temp Pulse Resp BP Pulse Ox 98.5 F 80 18 153/82 95 07/15/17 10:05 07/15/17 10:05 07/15/17 10:05 07/15/17 10:05 07/15/17 11:30 Results - Labs CBC & Chem 7: 07/14/17 06:35 07/14/17 06:35 Labs: Abnormal lab results 07/14/17 07/14/17 Range/Units 06:35 14:32 Iron 37 L (49-181) ug/dL TIBC 97 L (250-450) mcg/dL Ferritin > 2000.0 H (13.0-400.0) ng/mL
--- NOTE | 2017-07-15 14:51 | Progress Note ---
Assessment and Plan Assessment and plan: Acute Pyelonephritis -cont IV Rocephin -Urine culture positive for gram-negative rods. Large Bilateral effusion -On IV furosemide. -Patient will benefit from thoracentesis. 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 -Status post fluoroscopic-guided evaluation today. -Urology following. History of Prostate cancer metastatic to bone -for outpatient follow-up. Anemia of chronic disease -H&H stable. History of CHF (congestive heart failure) -No acute exacerbation. Elevated troponin, probably secondary to demand ischemia. -Patient denies acute chest pain. -We will recheck level. -echocardiogram report pending. Disposition: Discharge patient when medically stable. History Interval history: Patient is a 86-year-old male admitted for acute pyelonephritis. He has no new complaints. Hospitalist Physical - Constitutional Vitals: Temp Pulse Resp BP Pulse Ox 98.0 F 79 20 165/75 95 07/15/17 11:00 07/15/17 11:00 07/15/17 11:00 07/15/17 11:00 07/15/17 11:30 General appearance: Present: no acute distress - EENT Eyes: Present: PERRL, EOM intact - Neck Neck: Present: supple - Respiratory Respiratory effort: normal Respiratory: bilateral: diminished - Cardiovascular Rhythm: regular Heart Sounds: Present: S1 & S2 - Extremities Extremities: No edema - Abdominal General gastrointestinal: soft, non-tender, normal bowel sounds, other ( bilateral nephrostomy tubes noted ) - Neurologic Neurologic: CNII-XII intact Results - Labs CBC & Chem 7: 07/14/17 06:35 07/14/17 06:35 Labs: Laboratory Last Values WBC 11.3 K/mm3 (4.5-11.0) H 07/14/17 06:35 RBC 2.65 M/mm3 (3.65-5.03) L 07/14/17 06:35 Hgb 8.1 gm/dl (11.8-15.2) L 07/14/17 06:35 Hct 24.8 % (35.5-45.6) L 07/14/17 06:35 MCV 94 fl (84-94) 07/14/17 06:35 MCH 31 pg (28-32) 07/14/17 06:35 MCHC 33 % (32-34) 07/14/17 06:35 RDW 16.3 % (13.2-15.2) H 07/14/17 06:35 Plt Count 388 K/mm3 (140-440) 07/14/17 06:35 Lymph % (Auto) 11.1 % (13.4-35.0) L 07/14/17 06:35 [place] % (Auto) 5.9 % (0.0-7.3) 07/14/17 06:35 Eos % (Auto) 1.0 % (0.0-4.3) 07/14/17 06:35 Baso % (Auto) 0.9 % (0.0-1.8) 07/14/17 06:35 Lymph # 1.2 K/mm3 (1.2-5.4) 07/14/17 06:35 [place] # 0.7 K/mm3 (0.0-0.8) 07/14/17 06:35 Eos # 0.1 K/mm3 (0.0-0.4) 07/14/17 06:35 Baso # 0.1 K/mm3 (0.0-0.1) 07/14/17 06:35 Seg Neutrophils % 81.1 % (40.0-70.0) H 07/14/17 06:35 Seg Neutrophils # 9.2 K/mm3 (1.8-7.7) H 07/14/17 06:35 PT 14.6 Sec. (12.2-14.9) 07/13/17 11:49 INR 1.08 (0.87-1.13) 07/13/17 11:49 APTT 34.2 Sec. (24.2-36.6) 07/13/17 11:49 Sodium 137 mmol/L (137-145) 07/14/17 06:35 Potassium 3.9 mmol/L (3.6-5.0) 07/14/17 06:35 Chloride 102.6 mmol/L (98-107) 07/14/17 06:35 Carbon Dioxide 20 mmol/L (22-30) L 07/14/17 06:35 Anion Gap 18 mmol/L 07/14/17 06:35 BUN 19 mg/dL (9-20) 07/14/17 06:35 Creatinine 1.3 mg/dL (0.8-1.5) 07/14/17 06:35 Estimated GFR > 60 ml/min 07/14/17 06:35 BUN/Creatinine Ratio 15 % 07/14/17 06:35 Glucose 104 mg/dL (75-100) H 07/14/17 06:35 Hemoglobin A1c < 4.2 % (4-6) 07/13/17 11:49 Lactic Acid 2.00 mmol/L (0.7-2.0) 07/13/17 11:49 Calcium 7.9 mg/dL (8.4-10.2) L 07/14/17 06:35 Phosphorus 2.90 mg/dL (2.5-4.5) 07/13/17 11:49 Magnesium 1.90 mg/dL (1.7-2.3) 07/13/17 11:49 Iron 37 ug/dL (49-181) L 07/14/17 06:35 TIBC 97 mcg/dL (250-450) L 07/14/17 06:35 Ferritin > 2000.0 ng/mL (13.0-400.0) H 07/14/17 14:32 Total Bilirubin 0.20 mg/dL (0.1-1.2) 07/14/17 06:35 Direct Bilirubin < 0.2 mg/dL (0-0.2) 07/13/17 11:49 AST 19 units/L (5-40) 07/14/17 06:35 ALT < 5 units/L (7-56) L 07/14/17 06:35 Alkaline Phosphatase 142 units/L (35-129) H 07/14/17 06:35 Ammonia 19.0 umol/L (25-60) L 07/13/17 11:49 Total Creatine Kinase 42 units/L (55-170) L 07/13/17 11:49 CK-MB (CK-2) 1.9 ng/mL (0.0-4.0) 07/13/17 11:49 CK-MB (CK-2) Rel Index 4.5 (0-4) H 07/13/17 11:49 Troponin T 0.077 ng/mL (0.00-0.029) H 07/13/17 11:49 NT-Pro-B Natriuret Pep 8740 pg/mL (0-900) H 07/13/17 11:49 Total Protein 6.3 g/dL (6.3-8.2) 07/14/17 06:35 Albumin 2.6 g/dL (3.9-5) L 07/14/17 06:35 Albumin/Globulin Ratio 0.7 % 07/14/17 06:35 Triglycerides 122 mg/dL (2-149) 07/13/17 11:49 Cholesterol 168 mg/dL (50-199) 07/13/17 11:49 LDL Cholesterol Direct 97 mg/dL (50-130) 07/13/17 11:49 HDL Cholesterol 53 mg/dL (40-59) 07/13/17 11:49 Cholesterol/HDL Ratio 3.16 % 07/13/17 11:49 Vitamin B12 613.2 pg/mL (211-911) 07/14/17 14:32 Folate 9.98 ng/mL (7.3-26.0) 07/14/17 14:32 TSH 1.810 mlU/mL (0.270-4.200) 07/13/17 11:49 Urine Color Yellow (Yellow) 07/13/17 12:59 Urine Turbidity Clear (Clear) 07/13/17 12:59 Urine pH 9.0 (5.0-7.0) H 07/13/17 12:59 Ur Specific [place] 1.009 (1.003-1.030) 07/13/17 12:59 Urine Protein 30 mg/dl mg/dL (Negative) 07/13/17 12:59 Urine Glucose (UA) Neg mg/dL (Negative) 07/13/17 12:59 Urine Ketones Neg mg/dL (Negative) 07/13/17 12:59 Urine Blood Lg (Negative) 07/13/17 12:59 Urine Nitrite Pos (Negative) 07/13/17 12:59 Urine Bilirubin Neg (Negative) 07/13/17 12:59 Urine Urobilinogen < 2.0 mg/dL (<2.0) 07/13/17 12:59 Ur Leukocyte Esterase Lg (Negative) 07/13/17 12:59 Urine WBC (Auto) > 182.0 /HPF (0.0-6.0) H 07/13/17 12:59 Urine RBC (Auto) > 182.0 /HPF (0.0-6.0) 07/13/17 12:59 Urine Bacteria (Auto) 1+ /HPF (Negative) 07/13/17 12:59 Urine WBC Clumps 3+ /HPF 07/13/17 12:59 Urine Mucus 1+ /HPF 07/13/17 12:59
[2017-07-15] MEDS: LASIX IV SCH (15:30)
[2017-07-15] MEDS: K-DUR PO SCH (15:30)
[2017-07-15] MEDS: SODIUM BICARBONATE PO SCH ×2 (15:31→23:46)
[2017-07-15] MEDS: NON-FORMULARY (Mirabegron [Myrbetriq] 50 MG) PO SCH (15:32)
[2017-07-15] MEDS: COLACE PO SCH ×2 (15:34→23:45)
[2017-07-15] MEDS: PEPCID IV SCH (15:34)
[2017-07-15] MEDS: OYSCO D 500 MG-200 UNIT PO SCH (15:35)
[2017-07-15] MEDS: FERGON PO SCH ×3 (15:37→23:45)
[2017-07-15] MEDS: ENZALUTAMIDE PO SCH ×2 (15:43→15:45)
[2017-07-15] MEDS: SODIUM CHLORIDE FLUSH SYRINGE 10 ML IV SCH ×2 (15:47→23:47)
[2017-07-15] MEDS: cefTRIAXone 2 GM in NACL 0.9% 20 ML IV SCH (23:45)
[2017-07-15] MEDS: MACROBID PO SCH (23:45)
[2017-07-16] MEDS: D5NS 1,000 ML IV SCH ×3 (06:35→22:07)
[2017-07-16] MEDS: DILAUDID IV PRN (06:42)
--- NOTE | 2017-07-16 07:58 | Progress Note ---
Assessment and Plan Acute Pyelonephritis Prostate cancer metastatic to bone Anemia of chronic disease Chronic systolic HF (congestive heart failure) OAB (overactive bladder) Pleural effusion likely sec. to CHF Elevated troponin - non specific DVT prophylaxis Obtian Urine CX yielded Gram negative rods Continue on IV Rocephin ACEI, BB, duiretic Continue with Xtandif or Metastaic prostae cancer Stict Is and Os. diaily weight. Fluid restriction Anemia W/u ECHO 60-65 % EF with Nl LV fxn Mybetric for OAB Heparin for DVT PPx Subjective Date of service: 07/16/17 Principal diagnosis: metastaic prostate cancer Interval history: still feeling weak. No fever or chills. Pt's daughter in the room. reviewed laboratory and radiological data Objective - Constitutional Vitals: Vital Signs - 12hr 07/15/17 07/15/17 07/16/17 19:55 20:10 07:15 Temperature 98.8 F Pulse Rate 81 Pulse Rate [ 88 90 Anterior Throughout] Respiratory 16 Rate Respiratory 18 18 Rate [Anterior Throughout] Blood Pressure 134/78 [Left] O2 Sat by Pulse 100 Oximetry General appearance: Present: no acute distress, well-nourished - EENT Eyes: PERRL, EOM intact - Neck Neck: supple, normal ROM - Respiratory Respiratory effort: normal Respiratory: bilateral: CTA - Cardiovascular Rhythm: regular Heart Sounds: Present: S1 & S2. Absent: gallop, rub Extremities: pulses intact, No edema, normal color, Full ROM - Gastrointestinal General gastrointestinal: Present: soft, non-tender, non-distended, normal bowel sounds - Integumentary Integumentary: clear, warm, dry - Musculoskeletal Musculoskeletal: 1, strength equal bilaterally - Neurologic Neurologic: moves all extremities - Psychiatric Psychiatric: memory intact, appropriate mood/affect, intact judgment & insight - Labs CBC & Chem 7: 07/14/17 06:35 07/16/17 07:24
[2017-07-16] MEDS: PROVENTIL IH SCH ×3 (09:29→21:11)
[2017-07-16 10:17] LABS: BUN/Creatinine Ratio 11; Blood Urea Nitrogen 14 mg/dL (9-20); Calcium 7.6 mg/dL (8.4-10.2); Hemolysis Index 7
[2017-07-16] MEDS: ENZALUTAMIDE PO SCH (11:30)
[2017-07-16] MEDS: NON-FORMULARY (Mirabegron [Myrbetriq] 50 MG) PO SCH (11:31)
[2017-07-16] MEDS: PEPCID PO SCH (11:32)
[2017-07-16] MEDS: SODIUM BICARBONATE PO SCH ×2 (11:32→21:59)
[2017-07-16] MEDS: COLACE PO SCH ×2 (11:33→21:59)
[2017-07-16] MEDS: K-DUR PO SCH (11:33)
[2017-07-16] MEDS: FERGON PO SCH ×3 (11:33→21:59)
[2017-07-16] MEDS: OYSCO D 500 MG-200 UNIT PO SCH (11:33)
[2017-07-16] MEDS: SODIUM CHLORIDE FLUSH SYRINGE 10 ML IV SCH ×2 (11:34→21:58)
[2017-07-16] MEDS: NORCO 10/325 PO PRN (16:49)
[2017-07-16] MEDS: COREG PO SCH ×2 (16:49→21:58)
[2017-07-16] MEDS: ZESTRIL PO SCH (16:50)
[2017-07-16] MEDS: LASIX IV SCH (17:51)
[2017-07-16] MEDS: MACROBID PO SCH (22:08)
[2017-07-16] MEDS: cefTRIAXone 1 GM in NACL 0.9% 20 ML IV SCH (22:11)
[2017-07-17] MEDS: PROVENTIL IH SCH ×3 (08:16→20:59)
[2017-07-17 08:34] LABS: Basophils # (Auto) 0.1 K/mm3 (0.0-0.1); Basophils % (Auto) 1.1 % (0.0-1.8); Eosinophils # (Auto) 0.1 K/mm3 (0.0-0.4); Hemoglobin 7.8 gm/dl (11.8-15.2); Lymphocytes # (Auto) 1.3 K/mm3 (1.2-5.4); Lymphocytes % (Auto) 10.2 % (13.4-35.0); Mean Corpuscular HGB Conc 31 % (32-34); Mean Corpuscular Hemoglobin 30 pg (28-32); Mean Corpuscular Volume 96 fl (84-94); Monocytes # (Auto) 1.1 K/mm3 (0.0-0.8); Monocytes % (Auto) 8.7 % (0.0-7.3); Platelet Count 309 K/mm3 (140-440); Red Cell Distribution Width 17.4 % (13.2-15.2)
[2017-07-17 08:56] LABS: Alanine Aminotransferase 5 units/L (7-56); Albumin 2.3 g/dL (3.9-5); BUN/Creatinine Ratio 13; Blood Urea Nitrogen 15 mg/dL (9-20); Calcium 7.8 mg/dL (8.4-10.2); Hemolysis Index 21
[2017-07-17] MEDS: SODIUM BICARBONATE PO SCH (12:35)
[2017-07-17] MEDS: ZESTRIL PO SCH (12:36)
[2017-07-17] MEDS: PEPCID PO SCH (12:36)
[2017-07-17] MEDS: COREG PO SCH (12:36)
[2017-07-17] MEDS: OYSCO D 500 MG-200 UNIT PO SCH (12:37)
[2017-07-17] MEDS: K-DUR PO SCH (12:37)
[2017-07-17] MEDS: COLACE PO SCH (12:37)
[2017-07-17] MEDS: LASIX IV SCH (12:37)
[2017-07-17] MEDS: ENZALUTAMIDE PO SCH (12:56)
[2017-07-17] MEDS: FERGON PO SCH ×2 (12:56→14:19)
[2017-07-17] MEDS: SODIUM CHLORIDE FLUSH SYRINGE 10 ML IV SCH (12:58)
[2017-07-17] MEDS: NON-FORMULARY (Mirabegron [Myrbetriq] 50 MG) PO SCH (12:59)
[2017-07-17] MEDS: D5NS 1,000 ML IV SCH (13:00)
--- NOTE | 2017-07-17 22:44 | Progress Note ---
Assessment and Plan Acute Pyelonephritis Prostate cancer metastatic to bone Anemia of chronic disease Chronic systolic HF (congestive heart failure) OAB (overactive bladder) Pleural effusion likely sec. to CHF Elevated troponin - non specific DVT prophylaxis Obtian Urine CX yielded Gram negative rods and MDR pseudomonas Continue on IV Rocephin ACEI, BB, duiretic Continue with Xtandif or Metastaic prostae cancer Stict Is and Os. diaily weight. Fluid restriction Anemia W/u ECHO 60-65 % EF with Nl LV fxn Mybetric for OAB Heparin for DVT PPx Subjective Date of service: 07/17/17 Principal diagnosis: metastaic prostate cancer Interval history: still feeling weak. No fever or chills. reviewed laboratory and radiological data Objective - Constitutional Vitals: Vital Signs - 12hr 07/17/17 07/17/17 07/17/17 12:36 16:28 19:55 Temperature 98.9 F Pulse Rate 84 Pulse Rate [ 82 Anterior Throughout] Respiratory 20 Rate Respiratory 20 Rate [Anterior Throughout] Blood Pressure 159/73 Blood Pressure 143/70 [Left] O2 Sat by Pulse 96 Oximetry 07/17/17 20:05 Temperature Pulse Rate Pulse Rate [ 83 Anterior Throughout] Respiratory Rate Respiratory 20 Rate [Anterior Throughout] Blood Pressure Blood Pressure [Left] O2 Sat by Pulse Oximetry General appearance: Present: no acute distress, well-nourished - EENT Eyes: PERRL, EOM intact - Neck Neck: supple, normal ROM - Respiratory Respiratory effort: normal Respiratory: bilateral: diminished - Cardiovascular Rhythm: regular Heart Sounds: Present: S1 & S2. Absent: gallop, rub Extremities: pulses intact, No edema, normal color, Full ROM - Gastrointestinal General gastrointestinal: Present: soft, non-tender, non-distended, normal bowel sounds - Integumentary Integumentary: clear, warm, dry - Musculoskeletal Musculoskeletal: generalized weakness - Neurologic Neurologic: moves all extremities - Psychiatric Psychiatric: memory intact, appropriate mood/affect, intact judgment & insight - Labs CBC & Chem 7: 07/17/17 07:43 07/17/17 07:43 Labs: Abnormal lab results 07/13/17 07/17/17 07/17/17 Range/Units 10:13 07:43 07:43 WBC 12.5 H (4.5-11.0) K/mm3 RBC 2.60 L (3.65-5.03) M/mm3 Hgb 7.8 L (11.8-15.2) gm/dl Hct 25.0 L (35.5-45.6) % MCV 96 H (84-94) fl MCHC 31 L (32-34) % RDW 17.4 H (13.2-15.2) % Lymph % (Auto) 10.2 L (13.4-35.0) % [place] % (Auto) 8.7 H (0.0-7.3) % [place] # 1.1 H (0.0-0.8) K/mm3 Seg Neutrophils % 79.0 H (40.0-70.0) % Seg Neutrophils # 9.8 H (1.8-7.7) K/mm3 Sodium 136 L (137-145) mmol/L Carbon Dioxide 18 L (22-30) mmol/L Calcium 7.8 L (8.4-10.2) mg/dL ALT 5 L (7-56) units/L Total Protein 5.8 L (6.3-8.2) g/dL Albumin 2.3 L (3.9-5) g/dL Urine pH 8.0 H (5.0-7.0) Urine WBC (Auto) 28.0 H (0.0-6.0) /HPF
[2017-07-18] MEDS: COREG PO SCH ×3 (02:37→23:10)
[2017-07-18] MEDS: MACROBID PO SCH ×2 (02:38→23:09)
[2017-07-18] MEDS: SODIUM BICARBONATE PO SCH ×3 (02:38→23:09)
[2017-07-18] MEDS: FERGON PO SCH ×4 (02:39→20:40)
[2017-07-18] MEDS: COLACE PO SCH ×3 (02:40→23:09)
[2017-07-18] MEDS: cefTRIAXone 1 GM in NACL 0.9% 20 ML IV SCH (03:00)
[2017-07-18] MEDS: SODIUM CHLORIDE FLUSH SYRINGE 10 ML IV SCH ×3 (03:01→23:11)
--- NOTE | 2017-07-18 09:07 | Progress Note ---
Assessment and Plan Acute Pyelonephritis Prostate cancer metastatic to bone Anemia of chronic disease Chronic systolic HF (congestive heart failure) OAB (overactive bladder) Pleural effusion likely sec. to CHF Elevated troponin - non specific DVT prophylaxis Urine CX of 07/13 yielded Kleb Pneumonia, P. aeruginaosa and Diphteriods and MDR pseudomonas Continue on IV Rocephin ACEI, BB, duiretic Continue with Xtandif or Metastaic prostae cancer Stict Is and Os. diaily weight. Fluid restriction Anemia W/u ECHO 60-65 % EF with Nl LV fxn Mybetric for OAB Heparin for DVT PPx Subjective Date of service: 07/18/17 Principal diagnosis: metastaic prostate cancer, UTI sepsis from UTI Interval history: still feeling weak. Had no fever or chills. reviewed laboratory and radiological data Objective - Constitutional Vitals: Vital Signs - 12hr 07/17/17 07/18/17 07/18/17 23:31 02:37 07:04 Temperature 98.8 F Pulse Rate 88 88 Respiratory 16 Rate Blood Pressure 145/70 145/70 O2 Sat by Pulse 98 95 Oximetry 07/18/17 08:19 Temperature 99.1 F Pulse Rate 82 Respiratory 24 Rate Blood Pressure 130/70 O2 Sat by Pulse 99 Oximetry General appearance: Present: no acute distress, well-nourished - EENT Eyes: PERRL, EOM intact - Neck Neck: supple, normal ROM - Respiratory Respiratory effort: normal Respiratory: bilateral: CTA - Cardiovascular Rhythm: regular Heart Sounds: Present: S1 & S2. Absent: gallop, rub Extremities: pulses intact, No edema, normal color, Full ROM - Gastrointestinal General gastrointestinal: Present: soft, non-tender, non-distended, normal bowel sounds - Genitourinary Male genitourinary: normal - Integumentary Integumentary: clear, warm, dry - Musculoskeletal Musculoskeletal: 1, strength equal bilaterally - Neurologic Neurologic: moves all extremities - Psychiatric Psychiatric: memory intact, appropriate mood/affect, intact judgment & insight - Labs CBC & Chem 7: 07/17/17 07:43 07/17/17 07:43
[2017-07-18] MEDS: D5NS 1,000 ML IV SCH (09:57)
[2017-07-18] MEDS: PEPCID PO SCH (09:59)
[2017-07-18] MEDS: ENZALUTAMIDE PO SCH (09:59)
[2017-07-18] MEDS: LASIX IV SCH (10:00)
[2017-07-18] MEDS: ZESTRIL PO SCH (10:00)
[2017-07-18] MEDS: OYSCO D 500 MG-200 UNIT PO SCH (10:00)
[2017-07-18] MEDS: K-DUR PO SCH (10:00)
[2017-07-18] MEDS: NON-FORMULARY (Mirabegron [Myrbetriq] 50 MG) PO SCH (10:01)
--- NOTE | 2017-07-18 11:48 | Procedure Note ---
Date of procedure: 07/18/17 Pre-op diagnosis: right pleural effusion Post-op diagnosis: same Procedure: US thoracentesis Findings: moderate right pleural fluid Anesthesia: local Surgeon: DAYAMI GIVENS Estimated blood loss: none Pathology: list (120cc) Specimen disposition: to lab Condition: stable Disposition: floor
--- NOTE | 2017-07-18 13:05 | Ultrasound Report ---
ULTRASOUND THORACENTESIS History: Right pleural effusion Description of procedure: Informed consent was obtained from a family member. Sterile technique was utilized. 1% lidocaine for skin anesthesia. Using ultrasound guidance, a 5 [place] centesis needle was advanced into the right pleural space. There was spontaneous return of clear yellow fluid. 700 cc of fluid was aspirated. 120 cc of fluid was sent to the lab for analysis. No complications. Impression: Successful ultrasound-guided right thoracentesis.
--- NOTE | 2017-07-18 13:27 | XRay Report ---
AP CHEST: HISTORY: Shortness of breath, recent right thoracentesis Recent ultrasound-guided right thoracentesis was performed in which 700 cc of fluid was removed. There is complete evacuation of the right pleural fluid. No pneumothorax is appreciated. Small left pleural effusion remains. The lungs are clear otherwise. Heart and mediastinal structures are within normal limits. The bony structures demonstrate multiple sclerotic bony lesions consistent with a metastatic process such as prostate cancer. IMPRESSION: Complete evacuation of the right pleural effusion. No pneumothorax.
[2017-07-18] MEDS: NORCO 10/325 PO PRN ×2 (14:12→20:39)
[2017-07-18 14:32] LABS: Basophils # (Auto) 0.1 K/mm3 (0.0-0.1); Basophils % (Auto) 0.6 % (0.0-1.8); Eosinophils # (Auto) 0.1 K/mm3 (0.0-0.4); Eosinophils % (Auto) 0.4 % (0.0-4.3); Hematocrit 25.3 % (35.5-45.6); Lymphocytes # (Auto) 1.4 K/mm3 (1.2-5.4); Lymphocytes % (Auto) 9.7 % (13.4-35.0); Mean Corpuscular HGB Conc 32 % (32-34); Mean Corpuscular Hemoglobin 30 pg (28-32); Mean Corpuscular Volume 94 fl (84-94); Monocytes # (Auto) 1.3 K/mm3 (0.0-0.8); Monocytes % (Auto) 8.5 % (0.0-7.3); Platelet Count 353 K/mm3 (140-440); Red Cell Distribution Width 17.1 % (13.2-15.2)
[2017-07-18 15:03] LABS: Alanine Aminotransferase 5 units/L (7-56); Albumin 2.6 g/dL (3.9-5); BUN/Creatinine Ratio 14; Blood Urea Nitrogen 20 mg/dL (9-20); Calcium 8.3 mg/dL (8.4-10.2); Hemolysis Index 0
--- NOTE | 2017-07-18 17:03 | Consultation ---
History of Present Illness - Reason for Consult Consult date: 07/18/17 UTI Requesting physician: NEY CORTEZ - History of Present Illness 86 yo M PMH stage IV prostate cancer, with long standing bilateral nephrostomy tubes in place, who was admitted from home on 07/13/17 with weakness and poor po intake for several days. History is obtained from EMR and discussion by phone with pt's daughter Vicky over the phone. Pt was admitted in January 2017 with Klebsiella septicemia due to complicated UTI and was treated with a 14 day course of Zosyn. He also grew at the time Pseudomonas aeruginosa in the urine. In the ER pt was afebrile. T 97.8, pulse 87, RR 18, SO2 98%, BP 171/85. Labs showed WBC 13.1, H/H 8.9/27.7, PLTs 406. UA showed positive nitrates and Leukocyte esterase and pyuria. CXR showed bilateral pleural effusions. CT A/P showed large pelvic mass due to prostate malignancy, bony mets, bilateral nephrostomy tubes, but no hydronephrosis and large bilateral free flowing pleural effusions. Urine cultures are positive for MDR Pseudomonas aeruginosa, Pseudomonas putida/fluorescens and Klebsiella pneumonia. Pt received Ceftriaxone from 07/13 to 07/15. Levofloxacin on 07/15 and is again on ceftriaxone since 07/16. He also underwent a R thoracentesis today. ID is consulted to help with further antibiotic management. Microbiology Blood cultures 07/13 negative Urine cx 07/13 P. aeruginosa MDR, Pseudomonas putida/fluorescens, Klebsiella pneumoniae, Diphtheroids. Antibiotics Ceftriaxone since 07/16 Levofloxacin 07/15 Ceftriaxone 07/13-07/15 . Past History Past Medical History: other (Prostate cancer with mets) Past Surgical History: Other (Bilateral nephrostomy tubes) Social history: lives with family Medications and Allergies Allergies Allergy/AdvReac Type Severity Reaction Status Date / Time No Known Allergies Allergy Verified 07/13/17 13:15 Home Medications Medication Instructions Recorded Confirmed Last Taken Type Docusate Sodium [Colace CAP] 100 mg PO BID #60 capsule 11/05/15 07/13/17 Rx 100mg Enzalutamide (Nf) [Xtandi (Nf)] 4 cap PO DAILY 06/13/16 07/13/17 05/20/17 History 4 Zolpidem [Ambien] 10 mg PO QHS PRN 06/29/16 07/13/17 05/20/17 History 10mg Ondansetron [Zofran TAB] 4 mg PO PRN 08/31/16 07/13/17 05/06/17 09:00 History Ferrous Gluconate 240 mg PO TID 10/24/16 07/13/17 05/20/17 History 240mg HYDROcodone/APAP 10-325 1 tab PO Q6H PRN 10/24/16 07/13/17 05/03/17 History Sodium Bicarbonate 2 tab PO BID 10/24/16 07/13/17 05/20/17 History 2 Calcium 500-Vit D3 600 [place] 500 mg PO DAILY 01/28/17 07/13/17 05/20/17 History 500mg Albuterol Sulfate [Albuterol 0.63% 3 ml INHALATION QID 02/25/17 07/13/17 History NEBS] Mirabegron [Myrbetriq] 50 mg PO QDAY 05/06/17 07/13/17 05/20/17 History 50mg Nitrofurantoin Macrocrystal 100 mg PO DAILY 05/06/17 07/13/17 05/20/17 History [Nitrofurantoin] 100mg Pantoprazole [Protonix] 40 mg PO PRN PRN 05/06/17 07/13/17 05/20/17 History 40mg Active Meds: Active Medications Acetaminophen (Tylenol) 650 mg PO Q4H PRN PRN Reason: Pain MILD(1-3)/Fever >100.5/CRAIN Acetaminophen/Hydrocodone Bitart ([place] 10/325) 1 each PO Q6H PRN PRN Reason: Pain, Moderate (4-6) Last Admin: 07/18/17 14:12 Dose: 1 each Albuterol (Proventil) 2.5 mg IH TIDRT PRN PRN Reason: Shortness Of Breath Calcium/Vitamin D ([place] D 500 Mg-200 Unit) 1 each PO DAILY [facility] Last Admin: 07/18/17 10:00 Dose: 1 each Carvedilol (Coreg) 6.25 mg PO BID [facility] Last Admin: 07/18/17 10:00 Dose: 6.25 mg Docusate Sodium (Colace) 100 mg PO BID [facility] Last Admin: 07/18/17 10:00 Dose: 100 mg Famotidine (Pepcid) 20 mg PO DAILY [facility] Last Admin: 07/18/17 09:59 Dose: 20 mg Ferrous Gluconate (Fergon) 324 mg PO TID [facility] Last Admin: 07/18/17 13:52 Dose: 324 mg Furosemide (Lasix) 40 mg IV QDAY [facility] Last Admin: 07/18/17 10:00 Dose: 40 mg Dextrose/Sodium Chloride (D5ns) 1,000 mls @ 75 mls/hr IV DIRECT [facility] Last Admin: 07/18/17 09:57 Dose: 75 mls/hr Ceftriaxone Sodium 1 gm/ (Sodium Chloride) 20 mls @ 20 mls/10 min IV QHS [facility]; Protocol Last Admin: 07/18/17 03:00 Dose: 20 mls/10 min Lisinopril (Zestril) 5 mg PO QDAY [facility] Last Admin: 07/18/17 10:00 Dose: 5 mg Miscellaneous Medication (Enzalutamide (Nf)) 4 cap PO DAILY [facility] Last Admin: 07/18/17 09:59 Dose: 4 cap Miscellaneous Medication (Mirabegron [Myrbetriq]) 50 mg PO QDAY [facility] Last Admin: 07/18/17 10:01 Dose: 50 mg Nitrofurantoin Macrocrystals (Macrobid) 100 mg PO Q24H [facility] Last Admin: 07/18/17 02:38 Dose: 100 mg Ondansetron HCl (Zofran) 4 mg IV Q8H PRN PRN Reason: Nausea And Vomiting Potassium Chloride (K-Dur) 20 meq PO QDAY [facility] Last Admin: 07/18/17 10:00 Dose: 20 meq Sodium Bicarbonate (Sodium Bicarbonate) 1,300 mg PO BID [facility] Last Admin: 07/18/17 10:00 Dose: 1,300 mg Sodium Chloride (Sodium Chloride Flush Syringe 10 Ml) 10 ml IV BID [facility] Last Admin: 07/18/17 12:29 Dose: 10 ml Sodium Chloride (Sodium Chloride Flush Syringe 10 Ml) 10 ml IV PRN PRN PRN Reason: LINE FLUSH Zolpidem Tartrate (Ambien) 10 mg PO QHS PRN PRN Reason: Insomnia Last Admin: 07/16/17 22:06 Dose: 10 mg Review of Systems ROS unobtainable: due to mental status Physical Examination - Physical Exam Narrative exam: GENERAL: Pt in NAD, chronically ill-looking. HEENT: NC/AT. PERRLA. EOMI. Oropharynx is clear. NECK: Supple. HEART: S1,S1. LUNGS: Decreased at the bases. ABDOMEN: +BS. Soft. NT/ND. Bilateral nephrostomy tubes in place. EXTREMITIES: no c/c/e. SKIN: Stage 2 sacral decubitus ulcer. - Constitutional Vitals: Vital Signs Temp Pulse Resp BP Pulse Ox 99.1 F 82 24 130/70 99 07/18/17 08:19 07/18/17 08:19 07/18/17 08:19 07/18/17 08:19 07/18/17 08:19 Temperature -Last 24 Hours Temperature 99.1 F Temperature 98.8 F Results - Labs CBC & Chem 7: 07/18/17 14:06 07/18/17 14:06 Labs: Abnormal lab results 07/18/17 07/18/17 Range/Units 14:06 14:06 WBC 14.7 H (4.5-11.0) K/mm3 RBC 2.70 L (3.65-5.03) M/mm3 Hgb 8.0 L (11.8-15.2) gm/dl Hct 25.3 L (35.5-45.6) % RDW 17.1 H (13.2-15.2) % Lymph % (Auto) 9.7 L (13.4-35.0) % [place] % (Auto) 8.5 H (0.0-7.3) % [place] # 1.3 H (0.0-0.8) K/mm3 Seg Neutrophils % 80.8 H (40.0-70.0) % Seg Neutrophils # 11.9 H (1.8-7.7) K/mm3 Sodium 135 L (137-145) mmol/L Carbon Dioxide 19 L (22-30) mmol/L Glucose 117 H (75-100) mg/dL Calcium 8.3 L (8.4-10.2) mg/dL ALT 5 L (7-56) units/L Alkaline Phosphatase 168 H (35-129) units/L Total Protein 6.0 L (6.3-8.2) g/dL Albumin 2.6 L (3.9-5) g/dL Assessment and Plan IMPRESSION 1. Complicated UTI with bilateral nephrostomy tubes in place. Urine cx with MDR Pseudomonas aeruginosa, Pseudomonas fluorescens/putida, Klebsiella pneumoniae. 2. Leukocytosis. 3. 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 4. Bilateral pleural effusions, s/p R thoracentesis 07/18/17. 5. H/o Klebsiella septicemia and Pseudomonas aeruginosa complicated UTI in January 2017. RECOMMENDATIONS -Stop ceftriaxone -Will start ceftazidime/avibactam (Avycaz). Not in formulary, but pharmacy will get by tomorrow. -Will give one dose of Polymixin B in the meantime. -Closely monitor renal function. -Will need nephrostomy tubes exchange. d/w Dr Diane. -As per d/w Dr Diane, due to advancing prostate cancer, bladder is displaced, and with changes in bladder anatomy pt is likely retaining urine and maybe forming pockets of pus which will make very difficult to eradicate an already MDR Pseudomonas aeruginosa. May benefit from a hospice evaluation. -d/w RN and pt's daughter Veronica and Dr Cortez. Becky Engle MD. ID attending. [facility]. C [phone]
--- NOTE | 2017-07-18 19:19 | Consultation ---
History of Present Illness Consult date: 07/18/17 Reason for consult: dyspnea, pleural effusion, DVT History of present illness: PULMONARY CONSULTATION This is 86 year old male history of stage 1V prostate cancer admited for UTI. Patient has bilateral nephrostomy tubes. Patient feeling weak. denied fever,chills,chest pain or shortness of breath.Patient has history of hypertension,CA,DVT,Arthritis,Kidney stones, Hyperlipidemia, CAD,Metastatic prostatic CA and Mass in urinary bladder.According to the chart no history of smoking.Patient sleeping at this time on room air.O2 saturation 98%. No acute respiratory distress. Chest xray showed bilateral pleural effusions . Patient undergone right thoracentesis under ultrasound guidance.Pleural fluid results pending. Past History Past Medical History: acute CA, CAD, cancer, DVT, hypertension, other (Prostate cancer with mets) Past Surgical History: Other (Bilateral nephrostomy tubes) Social history: lives with family Medications and Allergies Allergies Allergy/AdvReac Type Severity Reaction Status Date / Time No Known Allergies Allergy Verified 07/13/17 13:15 Home Medications Medication Instructions Recorded Confirmed Last Taken Type Docusate Sodium [Colace CAP] 100 mg PO BID #60 capsule 11/05/15 07/13/17 Rx 100mg Enzalutamide (Nf) [Xtandi (Nf)] 4 cap PO DAILY 06/13/16 07/13/17 05/20/17 History 4 Zolpidem [Ambien] 10 mg PO QHS PRN 06/29/16 07/13/17 05/20/17 History 10mg Ondansetron [Zofran TAB] 4 mg PO PRN 08/31/16 07/13/17 05/06/17 09:00 History Ferrous Gluconate 240 mg PO TID 10/24/16 07/13/17 05/20/17 History 240mg HYDROcodone/APAP 10-325 1 tab PO Q6H PRN 10/24/16 07/13/17 05/03/17 History Sodium Bicarbonate 2 tab PO BID 10/24/16 07/13/17 05/20/17 History 2 Calcium 500-Vit D3 600 Caplet 500 mg PO DAILY 01/28/17 07/13/17 05/20/17 History 500mg Albuterol Sulfate [Albuterol 0.63% 3 ml INHALATION QID 02/25/17 07/13/17 History NEBS] Mirabegron [Myrbetriq] 50 mg PO QDAY 05/06/17 07/13/17 05/20/17 History 50mg Nitrofurantoin Macrocrystal 100 mg PO DAILY 05/06/17 07/13/17 05/20/17 History [Nitrofurantoin] 100mg Pantoprazole [Protonix] 40 mg PO PRN PRN 05/06/17 07/13/17 05/20/17 History 40mg Active Meds: Active Medications Acetaminophen (Tylenol) 650 mg PO Q4H PRN PRN Reason: Pain MILD(1-3)/Fever >100.5/CRAIN Acetaminophen/Hydrocodone Bitart ([place] 10/325) 1 each PO Q6H PRN PRN Reason: Pain, Moderate (4-6) Last Admin: 07/18/17 14:12 Dose: 1 each Albuterol (Proventil) 2.5 mg IH TIDRT PRN PRN Reason: Shortness Of Breath Calcium/Vitamin D ([place] D 500 Mg-200 Unit) 1 each PO DAILY [facility] Last Admin: 07/18/17 10:00 Dose: 1 each Carvedilol (Coreg) 6.25 mg PO BID [facility] Last Admin: 07/18/17 10:00 Dose: 6.25 mg Docusate Sodium (Colace) 100 mg PO BID [facility] Last Admin: 07/18/17 10:00 Dose: 100 mg Famotidine (Pepcid) 20 mg PO DAILY [facility] Last Admin: 07/18/17 09:59 Dose: 20 mg Ferrous Gluconate (Fergon) 324 mg PO TID [facility] Last Admin: 07/18/17 13:52 Dose: 324 mg Furosemide (Lasix) 40 mg IV QDAY [facility] Last Admin: 07/18/17 10:00 Dose: 40 mg Dextrose/Sodium Chloride (D5ns) 1,000 mls @ 75 mls/hr IV DIRECT [facility] Last Admin: 07/18/17 09:57 Dose: 75 mls/hr Polymyxin B Sulfate 400,000 (unit/ Dextrose) 300 mls @ 200 mls/hr IV ONCE [facility] Stop: 07/18/17 21:29 Lisinopril (Zestril) 5 mg PO QDAY [facility] Last Admin: 07/18/17 10:00 Dose: 5 mg Miscellaneous Medication (Enzalutamide (Nf)) 4 cap PO DAILY [facility] Last Admin: 07/18/17 09:59 Dose: 4 cap Miscellaneous Medication (Mirabegron [Myrbetriq]) 50 mg PO QDAY [facility] Last Admin: 07/18/17 10:01 Dose: 50 mg Miscellaneous Medication (Non-Formulary) 1 each IV Q8H [facility] Nitrofurantoin Macrocrystals (Macrobid) 100 mg PO Q24H [facility] Last Admin: 07/18/17 02:38 Dose: 100 mg Ondansetron HCl (Zofran) 4 mg IV Q8H PRN PRN Reason: Nausea And Vomiting Potassium Chloride (K-Dur) 20 meq PO QDAY [facility] Last Admin: 07/18/17 10:00 Dose: 20 meq Sodium Bicarbonate (Sodium Bicarbonate) 1,300 mg PO BID [facility] Last Admin: 07/18/17 10:00 Dose: 1,300 mg Sodium Chloride (Sodium Chloride Flush Syringe 10 Ml) 10 ml IV BID [facility] Last Admin: 07/18/17 12:29 Dose: 10 ml Sodium Chloride (Sodium Chloride Flush Syringe 10 Ml) 10 ml IV PRN PRN PRN Reason: LINE FLUSH Zolpidem Tartrate (Ambien) 10 mg PO QHS PRN PRN Reason: Insomnia Last Admin: 07/16/17 22:06 Dose: 10 mg Review of Systems All systems: negative Physical Examination Vital signs: Vital Signs Temp Pulse Resp BP Pulse Ox 97.8 F 97 H 18 171/85 98 07/13/17 09:58 07/13/17 09:58 07/13/17 09:58 07/13/17 09:58 07/13/17 09:58 General appearance: no acute distress, asleep Eyes: non-icteric ENT: oropharynx moist Neck: supple, no JVD Ascultation: Bilateral: diminished breath sounds (at the bases.) Cardiovascular: regular rate and rhythm Gastrointestinal: normoactive bowel sounds, soft, non-tender Integumentary: normal Extremities: no cyanosis, no edema Musculoskeletal: no deformities Gait: other (Can not asses. Patient is in the bed.) other (Patient sleeping at this time.) other (Patient sleeping at this time.) Results - Laboratory Findings CBC and BMP: 04/05/18 14:06 07/18/17 14:06 PT/INR, D-dimer PT 14.6 Sec. (12.2-14.9) 07/13/17 11:49 INR 1.08 (0.87-1.13) 07/13/17 11:49 Abnormal lab findings: Abnormal Labs 07/13/17 07/13/17 07/13/17 10:13 11:49 11:49 WBC 13.1 H RBC 2.93 L Hgb 8.9 L Hct 27.7 L MCV MCHC RDW 16.7 H Lymph % (Auto) 10.9 L [place] % (Auto) [place] # Seg Neutrophils % 83.5 H Seg Neutrophils # 10.9 H Sodium Carbon Dioxide 19 L Glucose POC Glucose Calcium Iron TIBC Ferritin ALT Alkaline Phosphatase Ammonia Total Creatine Kinase 43 L CK-MB (CK-2) Rel Index Troponin T NT-Pro-B Natriuret Pep Total Protein Albumin Urine pH 8.0 H Urine WBC (Auto) 28.0 H 07/13/17 07/13/17 07/13/17 11:49 11:49 11:49 WBC RBC Hgb Hct MCV MCHC RDW Lymph % (Auto) [place] % (Auto) [place] # Seg Neutrophils % Seg Neutrophils # Sodium Carbon Dioxide Glucose POC Glucose Calcium Iron TIBC Ferritin ALT < 5 L Alkaline Phosphatase 167 H Ammonia 19.0 L Total Creatine Kinase 42 L CK-MB (CK-2) Rel Index 4.5 H Troponin T 0.077 H NT-Pro-B Natriuret Pep Total Protein Albumin 2.7 L Urine pH Urine WBC (Auto) 07/13/17 07/13/17 07/14/17 11:49 12:59 06:35 WBC 11.3 H RBC 2.65 L Hgb 8.1 L Hct 24.8 L MCV MCHC RDW 16.3 H Lymph % (Auto) 11.1 L [place] % (Auto) [place] # Seg Neutrophils % 81.1 H Seg Neutrophils # 9.2 H Sodium Carbon Dioxide Glucose POC Glucose Calcium Iron TIBC Ferritin ALT Alkaline Phosphatase Ammonia Total Creatine Kinase CK-MB (CK-2) Rel Index Troponin T NT-Pro-B Natriuret Pep 8740 H Total Protein Albumin Urine pH 9.0 H Urine WBC (Auto) > 182.0 H 07/14/17 07/14/1707/14/18 06:35 06:35 14:32 WBC RBC Hgb Hct MCV MCHC RDW Lymph % (Auto) [place] % (Auto) [place] # Seg Neutrophils % Seg Neutrophils # Sodium Carbon Dioxide 20 L Glucose 104 H POC Glucose Calcium 7.9 L Iron 37 L TIBC 97 L Ferritin > 2000.0 H ALT < 5 L Alkaline Phosphatase 142 H Ammonia Total Creatine Kinase CK-MB (CK-2) Rel Index Troponin T NT-Pro-B Natriuret Pep Total Protein Albumin 2.6 L Urine pH Urine WBC (Auto) 07/16/17 07/16/17 07/17/17 07:24 12:43 07:43 WBC 12.5 H RBC 2.60 L Hgb 7.8 L Hct 25.0 L MCV 96 H MCHC 31 L RDW 17.4 H Lymph % (Auto) 10.2 L [place] % (Auto) 8.7 H [place] # 1.1 H Seg Neutrophils % 79.0 H Seg Neutrophils # 9.8 H Sodium Carbon Dioxide 18 L Glucose POC Glucose 146 H Calcium 7.6 L Iron TIBC Ferritin ALT Alkaline Phosphatase Ammonia Total Creatine Kinase CK-MB (CK-2) Rel Index Troponin T 0.048 H D NT-Pro-B Natriuret Pep Total Protein Albumin Urine pH Urine WBC (Auto) 07/17/17 07/18/17 07/18/17 07:43 14:06 14:06 WBC 14.7 H RBC 2.70 L Hgb 8.0 L Hct 25.3 L MCV MCHC RDW 17.1 H Lymph % (Auto) 9.7 L [place] % (Auto) 8.5 H [place] # 1.3 H Seg Neutrophils % 80.8 H Seg Neutrophils # 11.9 H Sodium 136 L 135 L Carbon Dioxide 18 L 19 L Glucose 117 H POC Glucose Calcium 7.8 L 8.3 L Iron TIBC Ferritin ALT 5 L 5 L Alkaline Phosphatase 168 H Ammonia Total Creatine Kinase CK-MB (CK-2) Rel Index Troponin T NT-Pro-B Natriuret Pep Total Protein 5.8 L 6.0 L Albumin 2.3 L 2.6 L Urine pH Urine WBC (Auto) 07/18/17 16:59 WBC RBC Hgb Hct MCV MCHC RDW Lymph % (Auto) [place] % (Auto) [place] # Seg Neutrophils % Seg Neutrophils # Sodium Carbon Dioxide Glucose POC Glucose 144 H Calcium Iron TIBC Ferritin ALT Alkaline Phosphatase Ammonia Total Creatine Kinase CK-MB (CK-2) Rel Index Troponin T NT-Pro-B Natriuret Pep Total Protein Albumin Urine pH Urine WBC (Auto) - Diagnostic Findings Chest x-ray: report reviewed (Sp right thoracentesis. No pneumothorax.), image reviewed Assessment and Plan his is 86 year old male history of stage 1V prostate cancer admited for UTI. Patient has bilateral nephrostomy tubes. Patient feeling weak. denied fever,chills,chest pain or shortness of breath.Patient has history of hypertension,CA,DVT,Arthritis,Kidney stones, Hyperlipidemia, CAD,Metastatic prostatic CA and Mass in urinary bladder.According to the chart no history of smoking.Patient sleeping at this time on room air.O2 saturation 98%. No acute respiratory distress. Chest xray showed bilateral pleural effusions . Patient undergone right thoracentesis under ultrasound guidance.Pleural fluid results pending. - Patient Problems (1) Pleural effusion Current Visit: Yes Status: Chronic Plan to address problem: Patient S/P right thoracentesis. Pleural fluid results pending. (2) Prostate cancer metastatic to bone Current Visit: Yes Status: Chronic Plan to address problem: Management as per urology and oncology. Recommend DVT and GI prophylaxis. (3) Acute UTI (urinary tract infection) Current Visit: No Status: Acute Plan to address problem: Patient is on Nitrofurantoin.
[2017-07-18] MEDS ORDERED: D5W IV SCH (20:00)
[2017-07-18] MEDS ORDERED: POLYMYXIN B SULFATE IV SCH (20:00)
--- NOTE | 2017-07-18 20:37 | Event Note ---
Date: 07/18/17 Contacted re: Delvin and multi-drug resistent UTI. Given failure to clear, I will set up the patient for bilateral nephrostomy tube exchange tomorrow with flushing of the collecting system to attempt to remove any debris. NPO after MN. Unfortunately, the bladder is severe distorted and abnormal in morphology due to prostate cancer invasion. Pockets of retained fluid are likely present which will make clearing any infection difficult. This retained fluid would involve trans-tumor percutaneous suprapubic bladder drainage which may result in bleeding, and invasion along the drainage catheter given the extensive underlying tumor. Given advanced age, would recommend against percutaneous suprapubic bladder drainage given underlying extensive tumor.
--- NOTE | 2017-07-19 01:43 | Progress Note ---
Assessment and Plan Assessment and plan: 86-year-old AAM with a history of stage IV prostate cancer has bilateral nephrostomy tubes., pw weakness and decreased urine output right Pleural effusion sp R thoracentesis on 07/18/17, 700c drained awaiting fluid analysis Acute Pyelonephritis/complicated UTI and sepsis -Urine CX of 07/13 yielded Kleb Pneumonia, P. aeruginaosa and Diphteriods and MDR pseudomonas -ID input appreciated, continue abx Obstructive uropathy -IR input appreciated, for bilat neph tube exchange today Prostate cancer metastatic to bone, stage IV -continue supportive care, on xtandif Anemia of chronic disease stable fup hg, keep above 8 acute on Chronic diastolic HF (congestive heart failure) continue iv lasix Elevated troponin - non specific, trop 0.048 detectable, mildly chronically elevated, likely due to CHF, no further workup or rx indicated, LORENZO, acute tubular stasis -for neph tube exchange OAB Mybetriq Heparin for DVT PPx Will have family meeting to discuss goals of care, as patient would benefit from hospice/palliative care History Interval history: Review of systems Constitutional: No fevers, no malaise, no joint pains CVS: No chest pain, no orthopnea, no dyspnea on exertion, no pedal edema GI: No abdominal pain, no diarrhea, no vomiting, no constipation Respiratory: No shortness of breath, no wheezing, no coughing Hospitalist Physical - Physical exam Narrative exam: General.: Appears well, no distress, nontoxic HEENT: Moist mucous membranes, extraocular muscles intact, no lymphadenopathy Neck: supple Cardiac: S1-S2 heard Lungs: clear to auscultation bilaterally Abdomen: soft , nontender, nondistended, bowel sounds positive Extremities: no edema clubbing or cyanosis Skin: no rash or lesions Neurologic: moves all extremities, demented, says hi, but does not converse Psych: calm and cooperative - Constitutional Vitals: Temp Pulse Resp BP Pulse Ox 98.8 F 65 20 121/58 98 07/18/17 20:57 07/18/17 23:10 07/18/17 20:57 07/18/17 23:10 07/18/17 20:57 General appearance: Present: no acute distress, well-nourished Results - Labs CBC & Chem 7: 07/21/17 14:59 07/20/17 07:18 Labs: Laboratory Last Values WBC 14.7 K/mm3 (4.5-11.0) H 07/18/17 14:06 RBC 2.70 M/mm3 (3.65-5.03) L 07/18/17 14:06 Hgb 8.0 gm/dl (11.8-15.2) L 07/18/17 14:06 Hct 25.3 % (35.5-45.6) L 07/18/17 14:06 MCV 94 fl (84-94) 07/18/17 14:06 MCH 30 pg (28-32) 07/18/17 14:06 MCHC 32 % (32-34) 07/18/17 14:06 RDW 17.1 % (13.2-15.2) H 07/18/17 14:06 Plt Count 353 K/mm3 (140-440) 07/18/17 14:06 Lymph % (Auto) 9.7 % (13.4-35.0) L 07/18/17 14:06 [place] % (Auto) 8.5 % (0.0-7.3) H 07/18/17 14:06 Eos % (Auto) 0.4 % (0.0-4.3) 07/18/17 14:06 Baso % (Auto) 0.6 % (0.0-1.8) 07/18/17 14:06 Lymph # 1.4 K/mm3 (1.2-5.4) 07/18/17 14:06 [place] # 1.3 K/mm3 (0.0-0.8) H 07/18/17 14:06 Eos # 0.1 K/mm3 (0.0-0.4) 07/18/17 14:06 Baso # 0.1 K/mm3 (0.0-0.1) 07/18/17 14:06 Seg Neutrophils % 80.8 % (40.0-70.0) H 07/18/17 14:06 Seg Neutrophils # 11.9 K/mm3 (1.8-7.7) H 07/18/17 14:06 PT 14.6 Sec. (12.2-14.9) 07/13/17 11:49 INR 1.08 (0.87-1.13) 07/13/17 11:49 APTT 34.2 Sec. (24.2-36.6) 07/13/17 11:49 Sodium 135 mmol/L (137-145) L 07/18/17 14:06 Potassium 4.4 mmol/L (3.6-5.0) 07/18/17 14:06 Chloride 101.1 mmol/L (98-107) 07/18/17 14:06 Carbon Dioxide 19 mmol/L (22-30) L 07/18/17 14:06 Anion Gap 19 mmol/L 07/18/17 14:06 BUN 20 mg/dL (9-20) 07/18/17 14:06 Creatinine 1.4 mg/dL (0.8-1.5) 07/18/17 14:06 Estimated GFR 58 ml/min 07/18/17 14:06 BUN/Creatinine Ratio 14 % 07/18/17 14:06 Glucose 117 mg/dL (75-100) H 07/18/17 14:06 POC Glucose 144 (70-105) H 07/18/17 16:59 Hemoglobin A1c < 4.2 % (4-6) 07/13/17 11:49 Lactic Acid 2.00 mmol/L (0.7-2.0) 07/13/17 11:49 Calcium 8.3 mg/dL (8.4-10.2) L 07/18/17 14:06 Phosphorus 2.90 mg/dL (2.5-4.5) 07/13/17 11:49 Magnesium 1.90 mg/dL (1.7-2.3) 07/13/17 11:49 Iron 37 ug/dL (49-181) L 07/14/17 06:35 TIBC 97 mcg/dL (250-450) L 07/14/17 06:35 Ferritin > 2000.0 ng/mL (13.0-400.0) H 07/14/17 14:32 Total Bilirubin < 0.20 mg/dL (0.1-1.2) 07/18/17 14:06 Direct Bilirubin < 0.2 mg/dL (0-0.2) 07/13/17 11:49 AST 18 units/L (5-40) 07/18/17 14:06 ALT 5 units/L (7-56) L 07/18/17 14:06 Alkaline Phosphatase 168 units/L (35-129) H 07/18/17 14:06 Ammonia 19.0 umol/L (25-60) L 07/13/17 11:49 Total Creatine Kinase 42 units/L (55-170) L 07/13/17 11:49 CK-MB (CK-2) 1.9 ng/mL (0.0-4.0) 07/13/17 11:49 CK-MB (CK-2) Rel Index 4.5 (0-4) H 07/13/17 11:49 Troponin T 0.048 ng/mL (0.00-0.029) H D 07/16/17 07:24 NT-Pro-B Natriuret Pep 8740 pg/mL (0-900) H 07/13/17 11:49 Total Protein 6.0 g/dL (6.3-8.2) L 07/18/17 14:06 Albumin 2.6 g/dL (3.9-5) L 07/18/17 14:06 Albumin/Globulin Ratio 0.8 % 07/18/17 14:06 Triglycerides 122 mg/dL (2-149) 07/13/17 11:49 Cholesterol 168 mg/dL (50-199) 07/13/17 11:49 LDL Cholesterol Direct 97 mg/dL (50-130) 07/13/17 11:49 HDL Cholesterol 53 mg/dL (40-59) 07/13/17 11:49 Cholesterol/HDL Ratio 3.16 % 07/13/17 11:49 Vitamin B12 613.2 pg/mL (211-911) 07/14/17 14:32 Folate 9.98 ng/mL (7.3-26.0) 07/14/17 14:32 TSH 1.810 mlU/mL (0.270-4.200) 07/13/17 11:49 Urine Color Yellow (Yellow) 07/13/17 12:59 Urine Turbidity Clear (Clear) 07/13/17 12:59 Urine pH 9.0 (5.0-7.0) H 07/13/17 12:59 Ur Specific [place] 1.009 (1.003-1.030) 07/13/17 12:59 Urine Protein 30 mg/dl mg/dL (Negative) 07/13/17 12:59 Urine Glucose (UA) Neg mg/dL (Negative) 07/13/17 12:59 Urine Ketones Neg mg/dL (Negative) 07/13/17 12:59 Urine Blood Lg (Negative) 07/13/17 12:59 Urine Nitrite Pos (Negative) 07/13/17 12:59 Urine Bilirubin Neg (Negative) 07/13/17 12:59 Urine Urobilinogen < 2.0 mg/dL (<2.0) 07/13/17 12:59 Ur Leukocyte Esterase Lg (Negative) 07/13/17 12:59 Urine WBC (Auto) > 182.0 /HPF (0.0-6.0) H 07/13/17 12:59 Urine RBC (Auto) > 182.0 /HPF (0.0-6.0) 07/13/17 12:59 Urine Bacteria (Auto) 1+ /HPF (Negative) 07/13/17 12:59 Urine WBC Clumps 3+ /HPF 07/13/17 12:59 Urine Mucus 1+ /HPF 07/13/17 12:59
[2017-07-19] MEDS: NORCO 10/325 PO PRN ×2 (02:05→20:27)
[2017-07-19] MEDS: D5NS 1,000 ML IV SCH ×2 (05:07→15:40)
[2017-07-19 06:36] LABS: Basophils # (Auto) 0.1 K/mm3 (0.0-0.1); Basophils % (Auto) 0.5 % (0.0-1.8); Eosinophils # (Auto) 0.1 K/mm3 (0.0-0.4); Hematocrit 25.1 % (35.5-45.6); Hemoglobin 7.6 gm/dl (11.8-15.2); Lymphocytes # (Auto) 1.5 K/mm3 (1.2-5.4); Lymphocytes % (Auto) 11.8 % (13.4-35.0); Mean Corpuscular HGB Conc 30 % (32-34); Mean Corpuscular Hemoglobin 30 pg (28-32); Mean Corpuscular Volume 98 fl (84-94); Monocytes # (Auto) 1.3 K/mm3 (0.0-0.8); Monocytes % (Auto) 10.2 % (0.0-7.3); Platelet Count 313 K/mm3 (140-440); Red Blood Count 2.56 M/mm3 (3.65-5.03); Red Cell Distribution Width 17.3 % (13.2-15.2)
[2017-07-19 06:48] LABS: Calcium 7.7 mg/dL (8.4-10.2)
[2017-07-19] MEDS: FERGON PO SCH ×3 (08:00→20:27)
[2017-07-19] MEDS: SODIUM CHLORIDE FLUSH SYRINGE 10 ML IV SCH ×2 (10:00→22:56)
[2017-07-19] MEDS: NACL 0.9% IV SCH ×3 (10:00→22:56)
[2017-07-19] MEDS: SODIUM BICARBONATE PO SCH ×2 (10:00→21:00)
[2017-07-19] MEDS: ZESTRIL PO SCH (10:00)
[2017-07-19] MEDS: OYSCO D 500 MG-200 UNIT PO SCH (10:00)
[2017-07-19] MEDS: PEPCID PO SCH (10:00)
[2017-07-19] MEDS: LASIX IV SCH (10:00)
[2017-07-19] MEDS: AVYCAZ IV SCH ×3 (10:00→22:56)
[2017-07-19] MEDS: K-DUR PO SCH (10:00)
[2017-07-19] MEDS: ENZALUTAMIDE PO SCH (10:00)
[2017-07-19] MEDS: COREG PO SCH ×2 (10:00→21:01)
[2017-07-19] MEDS ORDERED: NON-FORMULARY IV SCH (10:00)
[2017-07-19] MEDS: COLACE PO SCH ×2 (10:00→21:01)
[2017-07-19] MEDS: NON-FORMULARY (Mirabegron [Myrbetriq] 50 MG) PO SCH (10:00)
--- NOTE | 2017-07-19 13:22 | Progress Note ---
Assessment and Plan IMPRESSION 1. Complicated UTI with bilateral nephrostomy tubes in place. Urine cx with MDR Pseudomonas aeruginosa, Pseudomonas fluorescens/putida, Klebsiella pneumoniae. -s/p R nephrostomy tube exchange and removal and placement of new L nephrostomy tube on 07/19/17. 2. Leukocytosis. Improved. 3. 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 4. Bilateral pleural effusions, s/p R thoracentesis 07/18/17. Cx NGTD. 5. H/o Klebsiella septicemia and Pseudomonas aeruginosa complicated UTI in January 2017. RECOMMENDATIONS -Received polymixin B yesterday and was started today on ceftazidime/avibactam ( Avycaz) (D1/). -Will f/u. Becky Engle MD. ID attending. [facility]. C [phone] Subjective Date of service: 07/19/17 Principal diagnosis: metastatic prostate cancer Interval history: Afebrile. Underwent today exchange of R nephrostomy tube and placement of new L nephrostomy tube with removal of old one. Microbiology Blood cultures 07/13 negative Urine cx 07/13 P. aeruginosa MDR, Pseudomonas putida/fluorescens, Klebsiella pneumoniae, Diphtheroids. Pleural fluid cx 07/18 NGTD Antibiotics Avycaz 07/19- Prior abx Ceftriaxone since 07/16 Levofloxacin 07/15 Ceftriaxone 07/13-07/15 Polymixin B x1 07/18 Objective - Exam Narrative Exam: GENERAL: Pt in NAD, chronically ill-looking. HEENT: NC/AT. PERRLA. EOMI. Oropharynx is clear. NECK: Supple. HEART: S1,S1. LUNGS: Decreased at the bases. ABDOMEN: +BS. Soft. NT/ND. Bilateral nephrostomy tubes in place. EXTREMITIES: no c/c/e. SKIN: Stage 2 sacral decubitus ulcer. - Constitutional Vitals: Vital Signs Temp Pulse Resp BP Pulse Ox 98.3 F 65 14 121/58 98 07/19/17 08:12 07/18/17 23:10 07/19/17 08:12 07/18/17 23:10 07/18/17 20:57 Temperature -Last 24 Hours Temperature 98.3 F Temperature 98.8 F Temperature 99.0 F - Labs CBC & Chem 7: 07/19/17 06:00 07/19/17 06:00 Labs: Abnormal lab results 07/18/17 07/18/17 07/18/17 Range/Units 14:06 14:06 16:59 WBC 14.7 H (4.5-11.0) K/mm3 RBC 2.70 L (3.65-5.03) M/mm3 Hgb 8.0 L (11.8-15.2) gm/dl Hct 25.3 L (35.5-45.6) % MCV (84-94) fl MCHC (32-34) % RDW 17.1 H (13.2-15.2) % Lymph % (Auto) 9.7 L (13.4-35.0) % [place] % (Auto) 8.5 H (0.0-7.3) % [place] # 1.3 H (0.0-0.8) K/mm3 Seg Neutrophils % 80.8 H (40.0-70.0) % Seg Neutrophils # 11.9 H (1.8-7.7) K/mm3 POC ABG pCO2 (35-45) Sodium 135 L (137-145) mmol/L Carbon Dioxide 19 L (22-30) mmol/L BUN (9-20) mg/dL Glucose 117 H (75-100) mg/dL POC Glucose 144 H (70-105) Calcium 8.3 L (8.4-10.2) mg/dL ALT 5 L (7-56) units/L Alkaline Phosphatase 168 H (35-129) units/L Total Protein 6.0 L (6.3-8.2) g/dL Albumin 2.6 L (3.9-5) g/dL 07/19/17 07/19/17 07/19/17 Range/Units 06:00 06:00 09:30 WBC 12.5 H (4.5-11.0) K/mm3 RBC 2.56 L (3.65-5.03) M/mm3 Hgb 7.6 L (11.8-15.2) gm/dl Hct 25.1 L (35.5-45.6) % MCV 98 H (84-94) fl MCHC 30 L (32-34) % RDW 17.3 H (13.2-15.2) % Lymph % (Auto) 11.8 L (13.4-35.0) % [place] % (Auto) 10.2 H (0.0-7.3) % [place] # 1.3 H (0.0-0.8) K/mm3 Seg Neutrophils % 76.5 H (40.0-70.0) % Seg Neutrophils # 9.6 H (1.8-7.7) K/mm3 POC ABG pCO2 26.6 L (35-45) Sodium 134 L (137-145) mmol/L Carbon Dioxide 18 L (22-30) mmol/L BUN 21 H (9-20) mg/dL Glucose (75-100) mg/dL POC Glucose (70-105) Calcium 7.7 L (8.4-10.2) mg/dL ALT 5 L (7-56) units/L Alkaline Phosphatase 133 H (35-129) units/L Total Protein 5.6 L (6.3-8.2) g/dL Albumin 2.0 L (3.9-5) g/dL
[2017-07-19] MEDS ORDERED: NACL 0.9% 500 ML IR ONE (14:06)
[2017-07-19] MEDS ORDERED: ANCEF/STERILE WATER 2 GM/20 ML 0 GM/0 ML SYRINGE IV ONE (14:07)
[2017-07-19] MEDS ORDERED: NACL 0.9% 250ML 250 ML ONE (14:07)
[2017-07-19] MEDS ORDERED: VERSED ONE (14:08)
[2017-07-19] MEDS: SUBLIMAZE ONE ×2 (14:25→14:39)
[2017-07-19] MEDS: XYLOCAINE 2% INFILTRATI ONE ×2 (14:28→14:38)
--- NOTE | 2017-07-19 14:59 | Operative Report ---
Operative Report Operative Report: EXAM: ULTRASOUND AND FLUOROSCOPIC GUIDED PLACEMENT OF NEPHROSTOMY TUBE ON THE LEFT, FLUOROSCOPIC GUIDED EXCHANGE OF NEPHROSTOMY TUBE ON THE RIGHT CLINICAL INDICATION: PATIENT WITH A HISTORY OF A UTI DATE: 07/19/2017 PROCEDURE: Following an explanation of the risks, benefits and alternatives; written informed consent was obtained. The patient was brought to the injury graphic suite and placed in prone position on the examination table. Previously obtained fluoroscopic imaging demonstrated appropriate positioning of the right nephrostomy tube with extrarenal positioning of the left nephrostomy tube. The patient's back and indwelling nephrostomy tubes were prepped and draped in usual sterile fashion. 1% lidocaine was used for anesthesia. Under ultrasound and fluoroscopic guidance, a posterior inferior left renal calyx was cannulated with a 15 centimeters 21-gauge needle. A 0.018 mandrel wire was advanced and coiled within the renal pelvis. The needle was removed and an AccuStick transition dilator placed over the guidewire and advanced to the renal pelvis. The 0.018 guidewire was exchanged for a 0.035 guidewire and the AccuStick transition dilator removed. Following serial dilation over the guidewire under fluoroscopy, a 10 Swedish nephrostomy tube was placed over the guidewire under fluoroscopy. The guidewire and trocar were removed and the pigtail position within the central aspect of the renal pelvis. Contrast was injected through the nephrostomy tube to document appropriate interparenchymal tract and pelvic positioning of the the catheter was securely fasten the skin with Ethilon suture and zion device. the catheter was then placed to dependent drainage. 1% lidocaine was used for anesthesia around the catheter exit site and along the tract of the right nephrostomy tube. Nephrostomy tube was cut and a 0.035 guidewire was advanced through the indwelling nephrostomy tube and coiled within the renal pelvis. The nephrostomy tube was removed intact. A new 20 Swedish nephrostomy tube was advanced over the guidewire to position the pigtail within the renal pelvis. The guidewire was removed. Contrast was injected to document appropriate positioning of. The catheter was securely fasten the skin with Ethilon suture and a StatLock device. Sterile dressings were then applied to both catheters. The catheter was placed to dependent drainage. The patient tolerated the procedure well. There were no immediate post procedure complications. Conscious sedation was utilized under the guidance of radiologic nursing. Continuous cardio pulmonary monitoring was utilized. IMPRESSION: 1) Ultrasound and fluoroscopic guided placement of left-sided nephrostomy tube with removal of previously placed left nephrostomy tube. 2) Fluoroscopic guided exchange of right-sided nephrostomy tube.
--- NOTE | 2017-07-19 18:39 | Progress Note ---
Assessment and Plan his is 86 year old male history of stage 1V prostate cancer admited for UTI. Patient has bilateral nephrostomy tubes. Patient feeling weak. denied fever,chills,chest pain or shortness of breath.Patient has history of hypertension,OR,DVT,Arthritis,Kidney stones, Hyperlipidemia, CAD,Metastatic prostatic CA and Mass in urinary bladder.According to the chart no history of smoking.Patient sleeping at this time on room air.O2 saturation 98%. No acute respiratory distress. Chest xray showed bilateral pleural effusions . Patient undergone right thoracentesis under ultrasound guidance.Pleural fluid results pending. 07/19/17 Patient sleeping on room air. No acute respiratory distress.O2 saturation 98%. - Patient Problems (1) Pleural effusion Current Visit: Yes Status: Chronic Plan to address problem: Patient S/P right thoracentesis. Pleural fluid results still pending. (2) Prostate cancer metastatic to bone Current Visit: Yes Status: Chronic Plan to address problem: Management as per urology and oncology. Recommend DVT and GI prophylaxis. (3) Acute UTI (urinary tract infection) Current Visit: No Status: Acute Plan to address problem: Patient is on Nitrofurantoin. Subjective Date of service: 07/19/17 Principal diagnosis: metastatic prostate cancer Interval history: Patient sleeping on room air. No acute respiratory distress.O2 saturation 98%. Objective Vital Signs - 12hr 07/19/17 08:12 Temperature 98.3 F Respiratory 14 Rate Constitutional: no acute distress, asleep Eyes: non-icteric ENT: oropharynx moist Neck: supple, no JVD Ascultation: Bilateral: diminished breath sounds (at the bases.) Cardiovascular: regular rate and rhythm Gastrointestinal: normoactive bowel sounds, soft, non-tender Integumentary: normal Extremities: no cyanosis, no edema Neurologic: other (Patient sleeping at this time.) Psychiatric: other (Patient sleeping at this time.) CBC and BMP: 07/19/17 06:00 07/19/17 06:00 ABG, PT/INR, D-dimer: ABG POC ABG pH 7.425 (7.35-7.45) 07/19/17 09:30 POC ABG pCO2 26.6 (35-45) L 07/19/17 09:30 POC ABG pO2 83 (80-105) 07/19/17 09:30 POC ABG HCO3 17.4 07/19/17 09:30 POC ABG Total CO2 18 07/19/17 09:30 POC ABG O2 Sat 97 07/19/17 09:30 PT/INR, D-dimer PT 14.6 Sec. (12.2-14.9) 07/13/17 11:49 INR 1.08 (0.87-1.13) 07/13/17 11:49 Abnormal lab findings: Abnormal Labs 07/13/17 07/13/17 07/13/17 10:13 11:49 11:49 WBC 13.1 H RBC 2.93 L Hgb 8.9 L Hct 27.7 L MCV MCHC RDW 16.7 H Lymph % (Auto) 10.9 L [place] % (Auto) [place] # Seg Neutrophils % 83.5 H Seg Neutrophils # 10.9 H POC ABG pCO2 Sodium Carbon Dioxide 19 L BUN Glucose POC Glucose Calcium Iron TIBC Ferritin ALT Alkaline Phosphatase Ammonia Total Creatine Kinase 43 L CK-MB (CK-2) Rel Index Troponin T NT-Pro-B Natriuret Pep Total Protein Albumin Urine pH 8.0 H Urine WBC (Auto) 28.0 H 07/13/17 07/13/17 07/13/17 11:49 11:49 11:49 WBC RBC Hgb Hct MCV MCHC RDW Lymph % (Auto) [place] % (Auto) [place] # Seg Neutrophils % Seg Neutrophils # POC ABG pCO2 Sodium Carbon Dioxide BUN Glucose POC Glucose Calcium Iron TIBC Ferritin ALT < 5 L Alkaline Phosphatase 167 H Ammonia 19.0 L Total Creatine Kinase 42 L CK-MB (CK-2) Rel Index 4.5 H Troponin T 0.077 H NT-Pro-B Natriuret Pep Total Protein Albumin 2.7 L Urine pH Urine WBC (Auto) 07/13/17 07/13/17 07/14/17 11:49 12:59 06:35 WBC 11.3 H RBC 2.65 L Hgb 8.1 L Hct 24.8 L MCV MCHC RDW 16.3 H Lymph % (Auto) 11.1 L [place] % (Auto) [place] # Seg Neutrophils % 81.1 H Seg Neutrophils # 9.2 H POC ABG pCO2 Sodium Carbon Dioxide BUN Glucose POC Glucose Calcium Iron TIBC Ferritin ALT Alkaline Phosphatase Ammonia Total Creatine Kinase CK-MB (CK-2) Rel Index Troponin T NT-Pro-B Natriuret Pep 8740 H Total Protein Albumin Urine pH 9.0 H Urine WBC (Auto) > 182.0 H 07/14/17 07/14/17 07/14/17 06:35 06:35 14:32 WBC RBC Hgb Hct MCV MCHC RDW Lymph % (Auto) [place] % (Auto) [place] # Seg Neutrophils % Seg Neutrophils # POC ABG pCO2 Sodium Carbon Dioxide 20 L BUN Glucose 104 H POC Glucose Calcium 7.9 L Iron 37 L TIBC 97 L Ferritin > 2000.0 H ALT < 5 L Alkaline Phosphatase 142 H Ammonia Total Creatine Kinase CK-MB (CK-2) Rel Index Troponin T NT-Pro-B Natriuret Pep Total Protein Albumin 2.6 L Urine pH Urine WBC (Auto) 07/16/17 07/16/17 07/17/17 07:24 12:43 07:43 WBC 12.5 H RBC 2.60 L Hgb 7.8 L Hct 25.0 L MCV 96 H MCHC 31 L RDW 17.4 H Lymph % (Auto) 10.2 L [place] % (Auto) 8.7 H [place] # 1.1 H Seg Neutrophils % 79.0 H Seg Neutrophils # 9.8 H POC ABG pCO2 Sodium Carbon Dioxide 18 L BUN Glucose POC Glucose 146 H Calcium 7.6 L Iron TIBC Ferritin ALT Alkaline Phosphatase Ammonia Total Creatine Kinase CK-MB (CK-2) Rel Index Troponin T 0.048 H D NT-Pro-B Natriuret Pep Total Protein Albumin Urine pH Urine WBC (Auto) 07/17/17 07/18/17 07/18/17 07:43 14:06 14:06 WBC 14.7 H RBC 2.70 L Hgb 8.0 L Hct 25.3 L MCV MCHC RDW 17.1 H Lymph % (Auto) 9.7 L [place] % (Auto) 8.5 H [place] # 1.3 H Seg Neutrophils % 80.8 H Seg Neutrophils # 11.9 H POC ABG pCO2 Sodium 136 L 135 L Carbon Dioxide 18 L 19 L BUN Glucose 117 H POC Glucose Calcium 7.8 L 8.3 L Iron TIBC Ferritin ALT 5 L 5 L Alkaline Phosphatase 168 H Ammonia Total Creatine Kinase CK-MB (CK-2) Rel Index Troponin T NT-Pro-B Natriuret Pep Total Protein 5.8 L 6.0 L Albumin 2.3 L 2.6 L Urine pH Urine WBC (Auto) 07/18/17 07/19/17 07/19/17 16:59 06:00 06:00 WBC 12.5 H RBC 2.56 L Hgb 7.6 L Hct 25.1 L MCV 98 H MCHC 30 L RDW 17.3 H Lymph % (Auto) 11.8 L [place] % (Auto) 10.2 H [place] # 1.3 H Seg Neutrophils % 76.5 H Seg Neutrophils # 9.6 H POC ABG pCO2 Sodium 134 L Carbon Dioxide 18 L BUN 21 H Glucose POC Glucose 144 H Calcium 7.7 L Iron TIBC Ferritin ALT 5 L Alkaline Phosphatase 133 H Ammonia Total Creatine Kinase CK-MB (CK-2) Rel Index Troponin T NT-Pro-B Natriuret Pep Total Protein 5.6 L Albumin 2.0 L Urine pH Urine WBC (Auto) 07/19/17 09:30 WBC RBC Hgb Hct MCV MCHC RDW Lymph % (Auto) [place] % (Auto) [place] # Seg Neutrophils % Seg Neutrophils # POC ABG pCO2 26.6 L Sodium Carbon Dioxide BUN Glucose POC Glucose Calcium Iron TIBC Ferritin ALT Alkaline Phosphatase Ammonia Total Creatine Kinase CK-MB (CK-2) Rel Index Troponin T NT-Pro-B Natriuret Pep Total Protein Albumin Urine pH Urine WBC (Auto)
[2017-07-19] MEDS: MACROBID PO SCH (21:01)
[2017-07-20] MEDS: AVYCAZ IV SCH ×3 (06:23→22:17)
[2017-07-20] MEDS: NACL 0.9% IV SCH ×3 (06:23→22:17)
[2017-07-20 08:05] LABS: Alanine Aminotransferase 6 units/L (7-56); Albumin 2.2 g/dL (3.9-5); BUN/Creatinine Ratio 17; Blood Urea Nitrogen 20 mg/dL (9-20); Calcium 7.6 mg/dL (8.4-10.2); Hemolysis Index 7
[2017-07-20] MEDS: D5NS 1,000 ML IV SCH (08:17)
--- NOTE | 2017-07-20 09:31 | Event Note ---
Date: 07/20/17 Doing well following placement of nephrostomy tube and exchange of right nephrostomy tube. Urine is clearing. Pain is resolving.
[2017-07-20] MEDS: SODIUM BICARBONATE PO SCH ×2 (10:27→22:06)
[2017-07-20] MEDS: PEPCID PO SCH (10:28)
[2017-07-20] MEDS: K-DUR PO SCH (10:29)
[2017-07-20] MEDS: OYSCO D 500 MG-200 UNIT PO SCH (10:29)
[2017-07-20] MEDS: COLACE PO SCH ×2 (10:29→22:08)
[2017-07-20] MEDS: LASIX IV SCH (10:30)
[2017-07-20] MEDS: FERGON PO SCH ×3 (10:30→20:42)
[2017-07-20] MEDS: SODIUM CHLORIDE FLUSH SYRINGE 10 ML IV SCH ×2 (10:31→22:08)
[2017-07-20] MEDS: NON-FORMULARY (Mirabegron [Myrbetriq] 50 MG) PO SCH (10:33)
[2017-07-20] MEDS: ENZALUTAMIDE PO SCH (10:34)
[2017-07-20] MEDS: COREG PO SCH ×2 (10:35→22:08)
[2017-07-20] MEDS: ZESTRIL PO SCH (10:35)
--- NOTE | 2017-07-20 13:06 | Progress Note ---
Assessment and Plan IMPRESSION 1. Complicated UTI with bilateral nephrostomy tubes in place. Urine cx with MDR Pseudomonas aeruginosa, Pseudomonas fluorescens/putida, Klebsiella pneumoniae. -s/p R nephrostomy tube exchange and removal and placement of new L nephrostomy tube on 07/19/17. 2. Leukocytosis. Improved. 3. 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 4. Bilateral pleural effusions, s/p R thoracentesis 07/18/17. Cx NGTD. 5. H/o Klebsiella septicemia and Pseudomonas aeruginosa complicated UTI in January 2017. RECOMMENDATIONS -On ceftazidime/avibactam (Avycaz) (/). -CBC in AM. -d/w pt's daughters bedside. Becky Engle MD. ID attending. [facility]. C [phone] Subjective Date of service: 07/20/17 Principal diagnosis: metastatic prostate cancer Interval history: Afebrile. More awake. Conversant. Says he is feeling well. Microbiology Blood cultures 07/13 negative Urine cx 07/13 P. aeruginosa MDR, Pseudomonas putida/fluorescens, Klebsiella pneumoniae, Diphtheroids. Pleural fluid cx 07/18 NGTD Antibiotics Avycaz 07/19- Prior abx Ceftriaxone since 07/16 Levofloxacin 07/15 Ceftriaxone 07/13-07/15 Polymixin B x1 07/18 Objective - Exam Narrative Exam: GENERAL: Pt in NAD, chronically ill-looking. Awake, alert. Conversant. HEENT: NC/AT. PERRLA. EOMI. Oropharynx is clear. NECK: Supple. HEART: S1,S1. LUNGS: Decreased at the bases. ABDOMEN: +BS. Soft. NT/ND. Bilateral nephrostomy tubes in place with clear urine. EXTREMITIES: no c/c/e. SKIN: Stage 2 sacral decubitus ulcer. - Constitutional Vitals: Vital Signs Temp Pulse Resp BP Pulse Ox 98.0 F 61 22 131/66 100 07/20/17 07:56 07/20/17 10:35 07/20/17 07:56 07/20/17 07:56 07/20/17 08:01 Temperature -Last 24 Hours Temperature 98.0 F Temperature 97.7 F Temperature 97.7 F Temperature 87.4 F - Labs CBC & Chem 7: 07/19/17 06:00 07/20/17 07:18 Labs: Abnormal lab results 07/20/17 Range/Units 07:18 Carbon Dioxide 17 L (22-30) mmol/L Glucose 72 L (75-100) mg/dL Calcium 7.6 L (8.4-10.2) mg/dL ALT 6 L (7-56) units/L Alkaline Phosphatase 139 H (35-129) units/L Total Protein 6.1 L (6.3-8.2) g/dL Albumin 2.2 L (3.9-5) g/dL
--- NOTE | 2017-07-20 14:19 | Progress Note ---
Assessment and Plan Bilateral Pleural Effusions Metastatic Prostate Cancer to bone Acute Pyelonephritis Sepsis Syndrome Obstructive Uropathy UTI Anemia of Chronic Disease Acute on Chronic HFpEF LORENZO Elevated Cardiac Enzymes - s/p thoracentesis - awaiting study results re: cultures and cytology - supplemental oxygen to keep sats > 90% - continue GI prophylaxis - aspiration precautions - making urtine via nephrostomy tube - on fortaz; follow cultures and de-escalate as appropriate - continue other care per attending / other consultants .....re-evaluate in am & prn ...25' Subjective Date of service: 07/20/17 Principal diagnosis: Bilateral Pleural Effusions; Metastatic prostate cancer Interval history: Patient seen today for: Bilateral Pleural Effusions; Metastatic prostate cancer Seen and examined at bedside; 24-hour events reviewed; nursing and respiratory care staff consulted; no adverse overnight events reported to me; resting peacefully in bed; not reponding appropriately re: dementia but with mildly labored breathing; No N/V/F/C reported Objective Vital Signs - 12hr 07/20/17 07/20/17 07/20/17 07:56 08:01 10:35 Temperature 98.0 F Pulse Rate 61 61 Respiratory 22 Rate Blood Pressure 131/66 O2 Sat by Pulse 100 Oximetry Constitutional: no acute distress, alert, other (cachectic and chronically ill looking) Eyes: non-icteric ENT: oropharynx moist, other (mallampatti 2) Neck: supple, no JVD, other (no thyuromegaly) Ascultation: Bilateral: clear, diminished breath sounds (both bases) Percussion: Bilateral: not dull (bases) Cardiovascular: regular rate and rhythm, murmur noted, other (no rubs) Gastrointestinal: normoactive bowel sounds, soft, non-tender, non-distended, other (no palpable HSM grossly) Integumentary: normal Extremities: no cyanosis, no edema, pulses normal, no ischemia or petechiae Neurologic: unable to assess, other (demented) Psychiatric: other (flat affect) CBC and BMP: 07/21/17 14:59 07/20/17 07:18 ABG, PT/INR, D-dimer: ABG POC ABG pH 7.425 (7.35-7.45) 07/19/17 09:30 POC ABG pCO2 26.6 (35-45) L 07/19/17 09:30 POC ABG pO2 83 (80-105) 07/19/17 09:30 POC ABG HCO3 17.4 07/19/17 09:30 POC ABG Total CO2 18 07/19/17 09:30 POC ABG O2 Sat 97 07/19/17 09:30 PT/INR, D-dimer PT 14.6 Sec. (12.2-14.9) 07/13/17 11:49 INR 1.08 (0.87-1.13) 07/13/17 11:49 Abnormal lab findings: Abnormal Labs 07/13/17 07/13/17 07/13/17 10:13 11:49 11:49 WBC 13.1 H RBC 2.93 L Hgb 8.9 L Hct 27.7 L MCV MCHC RDW 16.7 H Lymph % (Auto) 10.9 L [place] % (Auto) [place] # Seg Neutrophils % 83.5 H Seg Neutrophils # 10.9 H POC ABG pCO2 Sodium Carbon Dioxide 19 L BUN Glucose POC Glucose Calcium Iron TIBC Ferritin ALT Alkaline Phosphatase Ammonia Total Creatine Kinase 43 L CK-MB (CK-2) Rel Index Troponin T NT-Pro-B Natriuret Pep Total Protein Albumin Urine pH 8.0 H Urine WBC (Auto) 28.0 H 07/13/17 07/13/17 07/13/17 11:49 11:49 11:49 WBC RBC Hgb Hct MCV MCHC RDW Lymph % (Auto) [place] % (Auto) [place] # Seg Neutrophils % Seg Neutrophils # POC ABG pCO2 Sodium Carbon Dioxide BUN Glucose POC Glucose Calcium Iron TIBC Ferritin ALT < 5 L Alkaline Phosphatase 167 H Ammonia 19.0 L Total Creatine Kinase 42 L CK-MB (CK-2) Rel Index 4.5 H Troponin T 0.077 H NT-Pro-B Natriuret Pep Total Protein Albumin 2.7 L Urine pH Urine WBC (Auto) 07/13/17 07/13/17 07/14/17 11:49 12:59 06:35 WBC 11.3 H RBC 2.65 L Hgb 8.1 L Hct 24.8 L MCV MCHC RDW 16.3 H Lymph % (Auto) 11.1 L [place] % (Auto) [place] # Seg Neutrophils % 81.1 H Seg Neutrophils # 9.2 H POC ABG pCO2 Sodium Carbon Dioxide BUN Glucose POC Glucose Calcium Iron TIBC Ferritin ALT Alkaline Phosphatase Ammonia Total Creatine Kinase CK-MB (CK-2) Rel Index Troponin T NT-Pro-B Natriuret Pep 8740 H Total Protein Albumin Urine pH 9.0 H Urine WBC (Auto) > 182.0 H 07/14/17 07/14/17 07/14/17 06:35 06:35 14:32 WBC RBC Hgb Hct MCV MCHC RDW Lymph % (Auto) [place] % (Auto) [place] # Seg Neutrophils % Seg Neutrophils # POC ABG pCO2 Sodium Carbon Dioxide 20 L BUN Glucose 104 H POC Glucose Calcium 7.9 L Iron 37 L TIBC 97 L Ferritin > 2000.0 H ALT < 5 L Alkaline Phosphatase 142 H Ammonia Total Creatine Kinase CK-MB (CK-2) Rel Index Troponin T NT-Pro-B Natriuret Pep Total Protein Albumin 2.6 L Urine pH Urine WBC (Auto) 07/16/17 07/16/17 07/17/17 07:24 12:43 07:43 WBC 12.5 H RBC 2.60 L Hgb 7.8 L Hct 25.0 L MCV 96 H MCHC 31 L RDW 17.4 H Lymph % (Auto) 10.2 L [place] % (Auto) 8.7 H [place] # 1.1 H Seg Neutrophils % 79.0 H Seg Neutrophils # 9.8 H POC ABG pCO2 Sodium Carbon Dioxide 18 L BUN Glucose POC Glucose 146 H Calcium 7.6 L Iron TIBC Ferritin ALT Alkaline Phosphatase Ammonia Total Creatine Kinase CK-MB (CK-2) Rel Index Troponin T 0.048 H D NT-Pro-B Natriuret Pep Total Protein Albumin Urine pH Urine WBC (Auto) 07/17/17 07/18/17 07/18/17 07:43 14:06 14:06 WBC 14.7 H RBC 2.70 L Hgb 8.0 L Hct 25.3 L MCV MCHC RDW 17.1 H Lymph % (Auto) 9.7 L [place] % (Auto) 8.5 H [place] # 1.3 H Seg Neutrophils % 80.8 H Seg Neutrophils # 11.9 H POC ABG pCO2 Sodium 136 L 135 L Carbon Dioxide 18 L 19 L BUN Glucose 117 H POC Glucose Calcium 7.8 L 8.3 L Iron TIBC Ferritin ALT 5 L 5 L Alkaline Phosphatase 168 H Ammonia Total Creatine Kinase CK-MB (CK-2) Rel Index Troponin T NT-Pro-B Natriuret Pep Total Protein 5.8 L 6.0 L Albumin 2.3 L 2.6 L Urine pH Urine WBC (Auto) 07/18/17 07/19/17 07/19/17 16:59 06:00 06:00 WBC 12.5 H RBC 2.56 L Hgb 7.6 L Hct 25.1 L MCV 98 H MCHC 30 L RDW 17.3 H Lymph % (Auto) 11.8 L [place] % (Auto) 10.2 H [place] # 1.3 H Seg Neutrophils % 76.5 H Seg Neutrophils # 9.6 H POC ABG pCO2 Sodium 134 L Carbon Dioxide 18 L BUN 21 H Glucose POC Glucose 144 H Calcium 7.7 L Iron TIBC Ferritin ALT 5 L Alkaline Phosphatase 133 H Ammonia Total Creatine Kinase CK-MB (CK-2) Rel Index Troponin T NT-Pro-B Natriuret Pep Total Protein 5.6 L Albumin 2.0 L Urine pH Urine WBC (Auto) 07/19/17 07/20/17 09:30 07:18 WBC RBC Hgb Hct MCV MCHC RDW Lymph % (Auto) [place] % (Auto) [place] # Seg Neutrophils % Seg Neutrophils # POC ABG pCO2 26.6 L Sodium Carbon Dioxide 17 L BUN Glucose 72 L POC Glucose Calcium 7.6 L Iron TIBC Ferritin ALT 6 L Alkaline Phosphatase 139 H Ammonia Total Creatine Kinase CK-MB (CK-2) Rel Index Troponin T NT-Pro-B Natriuret Pep Total Protein 6.1 L Albumin 2.2 L Urine pH Urine WBC (Auto) Chest x-ray: image reviewed (no post procedure pneumothorax) Allied health notes reviewed: nursing
[2017-07-20] MEDS: NORCO 10/325 PO PRN ×2 (16:14→22:07)
--- NOTE | 2017-07-20 19:13 | Progress Note ---
Assessment and Plan Assessment and plan: 86-year-old AAM with a history of stage IV prostate cancer has bilateral nephrostomy tubes., pw weakness and decreased urine output right Pleural effusion sp R thoracentesis on 07/18/17, 700c drained cultures, ngtd Acute Pyelonephritis/complicated UTI and sepsis -Urine CX of 07/13 yielded Kleb Pneumonia, P. aeruginaosa and Diphteriods and MDR pseudomonas -ID input appreciated, continue abx Obstructive uropathy -IR input appreciated, for bilat neph tube exchange today Prostate cancer metastatic to bone, stage IV -continue supportive care, on xtandif Anemia of chronic disease stable fup hg, keep above 8 acute on Chronic diastolic HF (congestive heart failure) continue iv lasix Elevated troponin - non specific, trop 0.048 detectable, mildly chronically elevated, likely due to CHF, no further workup or rx indicated, LORENZO, acute tubular stasis -sp neph tube exchange 07/19 OAB Mybetriq Heparin for DVT PPx family is intested in home hospice they were given referall History Interval history: Review of systems Constitutional: No fevers, no malaise, no joint pains CVS: No chest pain, no orthopnea, no dyspnea on exertion, no pedal edema GI: No abdominal pain, no diarrhea, no vomiting, no constipation Respiratory: No shortness of breath, no wheezing, no coughing Hospitalist Physical - Physical exam Narrative exam: General.: Appears well, no distress, nontoxic HEENT: Moist mucous membranes, extraocular muscles intact, no lymphadenopathy Neck: supple Cardiac: S1-S2 heard Lungs: clear to auscultation bilaterally Abdomen: soft , nontender, nondistended, bowel sounds positive Extremities: no edema clubbing or cyanosis Skin: no rash or lesions Neurologic: moves all extremities, demented, says hi, but does not converse Psych: calm and cooperative - Constitutional Vitals: Temp Pulse Resp BP Pulse Ox 99.4 F 83 20 133/69 99 07/20/17 18:38 07/20/17 18:38 07/20/17 18:38 07/20/17 18:38 07/20/17 18:38 General appearance: Present: no acute distress, well-nourished Results - Labs CBC & Chem 7: 07/21/17 14:59 07/20/17 07:18 Labs: Laboratory Last Values WBC 12.5 K/mm3 (4.5-11.0) H 07/19/17 06:00 RBC 2.56 M/mm3 (3.65-5.03) L 07/19/17 06:00 Hgb 7.6 gm/dl (11.8-15.2) L 07/19/17 06:00 Hct 25.1 % (35.5-45.6) L 07/19/17 06:00 MCV 98 fl (84-94) H 07/19/17 06:00 MCH 30 pg (28-32) 07/19/17 06:00 MCHC 30 % (32-34) L 07/19/17 06:00 RDW 17.3 % (13.2-15.2) H 07/19/17 06:00 Plt Count 313 K/mm3 (140-440) 07/19/17 06:00 Lymph % (Auto) 11.8 % (13.4-35.0) L 07/19/17 06:00 [place] % (Auto) 10.2 % (0.0-7.3) H 07/19/17 06:00 Eos % (Auto) 1.0 % (0.0-4.3) 07/19/17 06:00 Baso % (Auto) 0.5 % (0.0-1.8) 07/19/17 06:00 Lymph # 1.5 K/mm3 (1.2-5.4) 07/19/17 06:00 [place] # 1.3 K/mm3 (0.0-0.8) H 07/19/17 06:00 Eos # 0.1 K/mm3 (0.0-0.4) 07/19/17 06:00 Baso # 0.1 K/mm3 (0.0-0.1) 07/19/17 06:00 Seg Neutrophils % 76.5 % (40.0-70.0) H 07/19/17 06:00 Seg Neutrophils # 9.6 K/mm3 (1.8-7.7) H 07/19/17 06:00 PT 14.6 Sec. (12.2-14.9) 07/13/17 11:49 INR 1.08 (0.87-1.13) 07/13/17 11:49 APTT 34.2 Sec. (24.2-36.6) 07/13/17 11:49 POC ABG pH 7.425 (7.35-7.45) 07/19/17 09:30 POC ABG pCO2 26.6 (35-45) L 07/19/17 09:30 POC ABG pO2 83 (80-105) 07/19/17 09:30 POC ABG HCO3 17.4 07/19/17 09:30 POC ABG Total CO2 18 07/19/17 09:30 POC ABG O2 Sat 97 07/19/17 09:30 POC ABG Base Excess -7 07/19/17 09:30 FiO2 21 % 07/19/17 09:30 Sodium 138 mmol/L (137-145) 07/20/17 07:18 Potassium 3.9 mmol/L (3.6-5.0) 07/20/17 07:18 Chloride 103.9 mmol/L (98-107) 07/20/17 07:18 Carbon Dioxide 17 mmol/L (22-30) L 07/20/17 07:18 Anion Gap 21 mmol/L 07/20/17 07:18 BUN 20 mg/dL (9-20) 07/20/17 07:18 Creatinine 1.2 mg/dL (0.8-1.5) 07/20/17 07:18 Estimated GFR > 60 ml/min 07/20/17 07:18 BUN/Creatinine Ratio 17 % 07/20/17 07:18 Glucose 72 mg/dL (75-100) L 07/20/17 07:18 POC Glucose 144 (70-105) H 07/18/17 16:59 Hemoglobin A1c < 4.2 % (4-6) 07/13/17 11:49 Lactic Acid 2.00 mmol/L (0.7-2.0) 07/13/17 11:49 Calcium 7.6 mg/dL (8.4-10.2) L 07/20/17 07:18 Phosphorus 2.90 mg/dL (2.5-4.5) 07/13/17 11:49 Magnesium 1.90 mg/dL (1.7-2.3) 07/13/17 11:49 Iron 37 ug/dL (49-181) L 07/14/17 06:35 TIBC 97 mcg/dL (250-450) L 07/14/17 06:35 Ferritin > 2000.0 ng/mL (13.0-400.0) H 07/14/17 14:32 Total Bilirubin 0.20 mg/dL (0.1-1.2) 07/20/17 07:18 Direct Bilirubin < 0.2 mg/dL (0-0.2) 07/13/17 11:49 AST 17 units/L (5-40) 07/20/17 07:18 ALT 6 units/L (7-56) L 07/20/17 07:18 Alkaline Phosphatase 139 units/L (35-129) H 07/20/17 07:18 Ammonia 19.0 umol/L (25-60) L 07/13/17 11:49 Total Creatine Kinase 42 units/L (55-170) L 07/13/17 11:49 CK-MB (CK-2) 1.9 ng/mL (0.0-4.0) 07/13/17 11:49 CK-MB (CK-2) Rel Index 4.5 (0-4) H 07/13/17 11:49 Troponin T 0.048 ng/mL (0.00-0.029) H D 07/16/17 07:24 NT-Pro-B Natriuret Pep 8740 pg/mL (0-900) H 07/13/17 11:49 Total Protein 6.1 g/dL (6.3-8.2) L 07/20/17 07:18 Albumin 2.2 g/dL (3.9-5) L 07/20/17 07:18 Albumin/Globulin Ratio 0.6 % 07/20/17 07:18 Triglycerides 122 mg/dL (2-149) 07/13/17 11:49 Cholesterol 168 mg/dL (50-199) 07/13/17 11:49 LDL Cholesterol Direct 97 mg/dL (50-130) 07/13/17 11:49 HDL Cholesterol 53 mg/dL (40-59) 07/13/17 11:49 Cholesterol/HDL Ratio 3.16 % 07/13/17 11:49 Vitamin B12 613.2 pg/mL (211-911) 07/14/17 14:32 Folate 9.98 ng/mL (7.3-26.0) 07/14/17 14:32 TSH 1.810 mlU/mL (0.270-4.200) 07/13/17 11:49 Urine Color Yellow (Yellow) 07/13/17 12:59 Urine Turbidity Clear (Clear) 07/13/17 12:59 Urine pH 9.0 (5.0-7.0) H 07/13/17 12:59 Ur Specific [place] 1.009 (1.003-1.030) 07/13/17 12:59 Urine Protein 30 mg/dl mg/dL (Negative) 07/13/17 12:59 Urine Glucose (UA) Neg mg/dL (Negative) 07/13/17 12:59 Urine Ketones Neg mg/dL (Negative) 07/13/17 12:59 Urine Blood Lg (Negative) 07/13/17 12:59 Urine Nitrite Pos (Negative) 07/13/17 12:59 Urine Bilirubin Neg (Negative) 07/13/17 12:59 Urine Urobilinogen < 2.0 mg/dL (<2.0) 07/13/17 12:59 Ur Leukocyte Esterase Lg (Negative) 07/13/17 12:59 Urine WBC (Auto) > 182.0 /HPF (0.0-6.0) H 07/13/17 12:59 Urine RBC (Auto) > 182.0 /HPF (0.0-6.0) 07/13/17 12:59 Urine Bacteria (Auto) 1+ /HPF (Negative) 07/13/17 12:59 Urine WBC Clumps 3+ /HPF 07/13/17 12:59 Urine Mucus 1+ /HPF 07/13/17 12:59
[2017-07-21] MEDS: NACL 0.9% IV SCH ×2 (05:54→13:49)
[2017-07-21] MEDS: AVYCAZ IV SCH ×2 (05:54→13:49)
[2017-07-21] MEDS: NORCO 10/325 PO PRN ×2 (05:54→14:08)
[2017-07-21] MEDS: ZESTRIL PO SCH (09:09)
[2017-07-21] MEDS: COREG PO SCH (09:15)
[2017-07-21] MEDS: FERGON PO SCH ×2 (09:17→13:49)
[2017-07-21] MEDS: COLACE PO SCH (09:17)
[2017-07-21] MEDS: OYSCO D 500 MG-200 UNIT PO SCH (09:17)
[2017-07-21] MEDS: K-DUR PO SCH (09:17)
[2017-07-21] MEDS: PEPCID PO SCH (09:17)
[2017-07-21] MEDS: SODIUM BICARBONATE PO SCH (09:18)
[2017-07-21] MEDS: LASIX IV SCH (09:19)
[2017-07-21] MEDS: ENZALUTAMIDE PO SCH (09:23)
[2017-07-21] MEDS: NON-FORMULARY (Mirabegron [Myrbetriq] 50 MG) PO SCH (09:24)
[2017-07-21] MEDS: SODIUM CHLORIDE FLUSH SYRINGE 10 ML IV SCH (09:28)
[2017-07-21 15:21] LABS: Basophils # (Auto) 0.1 K/mm3 (0.0-0.1); Basophils % (Auto) 0.9 % (0.0-1.8); Eosinophils # (Auto) 0.1 K/mm3 (0.0-0.4); Eosinophils % (Auto) 1.2 % (0.0-4.3); Hematocrit 24.9 % (35.5-45.6); Lymphocytes # (Auto) 1.4 K/mm3 (1.2-5.4); Mean Corpuscular HGB Conc 32 % (32-34); Mean Corpuscular Hemoglobin 30 pg (28-32); Mean Corpuscular Volume 94 fl (84-94); Monocytes # (Auto) 0.9 K/mm3 (0.0-0.8); Platelet Count 303 K/mm3 (140-440); Red Blood Count 2.65 M/mm3 (3.65-5.03); Red Cell Distribution Width 17.3 % (13.2-15.2)
--- NOTE | 2017-07-21 18:14 | Progress Note ---
Assessment and Plan Bilateral Pleural Effusions Metastatic Prostate Cancer to bone Acute Pyelonephritis Sepsis Syndrome Obstructive Uropathy UTI Anemia of Chronic Disease Acute on Chronic HFpEF LORENZO Elevated Cardiac Enzymes - s/p thoracentesis - still awaiting study results re: cultures and cytology - prn supplemental oxygen to keep sats > 90% - continue GI prophylaxis - aspiration precautions - making urine via nephrostomy tube - on fortaz; follow cultures and de-escalate as appropriate - continue other care per attending / other consultants .....re-evaluate in am & prn ...25' Subjective Date of service: 07/21/17 Principal diagnosis: Joel. Pleural Effusions; Metastatic prostate cancer; Obstructive Uropathy Interval history: Patient seen today for: Bilateral Pleural Effusions; Metastatic prostate cancer ; Obstructive Uropathy s/p nephrostomy tube placement; UTI Seen and examined at bedside; 24-hour events reviewed; nursing and respiratory care staff consulted; no adverse overnight events reported to me; resting peacefully in bed but with mildly labored breathing; No N/V/F/C reported; family / grand children in room and report no distress since they have been present Objective Vital Signs - 12hr 07/21/17 07/21/17 07/21/17 08:18 09:09 09:15 Temperature 32.1 F L Pulse Rate 69 77 77 Respiratory 16 Rate Blood Pressure 139/65 109/64 109/64 O2 Sat by Pulse 98 Oximetry 07/21/17 07/21/17 16:02 16:03 Temperature 99.0 F 99.0 F Pulse Rate 72 76 Respiratory 16 16 Rate Blood Pressure 124/59 O2 Sat by Pulse 95 95 Oximetry Constitutional: no acute distress, alert, other (cachectic and chronically ill looking) Eyes: non-icteric ENT: oropharynx moist, other (mallampatti 2) Neck: supple, no JVD, other (no thyuromegaly) Ascultation: Bilateral: clear, diminished breath sounds (both bases) Percussion: Bilateral: not dull (bases) Cardiovascular: regular rate and rhythm, murmur noted, other (no rubs) Gastrointestinal: normoactive bowel sounds, soft, non-tender, non-distended, other (no palpable HSM grossly) Integumentary: normal Extremities: no cyanosis, no edema, pulses normal, no ischemia or petechiae Neurologic: unable to assess, other (demented) Psychiatric: other (flat affect) CBC and BMP: 07/21/17 14:59 07/20/17 07:18 ABG, PT/INR, D-dimer: ABG POC ABG pH 7.425 (7.35-7.45) 07/19/17 09:30 POC ABG pCO2 26.6 (35-45) L 07/19/17 09:30 POC ABG pO2 83 (80-105) 07/19/17 09:30 POC ABG HCO3 17.4 07/19/17 09:30 POC ABG Total CO2 18 07/19/17 09:30 POC ABG O2 Sat 97 07/19/17 09:30 PT/INR, D-dimer PT 14.6 Sec. (12.2-14.9) 07/13/17 11:49 INR 1.08 (0.87-1.13) 07/13/17 11:49 Abnormal lab findings: Abnormal Labs 07/13/17 07/13/17 07/13/17 10:13 11:49 11:49 WBC 13.1 H RBC 2.93 L Hgb 8.9 L Hct 27.7 L MCV MCHC RDW 16.7 H Lymph % (Auto) 10.9 L [place] % (Auto) [place] # Seg Neutrophils % 83.5 H Seg Neutrophils # 10.9 H POC ABG pCO2 Sodium Carbon Dioxide 19 L BUN Glucose POC Glucose Calcium Iron TIBC Ferritin ALT Alkaline Phosphatase Ammonia Total Creatine Kinase 43 L CK-MB (CK-2) Rel Index Troponin T NT-Pro-B Natriuret Pep Total Protein Albumin Urine pH 8.0 H Urine WBC (Auto) 28.0 H 07/13/17 07/13/17 07/13/17 11:49 11:49 11:49 WBC RBC Hgb Hct MCV MCHC RDW Lymph % (Auto) [place] % (Auto) [place] # Seg Neutrophils % Seg Neutrophils # POC ABG pCO2 Sodium Carbon Dioxide BUN Glucose POC Glucose Calcium Iron TIBC Ferritin ALT < 5 L Alkaline Phosphatase 167 H Ammonia 19.0 L Total Creatine Kinase 42 L CK-MB (CK-2) Rel Index 4.5 H Troponin T 0.077 H NT-Pro-B Natriuret Pep Total Protein Albumin 2.7 L Urine pH Urine WBC (Auto) 03/07/13/17 07/14/17 11:49 12:59 06:35 WBC 11.3 H RBC 2.65 L Hgb 8.1 L Hct 24.8 L MCV MCHC RDW 16.3 H Lymph % (Auto) 11.1 L [place] % (Auto) [place] # Seg Neutrophils % 81.1 H Seg Neutrophils # 9.2 H POC ABG pCO2 Sodium Carbon Dioxide BUN Glucose POC Glucose Calcium Iron TIBC Ferritin ALT Alkaline Phosphatase Ammonia Total Creatine Kinase CK-MB (CK-2) Rel Index Troponin T NT-Pro-B Natriuret Pep 8740 H Total Protein Albumin Urine pH 9.0 H Urine WBC (Auto) > 182.0 H 07/14/17 07/14/17 07/14/17 06:35 06:35 14:32 WBC RBC Hgb Hct MCV MCHC RDW Lymph % (Auto) [place] % (Auto) [place] # Seg Neutrophils % Seg Neutrophils # POC ABG pCO2 Sodium Carbon Dioxide 20 L BUN Glucose 104 H POC Glucose Calcium 7.9 L Iron 37 L TIBC 97 L Ferritin > 2000.0 H ALT < 5 L Alkaline Phosphatase 142 H Ammonia Total Creatine Kinase CK-MB (CK-2) Rel Index Troponin T NT-Pro-B Natriuret Pep Total Protein Albumin 2.6 L Urine pH Urine WBC (Auto) 07/16/17 07/16/17 07/17/17 07:24 12:43 07:43 WBC 12.5 H RBC 2.60 L Hgb 7.8 L Hct 25.0 L MCV 96 H MCHC 31 L RDW 17.4 H Lymph % (Auto) 10.2 L [place] % (Auto) 8.7 H [place] # 1.1 H Seg Neutrophils % 79.0 H Seg Neutrophils # 9.8 H POC ABG pCO2 Sodium Carbon Dioxide 18 L BUN Glucose POC Glucose 146 H Calcium 7.6 L Iron TIBC Ferritin ALT Alkaline Phosphatase Ammonia Total Creatine Kinase CK-MB (CK-2) Rel Index Troponin T 0.048 H D NT-Pro-B Natriuret Pep Total Protein Albumin Urine pH Urine WBC (Auto) 07/17/17 07/18/17 07/18/17 07:43 14:06 14:06 WBC 14.7 H RBC 2.70 L Hgb 8.0 L Hct 25.3 L MCV MCHC RDW 17.1 H Lymph % (Auto) 9.7 L [place] % (Auto) 8.5 H [place]xton # 1.3 H Seg Neutrophils % 80.8 H Seg Neutrophils # 11.9 H POC ABG pCO2 Sodium 136 L 135 L Carbon Dioxide 18 L 19 L BUN Glucose 117 H POC Glucose Calcium 7.8 L 8.3 L Iron TIBC Ferritin ALT 5 L 5 L Alkaline Phosphatase 168 H Ammonia Total Creatine Kinase CK-MB (CK-2) Rel Index Troponin T NT-Pro-B Natriuret Pep Total Protein 5.8 L 6.0 L Albumin 2.3 L 2.6 L Urine pH Urine WBC (Auto) 07/18/17 07/19/17 07/19/17 16:59 06:00 06:00 WBC 12.5 H RBC 2.56 L Hgb 7.6 L Hct 25.1 L MCV 98 H MCHC 30 L RDW 17.3 H Lymph % (Auto) 11.8 L [place] % (Auto) 10.2 H [place] # 1.3 H Seg Neutrophils % 76.5 H Seg Neutrophils # 9.6 H POC ABG pCO2 Sodium 134 L Carbon Dioxide 18 L BUN 21 H Glucose POC Glucose 144 H Calcium 7.7 L Iron TIBC Ferritin ALT 5 L Alkaline Phosphatase 133 H Ammonia Total Creatine Kinase CK-MB (CK-2) Rel Index Troponin T NT-Pro-B Natriuret Pep Total Protein 5.6 L Albumin 2.0 L Urine pH Urine WBC (Auto) 07/19/17 07/20/17 07/21/17 09:30 07:18 12:06 WBC RBC Hgb Hct MCV MCHC RDW Lymph % (Auto) [place] % (Auto) Braxton # Seg Neutrophils % Seg Neutrophils # POC ABG pCO2 26.6 L Sodium Carbon Dioxide 17 L BUN Glucose 72 L POC Glucose 123 H Calcium 7.6 L Iron TIBC Ferritin ALT 6 L Alkaline Phosphatase 139 H Ammonia Total Creatine Kinase CK-MB (CK-2) Rel Index Troponin T NT-Pro-B Natriuret Pep Total Protein 6.1 L Albumin 2.2 L Urine pH Urine WBC (Auto) 07/21/17 14:59 WBC RBC 2.65 L Hgb 8.0 L Hct 24.9 L MCV MCHC RDW 17.3 H Lymph % (Auto) 13.0 L [place] % (Auto) 9.0 H [place] # 0.9 H Seg Neutrophils % 75.9 H Seg Neutrophils # 8.0 H POC ABG pCO2 Sodium Carbon Dioxide BUN Glucose POC Glucose Calcium Iron TIBC Ferritin ALT Alkaline Phosphatase Ammonia Total Creatine Kinase CK-MB (CK-2) Rel Index Troponin T NT-Pro-B Natriuret Pep Total Protein Albumin Urine pH Urine WBC (Auto) Allied health notes reviewed: nursing
[2017-07-22] MEDS: SODIUM BICARBONATE PO SCH ×3 (00:31→22:07)
[2017-07-22] MEDS: AVYCAZ IV SCH ×4 (00:31→22:53)
[2017-07-22] MEDS: NACL 0.9% IV SCH ×4 (00:31→22:53)
[2017-07-22] MEDS: COLACE PO SCH ×3 (00:32→22:07)
[2017-07-22] MEDS: FERGON PO SCH ×4 (00:32→21:35)
[2017-07-22] MEDS: SODIUM CHLORIDE FLUSH SYRINGE 10 ML IV SCH ×3 (00:33→22:54)
[2017-07-22] MEDS: COREG PO SCH ×3 (00:34→22:08)
[2017-07-22] MEDS: D5NS 1,000 ML IV SCH ×2 (00:35→22:09)
[2017-07-22] MEDS: NORCO 10/325 PO PRN ×3 (01:28→22:06)
[2017-07-22 07:11] LABS: Total Protein,Body Fluid 3.4 (15.0-45.0)
[2017-07-22] MEDS: ENZALUTAMIDE PO SCH (09:25)
[2017-07-22] MEDS: K-DUR PO SCH (09:28)
[2017-07-22] MEDS: LASIX IV SCH (09:28)
[2017-07-22] MEDS: NON-FORMULARY (Mirabegron [Myrbetriq] 50 MG) PO SCH (09:29)
[2017-07-22] MEDS: ZESTRIL PO SCH (09:29)
[2017-07-22] MEDS: OYSCO D 500 MG-200 UNIT PO SCH (09:29)
[2017-07-22] MEDS: PEPCID PO SCH (09:29)
--- NOTE | 2017-07-22 12:16 | Progress Note ---
Assessment and Plan Bilateral Pleural Effusions Metastatic Prostate Cancer to bone Acute Pyelonephritis Sepsis Syndrome Obstructive Uropathy UTI Anemia of Chronic Disease Acute on Chronic HFpEF LORENZO Elevated Cardiac Enzymes - s/p thoracentesis - still awaiting study results re: cultures and cytology - prn supplemental oxygen to keep sats > 90% - continue GI prophylaxis - aspiration precautions - making urine via nephrostomy tube - on fortaz; follow cultures and de-escalate as appropriate - continue other care per attending / other consultants .....re-evaluate in am & prn ...25' Subjective Date of service: 07/22/17 Principal diagnosis: Joel. Pleural Effusions; Metastatic prostate cancer; Obstructive Uropathy Interval history: Patient seen today for: Bilateral Pleural Effusions; Metastatic prostate cancer ; Obstructive Uropathy s/p nephrostomy tube placement; UTI Seen and examined at bedside; 24-hour events reviewed; nursing and respiratory care staff consulted; no adverse overnight events reported to me; resting peacefully in bed; still await pleural fluid studies; No N/V/F/C Objective Vital Signs - 12hr 07/22/17 07/22/17 07/22/17 00:34 08:25 09:24 Temperature 98.5 F Pulse Rate 80 85 65 Respiratory 20 Rate Blood Pressure 143/70 145/69 Blood Pressure 145/69 [Left] O2 Sat by Pulse 100 Oximetry Constitutional: no acute distress, alert, other (cachectic and chronically ill looking) Eyes: non-icteric ENT: oropharynx moist, other (mallampatti 2) Neck: supple, no JVD, other (no thyuromegaly) Ascultation: Bilateral: clear, diminished breath sounds (both bases) Percussion: Bilateral: not dull (bases) Cardiovascular: regular rate and rhythm, murmur noted, other (no rubs) Gastrointestinal: normoactive bowel sounds, soft, non-tender, non-distended, other (no palpable HSM grossly) Integumentary: normal Extremities: no cyanosis, no edema, pulses normal, no ischemia or petechiae Neurologic: unable to assess, other (demented) Psychiatric: other (flat affect) CBC and BMP: 07/21/17 14:59 07/20/17 07:18 ABG, PT/INR, D-dimer: ABG POC ABG pH 7.425 (7.35-7.45) 07/19/17 09:30 POC ABG pCO2 26.6 (35-45) L 07/19/17 09:30 POC ABG pO2 83 (80-105) 07/19/17 09:30 POC ABG HCO3 17.4 07/19/17 09:30 POC ABG Total CO2 18 07/19/17 09:30 POC ABG O2 Sat 97 07/19/17 09:30 PT/INR, D-dimer PT 14.6 Sec. (12.2-14.9) 07/13/17 11:49 INR 1.08 (0.87-1.13) 07/13/17 11:49 Abnormal lab findings: Abnormal Labs 07/13/17 07/13/17 07/13/17 10:13 11:49 11:49 WBC 13.1 H RBC 2.93 L Hgb 8.9 L Hct 27.7 L MCV MCHC RDW 16.7 H Lymph % (Auto) 10.9 L Howard % (Auto) Howard # Seg Neutrophils % 83.5 H Seg Neutrophils # 10.9 H POC ABG pCO2 Sodium Carbon Dioxide 19 L BUN Glucose POC Glucose Calcium Iron TIBC Ferritin ALT Alkaline Phosphatase Ammonia Total Creatine Kinase 43 L CK-MB (CK-2) Rel Index Troponin T NT-Pro-B Natriuret Pep Total Protein Albumin Urine pH 8.0 H Urine WBC (Auto) 28.0 H Fluid Total Protein 07/13/17 07/13/17 07/13/17 11:49 11:49 11:49 WBC RBC Hgb Hct MCV MCHC RDW Lymph % (Auto) [place] % (Auto) [place] # Seg Neutrophils % Seg Neutrophils # POC ABG pCO2 Sodium Carbon Dioxide BUN Glucose POC Glucose Calcium Iron TIBC Ferritin ALT < 5 L Alkaline Phosphatase 167 H Ammonia 19.0 L Total Creatine Kinase 42 L CK-MB (CK-2) Rel Index 4.5 H Troponin T 0.077 H NT-Pro-B Natriuret Pep Total Protein Albumin 2.7 L Urine pH Urine WBC (Auto) Fluid Total Protein 07/13/17 07/13/17 07/14/17 11:49 12:59 06:35 WBC 11.3 H RBC 2.65 L Hgb 8.1 L Hct 24.8 L MCV MCHC RDW 16.3 H Lymph % (Auto) 11.1 L [place] % (Auto) [place] # Seg Neutrophils % 81.1 H Seg Neutrophils # 9.2 H POC ABG pCO2 Sodium Carbon Dioxide BUN Glucose POC Glucose Calcium Iron TIBC Ferritin ALT Alkaline Phosphatase Ammonia Total Creatine Kinase CK-MB (CK-2) Rel Index Troponin T NT-Pro-B Natriuret Pep 8740 H Total Protein Albumin Urine pH 9.0 H Urine WBC (Auto) > 182.0 H Fluid Total Protein 07/14/17 07/14/17 07/14/17 06:35 06:35 14:32 WBC RBC Hgb Hct MCV MCHC RDW Lymph % (Auto) [place] % (Auto) [place] # Seg Neutrophils % Seg Neutrophils # POC ABG pCO2 Sodium Carbon Dioxide 20 L BUN Glucose 104 H POC Glucose Calcium 7.9 L Iron 37 L TIBC 97 L Ferritin > 2000.0 H ALT < 5 L Alkaline Phosphatase 142 H Ammonia Total Creatine Kinase CK-MB (CK-2) Rel Index Troponin T NT-Pro-B Natriuret Pep Total Protein Albumin 2.6 L Urine pH Urine WBC (Auto) Fluid Total Protein 07/16/17 07/16/17 07/17/17 07:24 12:43 07:43 WBC 12.5 H RBC 2.60 L Hgb 7.8 L Hct 25.0 L MCV 96 H MCHC 31 L RDW 17.4 H Lymph % (Auto) 10.2 L Howard % (Auto) 8.7 H Howard # 1.1 H Seg Neutrophils % 79.0 H Seg Neutrophils # 9.8 H POC ABG pCO2 Sodium Carbon Dioxide 18 L BUN Glucose POC Glucose 146 H Calcium 7.6 L Iron TIBC Ferritin ALT Alkaline Phosphatase Ammonia Total Creatine Kinase CK-MB (CK-2) Rel Index Troponin T 0.048 H D NT-Pro-B Natriuret Pep Total Protein Albumin Urine pH Urine WBC (Auto) Fluid Total Protein 07/17/17 07/17/17 07/18/17 07:43 Unknown 14:06 WBC 14.7 H RBC 2.70 L Hgb 8.0 L Hct 25.3 L MCV MCHC RDW 17.1 H Lymph % (Auto) 9.7 L Howard % (Auto) 8.5 H Howard # 1.3 H Seg Neutrophils % 80.8 H Seg Neutrophils # 11.9 H POC ABG pCO2 Sodium 136 L Carbon Dioxide 18 L BUN Glucose POC Glucose Calcium 7.8 L Iron TIBC Ferritin ALT 5 L Alkaline Phosphatase Ammonia Total Creatine Kinase CK-MB (CK-2) Rel Index Troponin T NT-Pro-B Natriuret Pep Total Protein 5.8 L Albumin 2.3 L Urine pH Urine WBC (Auto) Fluid Total Protein 3.4 L 07/18/17 07/18/17 07/19/17 14:06 16:59 06:00 WBC 12.5 H RBC 2.56 L Hgb 7.6 L Hct 25.1 L MCV 98 H MCHC 30 L RDW 17.3 H Lymph % (Auto) 11.8 L Howard % (Auto) 10.2 H Howard # 1.3 H Seg Neutrophils % 76.5 H Seg Neutrophils # 9.6 H POC ABG pCO2 Sodium 135 L Carbon Dioxide 19 L BUN Glucose 117 H POC Glucose 144 H Calcium 8.3 L Iron TIBC Ferritin ALT 5 L Alkaline Phosphatase 168 H Ammonia Total Creatine Kinase CK-MB (CK-2) Rel Index Troponin T NT-Pro-B Natriuret Pep Total Protein 6.0 L Albumin 2.6 L Urine pH Urine WBC (Auto) Fluid Total Protein 07/19/17 07/19/17 07/20/17 06:00 09:30 07:18 WBC RBC Hgb Hct MCV MCHC RDW Lymph % (Auto) Howard % (Auto) Howard # Seg Neutrophils % Seg Neutrophils # POC ABG pCO2 26.6 L Sodium 134 L Carbon Dioxide 18 L 17 L BUN 21 H Glucose 72 L POC Glucose Calcium 7.7 L 7.6 L Iron TIBC Ferritin ALT 5 L 6 L Alkaline Phosphatase 133 H 139 H Ammonia Total Creatine Kinase CK-MB (CK-2) Rel Index Troponin T NT-Pro-B Natriuret Pep Total Protein 5.6 L 6.1 L Albumin 2.0 L 2.2 L Urine pH Urine WBC (Auto) Fluid Total Protein 07/21/17 07/21/17 12:06 14:59 WBC RBC 2.65 L Hgb 8.0 L Hct 24.9 L MCV MCHC RDW 17.3 H Lymph % (Auto) 13.0 L Howard % (Auto) 9.0 H Howard # 0.9 H Seg Neutrophils % 75.9 H Seg Neutrophils # 8.0 H POC ABG pCO2 Sodium Carbon Dioxide BUN Glucose POC Glucose 123 H Calcium Iron TIBC Ferritin ALT Alkaline Phosphatase Ammonia Total Creatine Kinase CK-MB (CK-2) Rel Index Troponin T NT-Pro-B Natriuret Pep Total Protein Albumin Urine pH Urine WBC (Auto) Fluid Total Protein Allied health notes reviewed: nursing
--- NOTE | 2017-07-22 13:44 | Progress Note ---
Assessment and Plan IMPRESSION 1. Complicated UTI with bilateral nephrostomy tubes in place. Urine cx with MDR Pseudomonas aeruginosa, Pseudomonas fluorescens/putida, Klebsiella pneumoniae. -s/p R nephrostomy tube exchange and removal and placement of new L nephrostomy tube on 07/19/17. 2. Leukocytosis. Resolved. 3. 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 4. Bilateral pleural effusions, s/p R thoracentesis 07/18/17. Cx NGTD. 5. H/o Klebsiella septicemia and Pseudomonas aeruginosa complicated UTI in January 2017. RECOMMENDATIONS -On ceftazidime/avibactam (Avycaz) (D4/5). -d/w RN. Becky Engle MD. ID attending. [facility]. C [phone] Subjective Date of service: 07/22/17 Principal diagnosis: Joel. Pleural Effusions; Metastatic prostate cancer; Obstructive Uropathy Interval history: Afebrile. Says he feels weak. c/o back pain. Microbiology Blood cultures 07/13 negative Urine cx 07/13 P. aeruginosa MDR, Pseudomonas putida/fluorescens, Klebsiella pneumoniae, Diphtheroids. Pleural fluid cx 07/18 NGTD Antibiotics Avycaz 07/19- Prior abx Ceftriaxone since 07/16 Levofloxacin 07/15 Ceftriaxone 07/13-07/15 Polymixin B x1 07/18 Objective - Exam Narrative Exam: GENERAL: Pt in NAD, chronically ill-looking. Awake, alert. Conversant. HEENT: NC/AT. PERRLA. EOMI. Oropharynx is clear. NECK: Supple. HEART: S1,S1. LUNGS: Decreased at the bases. ABDOMEN: +BS. Soft. NT/ND. Bilateral nephrostomy tubes in place with clear urine. EXTREMITIES: no c/c/e. SKIN: Stage 2 sacral decubitus ulcer. - Constitutional Vitals: Vital Signs Temp Pulse Resp BP Pulse Ox 98.5 F 65 20 145/69 100 07/22/17 08:25 07/22/17 09:24 07/22/17 08:25 07/22/17 09:24 07/22/17 08:25 Temperature -Last 24 Hours Temperature 98.5 F Temperature 99.0 F Temperature 99.0 F Temperature 99.0 F - Labs CBC & Chem 7: 07/21/17 14:59 07/20/17 07:18 Labs: Abnormal lab results 07/17/17 07/21/17 Range/Units Unknown 14:59 RBC 2.65 L (3.65-5.03) M/mm3 Hgb 8.0 L (11.8-15.2) gm/dl Hct 24.9 L (35.5-45.6) % RDW 17.3 H (13.2-15.2) % Lymph % (Auto) 13.0 L (13.4-35.0) % [place] % (Auto) 9.0 H (0.0-7.3) % [place] # 0.9 H (0.0-0.8) K/mm3 Seg Neutrophils % 75.9 H (40.0-70.0) % Seg Neutrophils # 8.0 H (1.8-7.7) K/mm3 Fluid Total Protein 3.4 L (15.0-45.0)
[2017-07-22] MEDS: PROVENTIL IH PRN (16:20)
[2017-07-23] MEDS: AVYCAZ IV SCH ×2 (06:11→14:24)
[2017-07-23] MEDS: NACL 0.9% IV SCH ×2 (06:11→14:24)
[2017-07-23] MEDS: FERGON PO SCH ×3 (08:40→20:33)
[2017-07-23] MEDS: LASIX IV SCH (09:46)
[2017-07-23] MEDS: OYSCO D 500 MG-200 UNIT PO SCH (09:47)
[2017-07-23] MEDS: SODIUM BICARBONATE PO SCH ×2 (09:47→22:54)
[2017-07-23] MEDS: PEPCID PO SCH (09:47)
[2017-07-23] MEDS: ZESTRIL PO SCH (09:47)
[2017-07-23] MEDS: NON-FORMULARY (Mirabegron [Myrbetriq] 50 MG) PO SCH (09:48)
[2017-07-23] MEDS: COREG PO SCH ×2 (09:48→22:56)
[2017-07-23] MEDS: K-DUR PO SCH (09:48)
[2017-07-23] MEDS: ENZALUTAMIDE PO SCH (09:49)
[2017-07-23] MEDS: COLACE PO SCH ×2 (09:49→22:54)
[2017-07-23] MEDS: SODIUM CHLORIDE FLUSH SYRINGE 10 ML IV SCH (09:50)
[2017-07-23] MEDS: PROVENTIL IH PRN (12:02)
--- NOTE | 2017-07-23 13:46 | Progress Note ---
Assessment and Plan IMPRESSION 1. Complicated UTI with bilateral nephrostomy tubes in place. Urine cx with MDR Pseudomonas aeruginosa, Pseudomonas fluorescens/putida, Klebsiella pneumoniae. -s/p R nephrostomy tube exchange and removal and placement of new L nephrostomy tube on 07/19/17. 2. Leukocytosis. Resolved. 3. 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 4. Bilateral pleural effusions, s/p R thoracentesis 07/18/17. Cx NGTD. 5. H/o Klebsiella septicemia and Pseudomonas aeruginosa complicated UTI in January 2017. RECOMMENDATIONS -On ceftazidime/avibactam (Avycaz) (D5/5 of total antibiotics). -Ok to d/c per ID. -d/w pt's daughter bedside. Becky Engle MD. ID attending. [facility]. C [phone] Subjective Date of service: 07/23/17 Principal diagnosis: Joel. Pleural Effusions; Metastatic prostate cancer; Obstructive Uropathy Interval history: Afebrile. Has some lower back pain. Microbiology Blood cultures 07/13 negative Urine cx 07/13 P. aeruginosa MDR, Pseudomonas putida/fluorescens, Klebsiella pneumoniae, Diphtheroids. Pleural fluid cx 07/18 NGTD Antibiotics Avycaz 07/19- Prior abx Ceftriaxone since 07/16 Levofloxacin 07/15 Ceftriaxone 07/13-07/15 Polymixin B x1 07/18 Objective - Exam Narrative Exam: GENERAL: Pt in NAD, chronically ill-looking. Awake, alert. Conversant. HEENT: NC/AT. PERRLA. EOMI. Oropharynx is clear. NECK: Supple. HEART: S1,S1. LUNGS: Decreased at the bases. ABDOMEN: +BS. Soft. NT/ND. Bilateral nephrostomy tubes in place with clear urine. EXTREMITIES: no c/c/e. SKIN: Stage 2 sacral decubitus ulcer. - Constitutional Vitals: Vital Signs Temp Pulse Resp BP Pulse Ox 98.0 F 78 16 150/74 93 07/23/17 08:00 07/23/17 12:05 07/23/17 12:05 07/23/17 08:00 07/23/17 08:00 Temperature -Last 24 Hours Temperature 98.0 F Temperature 99.0 F Temperature 99.2 F - Labs CBC & Chem 7: 07/21/17 14:59 07/20/17 07:18
--- NOTE | 2017-07-23 16:42 | Progress Note ---
Assessment and Plan Assessment and plan: 86-year-old AAM with a history of stage IV prostate cancer has bilateral nephrostomy tubes., pw weakness and decreased urine output right Pleural effusion sp R thoracentesis on 07/18/17, 700c drained cultures, ngtd Acute Pyelonephritis/complicated UTI and sepsis -Urine CX of 07/13 yielded Kleb Pneumonia, P. aeruginaosa and Diphteriods and MDR pseudomonas -ID input appreciated, continue abx Obstructive uropathy -IR input appreciated, for bilat neph tube exchange today Prostate cancer metastatic to bone, stage IV -continue supportive care, on xtandif Anemia of chronic disease stable fup hg, keep above 8 acute on Chronic diastolic HF (congestive heart failure) continue iv lasix Elevated troponin - non specific, trop 0.048 detectable, mildly chronically elevated, likely due to CHF, no further workup or rx indicated, LORENZO, acute tubular stasis -sp neph tube exchange 07/19 OAB Mybetriq Heparin for DVT PPx family is intested in home hospice they were given referall History Interval history: Review of systems Constitutional: No fevers, no malaise, no joint pains CVS: No chest pain, no orthopnea, no dyspnea on exertion, no pedal edema GI: No abdominal pain, no diarrhea, no vomiting, no constipation Respiratory: No shortness of breath, no wheezing, no coughing Hospitalist Physical - Physical exam Narrative exam: General.: Appears well, no distress, nontoxic HEENT: Moist mucous membranes, extraocular muscles intact, no lymphadenopathy Neck: supple Cardiac: S1-S2 heard Lungs: clear to auscultation bilaterally Abdomen: soft , nontender, nondistended, bowel sounds positive Extremities: no edema clubbing or cyanosis Skin: no rash or lesions Neurologic: moves all extremities, demented, says hi, but does not converse Psych: calm and cooperative - Constitutional Vitals: Temp Pulse Resp BP Pulse Ox 98.0 F 78 16 150/74 93 07/23/17 08:00 07/23/17 12:05 07/23/17 12:05 07/23/17 08:00 07/23/17 08:00 General appearance: Present: no acute distress, well-nourished Results - Labs CBC & Chem 7: 07/21/17 14:59 07/20/17 07:18 Labs: Laboratory Last Values WBC 10.5 K/mm3 (4.5-11.0) 07/21/17 14:59 RBC 2.65 M/mm3 (3.65-5.03) L 07/21/17 14:59 Hgb 8.0 gm/dl (11.8-15.2) L 07/21/17 14:59 Hct 24.9 % (35.5-45.6) L 07/21/17 14:59 MCV 94 fl (84-94) 07/21/17 14:59 MCH 30 pg (28-32) 07/21/17 14:59 MCHC 32 % (32-34) 07/21/17 14:59 RDW 17.3 % (13.2-15.2) H 07/21/17 14:59 Plt Count 303 K/mm3 (140-440) 07/21/17 14:59 Lymph % (Auto) 13.0 % (13.4-35.0) L 07/21/17 14:59 [place] % (Auto) 9.0 % (0.0-7.3) H 07/21/17 14:59 Eos % (Auto) 1.2 % (0.0-4.3) 07/21/17 14:59 Baso % (Auto) 0.9 % (0.0-1.8) 07/21/17 14:59 Lymph # 1.4 K/mm3 (1.2-5.4) 07/21/17 14:59 [place] # 0.9 K/mm3 (0.0-0.8) H 07/21/17 14:59 Eos # 0.1 K/mm3 (0.0-0.4) 07/21/17 14:59 Baso # 0.1 K/mm3 (0.0-0.1) 07/21/17 14:59 Seg Neutrophils % 75.9 % (40.0-70.0) H 07/21/17 14:59 Seg Neutrophils # 8.0 K/mm3 (1.8-7.7) H 07/21/17 14:59 PT 14.6 Sec. (12.2-14.9) 07/13/17 11:49 INR 1.08 (0.87-1.13) 07/13/17 11:49 APTT 34.2 Sec. (24.2-36.6) 07/13/17 11:49 POC ABG pH 7.425 (7.35-7.45) 07/19/17 09:30 POC ABG pCO2 26.6 (35-45) L 07/19/17 09:30 POC ABG pO2 83 (80-105) 07/19/17 09:30 POC ABG HCO3 17.4 07/19/17 09:30 POC ABG Total CO2 18 07/19/17 09:30 POC ABG O2 Sat 97 07/19/17 09:30 POC ABG Base Excess -7 07/19/17 09:30 FiO2 21 % 07/19/17 09:30 Sodium 138 mmol/L (137-145) 07/20/17 07:18 Potassium 3.9 mmol/L (3.6-5.0) 07/20/17 07:18 Chloride 103.9 mmol/L (98-107) 07/20/17 07:18 Carbon Dioxide 17 mmol/L (22-30) L 07/20/17 07:18 Anion Gap 21 mmol/L 07/20/17 07:18 BUN 20 mg/dL (9-20) 07/20/17 07:18 Creatinine 1.2 mg/dL (0.8-1.5) 07/20/17 07:18 Estimated GFR > 60 ml/min 07/20/17 07:18 BUN/Creatinine Ratio 17 % 07/20/17 07:18 Glucose 72 mg/dL (75-100) L 07/20/17 07:18 POC Glucose 123 (70-105) H 07/21/17 12:06 Hemoglobin A1c < 4.2 % (4-6) 07/13/17 11:49 Lactic Acid 2.00 mmol/L (0.7-2.0) 07/13/17 11:49 Calcium 7.6 mg/dL (8.4-10.2) L 07/20/17 07:18 Phosphorus 2.90 mg/dL (2.5-4.5) 07/13/17 11:49 Magnesium 1.90 mg/dL (1.7-2.3) 07/13/17 11:49 Iron 37 ug/dL (49-181) L 07/14/17 06:35 TIBC 97 mcg/dL (250-450) L 07/14/17 06:35 Ferritin > 2000.0 ng/mL (13.0-400.0) H 07/14/17 14:32 Total Bilirubin 0.20 mg/dL (0.1-1.2) 07/20/17 07:18 Direct Bilirubin < 0.2 mg/dL (0-0.2) 07/13/17 11:49 AST 17 units/L (5-40) 07/20/17 07:18 ALT 6 units/L (7-56) L 07/20/17 07:18 Alkaline Phosphatase 139 units/L (35-129) H 07/20/17 07:18 Ammonia 19.0 umol/L (25-60) L 07/13/17 11:49 Total Creatine Kinase 42 units/L (55-170) L 07/13/17 11:49 CK-MB (CK-2) 1.9 ng/mL (0.0-4.0) 07/13/17 11:49 CK-MB (CK-2) Rel Index 4.5 (0-4) H 07/13/17 11:49 Troponin T 0.048 ng/mL (0.00-0.029) H D 07/16/17 07:24 NT-Pro-B Natriuret Pep 8740 pg/mL (0-900) H 07/13/17 11:49 Total Protein 6.1 g/dL (6.3-8.2) L 07/20/17 07:18 Albumin 2.2 g/dL (3.9-5) L 07/20/17 07:18 Albumin/Globulin Ratio 0.6 % 07/20/17 07:18 Triglycerides 122 mg/dL (2-149) 07/13/17 11:49 Cholesterol 168 mg/dL (50-199) 07/13/17 11:49 LDL Cholesterol Direct 97 mg/dL (50-130) 07/13/17 11:49 HDL Cholesterol 53 mg/dL (40-59) 07/13/17 11:49 Cholesterol/HDL Ratio 3.16 % 07/13/17 11:49 Vitamin B12 613.2 pg/mL (211-911) 07/14/17 14:32 Folate 9.98 ng/mL (7.3-26.0) 07/14/17 14:32 TSH 1.810 mlU/mL (0.270-4.200) 07/13/17 11:49 Urine Color Yellow (Yellow) 07/13/17 12:59 Urine Turbidity Clear (Clear) 07/13/17 12:59 Urine pH 9.0 (5.0-7.0) H 07/13/17 12:59 Ur Specific [place] 1.009 (1.003-1.030) 07/13/17 12:59 Urine Protein 30 mg/dl mg/dL (Negative) 07/13/17 12:59 Urine Glucose (UA) Neg mg/dL (Negative) 07/13/17 12:59 Urine Ketones Neg mg/dL (Negative) 07/13/17 12:59 Urine Blood Lg (Negative) 07/13/17 12:59 Urine Nitrite Pos (Negative) 07/13/17 12:59 Urine Bilirubin Neg (Negative) 07/13/17 12:59 Urine Urobilinogen < 2.0 mg/dL (<2.0) 07/13/17 12:59 Ur Leukocyte Esterase Lg (Negative) 07/13/17 12:59 Urine WBC (Auto) > 182.0 /HPF (0.0-6.0) H 07/13/17 12:59 Urine RBC (Auto) > 182.0 /HPF (0.0-6.0) 07/13/17 12:59 Urine Bacteria (Auto) 1+ /HPF (Negative) 07/13/17 12:59 Urine WBC Clumps 3+ /HPF 07/13/17 12:59 Urine Mucus 1+ /HPF 07/13/17 12:59 Fluid Total Protein 3.4 (15.0-45.0) L 07/17/17 Unknown Fluid Albumin 1.4 g/dL 07/17/17 Unknown Fluid LDH 156 07/17/17 Unknown
--- NOTE | 2017-07-23 16:46 | Discharge Summary ---
Providers - Providers Date of Admission: 07/13/17 15:18 Attending physician: DENISE FERNÁNDEZ MD 07/13/17 20:51 Consult to Physician [CONS] Routine Comment: Consulting Provider: JOSELINE MCKEON Physician Instructions: SPOKE TO dR Hemphill Reason For Exam: Bilateral Nephrostomy tubes 07/13/17 21:00 Consult to Physician [CONS] Routine Comment: MESSAGE LEFT Consulting Provider: MADDIE LONG Physician Instructions: Reason For Exam: Pyelonephritis 07/14/17 09:04 Consult to Wound/ET Nurse [CONS] Routine Reason For Exam: wound eval 07/15/17 14:56 Consult to Physician [CONS] Routine Comment: Consulting Provider: JOSELINE STOKES Physician Instructions: for thoracentesis Reason For Exam: bilateral pleural effusion 07/17/17 15:09 Consult to Physician [CONS] Routine Comment: spoke with Dr. Dee Consulting Provider: OKSANA DEE Physician Instructions: Reason For Exam: Pulmonary Effusion 07/17/17 22:46 Consult to Physician [CONS] Routine Comment: Consulting Provider: AJ TAYLOR Physician Instructions: Reason For Exam: MDR UTI Primary care physician: [employer] TECHNICIAN Hospitalization Condition: Stable Hospital course: 86-year-old AAM with a history of stage IV prostate cancer has bilateral nephrostomy tubes., pw weakness and decreased urine output. He was found to have sepsis due to MDR UTI, he received ID consult and completed a course of abx while in hospital. he was also found to have R pleural effusion, which was tapped, 700cc of fluid was tapped, cultures from this fluid were negative. Given obstructive uropathy, his nephrostomy tubes were exchanged. His family was interested in home hospice, therefore they were given a referall, he was dc home improved condition Diagnosis right Pleural effusion Acute Pyelonephritis/complicated UTI and sepsis Obstructive uropathy Prostate cancer metastatic to bone, stage IV Anemia of chronic disease acute on Chronic diastolic HF (congestive heart failure) Elevated troponin - non specific, trop 0.048 LORENZO, acute tubular stasis OAB Disposition: DC/TX-06 HOME UNDER [facility] Time spent for discharge: 33 minutes Core Measure Documentation - Palliative Care Palliative Care/ Comfort Measures: Not Applicable - Core Measures Any of the following diagnoses?: none Exam - Constitutional Vitals: Temp Pulse Resp BP Pulse Ox 98.0 F 78 16 150/74 93 07/23/17 08:00 07/23/17 12:05 07/23/17 12:05 07/23/17 08:00 07/23/17 08:00 General appearance: Present: no acute distress, well-nourished - EENT Eyes: Present: PERRL ENT: hearing intact, clear oral mucosa - Neck Neck: Present: supple, normal ROM - Respiratory Respiratory effort: normal Respiratory: bilateral: CTA - Cardiovascular Heart Sounds: Present: S1 & S2. Absent: rub, click - Extremities Extremities: pulses symmetrical, No edema Peripheral Pulses: within normal limits - Abdominal General gastrointestinal: Present: soft, non-tender, non-distended, normal bowel sounds Male genitourinary: Present: normal - Integumentary Integumentary: Present: clear, warm, dry - Musculoskeletal Musculoskeletal: gait normal, strength equal bilaterally - Psychiatric Psychiatric: appropriate mood/affect, cooperative - Neurologic Neurologic: CNII-XII intact, moves all extremities Plan Follow up with: PRIMARY CARE,MD [Primary Care Provider] - 3-5 Days Prescriptions: ALBUTEROL NEB's [Proventil 0.083% NEBS] 2.5 mg IH TID PRN #180 neb PRN Reason: Wheezing Carvedilol [Coreg] 6.25 mg PO BID #60 tablet Famotidine [Pepcid] 20 mg PO DAILY #30 tablet Furosemide [Lasix TAB] 40 mg PO QDAY #30 tablet HYDROcodone/APAP 10-325 1 tab PO Q6H PRN #14 PRN Reason: Pain Lisinopril [Zestril TAB] 5 mg PO QDAY #30 tablet Potassium Chloride [K-Dur] 20 meq PO QDAY #30 tablet
[2017-07-23] MEDS: D5NS 1,000 ML IV SCH (17:00)
[2017-07-24 09:45] VITALS: BP 149/68
[2017-07-24] MEDS: SODIUM CHLORIDE FLUSH SYRINGE 10 ML IV SCH (09:51)
[2017-07-24] MEDS: FERGON PO SCH (09:52)
[2017-07-24] MEDS: COLACE PO SCH (09:52)
[2017-07-24] MEDS: ENZALUTAMIDE PO SCH (09:54)
[2017-07-24] MEDS: COREG PO SCH (09:54)
[2017-07-24] MEDS: K-DUR PO SCH (09:54)
[2017-07-24] MEDS: LASIX IV SCH (09:55)
[2017-07-24] MEDS: NON-FORMULARY (Mirabegron [Myrbetriq] 50 MG) PO SCH (09:56)
[2017-07-24] MEDS: OYSCO D 500 MG-200 UNIT PO SCH (09:57)
[2017-07-24] MEDS: PEPCID PO SCH (09:58)
[2017-07-24] MEDS: ZESTRIL PO SCH (09:58)
[2017-07-24] MEDS: SODIUM BICARBONATE PO SCH (09:58)
--- NOTE | 2017-07-24 10:38 | Progress Note ---
Assessment and Plan Bilateral Pleural Effusions Metastatic Prostate Cancer to bone Acute Pyelonephritis Sepsis Syndrome Obstructive Uropathy UTI Anemia of Chronic Disease Acute on Chronic HFpEF LORENZO Elevated Cardiac Enzymes - s/p thoracentesis - still awaiting study results re: cultures and cytology - prn supplemental oxygen to keep sats > 90% - continue GI prophylaxis - aspiration precautions - making urine via nephrostomy tube - on fortaz; follow cultures and de-escalate as appropriate - continue other care per attending / other consultants .....re-evaluate in am & prn ...25' Subjective Date of service: 07/24/17 Principal diagnosis: Joel. Pleural Effusions; Metastatic prostate cancer; Obstructive Uropathy Interval history: Patient seen today for: Bilateral Pleural Effusions; Metastatic prostate cancer ; Obstructive Uropathy s/p nephrostomy tube placement; UTI Seen and examined at bedside; 24-hour events reviewed; nursing and respiratory care staff consulted; no adverse overnight events reported to me; resting peacefully in bed; Objective Vital Signs - 12hr 07/23/17 07/24/17 07/24/17 22:56 07:57 08:00 Temperature 97.8 F Pulse Rate 80 74 73 Respiratory 18 Rate Blood Pressure 136/65 Blood Pressure 149/68 [Left] O2 Sat by Pulse 100 Oximetry 07/24/17 08:52 Temperature 97.5 F L Pulse Rate Respiratory Rate Blood Pressure Blood Pressure [Left] O2 Sat by Pulse Oximetry Constitutional: no acute distress, alert, other (cachectic and chronically ill looking) Eyes: non-icteric ENT: oropharynx moist, other (mallampatti 2) Neck: supple, no JVD, other (no thyuromegaly) Ascultation: Bilateral: clear, diminished breath sounds (both bases) Percussion: Bilateral: not dull (bases) Cardiovascular: regular rate and rhythm, murmur noted, other (no rubs) Gastrointestinal: normoactive bowel sounds, soft, non-tender, non-distended, other (no palpable HSM grossly) Integumentary: normal Extremities: no cyanosis, no edema, pulses normal, no ischemia or petechiae Neurologic: unable to assess, other (demented) Psychiatric: other (flat affect) CBC and BMP: 07/21/17 14:59 07/20/17 07:18 ABG, PT/INR, D-dimer: ABG POC ABG pH 7.425 (7.35-7.45) 07/19/17 09:30 POC ABG pCO2 26.6 (35-45) L 07/19/17 09:30 POC ABG pO2 83 (80-105) 07/19/17 09:30 POC ABG HCO3 17.4 07/19/17 09:30 POC ABG Total CO2 18 07/19/17 09:30 POC ABG O2 Sat 97 07/19/17 09:30 PT/INR, D-dimer PT 14.6 Sec. (12.2-14.9) 07/13/17 11:49 INR 1.08 (0.87-1.13) 07/13/17 11:49 Abnormal lab findings: Abnormal Labs 07/13/17 07/13/17 07/13/17 10:13 11:49 11:49 WBC 13.1 H RBC 2.93 L Hgb 8.9 L Hct 27.7 L MCV MCHC RDW 16.7 H Lymph % (Auto) 10.9 L [place] % (Auto) [place] # Seg Neutrophils % 83.5 H Seg Neutrophils # 10.9 H POC ABG pCO2 Sodium Carbon Dioxide 19 L BUN Glucose POC Glucose Calcium Iron TIBC Ferritin ALT Alkaline Phosphatase Ammonia Total Creatine Kinase 43 L CK-MB (CK-2) Rel Index Troponin T NT-Pro-B Natriuret Pep Total Protein Albumin Urine pH 8.0 H Urine WBC (Auto) 28.0 H Fluid Total Protein 07/13/17 07/13/17 07/13/17 11:49 11:49 11:49 WBC RBC Hgb Hct MCV MCHC RDW Lymph % (Auto) [place] % (Auto) [place] # Seg Neutrophils % Seg Neutrophils # POC ABG pCO2 Sodium Carbon Dioxide BUN Glucose POC Glucose Calcium Iron TIBC Ferritin ALT < 5 L Alkaline Phosphatase 167 H Ammonia 19.0 L Total Creatine Kinase 42 L CK-MB (CK-2) Rel Index 4.5 H Troponin T 0.077 H NT-Pro-B Natriuret Pep Total Protein Albumin 2.7 L Urine pH Urine WBC (Auto) Fluid Total Protein 07/13/17 07/13/17 07/14/17 11:49 12:59 06:35 WBC 11.3 H RBC 2.65 L Hgb 8.1 L Hct 24.8 L MCV MCHC RDW 16.3 H Lymph % (Auto) 11.1 L [place] % (Auto) [place] # Seg Neutrophils % 81.1 H Seg Neutrophils # 9.2 H POC ABG pCO2 Sodium Carbon Dioxide BUN Glucose POC Glucose Calcium Iron TIBC Ferritin ALT Alkaline Phosphatase Ammonia Total Creatine Kinase CK-MB (CK-2) Rel Index Troponin T NT-Pro-B Natriuret Pep 8740 H Total Protein Albumin Urine pH 9.0 H Urine WBC (Auto) > 182.0 H Fluid Total Protein 07/14/17 07/14/17 07/14/17 06:35 06:35 14:32 WBC RBC Hgb Hct MCV MCHC RDW Lymph % (Auto) [place] % (Auto) [place] # Seg Neutrophils % Seg Neutrophils # POC ABG pCO2 Sodium Carbon Dioxide 20 L BUN Glucose 104 H POC Glucose Calcium 7.9 L Iron 37 L TIBC 97 L Ferritin > 2000.0 H ALT < 5 L Alkaline Phosphatase 142 H Ammonia Total Creatine Kinase CK-MB (CK-2) Rel Index Troponin T NT-Pro-B Natriuret Pep Total Protein Albumin 2.6 L Urine pH Urine WBC (Auto) Fluid Total Protein 07/16/17 07/16/17 07/17/17 07:24 12:43 07:43 WBC 12.5 H RBC 2.60 L Hgb 7.8 L Hct 25.0 L MCV 96 H MCHC 31 L RDW 17.4 H Lymph % (Auto) 10.2 L [place] % (Auto) 8.7 H [place] # 1.1 H Seg Neutrophils % 79.0 H Seg Neutrophils # 9.8 H POC ABG pCO2 Sodium Carbon Dioxide 18 L BUN Glucose POC Glucose 146 H Calcium 7.6 L Iron TIBC Ferritin ALT Alkaline Phosphatase Ammonia Total Creatine Kinase CK-MB (CK-2) Rel Index Troponin T 0.048 H D NT-Pro-B Natriuret Pep Total Protein Albumin Urine pH Urine WBC (Auto) Fluid Total Protein 07/17/17 07/17/17 07/18/17 07:43 Unknown 14:06 WBC 14.7 H RBC 2.70 L Hgb 8.0 L Hct 25.3 L MCV MCHC RDW 17.1 H Lymph % (Auto) 9.7 L [place] % (Auto) 8.5 H [place] # 1.3 H Seg Neutrophils % 80.8 H Seg Neutrophils # 11.9 H POC ABG pCO2 Sodium 136 L Carbon Dioxide 18 L BUN Glucose POC Glucose Calcium 7.8 L Iron TIBC Ferritin ALT 5 L Alkaline Phosphatase Ammonia Total Creatine Kinase CK-MB (CK-2) Rel Index Troponin T NT-Pro-B Natriuret Pep Total Protein 5.8 L Albumin 2.3 L Urine pH Urine WBC (Auto) Fluid Total Protein 3.4 L 07/18/17 07/18/17 07/19/17 14:06 16:59 06:00 WBC 12.5 H RBC 2.56 L Hgb 7.6 L Hct 25.1 L MCV 98 H MCHC 30 L RDW 17.3 H Lymph % (Auto) 11.8 L [place] % (Auto) 10.2 H [place] # 1.3 H Seg Neutrophils % 76.5 H Seg Neutrophils # 9.6 H POC ABG pCO2 Sodium 135 L Carbon Dioxide 19 L BUN Glucose 117 H POC Glucose 144 H Calcium 8.3 L Iron TIBC Ferritin ALT 5 L Alkaline Phosphatase 168 H Ammonia Total Creatine Kinase CK-MB (CK-2) Rel Index Troponin T NT-Pro-B Natriuret Pep Total Protein 6.0 L Albumin 2.6 L Urine pH Urine WBC (Auto) Fluid Total Protein 07/19/17 07/19/17 07/20/17 06:00 09:30 07:18 WBC RBC Hgb Hct MCV MCHC RDW Lymph % (Auto) [place] % (Auto) [place] # Seg Neutrophils % Seg Neutrophils # POC ABG pCO2 26.6 L Sodium 134 L Carbon Dioxide 18 L 17 L BUN 21 H Glucose 72 L POC Glucose Calcium 7.7 L 7.6 L Iron TIBC Ferritin ALT 5 L 6 L Alkaline Phosphatase 133 H 139 H Ammonia Total Creatine Kinase CK-MB (CK-2) Rel Index Troponin T NT-Pro-B Natriuret Pep Total Protein 5.6 L 6.1 L Albumin 2.0 L 2.2 L Urine pH Urine WBC (Auto) Fluid Total Protein 07/21/17 07/21/17 12:06 14:59 WBC RBC 2.65 L Hgb 8.0 L Hct 24.9 L MCV MCHC RDW 17.3 H Lymph % (Auto) 13.0 L [place] % (Auto) 9.0 H [place] # 0.9 H Seg Neutrophils % 75.9 H Seg Neutrophils # 8.0 H POC ABG pCO2 Sodium Carbon Dioxide BUN Glucose POC Glucose 123 H Calcium Iron TIBC Ferritin ALT Alkaline Phosphatase Ammonia Total Creatine Kinase CK-MB (CK-2) Rel Index Troponin T NT-Pro-B Natriuret Pep Total Protein Albumin Urine pH Urine WBC (Auto) Fluid Total Protein Allied health notes reviewed: nursing
== END 2017-07-24 10:57 | disposition home health service (06) | DRG 871 ==
LOC: ED 09:51 → 3A 15:18
PROVIDERS: ADMIT Internal Medicine; ATTEND Internal Medicine
PROC: 0TJ53ZZ Inspection of Kidney, Percutaneous Approach (ICD-10-PCS; 2017-07-15)
PROC: 0W993ZX Drainage of Right Pleural Cavity, Percutaneous Approach, Diagnostic (ICD-10-PCS; principal; 2017-07-18)
PROC: 0T25X0Z Change Drainage Device in Kidney, External Approach (ICD-10-PCS; 2017-07-19)
PROC: 4A033R1 Measurement of Arterial Saturation, Peripheral, Percutaneous Approach (ICD-10-PCS; 2017-07-19)
DX: A41.9 Sepsis, unspecified organism (principal); E43 Unspecified severe protein-calorie malnutrition; I50.43 Acute on chronic combined systolic (congestive) and diastolic (congestive) heart failure; N17.0 Acute kidney failure with tubular necrosis; N10 Acute pyelonephritis; Z68.1 Body mass index [BMI] 19.9 or less, adult; C79.51 Secondary malignant neoplasm of bone; J90 Pleural effusion, not elsewhere classified; C61 Malignant neoplasm of prostate; Z86.718 Personal history of other venous thrombosis and embolism; I25.2 Old myocardial infarction; G89.29 Other chronic pain; I25.10 Atherosclerotic heart disease of native coronary artery without angina pectoris; M19.90 Unspecified osteoarthritis, unspecified site; E78.5 Hyperlipidemia, unspecified; Z87.442 Personal history of urinary calculi; Z90.79 Acquired absence of other genital organ(s); N32.81 Overactive bladder; N13.9 Obstructive and reflux uropathy, unspecified; I11.0 Hypertensive heart disease with heart failure; R62.7 Adult failure to thrive; D63.8 Anemia in other chronic diseases classified elsewhere; Z79.82 Long term (current) use of aspirin
CPT/HCPCS: 32555; 36415; 36600; 50431; 50432; 50435; 71045; 74176; 80048; 80053; 80061; 80074; 81001; 82040; 82140; 82550; 82553; 82607; 82728; 82747; 82803; 82962; 83036; 83550; 83605; 83735; 83880; 84100; 84160; 84443; 84484; 85025; 85610; 85730; 87040; 87076; 87086; 87102; 87116; 87186; 87220; 88112; 88305; 88341; 88342; 93005; 93010; 93306; 94640; 96374; C1729; C1751; C1769; J0690; J0696; J1170; J1940; J1956; J2250; J2270; J2405; J3010; J7030; J7040; J7042; J7050; Q0162; Q9967

== ENCOUNTER 2017-08-08 06:35 | Inpatient (IN) | payer MEDICARE ==
[~2017-08-08 06:35] MED LIST changes: +cefTRIAXone 1 GM in NACL 0.9% 20 ML IV SCH
[2017-08-08] MEDS ORDERED: NACL 0.9% 0 ML IR ONE (08:16)
[2017-08-08] MEDS ORDERED: ANCEF/STERILE WATER 2 GM/20 ML 0 GM/0 ML SYRINGE IV ONE (08:16)
[2017-08-08] MEDS ORDERED: NACL 0.9% 250ML 0 ML ONE (08:16)
[2017-08-08] MEDS ORDERED: XYLOCAINE 2% INFILTRATI ONE (08:16)
[2017-08-08] MEDS ORDERED: LEVAQUIN 500MG/100ML 0 MG/0 ML BAG IV ONE (08:18)
[2017-08-08 08:31] LABS: Basophils # (Auto) 0.1 K/mm3 (0.0-0.1); Basophils % (Auto) 0.5 % (0.0-1.8); Eosinophils # (Auto) 0.1 K/mm3 (0.0-0.4); Eosinophils % (Auto) 0.4 % (0.0-4.3); Hematocrit 26.2 % (35.5-45.6); Hemoglobin 8.5 gm/dl (11.8-15.2); Lymphocytes # (Auto) 0.7 K/mm3 (1.2-5.4); Lymphocytes % (Auto) 5.3 % (13.4-35.0); Mean Corpuscular HGB Conc 33 % (32-34); Mean Corpuscular Hemoglobin 31 pg (28-32); Mean Corpuscular Volume 95 fl (84-94); Monocytes # (Auto) 0.8 K/mm3 (0.0-0.8); Platelet Count 213 K/mm3 (140-440); Red Blood Count 2.77 M/mm3 (3.65-5.03); Red Cell Distribution Width 17.8 % (13.2-15.2)
[2017-08-08] MEDS ORDERED: SUBLIMAZE ONE (08:31)
[2017-08-08] MEDS ORDERED: VERSED ONE (08:31)
[2017-08-08] MEDS ORDERED: NACL 0.9% 1000 ML 1,000 ML IV ONE (08:55)
[2017-08-08] MEDS ORDERED: NACL 0.9% 1000 ML 1,000 ML ONE (08:56)
[2017-08-08 08:59] LABS: Calcium 7.4 mg/dL (8.4-10.2)
[2017-08-08] MEDS: NACL 0.9% 1000 ML 1,000 ML IV SCH (10:35)
--- NOTE | 2017-08-08 10:46 | Event Note ---
87 year old male with end stage cancer from prostate cancer who is nephrostomy tube dependent with decreased drainage from the tubes and pain who was sent to the hospital for nephrostomy tube evaluation and change/new placement. He was found to be somnolent and hypotensive. 1 L bolus provided which made his BP respond from 80s to low 100s. A second L bolus is being provided. 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 He was made DNR today by his family. Discussed with family that the patient has end stage cancer and will likely need hospice (outpatient or inpatient) no matter what choice is made with his care. Discussed with them that he will need medical optimization, and if he responds well to it, then nephrostomy tube evaluation/change can be performed tomorrow. Discussed with Dr. Lisa.
[2017-08-08] MEDS ORDERED: APAP PO PRN (13:51)
[2017-08-08] MEDS ORDERED: HYDROCODONE PO PRN (13:51)
--- NOTE | 2017-08-08 13:56 | History and Physical Report ---
History of Present Illness Date of examination: 08/08/17 Date of admission: 08/08/17 13:30 Chief complaint: Hypotension History of present illness: 87-year-old male patient with stage IV prostate cancer with bilateral nephrostomy tubes was evaluated by CECY Becker for replacement of nephrostomy tubes, however patient was found to be hypotensive with very minimal improvement with bolus of IV fluids ,Hospitalist services were requested to admit the patient for medical management and possible of nephrostomy tube placement/change tomorrow if needed. Past History Past Medical History: acute [place], arthritis, CAD, DVT, hypertension, hyperlipidemia, renal failure, other (prostate cancer, metastases to the bone) Past Surgical History: Other (bilateral nephrostomy tubes,TURP) Social history: lives with family. denies: smoking, alcohol abuse, prescription drug abuse Family history: hypertension Medications and Allergies Allergies Allergy/AdvReac Type Severity Reaction Status Date / Time No Known Allergies Allergy Verified 07/13/17 13:15 Home Medications Medication Instructions Recorded Confirmed Last Taken Type Docusate Sodium [Colace CAP] 100 mg PO BID #60 capsule 11/05/15 08/08/17 Rx Enzalutamide (Nf) [Xtandi (Nf)] 4 cap PO DAILY 06/13/16 08/08/17 08/07/17 History Ondansetron [Zofran TAB] 4 mg PO PRN 08/31/16 08/08/17 08/07/17 History Ferrous Gluconate 240 mg PO TID 10/24/16 08/08/17 08/07/17 History Sodium Bicarbonate 2 tab PO BID 10/24/16 08/08/17 08/07/17 History Calcium 500-Vit D3 600 Caplet 500 mg PO DAILY 01/28/17 08/08/17 08/07/17 History Mirabegron [Myrbetriq] 50 mg PO QDAY 05/06/17 08/08/17 08/07/17 History Pantoprazole [Protonix TAB] 40 mg PO PRN PRN 05/06/17 08/08/17 08/07/17 History Carvedilol [Coreg] 6.25 mg PO BID #60 tablet 07/23/17 08/08/17 08/08/17 06:00 Rx Famotidine [Pepcid] 20 mg PO DAILY #30 tablet 07/23/17 08/08/17 08/07/17 Rx Furosemide [Lasix TAB] 40 mg PO QDAY #30 tablet 07/23/17 08/08/17 08/07/17 Rx HYDROcodone/APAP 10-325 1 tab PO Q6H PRN #14 07/23/17 08/08/17 08/07/17 Rx Lisinopril [Zestril TAB] 5 mg PO QDAY #30 tablet 07/23/17 08/08/17 08/08/17 06: 00 Rx Potassium Chloride [K-Dur] 20 meq PO QDAY #30 tablet 07/23/17 08/08/17 08/07/17 Rx ALBUTEROL NEB's [Proventil 0.083% 2.5 mg IH TID PRN #180 neb 07/24/17 08/08/17 08/06/17 Rx NEBS] Active Meds: Active Medications Carvedilol (Coreg) 6.25 mg PO BID AR[place]IS Docusate Sodium (Colace) 100 mg PO BID AR[place]IS Famotidine (Pepcid) 20 mg PO DAILY [place]IS Furosemide (Lasix) 40 mg PO QDAY AR[place]IS Sodium Chloride (Nacl 0.9% 500 Ml) 500 mls @ 50 mls/hr IV DIRECT ARAMIS Sodium Chloride (Nacl 0.9% 1000 Ml) 1,000 mls @ 999 mls/hr IV DIRECT ARAMIS Last Admin: 08/08/17 10:35 Dose: 999 mls/hr Miscellaneous Medication (Hydrocodone/Apap 10-325) 1 tab PO Q6H PRN PRN Reason: Pain Review of Systems Constitutional: weight loss, anorexia Ears, nose, mouth and throat: no nasal congestion, no nasal discharge Cardiovascular: no chest pain, no shortness of breath Respiratory: no cough, no shortness of breath Gastrointestinal: abdominal pain, other (discharge from umbilicus/fistula), no nausea, no vomiting Genitourinary Male: flank pain, other (nephrostomy tubes) Musculoskeletal: no myalgias, no arthritis Integumentary: no rash, no lesions Neurological: no seizures, no syncope Psychiatric: no anxiety, no depression Endocrine: no cold intolerance, no heat intolerance Hematologic/Lymphatic: no easy bruising, no easy bleeding Allergic/Immunologic: no urticaria, no allergic rhinitis Exam - Constitutional Vitals: Temp Pulse Resp BP Pulse Ox 98.3 F 83 14 107/57 97 08/08/17 11:00 08/08/17 13:00 08/08/17 13:00 08/08/17 13:00 08/08/17 13:00 General appearance: Present: mild distress, cachectic, disheveled - EENT Eyes: Present: PERRL, EOM intact - Neck Neck: Present: supple, normal ROM - Respiratory Respiratory effort: normal Respiratory: bilateral: diminished, rhonchi, negative: rales, wheezing - Cardiovascular Rhythm: regular Heart Sounds: Present: S1 & S2 - Extremities Extremities: no ischemia, No edema - Abdominal General gastrointestinal: Present: soft, non-tender, other (fistula abdominal wall/leaking urine) - Integumentary Integumentary: Present: clear, warm - Musculoskeletal Musculoskeletal: generalized weakness - Psychiatric Psychiatric: appropriate mood/affect, cooperative - Neurologic Neurologic: moves all extremities Results - Labs CBC & Chem 7: 08/09/17 09:30 08/09/17 09:30 Labs: Abnormal lab results 08/08/17 08/08/17 Range/Units 08:08 08:18 WBC 12.9 H (4.5-11.0) K/mm3 RBC 2.77 L (3.65-5.03) M/mm3 Hgb 8.5 L (11.8-15.2) gm/dl Hct 26.2 L (35.5-45.6) % MCV 95 H (84-94) fl RDW 17.8 H (13.2-15.2) % Lymph % (Auto) 5.3 L (13.4-35.0) % Lymph # 0.7 L (1.2-5.4) K/mm3 Seg Neutrophils % 87.8 H (40.0-70.0) % Seg Neutrophils # 11.3 H (1.8-7.7) K/mm3 Sodium 130 L (137-145) mmol/L Potassium 5.3 H (3.6-5.0) mmol/L Carbon Dioxide 18 L (22-30) mmol/L BUN 23 H (9-20) mg/dL Creatinine 1.8 H (0.8-1.5) mg/dL Glucose 118 H (75-100) mg/dL Calcium 7.4 L (8.4-10.2) mg/dL Assessment and Plan --Hypotension; aggressive IV hydration, hold antihypertensives Closely monitor --Acute kidney injury; obstructive uropathy , Vasomotor nephropathy, IV fluids, closely monitor renal function, avoid nephrotoxic medications, nephrostomy tube placement --History of recurrent UTI; urinalysis, urine cultures Empiric antibiotics --Metastatic prostate cancer; --Hyponatremia; replacement therapy with normal saline Closely monitor electrolytes --Hyperkalemia; Kayexalate, closely monitor potassium --Severe protein calorie malnutrition; nutrition supplements, nutrition consult as needed --Leukocytosis; rule out sepsis, empiric antibiotics as needed --DVT prophylaxis; SCD --DNR status --DC planning. Case management
[2017-08-08] MEDS: cefTRIAXone 1 GM in NACL 0.9% 20 ML IV SCH ×2 (19:10→23:37)
[2017-08-08] MEDS: COLACE PO SCH (22:55)
[2017-08-08] MEDS: COREG PO SCH (23:29)
[2017-08-09] MEDS: cefTRIAXone 1 GM in NACL 0.9% 20 ML IV SCH ×3 (00:50→12:33)
[2017-08-09] MEDS ORDERED: SUBLIMAZE ONE (09:35)
[2017-08-09] MEDS ORDERED: VERSED ONE (09:35)
[2017-08-09] MEDS ORDERED: NACL 0.9% 0 ML ONE (09:35)
[2017-08-09] MEDS ORDERED: NACL 0.9% 0 ML IR ONE (09:35)
[2017-08-09] MEDS ORDERED: LEVAQUIN 500MG/100ML 0 MG/0 ML BAG IV ONE (09:36)
[2017-08-09] MEDS ORDERED: XYLOCAINE 2% INFILTRATI ONE ×2 (09:36→13:56)
[2017-08-09] MEDS ORDERED: LASIX PO SCH (10:00)
--- NOTE | 2017-08-09 10:35 | Progress Note ---
Assessment and Plan Assessment and plan: --Hyperkalemia; calcium gluconate IV, Kayexalate Closely monitor potassium levels --Acute kidney injury; possible obstructive uropathy Worsening renal function,nephrostomy exchange today White nephrotoxins --Hypotension; aggressive IV hydration, significant improvement --History of recurrent UTI; urinalysis, urine cultures Empiric antibiotics --Metastatic prostate cancer; --Hyponatremia; replacement therapy with normal saline Closely monitor electrolytes --Hyperkalemia; Kayexalate, closely monitor potassium --Severe protein calorie malnutrition; nutrition supplements, nutrition consult as needed --Leukocytosis; rule out sepsis, empiric antibiotics as needed --Severe protein calorie malnutrition; nutrition supplements, supportive care --DVT prophylaxis; SCD --DO NOT RESUSCITATE status --DC planning. Case management Recommend hospice evaluation Plan of care discussed with the patient and the family member at the bedside Also discussed with Dr. Diane History Interval history: Patient seen and examined medical records reviewed Patient is more alert and awake today, blood pressure is slightly improved No new complaints Looks chronically ill and cachectic Scheduled for nephrostomy tube placement Vital signs reviewed Hospitalist Physical - Constitutional Vitals: Temp Pulse Resp BP Pulse Ox 98.9 F 90 20 105/60 98 08/09/17 05:21 08/09/17 05:21 08/09/17 05:21 08/09/17 05:21 08/09/17 05:21 General appearance: Present: no acute distress, cachectic, disheveled - EENT Eyes: Present: PERRL, EOM intact - Neck Neck: Present: supple, normal ROM - Respiratory Respiratory effort: normal Respiratory: bilateral: diminished, negative: rales, rhonchi, wheezing - Cardiovascular Rhythm: regular Heart Sounds: Present: S1 & S2 - Extremities Extremities: no ischemia, No edema - Abdominal General gastrointestinal: soft, non-tender, distended, normal bowel sounds, other (bilateral nephrostomy tubes, abdominal wall fistula with drainage) - Integumentary Integumentary: Present: clear, warm - Psychiatric Psychiatric: appropriate mood/affect, cooperative - Neurologic Neurologic: moves all extremities Results - Labs CBC & Chem 7: 08/09/17 09:30 08/09/17 09:30 Labs: Laboratory Last Values WBC 12.9 K/mm3 (4.5-11.0) H 08/08/17 08:18 RBC 2.77 M/mm3 (3.65-5.03) L 08/08/17 08:18 Hgb 8.5 gm/dl (11.8-15.2) L 08/08/17 08:18 Hct 26.2 % (35.5-45.6) L 08/08/17 08:18 MCV 95 fl (84-94) H 08/08/17 08:18 MCH 31 pg (28-32) 08/08/17 08:18 MCHC 33 % (32-34) 08/08/17 08:18 RDW 17.8 % (13.2-15.2) H 08/08/17 08:18 Plt Count 213 K/mm3 (140-440) 08/08/17 08:18 Lymph % (Auto) 5.3 % (13.4-35.0) L 08/08/17 08:18 [place] % (Auto) 6.0 % (0.0-7.3) 08/08/17 08:18 Eos % (Auto) 0.4 % (0.0-4.3) 08/08/17 08:18 Baso % (Auto) 0.5 % (0.0-1.8) 08/08/17 08:18 Lymph # 0.7 K/mm3 (1.2-5.4) L 08/08/17 08:18 [place] # 0.8 K/mm3 (0.0-0.8) 08/08/17 08:18 Eos # 0.1 K/mm3 (0.0-0.4) 08/08/17 08:18 Baso # 0.1 K/mm3 (0.0-0.1) 08/08/17 08:18 Seg Neutrophils % 87.8 % (40.0-70.0) H 08/08/17 08:18 Seg Neutrophils # 11.3 K/mm3 (1.8-7.7) H 08/08/17 08:18 Sodium 130 mmol/L (137-145) L 08/08/17 08:08 Potassium 5.3 mmol/L (3.6-5.0) H 08/08/17 08:08 Chloride 99.9 mmol/L (98-107) 08/08/17 08:08 Carbon Dioxide 18 mmol/L (22-30) L 08/08/17 08:08 Anion Gap 17 mmol/L 08/08/17 08:08 BUN 23 mg/dL (9-20) H 08/08/17 08:08 Creatinine 1.8 mg/dL (0.8-1.5) H 08/08/17 08:08 Estimated GFR 44 ml/min 08/08/17 08:08 BUN/Creatinine Ratio 13 % 08/08/17 08:08 Glucose 118 mg/dL (75-100) H 08/08/17 08:08 Calcium 7.4 mg/dL (8.4-10.2) L 08/08/17 08:08
[2017-08-09 10:49] LABS: Basophils % (Auto) 0.2 % (0.0-1.8); Eosinophils % (Auto) 0.1 % (0.0-4.3); Hematocrit 28.2 % (35.5-45.6); Hemoglobin 9.2 gm/dl (11.8-15.2); Lymphocytes # (Auto) 0.9 K/mm3 (1.2-5.4); Lymphocytes % (Auto) 5.4 % (13.4-35.0); Mean Corpuscular HGB Conc 33 % (32-34); Mean Corpuscular Hemoglobin 31 pg (28-32); Mean Corpuscular Volume 95 fl (84-94); Monocytes # (Auto) 1.1 K/mm3 (0.0-0.8); Red Blood Count 2.99 M/mm3 (3.65-5.03); Red Cell Distribution Width 18.3 % (13.2-15.2)
[2017-08-09 10:52] LABS: Platelet Count 213 K/mm3 (140-440)
[2017-08-09 11:08] LABS: Calcium 7.1 mg/dL (8.4-10.2)
[2017-08-09] MEDS: ZESTRIL PO SCH (12:23)
[2017-08-09] MEDS: COLACE PO SCH ×2 (12:23→21:44)
[2017-08-09] MEDS: COREG PO SCH ×2 (12:23→21:44)
[2017-08-09] MEDS: PEPCID PO SCH (12:23)
[2017-08-09] MEDS ORDERED: NACL 0.9% 250ML 250 ML ONE (13:56)
[2017-08-09] MEDS ORDERED: NACL 0.9% 500 ML IR ONE (13:56)
[2017-08-09] MEDS ORDERED: LEVAQUIN 500MG/100ML 500 MG/100 ML BAG IV ONE (13:56)
[2017-08-09] MEDS ORDERED: CALCIUM GLUCONATE 1,000 MG in NACL 0.9% 100 ML IV ONE (14:00)
[2017-08-09] MEDS ORDERED: KIONEX PO ONE (14:00)
--- NOTE | 2017-08-09 15:12 | Post Operative Note ---
Date of procedure: 08/09/17 Pre-op diagnosis: Right pyonephrosis Post-op diagnosis: same Procedure: PCN placement, right side Anesthesia: local (no conscious sedation) Surgeon: JOSELINE MCKEON Estimated blood loss: minimal Condition: stable Disposition: floor
--- NOTE | 2017-08-09 17:40 | Operative Report ---
Operative Report Operative Report: EXAM: 1. Ultrasound and fluoroscopic guided access of the lower posterior calyx of the right kidney 2. Nephrostogram of the right kidney 3. Percutaneous nephrostomy tube placement of the right kidney 4. Aborted left-sided nephrostomy tube exchange DATE: 08/09/17 CSR RETAIL: JOSELINE MCKEON MD INDICATION: Displaced right-sided nephrostomy with underlying pyonephrosis and possible left-sided nephrostomy tube malfunction with advanced prostate cancer. MEDICATIONS: Local anesthetic alone. DEVICES: 8 [place]i nephrostomy tube CONTRAST: Please see electroplating laborer report for full details. PROCEDURE: The risks, benefits, and alternatives were discussed with the patient; written informed consent was obtained. The patient's back was prepped and draped in a sterile fashion. The prior right -sided nephrostomy tube was completely outside of the collecting system and the puncture site could not be identified indicating that it has been out for probably greater than a week. The patient's puncture site was anesthetized with lidocaine. Under direct ultrasound guidance, the right lower pole posterior calyx was accessed with a 20-gauge needle. Pus was aspirated. 0.018 inch wire was passed into the collecting system. Needle was exchanged for a 6 [place] Accu stick system. 6 [place] Accustick system was advanced over the wire and passed into the collecting system. Wire, inner dilator and cannula were removed. Pus was aspirated. Contrast was injected confirming position within the collecting system. Nephrostogram was performed demonstrating pyonephrosis of the right collecting system which was moderately dilated. 0.035 inch Amplatz wire was advanced through the transitional dilator of the AccuStick system and the dilator was removed. 8 [place] nephrostomy tube was advanced over the wire. Wire was removed. [place] loop was performed in the renal pelvis. Portal material was washed with saline and aspirated in order to clear the collecting system of most of the debris. Contrast was injected into the nephrostomy tube confirming position within the collecting system. Contrast was aspirated. The nephrostomy tube was sutured in place with Ethilon. Sterile dressing applied. At this point, attention was turned to the left nephrostomy tube, but oxygen saturations were declining. Therefore the rest the procedure was aborted and the patient was flipped into a supine position. The patient was breathing. O2 saturations were then reobtained. The patient is DO NOT RESUSCITATE, and therefore no code was called during the procedure. The patient was transferred to the floor after the procedure and the family was notified of the events. FINDINGS: Please see procedure note above. IMPRESSION: 1. Successful nephrostogram of the right kidney demonstrating pyonephrosis with moderate dilatation of the collecting system with occlusion of the ureter. 2. Percutaneous nephrostomy tube placement in the lower posterior calyx of the right kidney. 3. Aborted left-sided nephrostomy tube exchange
[2017-08-09] MEDS: NACL 0.9% 500 ML 500 ML IV SCH (18:46)
[2017-08-09] MEDS: NORCO 10/325 PO PRN (21:45)
[2017-08-10] MEDS: cefTRIAXone 1 GM in NACL 0.9% 20 ML IV SCH ×2 (01:24→23:03)
[2017-08-10 05:55] LABS: Alanine Aminotransferase 6 units/L (7-56); Albumin 2.1 g/dL (3.9-5); BUN/Creatinine Ratio 13; Blood Urea Nitrogen 29 mg/dL (9-20); Calcium 6.8 mg/dL (8.4-10.2); Hemolysis Index 12
[2017-08-10 09:09] LABS: Basophils % (Auto) 0.3 % (0.0-1.8); Eosinophils # (Auto) 0.1 K/mm3 (0.0-0.4); Eosinophils % (Auto) 0.4 % (0.0-4.3); Hematocrit 26.1 % (35.5-45.6); Hemoglobin 8.3 gm/dl (11.8-15.2); Lymphocytes % (Auto) 7.9 % (13.4-35.0); Mean Corpuscular HGB Conc 32 % (32-34); Mean Corpuscular Hemoglobin 30 pg (28-32); Mean Corpuscular Volume 95 fl (84-94); Monocytes # (Auto) 0.8 K/mm3 (0.0-0.8); Monocytes % (Auto) 6.4 % (0.0-7.3); Platelet Count 174 K/mm3 (140-440); Red Blood Count 2.74 M/mm3 (3.65-5.03); Red Cell Distribution Width 18.3 % (13.2-15.2)
[2017-08-10] MEDS: PEPCID PO SCH (11:07)
[2017-08-10] MEDS: NORCO 10/325 PO PRN ×2 (11:08→18:21)
[2017-08-10] MEDS: COLACE PO SCH ×2 (11:09→23:01)
[2017-08-10] MEDS: COREG PO SCH ×2 (11:09→22:59)
[2017-08-10] MEDS: ZESTRIL PO SCH (11:56)
[2017-08-10] MEDS ORDERED: KIONEX PO ONE (14:00)
--- NOTE | 2017-08-10 19:41 | Progress Note ---
Assessment and Plan Assessment and plan: --Hyperkalemia; Kayexalate, monitor potassium levels --Acute kidney injury; possible obstructive uropathy Worsening renal function,nephrostomy exchange today --Hypotension; resolved --History of recurrent UTI; urinalysis, urine cultures Empiric antibiotics --Metastatic prostate cancer; very poor prognosis --Hyponatremia; replacement therapy with normal saline Closely monitor electrolytes --Hyperkalemia; Kayexalate, closely monitor potassium --Severe protein calorie malnutrition; nutrition supplements, nutrition consult as needed --Leukocytosis; due to sepsis secondary to UTI, trending down --Severe protein calorie malnutrition; nutrition supplements, supportive care --DVT prophylaxis; SCD --DO NOT RESUSCITATE status --DC planning. Case management Recommend hospice evaluation Plan of care discussed with the patient and his daughter History Interval history: Patient seen and examined this morning medical records reviewed Chronically ill-looking cachectic Complaints of generalized weakness Continues to have purulent discharge from abdominal fistula Vital signs reviewed Hospitalist Physical - Constitutional Vitals: Temp Pulse Resp BP Pulse Ox 98.4 F 84 16 133/72 87 08/10/17 07:44 08/10/17 04:18 08/10/17 07:44 08/10/17 07:44 08/10/17 03:41 General appearance: Present: no acute distress, cachectic, disheveled - EENT Eyes: Present: PERRL, EOM intact - Neck Neck: Present: supple, normal ROM - Respiratory Respiratory effort: normal Respiratory: bilateral: diminished, negative: rales, rhonchi, wheezing - Cardiovascular Rhythm: regular Heart Sounds: Present: S1 & S2 - Extremities Extremities: no ischemia, No edema - Abdominal General gastrointestinal: soft, non-tender, distended, normal bowel sounds, other (fistula with discharge) - Integumentary Integumentary: Present: clear, warm - Psychiatric Psychiatric: appropriate mood/affect, cooperative - Neurologic Neurologic: moves all extremities Results - Labs CBC & Chem 7: 08/10/17 08:27 08/10/17 05:07 Labs: Laboratory Last Values WBC 12.6 K/mm3 (4.5-11.0) H 08/10/17 08:27 RBC 2.74 M/mm3 (3.65-5.03) L 08/10/17 08:27 Hgb 8.3 gm/dl (11.8-15.2) L 08/10/17 08:27 Hct 26.1 % (35.5-45.6) L 08/10/17 08:27 MCV 95 fl (84-94) H 08/10/17 08:27 MCH 30 pg (28-32) 08/10/17 08: MCHC 32 % (32-34) 08/10/17 08: RDW 18.3 % (13.2-15.2) H 08/10/17 08:27 Plt Count 174 K/mm3 (140-440) 08/10/17 08:27 Lymph % (Auto) 7.9 % (13.4-35.0) L 08/10/17 08: [place] % (Auto) 6.4 % (0.0-7.3) 08/10/17 08: Eos % (Auto) 0.4 % (0.0-4.3) 08/10/17 08: Baso % (Auto) 0.3 % (0.0-1.8) 08/10/17 08:27 Lymph # 1.0 K/mm3 (1.2-5.4) L 08/10/17 08:27 [place] # 0.8 K/mm3 (0.0-0.8) 08/10/17 08:27 Eos # 0.1 K/mm3 (0.0-0.4) 08/10/17 08:27 Baso # 0.0 K/mm3 (0.0-0.1) 08/10/17 08:27 Seg Neutrophils % 85.0 % (40.0-70.0) H 08/10/17 08:27 Seg Neutrophils # 10.7 K/mm3 (1.8-7.7) H 08/10/17 08:27 Sodium 133 mmol/L (137-145) L 08/10/17 05:07 Potassium 5.3 mmol/L (3.6-5.0) H 08/10/17 05:07 Chloride 103.7 mmol/L (98-107) 08/10/17 05:07 Carbon Dioxide 14 mmol/L (22-30) L 08/10/17 05:07 Anion Gap 21 mmol/L 08/10/17 05:07 BUN 29 mg/dL (9-20) H 08/10/17 05:07 Creatinine 2.2 mg/dL (0.8-1.5) H 08/10/17 05:07 Estimated GFR 35 ml/min 08/10/17 05:07 BUN/Creatinine Ratio 13 % 08/10/17 05:07 Glucose 81 mg/dL (75-100) 08/10/17 05:07 Calcium 6.8 mg/dL (8.4-10.2) L 08/10/17 05:07 Total Bilirubin < 0.20 mg/dL (0.1-1.2) 08/10/17 05:07 AST 25 units/L (5-40) 08/10/17 05:07 ALT 6 units/L (7-56) L 08/10/17 05:07 Alkaline Phosphatase 140 units/L (35-129) H 08/10/17 05:07 Total Protein 5.7 g/dL (6.3-8.2) L 08/10/17 05:07 Albumin 2.1 g/dL (3.9-5) L 08/10/17 05:07 Albumin/Globulin Ratio 0.6 % 08/10/17 05:07
[2017-08-11] MEDS: NACL 0.9% 500 ML 500 ML IV SCH (06:54)
[2017-08-11] MEDS: PEPCID PO SCH (09:55)
[2017-08-11] MEDS: ZESTRIL PO SCH (09:55)
[2017-08-11] MEDS: COLACE PO SCH ×2 (09:55→21:47)
[2017-08-11] MEDS: COREG PO SCH ×2 (09:55→21:43)
--- NOTE | 2017-08-11 10:29 | Progress Note ---
Assessment and Plan Assessment and plan: --Hyperkalemia; received Kayexalate, No labs done today --Acute kidney injury; possible obstructive uropathy Worsening renal function,nephrostomy exchange today --Hypotension; resolved --History of recurrent UTI; urinalysis, urine cultures Empiric antibiotics --Metastatic prostate cancer; very poor prognosis --Hyponatremia; replacement therapy with normal saline Closely monitor electrolytes --Hyperkalemia; Kayexalate, closely monitor potassium --Severe protein calorie malnutrition; nutrition supplements, nutrition consult as needed --Leukocytosis; due to sepsis secondary to UTI, trending down --Severe protein calorie malnutrition; nutrition supplements, supportive care --DVT prophylaxis; SCD --DO NOT RESUSCITATE status --DC planning. Case management Recommend hospice evaluation Plan of care discussed with the patient and his daughter History Interval history: Patient seen and examined medical records reviewed Patient feels slightly better no new complaints Daughter the bedside No new events reported by the nursing staff Vital signs reviewed Hospitalist Physical - Constitutional Vitals: Temp Pulse Resp BP Pulse Ox 98.1 F 81 16 142/75 99 08/11/17 09:23 08/11/17 09:23 08/11/17 09:23 08/11/17 09:23 08/11/17 09:23 General appearance: Present: no acute distress, cachectic, disheveled - EENT Eyes: Present: PERRL, EOM intact - Neck Neck: Present: supple, normal ROM - Respiratory Respiratory effort: normal Respiratory: bilateral: diminished, negative: rales, rhonchi, wheezing - Cardiovascular Rhythm: regular Heart Sounds: Present: S1 & S2 - Extremities Extremities: no ischemia, No edema - Abdominal General gastrointestinal: soft, non-tender, normal bowel sounds, other ( nephrostomy tubes in place/abdominal dressing intact) - Integumentary Integumentary: Present: clear, warm - Psychiatric Psychiatric: appropriate mood/affect, other (minimally communicative) - Neurologic Neurologic: moves all extremities Results - Labs CBC & Chem 7: 08/10/17 08:27 08/10/17 05:07 Labs: Laboratory Last Values WBC 12.6 K/mm3 (4.5-11.0) H 08/10/17 08:27 RBC 2.74 M/mm3 (3.65-5.03) L 08/10/17 08:27 Hgb 8.3 gm/dl (11.8-15.2) L 08/10/17 08:27 Hct 26.1 % (35.5-45.6) L 08/10/17 08:27 MCV 95 fl (84-94) H 08/10/17 08:27 MCH 30 pg (28-32) 08/10/17 08: MCHC 32 % (32-34) 08/10/17 08: RDW 18.3 % (13.2-15.2) H 08/10/17 08:27 Plt Count 174 K/mm3 (140-440) 08/10/17 08:27 Lymph % (Auto) 7.9 % (13.4-35.0) L 08/10/17 08:27 [place] % (Auto) 6.4 % (0.0-7.3) 08/10/17 08: Eos % (Auto) 0.4 % (0.0-4.3) 08/10/17 08: Baso % (Auto) 0.3 % (0.0-1.8) 08/10/17 08:27 Lymph # 1.0 K/mm3 (1.2-5.4) L 08/10/17 08:27 [place] # 0.8 K/mm3 (0.0-0.8) 08/10/17 08:27 Eos # 0.1 K/mm3 (0.0-0.4) 08/10/17 08:27 Baso # 0.0 K/mm3 (0.0-0.1) 08/10/17 08:27 Seg Neutrophils % 85.0 % (40.0-70.0) H 08/10/17 08:27 Seg Neutrophils # 10.7 K/mm3 (1.8-7.7) H 08/10/17 08:27 Sodium 133 mmol/L (137-145) L 08/10/17 05:07 Potassium 5.3 mmol/L (3.6-5.0) H 08/10/17 05:07 Chloride 103.7 mmol/L (98-107) 08/10/17 05:07 Carbon Dioxide 14 mmol/L (22-30) L 08/10/17 05:07 Anion Gap 21 mmol/L 08/10/17 05:07 BUN 29 mg/dL (9-20) H 08/10/17 05:07 Creatinine 2.2 mg/dL (0.8-1.5) H 08/10/17 05:07 Estimated GFR 35 ml/min 08/10/17 05:07 BUN/Creatinine Ratio 13 % 08/10/17 05:07 Glucose 81 mg/dL (75-100) 08/10/17 05:07 Calcium 6.8 mg/dL (8.4-10.2) L 08/10/17 05:07 Total Bilirubin < 0.20 mg/dL (0.1-1.2) 08/10/17 05:07 AST 25 units/L (5-40) 08/10/17 05:07 ALT 6 units/L (7-56) L 08/10/17 05:07 Alkaline Phosphatase 140 units/L (35-129) H 08/10/17 05:07 Total Protein 5.7 g/dL (6.3-8.2) L 08/10/17 05:07 Albumin 2.1 g/dL (3.9-5) L 08/10/17 05:07 Albumin/Globulin Ratio 0.6 % 08/10/17 05:07
[2017-08-11] MEDS: NORCO 10/325 PO PRN (18:13)
[2017-08-11] MEDS: cefTRIAXone 1 GM in NACL 0.9% 20 ML IV SCH (21:51)
[2017-08-12 05:44] LABS: Hemoglobin 7.8 gm/dl (11.8-15.2); Mean Corpuscular HGB Conc 33 % (32-34); Mean Corpuscular Hemoglobin 30 pg (28-32); Mean Corpuscular Volume 94 fl (84-94); Platelet Count 146 K/mm3 (140-440); Red Blood Count 2.57 M/mm3 (3.65-5.03); Red Cell Distribution Width 17.4 % (13.2-15.2)
[2017-08-12 06:03] LABS: Calcium 6.8 mg/dL (8.4-10.2)
[2017-08-12] MEDS: NACL 0.9% 1000 ML 1,000 ML IV SCH ×2 (06:04→23:17)
[2017-08-12 07:01] LABS: Band Neutrophils # (Manual) 0.1 K/mm3; Basophils % (Manual) 0 % (0.0-1.8); Eosinophils % (Manual) 0 % (0.0-4.3); Myelocytes # (Manual) 0.2 K/mm3; Total Cells Counted 100
[2017-08-12 07:02] LABS: Anisocytosis 2+; Platelet Estimate Consistent w Auto
--- NOTE | 2017-08-12 10:15 | Progress Note ---
Assessment and Plan Assessment and plan: --Right hydronephrosis status post nephrostomy tube placement Left nephrostomy tube exchange when patient is more stable per IR --Left nephrostomy; unable to exchange as patient could not tolerate the procedure Discussed with not a candidate for any other procedures --Hyperkalemia; corrected --Acute kidney injury; possible obstructive uropathy s/p right nephrostomy exchange , creatinine level improved to 1.6 patient did not tolerate exchange of left nephrostomy --Hypotension; resolved --History of recurrent UTI; urinalysis, urine cultures negative to date Continue Rocephin, total 5 days --Metastatic prostate cancer; very poor prognosis --Abdominal/vesicular fistula; secondary to metastatic prostate cancer; Wound care, no surgical intervention recommended. --Hyponatremia; corrected --Hyperkalemia; corrected --Severe protein calorie malnutrition; nutrition supplements, nutrition consult as needed --Leukocytosis; resolved --DVT prophylaxis; SCD --DO NOT RESUSCITATE status --DC planning. Case management Recommend hospice, not at the bedside refused Home health/home wound care upon discharge Evaluation for home oxygen as needed Possible discharge home tomorrow if stable. Plan of care discussed with the patient's daughter nurse and the case management History Interval history: Patient seen and examined, medical records reviewed Since slightly better, complains of generalized weakness No new events reported by the nursing staff Chronically ill-looking cachectic and emaciated Vital signs reviewed Hospitalist Physical - Constitutional Vitals: Temp Pulse Resp BP Pulse Ox 97.7 F 72 18 157/77 72 L 08/12/17 08:13 08/12/17 08:13 08/12/17 08:13 08/12/17 08:13 08/12/17 08:13 General appearance: Present: no acute distress, cachectic, disheveled, other ( emaciated) - EENT Eyes: Present: PERRL, EOM intact - Neck Neck: Present: supple, normal ROM - Respiratory Respiratory effort: normal Respiratory: bilateral: diminished, negative: rales, rhonchi, wheezing - Cardiovascular Rhythm: regular Heart Sounds: Present: S1 & S2 - Extremities Extremities: no ischemia, No edema - Abdominal General gastrointestinal: soft, non-tender, non-distended, normal bowel sounds, other (fistula draining in dressing) - Integumentary Integumentary: Present: clear, warm - Psychiatric Psychiatric: other (minimally communicative) - Neurologic Neurologic: other (minimally communicative) Results - Labs CBC & Chem 7: 08/12/17 04:57 08/12/17 04:57 Labs: Laboratory Last Values WBC 9.6 K/mm3 (4.5-11.0) 08/12/17 04:57 RBC 2.57 M/mm3 (3.65-5.03) L 08/12/17 04:57 Hgb 7.8 gm/dl (11.8-15.2) L 08/12/17 04:57 Hct 24.0 % (35.5-45.6) L 08/12/17 04:57 MCV 94 fl (84-94) 08/12/17 04:57 MCH 30 pg (28-32) 08/12/17 04:57 MCHC 33 % (32-34) 08/12/17 04:57 RDW 17.4 % (13.2-15.2) H 08/12/17 04:57 Plt Count 146 K/mm3 (140-440) 08/12/17 04:57 Lymph % (Auto) 7.9 % (13.4-35.0) L 08/10/17 08:27 [place] % (Auto) 6.4 % (0.0-7.3) 08/10/17 08:27 Eos % (Auto) 0.4 % (0.0-4.3) 08/10/17 08:27 Baso % (Auto) 0.3 % (0.0-1.8) 08/10/17 08:27 Lymph # 1.0 K/mm3 (1.2-5.4) L 08/10/17 08:27 [place] # 0.8 K/mm3 (0.0-0.8) 08/10/17 08:27 Eos # 0.1 K/mm3 (0.0-0.4) 08/10/17 08:27 Baso # 0.0 K/mm3 (0.0-0.1) 08/10/17 08:27 Add Manual Diff Complete 08/12/17 04:57 Total Counted 100 08/12/17 04:57 Seg Neutrophils % 85.0 % (40.0-70.0) H 08/10/17 08:27 Seg Neuts % (Manual) 88.0 % (40.0-70.0) H 08/12/17 04:57 Band Neutrophils % 1.0 % 08/12/17 04:57 Lymphocytes % (Manual) 7.0 % (13.4-35.0) L 08/12/17 04:57 Reactive Lymphs % (Man) 0 % 08/12/17 04:57 Monocytes % (Manual) 2.0 % (0.0-7.3) 08/12/17 04:57 Eosinophils % (Manual) 0 % (0.0-4.3) 08/12/17 04:57 Basophils % (Manual) 0 % (0.0-1.8) 08/12/17 04:57 Metamyelocytes % 0 % 08/12/17 04:57 Myelocytes % 2.0 % 08/12/17 04:57 Promyelocytes % 0 % 08/12/17 04:57 Blast Cells % 0 % 08/12/17 04:57 Nucleated RBC % Not Reportable 08/12/17 04:57 Seg Neutrophils # 10.7 K/mm3 (1.8-7.7) H 08/10/17 08:27 Seg Neutrophils # Man 8.4 K/mm3 (1.8-7.7) H 08/12/17 04:57 Band Neutrophils # 0.1 K/mm3 08/12/17 04:57 Lymphocytes # (Manual) 0.7 K/mm3 (1.2-5.4) L 08/12/17 04:57 Abs React Lymphs (Man) 0.0 K/mm3 08/12/17 04:57 Monocytes # (Manual) 0.2 K/mm3 (0.0-0.8) 08/12/17 04:57 Eosinophils # (Manual) 0.0 K/mm3 (0.0-0.4) 08/12/17 04:57 Basophils # (Manual) 0.0 K/mm3 (0.0-0.1) 08/12/17 04:57 Metamyelocytes # 0.0 K/mm3 08/12/17 04:57 Myelocytes # 0.2 K/mm3 08/12/17 04:57 Promyelocytes # 0.0 K/mm3 08/12/17 04:57 Blast Cells # 0.0 K/mm3 08/12/17 04:57 WBC Morphology Not Reportable 08/12/17 04:57 Hypersegmented Neuts Not Reportable 08/12/17 04:57 Hyposegmented Neuts Not Reportable 08/12/17 04:57 Hypogranular Neuts Not Reportable 08/12/17 04:57 Smudge Cells Not Reportable 08/12/17 04:57 Toxic Granulation Not Reportable 08/12/17 04:57 Toxic Vacuolation Not Reportable 08/12/17 04:57 Dohle Bodies Not Reportable 08/12/17 04:57 Pelger-Huet Anomaly Not Reportable 08/12/17 04:57 Indu Rods Not Reportable 08/12/17 04:57 Platelet Estimate Consistent w auto 08/12/17 04:57 Clumped Platelets Not Reportable 08/12/17 04:57 Plt Clumps, EDTA Not Reportable 08/12/17 04:57 Large Platelets Not Reportable 08/12/17 04:57 Giant Platelets Not Reportable 08/12/17 04:57 Platelet Satelliting Not Reportable 08/12/17 04:57 Plt Morphology Comment Not Reportable 08/12/17 04:57 RBC Morphology Not Reportable 08/12/17 04:57 Dimorphic RBCs Not Reportable 08/12/17 04:57 Polychromasia Not Reportable 08/12/17 04:57 Hypochromasia Not Reportable 08/12/17 04:57 Poikilocytosis Not Reportable 08/12/17 04:57 Anisocytosis 2+ 08/12/17 04:57 Microcytosis Not Reportable 08/12/17 04:57 Macrocytosis Not Reportable 08/12/17 04:57 Spherocytes Not Reportable 08/12/17 04:57 Pappenheimer Bodies Not Reportable 08/12/17 04:57 Sickle Cells Not Reportable 08/12/17 04:57 Target Cells Not Reportable 08/12/17 04:57 Tear Drop Cells Not Reportable 08/12/17 04:57 Ovalocytes Not Reportable 08/12/17 04:57 Helmet Cells Not Reportable 08/12/17 04:57 Santana-Ratamosa Bodies Not Reportable 08/12/17 04:57 [place] Rings Not Reportable 08/12/17 04:57 Tonja Cells Not Reportable 08/12/17 04:57 Bite Cells Not Reportable 08/12/17 04:57 Crenated Cell Not Reportable 08/12/17 04:57 Elliptocytes Not Reportable 08/12/17 04:57 Acanthocytes (Spur) Not Reportable 08/12/17 04:57 Rouleaux Not Reportable 08/12/17 04:57 Hemoglobin C Crystals Not Reportable 08/12/17 04:57 Schistocytes Not Reportable 08/12/17 04:57 Malaria parasites Not Reportable 08/12/17 04:57 Cesario Bodies Not Reportable 08/12/17 04:57 Hem Pathologist Commnt No 08/12/17 04:57 Sodium 138 mmol/L (137-145) 08/12/17 04:57 Potassium 4.0 mmol/L (3.6-5.0) D 08/12/17 04:57 Chloride 106.2 mmol/L (98-107) 08/12/17 04:57 Carbon Dioxide 15 mmol/L (22-30) L 08/12/17 04:57 Anion Gap 21 mmol/L 08/12/17 04:57 BUN 24 mg/dL (9-20) H 08/12/17 04:57 Creatinine 1.6 mg/dL (0.8-1.5) H 08/12/17 04:57 Estimated GFR 50 ml/min 08/12/17 04:57 BUN/Creatinine Ratio 15 % 08/12/17 04:57 Glucose 97 mg/dL (75-100) 08/12/17 04:57 Calcium 6.8 mg/dL (8.4-10.2) L 08/12/17 04:57 Total Bilirubin < 0.20 mg/dL (0.1-1.2) 08/10/17 05:07 AST 25 units/L (5-40) 08/10/17 05:07 ALT 6 units/L (7-56) L 08/10/17 05:07 Alkaline Phosphatase 140 units/L (35-129) H 08/10/17 05:07 Total Protein 5.7 g/dL (6.3-8.2) L 08/10/17 05:07 Albumin 2.1 g/dL (3.9-5) L 08/10/17 05:07 Albumin/Globulin Ratio 0.6 % 08/10/17 05:07
[2017-08-12] MEDS: PEPCID PO SCH (10:35)
[2017-08-12] MEDS: ZESTRIL PO SCH (10:35)
[2017-08-12] MEDS: COLACE FEEDTUBE SCH ×2 (10:35→21:07)
[2017-08-12] MEDS: COREG PO SCH ×2 (10:36→21:03)
[2017-08-12] MEDS: NORCO 10/325 PO PRN (20:52)
[2017-08-12] MEDS: cefTRIAXone 1 GM in NACL 0.9% 20 ML IV SCH (22:30)
--- NOTE | 2017-08-13 09:50 | Discharge Summary ---
Providers - Providers Date of Admission: 08/08/17 13:30 Date of discharge: 08/13/17 Attending physician: RICHMOND JAMESON 08/12/17 11:45 Consult to Wound/ET Nurse [CONS] Urgent Reason For Exam: wound eval abdomonal and sacral wound. Primary care physician: MARCO ANTONIO WEAVER Hospitalization Hospital course: --Right hydronephrosis status post nephrostomy tube placement Left nephrostomy tube exchange when patient is more stable per IR --Left nephrostomy; unable to exchange as patient could not tolerate the procedure Discussed with not a candidate for any other procedures --Hyperkalemia; corrected --Acute kidney injury; possible obstructive uropathy s/p right nephrostomy exchange , creatinine level improved to 1.6 patient did not tolerate exchange of left nephrostomy --Hypotension; resolved --History of recurrent UTI; urinalysis, urine cultures negative to date Continue Rocephin, total 5 days --Metastatic prostate cancer; very poor prognosis --Abdominal/vesicular fistula; secondary to metastatic prostate cancer; Wound care, no surgical intervention recommended. --Hyponatremia; corrected --Hyperkalemia; corrected --Severe protein calorie malnutrition; nutrition supplements, nutrition consult as needed --Leukocytosis; resolved --DVT prophylaxis; SCD --DO NOT RESUSCITATE status Disposition: [id number] HOME UND[facility] Time spent for discharge: 35 min Core Measure Documentation - Palliative Care Palliative Care/ Comfort Measures: Not Applicable - Core Measures Any of the following diagnoses?: none Exam - Constitutional Vitals: Temp Pulse Resp BP Pulse Ox 98.6 F 75 14 153/83 99 08/13/17 08:35 08/13/17 08:35 08/13/17 08:35 08/13/17 08:35 08/13/17 08:35 General appearance: Present: no acute distress, cachectic, disheveled - EENT Eyes: Present: PERRL, EOM intact - Neck Neck: Present: supple, normal ROM - Respiratory Respiratory: bilateral: diminished, negative: rales, rhonchi, wheezing - Cardiovascular Rhythm: regular Heart Sounds: Present: S1 & S2 - Extremities Extremities: no ischemia, No edema - Abdominal General gastrointestinal: Present: soft, non-tender, non-distended, other ( bilateral nephrostomy tubes/abdominal wall fistula with urine draining) - Integumentary Integumentary: Present: clear, warm - Musculoskeletal Musculoskeletal: generalized weakness - Psychiatric Psychiatric: other (minimally communicative) - Neurologic Neurologic: moves all extremities, other (minimally communicative) Plan Activity: advance as tolerated, fall precautions Diet: regular Wound: per wound nurse instructions Additional Instructions: Follow-up private urology, as needed Follow up with: MARCO ANTONIO WEAVER JR, MD [Primary Care Provider] - 7 Days Prescriptions: HYDROcodone/APAP 10-325 [Hooper 10-325 mg TAB] 1 each PO BID PRN #10 tablet PRN Reason: Pain, Moderate (4-6)
[2017-08-13] MEDS: PEPCID PO SCH (10:25)
[2017-08-13] MEDS: COREG PO SCH (10:25)
[2017-08-13] MEDS: ZESTRIL PO SCH (10:28)
[2017-08-13] MEDS: COLACE FEEDTUBE SCH (10:29)
[2017-08-13 16:59] VITALS: BP 151/77
== END 2017-08-13 14:30 | disposition home health service (06) | DRG 871 ==
LOC: CATHLABREC 06:35 → UNDOADMIN 13:05 → 4A 13:05
PROVIDERS: ADMIT Internal Medicine; ATTEND Internal Medicine
PROC: BT111ZZ Fluoroscopy of Right Kidney using Low Osmolar Contrast (ICD-10-PCS; principal; 2017-08-09)
PROC: 0T9330Z Drainage of Right Kidney Pelvis with Drainage Device, Percutaneous Approach (ICD-10-PCS; 2017-08-09)
PROC: 0TJ53ZZ Inspection of Kidney, Percutaneous Approach (ICD-10-PCS; 2017-08-09)
DX: A41.9 Sepsis, unspecified organism (principal); N17.0 Acute kidney failure with tubular necrosis; E43 Unspecified severe protein-calorie malnutrition; E87.1 Hypo-osmolality and hyponatremia; Z68.1 Body mass index [BMI] 19.9 or less, adult; N13.6 Pyonephrosis; E87.5 Hyperkalemia; Z82.49 Family history of ischemic heart disease and other diseases of the circulatory system; E78.5 Hyperlipidemia, unspecified; Z85.46 Personal history of malignant neoplasm of prostate; Z85.830 Personal history of malignant neoplasm of bone; I25.2 Old myocardial infarction; Z66 Do not resuscitate
CPT/HCPCS: 36415; 50432; 80048; 80053; 85007; 85025; 87040; 87086; C1729; C1751; C1769; J0610; J0690; J0696; J1956; J2250; J3010; J7030; J7040; J7050; Q9967